=== PATIENT | male | born 1955 | race Caucasian/White ===

== ENCOUNTER 2017-06-23 14:59 | Emergency (ER) | payer MEDICAID, MEDICARE ==
[~2017-06-23] VITALS: Ht 172.7 cm; Wt 115.7 kg
[~2017-06-23 14:59] MED LIST: ALPR0.5T PO; ASA/500T3 PO; DIPH25CA79 PO; IBUP-2055 PO; LOSA50TA36 PO; METO-272 PO; NITR0.4T39 SL; PANT40TA2 PO; SUCR1TAB36 PO
--- OUTSIDE RECORDS SUMMARY | 2017-06-23 15:04 | XMS REPORT ---
Author Author AMERICO SHARMA Organization [employer] Address Unknown Phone Unavailable Care Team Providers Care Spa Manager/Esthetician Name Role Phone AMERICO SHARMA CP Unavailable Allergies No Known Allergies Problems Problem Type Condition Code Onset Dates Condition Status Problem Other and unspecified angina pectoris 413.9 Active Problem Hyperlipemia 272.4 Active Problem Other abnormal blood chemistry 790.6 Active Problem Anxiety state, unspecified 300.00 Active Problem Essential hypertension, benign 401.1 Active Problem Anxiety F41.9 Active Problem Primary insomnia F51.01 Active Problem Essential hypertension I10 Active Problem Hypertension 401.9 Active Problem CAD (coronary artery disease) 414.00 Active Problem Visual changes H53.9 Active Problem Chest pain 786.50 Active Medications Medication Code System Code Instructions Start Date End Date Status Dosage losartan NDC 0 50 mg orally 2 times a day November 28, 2014 1 tablet Results No Known Results Summary Purpose eClinicalWorks Submission
--- OUTSIDE RECORDS SUMMARY | 2017-06-23 15:04 | XMS REPORT ---
Author Author AMERICO SHARMA Organization [employer] Address Unknown Phone Unavailable Care Team Providers Care Multifocal Button Grinder Name Role Phone AMERICO SHARMA CP Unavailable Allergies No Known Allergies Problems Problem Type Condition Code Onset Dates Condition Status Problem Anxiety state, unspecified 300.00 Active Problem Hypertension 401.9 Active Problem CAD (coronary artery disease) 414.00 Active Problem Chest pain 786.50 Active Problem Other and unspecified angina pectoris 413.9 Active Problem Essential hypertension, benign 401.1 Active Problem Hyperlipemia 272.4 Active Problem Other abnormal blood chemistry 790.6 Active Medications Medication Code System Code Instructions Start Date End Date Status Dosage Metoprolol Succinate NDC 0 50 mg November 28, 2014 take 1 tablet by Oral route 1 time per day Results No Known Results Summary Purpose eClinicalWorks Submission
--- OUTSIDE RECORDS SUMMARY | 2017-06-23 15:05 | XMS REPORT ---
Author Author AMERICO SHARMA Organization [employer] Address Unknown Phone Unavailable Care Team Providers Care Category Director Name Role Phone AMERICO SHARMA CP Unavailable Allergies No Known Allergies Problems Problem Type Condition Code Onset Dates Condition Status Problem Bloody stools K92.1 Active Problem Essential hypertension I10 Active Problem Epigastric pain R10.13 Active Problem Visual changes H53.9 Active Problem Anxiety F41.9 Active Problem Primary insomnia F51.01 Active Medications Medication Code System Code Instructions Start Date End Date Status Dosage Xanax [facility] [address]-80 0.5 MG Orally Three times a day prn- appt needed before next refill 1 tablet Results No Known Results Summary Purpose eClinicalWorks Submission
--- OUTSIDE RECORDS SUMMARY | 2017-06-23 15:05 | XMS REPORT ---
Author Author JIAN BAILEY Organization [employer] Address Unknown Phone Unavailable Care Team Providers Care Head Boys Tennis Coach Name Role Phone JIAN BAILEY Unavailable Allergies No Known Allergies Problems Problem Type Condition Code Onset Dates Condition Status Problem Visual changes H53.9 Active Problem Anxiety F41.9 Active Problem Primary insomnia F51.01 Active Problem Mixed hyperlipidemia E78.2 Active Problem Pain in left knee M25.562 Active Problem Gastroesophageal reflux disease without esophagitis K21.9 Active Problem Bloody stools K92.1 Active Problem Essential hypertension I10 Active Problem Gastritis determined by endoscopy K29.70 Active Problem Epigastric pain R10.13 Active Medications No Known Medications Results No Known Results Summary Purpose eClinicalWorks Submission
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
--- OUTSIDE RECORDS SUMMARY | 2017-06-23 15:05 | XMS REPORT ---
Author Author AMERICO SHARMA Organization [employer] Address Unknown Phone Unavailable Care Team Providers Care Lip Cutter And Scorer Name Role Phone AMERICO SHARMA CP Unavailable Allergies No Known Allergies Problems Problem Type Condition Code Onset Dates Condition Status Problem Primary insomnia F51.01 Active Problem Visual changes H53.9 Active Problem Mixed hyperlipidemia E78.2 Active Problem Pain in left knee M25.562 Active Problem Gastroesophageal reflux disease without esophagitis K21.9 Active Problem Essential hypertension I10 Active Problem Anxiety F41.9 Active Problem Gastritis determined by endoscopy K29.70 Active Problem Epigastric pain R10.13 Active Medications No Known Medications Results No Known Results Summary Purpose eClinicalWorks Submission
--- OUTSIDE RECORDS SUMMARY | 2017-06-23 15:05 | XMS REPORT ---
Author Author AMERICO SHARMA Organization [employer] Address Unknown Phone Unavailable Care Team Providers Care Field Agent Name Role Phone AMERICO SHARMA CP Unavailable Allergies No Known Allergies Problems Problem Type Condition ICD-9 Code Onset Dates Condition Status Problem Anxiety [...] Start Date End Date Status Dosage Xanax [facility] [address]-96 0.5 MG Orally Three times a day PRN- Must have appt in Apr for futher refills November 28, 2014 1 tablet Results No Known Results Summary Purpose eClinicalWorks Submission
--- OUTSIDE RECORDS SUMMARY | 2017-06-23 15:05 | XMS REPORT ---
Author Author AMERICO SHARMA Organization [employer] Address Unknown Phone Unavailable Care Team Providers Care Wash Worker Name Role Phone AMERICO SHARMA CP Unavailable [...] Start Date End Date Status Dosage Xanax [facility] [address]-86 0.5 MG Orally Three times a day prn- appt needed before next refill November 28, 2014 1 tablet Results No Known Results Summary Purpose eClinicalWorks Submission
--- OUTSIDE RECORDS SUMMARY | 2017-06-23 15:05 | XMS REPORT ---
Author Author RACHELL LU Organization eClinical[employer] Address Unknown Phone Unavailable Care Team Providers Care Junior Qa Analyst Name Role Phone RACHELL LU CP Unavailable Allergies, Adverse Reactions, Alerts Substance Reaction Event Type Lexapro Suicidal ideation Drug Allergy Problems Problem Type Condition ICD-9 Code Onset Dates Condition Status Assessment Hyperlipemia 272.4 Active Problem Anxiety state, unspecified 300.00 Active Assessment Chest pain 786.50 Active Problem Hypertension 401.9 Active Problem CAD (coronary artery disease) 414.00 Active Problem Chest pain 786.50 Active Problem Other and unspecified angina pectoris 413.9 Active Problem Essential hypertension, benign 401.1 Active Problem Hyperlipemia 272.4 Active Problem Other abnormal blood chemistry 790.6 Active Assessment History of tobacco use V15.82 Active Assessment Anxiety 300.00 Active Assessment Hypertension 401.9 Active Medications Medication Code System Code Instructions Start Date End Date Status Dosage losartan NDC 0 50 mg November 28, 2014 take 1 tablet by Oral route 2 times per day REPOSITORY MED Nitrostat [facility] [address]-20 0.4 MG May 15, 2014 1 tablet by Sublingual route 3 times per day PRN chest pain; Metoprolol Succinate NDC 0 50 mg November 28, 2014 take 1 tablet by Oral route 1 time per day Repository Xanax [facility] [address]-69 0.5 MG Orally Three times a day PRN- Must have appt in Apr for futher refills November 28, 2014 1 tablet Procedures Procedure Coding System Code Date Office Visit, Est Pt., Level 4 CPT-4 38092 May 30, 2015 Vital Signs Date/Time: May 30, 2015 Temperature 97.9 F Weight 222.6 lbs Height 67 in BMI 34.86 Index Blood Pressure Diastolic 84 mmHg Blood Pressure Systolic 132 mmHg Cardiac Monitoring Heart Rate 70 bpm Results No Known Results Summary Purpose eClinicalWorks Submission
--- OUTSIDE RECORDS SUMMARY | 2017-06-23 15:05 | XMS REPORT ---
Author Author AMERICO SHARMA Organization [employer] Address Unknown Phone Unavailable Care Team Providers Care Entry Level Sales Consultant Name Role Phone AMERICO SHARMA CP Unavailable [...] route 2 times per day REPOSITORY MED Results No Known Results Summary Purpose eClinicalWorks Submission
--- OUTSIDE RECORDS SUMMARY | 2017-06-23 15:05 | XMS REPORT ---
Author Author AMERICO SHARMA Organization [employer] Address Unknown Phone Unavailable Care Team Providers Care Receiving Associate Store Name Role Phone AMERICO SHARMA CP Unavailable [...] Start Date End Date Status Dosage Xanax [facility] [address]-99 0.5 MG Orally Three times a day prn November 28, 2014 1 tablet Results No Known Results Summary Purpose eClinicalWorks Submission
--- OUTSIDE RECORDS SUMMARY | 2017-06-23 15:05 | XMS REPORT ---
Author Author AMERICO SHARMA Organization [employer] Address Unknown Phone Unavailable Care Team Providers Care Branch Operations Specialist Name Role Phone AMERICO SHARMA CP Unavailable [...] Start Date End Date Status Dosage Xanax [facility] [address]-97 0.5 MG Orally Three times a day PRN- Must have appt in Nov before due for next refill November 28, 2014 1 tablet Results No Known Results Summary Purpose eClinicalWorks Submission
--- OUTSIDE RECORDS SUMMARY | 2017-06-23 15:05 | XMS REPORT ---
Author Author AMERICO SHARMA Organization [employer] Address Unknown Phone Unavailable Care Team Providers Care Mgmt Specialist Name Role Phone AMERICO SHARMA CP [...] Active Problem Epigastric pain R10.13 Active Medications Medication Code System Code Instructions Start Date End Date Status Dosage Xanax [facility] [address]-51 0.5 MG Orally Three times a day prn- must last 28 days 1 tablet Results No Known Results Summary Purpose eClinicalWorks Submission
--- OUTSIDE RECORDS SUMMARY | 2017-06-23 15:05 | XMS REPORT ---
Author Author AMERICO SHARMA [facility] eClinicalWorks Address Unknown Phone Unavailable Care Team Providers Care Community Development Aide Name Role Phone AMERICO SHARMA CP Unavailable [...]
--- OUTSIDE RECORDS SUMMARY | 2017-06-23 15:05 | XMS REPORT ---
Author Author AMERICO SHARMA [facility] Address [address] [place] [address] Care Team Providers Care Tufter Name Role Phone AMERICO SHARMA Unavailable PROBLEMS Type Condition ICD9-CM Code XHI03-KR Code Onset Dates Condition Status SNOMED Code Problem Visual changes H53.9 Active 79623066 Problem Anxiety F41.9 Active 49507834 Problem Primary insomnia F51.01 Active 6056821 Problem Gastroesophageal reflux disease without esophagitis K21.9 Active 673876472 Problem Mixed hyperlipidemia E78.2 Active 032340261 Problem Epigastric pain R10.13 Active 75419030 Problem Essential hypertension I10 Active 71167924 Problem Pain in left knee M25.562 Active 47948994 Problem Gastritis determined by endoscopy K29.70 Active 2963688 ALLERGIES Unknown Allergies SOCIAL HISTORY No smoking Hx information available PLAN OF CARE VITAL SIGNS MEDICATIONS Medication Instructions Dosage Frequency Start Date End Date Duration Status Xanax 0.5 MG Orally Three times a day prn- must last 28 days 1 tablet Active RESULTS No Results PROCEDURES No Known procedures IMMUNIZATIONS No Known Immunizations
--- OUTSIDE RECORDS SUMMARY | 2017-06-23 15:05 | XMS REPORT ---
Author Author AMERICO SHARMA [facility] Address [address] [place] [address] Care Team Providers Care Repair Service Clerk Name Role Phone AMERICO SHARMA Unavailable PROBLEMS Type Condition ICD9-CM Code [id number] Code Onset Dates Condition Status SNOMED Code Problem Visual changes H53.9 Active 29439900 Problem Anxiety F41.9 Active 08067047 Problem Essential hypertension I10 Active 59957277 Problem Primary insomnia F51.01 Active 0373663 Problem Primary osteoarthritis of left knee M17.12 Active 529066462 Problem Gastritis determined by endoscopy K29.70 Active 1097216 Problem Gastroesophageal reflux disease without esophagitis K21.9 Active 926257278 Problem Epigastric pain R10.13 Active 10986019 Problem Pain in left knee M25.562 Active 18172848 Problem Mixed hyperlipidemia E78.2 Active 651460258 ALLERGIES Unknown Allergies SOCIAL HISTORY No smoking Hx information available PLAN OF CARE VITAL SIGNS MEDICATIONS Medication Instructions Dosage Frequency Start Date End Date Duration Status Xanax 0.5 MG Orally Three times a day prn 1 tablet Active RESULTS No Results PROCEDURES No Known procedures IMMUNIZATIONS No Known Immunizations
--- OUTSIDE RECORDS SUMMARY | 2017-06-23 15:06 | XMS REPORT ---
Author AMERICO [facility] eClinicalWorks Address Unknown Phone Unavailable Care Team Providers Care Parking Enforcement Technician Name Role Phone AMERICO SHARMA Unavailable Allergies, Adverse Reactions, Alerts Substance Reaction Event Type Lexapro Suicidal ideation Drug Allergy Problems Problem Type Condition Code Onset Dates Condition Status Assessment Essential hypertension I10 Active Problem Primary insomnia F51.01 Active Problem Visual changes H53.9 Active Problem Mixed hyperlipidemia E78.2 Active Problem Pain in left knee M25.562 Active Problem Gastroesophageal reflux disease without esophagitis K21.9 Active Problem Essential hypertension I10 Active Problem Anxiety F41.9 Active Problem Gastritis determined by endoscopy K29.70 Active Problem Epigastric pain R10.13 Active Assessment Pain in left knee M25.562 Active Assessment Mixed hyperlipidemia E78.2 Active Assessment Primary insomnia F51.01 Active Assessment Gastritis determined by endoscopy K29.70 Active Assessment Anxiety F41.9 Active Medications Medication Code System Code Instructions Start Date End Date Status Dosage Benadryl [facility] [address]-54 not defined Sucralfate [facility] [address]-12 1 GM Orally 4 times a day 1 tablet on an empty stomach Xanax [facility] [address]-46 0.5 MG Orally Three times a day prn 1 tablet Metoprolol Succinate ER [facility] [id number] 50 MG TAKE ONE TABLET BY MOUTH TWICE DAILY. Metoprolol Succinate NDC 0 50 mg Orally 2 times a day 1 tablet by Oral route 1 time per day Pantoprazole Sodium [facility] [address]-16 40 mg Orally Once a day 1 tablet losartan NDC 0 50 mg orally 2 times a day 1 tablet Trazodone HCl [facility] 82771534499 100 MG Orally Once a day 1 tablet at bedtime Procedures Procedure Coding System Code Date Office Visit, Est Pt., Level 4 CPT-4 84815 Aug 18, 2016 Vital Signs Date/Time: Aug 18, 2016 Cardiac Monitoring Heart Rate 82 bpm Weight 244.0 lbs Height 67 in BMI 38.21 Index Blood Pressure Diastolic 86 mmHg Blood Pressure Systolic 138 mmHg Results No Known Results Summary Purpose eClinicalWorks Submission
--- OUTSIDE RECORDS SUMMARY | 2017-06-23 15:06 | XMS REPORT ---
Author Author AMERICO SHARMA [facility] Address [address] [place] [address] Care Team Providers Care Gasoline Engine Assembler Name Role Phone AMERICO SHARMA Unavailable PROBLEMS Type Condition ICD9-CM Code [id number] Code Onset Dates Condition Status SNOMED Code Problem Primary insomnia F51.01 Active 2838045 Problem Essential hypertension I10 Active 07799698 Problem Anxiety F41.9 Active 72017591 Problem Visual changes H53.9 Active 72434855 Problem Primary osteoarthritis of left knee M17.12 Active 364198425 Problem Gastroesophageal reflux disease without esophagitis K21.9 Active 365100006 Problem Gastritis determined by endoscopy K29.70 Active 2541876 Problem Epigastric pain R10.13 Active 12942363 Problem Mixed hyperlipidemia E78.2 Active 431931380 Problem Pain in left knee M25.562 Active 14613621 ALLERGIES Unknown Allergies SOCIAL HISTORY No smoking Hx information available PLAN OF CARE VITAL SIGNS MEDICATIONS Medication Instructions Dosage Frequency Start Date End Date Duration Status Xanax 0.5 MG Orally Three times a day prn 1 tablet Active RESULTS No Results PROCEDURES No Known procedures IMMUNIZATIONS No Known Immunizations
--- OUTSIDE RECORDS SUMMARY | 2017-06-23 15:06 | XMS REPORT ---
Author Author AMERICO SHARMA [facility] eClinicalWorks Address Unknown Phone Unavailable Care Team Providers Care Drapery Hand Name Role Phone AMERICO SHARMA Unavailable Allergies, [...] Active Problem Epigastric pain R10.13 Active Assessment Mixed hyperlipidemia E78.2 Active Assessment Primary insomnia F51.01 Active Assessment Gastritis determined by endoscopy K29.70 Active Assessment Anxiety F41.9 Active Assessment Pain in left knee M25.562 Active Assessment Essential hypertension I10 Active Medications Medication Code System Code Instructions Start Date End Date Status Dosage Sucralfate [facility] [address]-41 1 GM Orally 4 times a day 1 tablet on an empty stomach Pantoprazole Sodium [facility] [address]-34 40 mg Orally Once a day 1 tablet Benadryl [facility] [address]-92 not defined Metoprolol Succinate ER [facility] 11531095734 50 MG TAKE ONE TABLET BY MOUTH TWICE DAILY. Xanax [facility] [address]-93 0.5 MG Orally Three times a day prn 1 tablet losartan NDC 0 50 mg orally 2 times a day 1 tablet Trazodone HCl [facility] 55174751644 100 MG Orally Once a day 1 tablet at bedtime Metoprolol Succinate NDC 0 50 mg Orally 2 times a day 1 tablet by Oral route 1 time per day PredniSONE [facility] [address]-82 10 mg Orally twice a day May 19, 2016Apr 1 tablet Procedures Procedure Coding System Code Date LIPID PANEL CPT-4 76908 May 19, 2016 COMPREHEN METABOLIC PANEL CPT-4 15313 May 19, 2016 X-RAY EXAM OF KNEE, 3 CPT-4 69757 May 19, 2016 ASSAY OF MAGNESIUM CPT-4 41699 May 19, 2016 ASSAY THYROID STIM HORMONE CPT-4 16916 May 19, 2016 VENIPUNCT, ROUTINE* CPT-4 65339 May 19, 2016 Office Visit, Est Pt., Level 4 CPT-4 84920 May 19, 2016 Vital Signs Date/Time: May 19, 2016 Cardiac Monitoring Heart Rate 72 bpm Weight 243.6 lbs Height 67 in BMI 38.15 Index Blood Pressure Diastolic 88 mmHg Blood Pressure Systolic 142 mmHg Results No Known Results Summary Purpose eClinicalWorks Submission
--- OUTSIDE RECORDS SUMMARY | 2017-06-23 15:06 | XMS REPORT ---
Author Author AMERICO SHARMA Organization e[employer] Address Unknown Phone Unavailable Care Team Providers Care Weaving Teacher Name Role Phone AMERICO SHARMA CP Unavailable [...] Date End Date Status Dosage Xanax [facility] [address]-28 0.5 MG Orally Three times a day prn- Must keep appt on 08/13 for futher refills November 28, 2014 1 tablet Results No Known Results Summary Purpose eClinicalWorks Submission
--- OUTSIDE RECORDS SUMMARY | 2017-06-23 15:06 | XMS REPORT ---
Author Author AMERICO SHARMA [facility] Address [address] [place] [address] Care Team Providers Care Treatment Counselor Name Role Phone AMERICO SHARMA Unavailable PROBLEMS Type Condition ICD9-CM Code [id number] Code Onset Dates Condition Status SNOMED Code Problem Visual changes H53.9 Active 03841302 Problem Anxiety F41.9 Active 64634892 Problem Primary insomnia F51.01 Active 9201986 Assessment Pain in left knee M25.562 12 May, 2016 Active 27510975 Problem Gastroesophageal reflux disease without esophagitis K21.9 Active 495563790 Problem Mixed hyperlipidemia E78.2 Active 468713020 Problem Epigastric pain R10.13 Active 47112511 Problem Essential hypertension I10 Active 78762418 Problem Pain in left knee M25.562 Active 45424113 Problem Gastritis determined by endoscopy K29.70 Active 0755368 ALLERGIES Unknown Allergies SOCIAL HISTORY No smoking Hx information available PLAN OF CARE VITAL SIGNS MEDICATIONS Unknown Medications RESULTS No Results PROCEDURES No Known procedures IMMUNIZATIONS No Known Immunizations
--- OUTSIDE RECORDS SUMMARY | 2017-06-23 15:06 | XMS REPORT ---
Author Author AMERICO SHARMA Organization [employer] Address Unknown Phone Unavailable Care Team Providers Care Full Stack Developer Name Role Phone AMERICO SHARMA CP Unavailable [...] Start Date End Date Status Dosage Xanax [facility] [address]-85 0.5 MG Orally Three times a day prn- must last until seen 1 tablet Results No Known Results Summary Purpose eClinicalWorks Submission
--- OUTSIDE RECORDS SUMMARY | 2017-06-23 15:06 | XMS REPORT ---
Author Author AMERICO SHARMA [facility] [employer] Address Unknown Phone Unavailable Care Team Providers Care Title Department Manager Name Role Phone AMERICO SHARMA Unavailable Allergies, Adverse Reactions, Alerts Substance Reaction Event Type Lexapro Suicidal ideation Drug Allergy Problems Problem Type Condition Code Onset Dates Condition Status Problem Other and unspecified angina pectoris 413.9 Active Problem Hyperlipemia 272.4 Active Problem Other abnormal blood chemistry 790.6 Active Problem Anxiety F41.9 Active Problem Primary insomnia F51.01 Active Problem Essential hypertension I10 Active Problem Hypertension 401.9 Active Problem CAD (coronary artery disease) 414.00 Active Problem Visual changes H53.9 Active Problem Chest pain 786.50 Active Assessment Anxiety F41.9 Active Assessment Essential hypertension I10 Active Assessment Visual changes H53.9 Active Problem Anxiety state, unspecified 300.00 Active Assessment Primary insomnia F51.01 Active Problem Essential hypertension, benign 401.1 Active Medications Medication Code System Code Instructions Start Date End Date Status Dosage Trazodone HCl [facility] [address]-70 100 MG Orally Once a day Aug 13, 2015 1 tablet at bedtime losartan NDC 0 50 mg November 28, 2014 take 1 tablet by Oral route 2 times per day REPOSITORY MED Metoprolol Succinate NDC 0 50 MG Orally 2 times a day November 28, 2014 1 tablet by Oral route 1 time per day Xanax [facility] [address]-80 0.5 MG Orally Three times a day prn- Must keep appt on 08/13 for futher refills November 28, 2014 1 tablet Nitrostat [facility] [address]-76 0.4 MG May 15, 2014 1 tablet by Sublingual route 3 times per day PRN chest pain; Procedures Procedure Coding System Code Date ASSAY OF MAGNESIUM CPT-4 11835 Aug 13, 2015 COMPREHEN METABOLIC PANEL CPT-4 98458 Aug 13, 2015 VISUAL ACUITY SCREEN CPT-4 17267 Aug 13, 2015 Office Visit, Est Pt., Level 4 CPT-4 08834 Aug 13, 2015 VENIPUNCT, ROUTINE* CPT-4 87587 Aug 13, 2015 Vital Signs Date/Time: Aug 13, 2015 Temperature 98.1 F Weight 229.7 lbs Height 67 in BMI 35.97 Index Blood Pressure Diastolic 98 mmHg Blood Pressure Systolic 160 mmHg Cardiac Monitoring Heart Rate 88 bpm Results Name Result Date Reference Range Unit Abnormality Flag ROUTINE VENIPUNCTURE MAGNESIUM, SERUM Summary Purpose [employer] Submission
--- OUTSIDE RECORDS SUMMARY | 2017-06-23 15:06 | XMS REPORT ---
Author Author MARLY APODACA Organization [facility] Address [address] [place] [address] Care Team Providers Care Leather Grainer Name Role Phone MARLY APODACA Unavailable PROBLEMS Type Condition ICD9-CM Code [id number] Code Onset Dates Condition Status SNOMED Code Problem Visual changes H53.9 Active 67940216 Problem Anxiety F41.9 Active 60943261 Problem Essential hypertension I10 Active 15982786 Problem Primary insomnia F51.01 Active 5791620 Problem Primary osteoarthritis of left knee M17.12 Active 643589519 Problem Gastritis determined by endoscopy K29.70 Active 4835148 Problem Gastroesophageal reflux disease without esophagitis K21.9 Active 150387118 Problem Epigastric pain R10.13 Active 10051769 Problem Pain in left knee M25.562 Active 40495389 Problem Mixed hyperlipidemia E78.2 Active [id number] ALLERGIES No Information SOCIAL HISTORY Never Assessed PLAN OF CARE VITAL SIGNS MEDICATIONS Medication Instructions Dosage Frequency Start Date End Date Duration Status Xanax 0.5 MG Orally Three times a day prn 1 tablet Active RESULTS No Results PROCEDURES No Known procedures IMMUNIZATIONS No Known Immunizations MEDICAL (GENERAL) HISTORY [...] hyperplastic polyp 2015 Surgical History Carotid Doppler 2016 Hospitalization History hypertensive crisis 11/2012
--- OUTSIDE RECORDS SUMMARY | 2017-06-23 15:06 | XMS REPORT ---
Author Author ROBERT Luo [facility] Address Unknown Care Team Providers Care Electronics Processor Name Role Phone ROBERT Luo Unavailable PROBLEMS Type Condition ICD9-CM Code [id number] Code Onset Dates Condition Status SNOMED Code Problem Visual changes H53.9 Active 27746159 Problem Anxiety F41.9 Active 81027340 Problem Essential hypertension I10 Active 10187653 Problem Primary insomnia F51.01 Active 2958781 Problem Primary osteoarthritis of left knee M17.12 Active 772367975 Problem Gastritis determined by endoscopy K29.70 Active 7686217 Problem Gastroesophageal reflux disease without esophagitis K21.9 Active 007521877 Problem Epigastric pain R10.13 Active 11246016 Problem Pain in left knee M25.562 Active 39011725 Problem Mixed hyperlipidemia E78.2 Active 937343653 ALLERGIES Substance Reaction Event Type Date Status Lexapro Suicidal ideation Drug Allergy Sep, Active SOCIAL HISTORY No smoking Hx information available PLAN OF CARE Activity Details Follow Up 2 Weeks Reason:te and filling at the same appointment per Dr lorenzana VITAL SIGNS Height 67 in 2016-10-19 Blood pressure systolic 150 mmHg 2016-10-19 Blood pressure diastolic 104 mmHg 2016-10-19 MEDICATIONS Medication Instructions Dosage Frequency Start Date End Date Duration Status Amoxicillin 500 MG Orally Four times a day 1 capsule 6h Sep, Sep, 7 days Active Benadryl Active lipitor 1 tab Active Trazodone HCl 100 MG Orally Once a day 1 tablet at bedtime 24h Active losartan 50 mg orally 2 times a day 1 tablet 12h Active Xanax 0.5 MG Orally Three times a day prn 1 tablet Active protonix 1 tab Active RESULTS No Results PROCEDURES Procedure Date Ordered Related Diagnosis Body Site LTD ORAL EVALUATION - PROBLEM FOCUS Oct 19, 2016 INTRAORL-PERIAPICAL 1 FILM 51167 Oct 19, 2016 INTRAORL-PERIAPICAL EA ADD FILM Oct 19, 2016 IMMUNIZATIONS No Known Immunizations
--- OUTSIDE RECORDS SUMMARY | 2017-06-23 15:06 | XMS REPORT ---
Author Author AMERICO SHARMA Organization [employer] Address Unknown Phone Unavailable Care Team Providers Care Tugboat Pilot Name Role Phone AMERICO SHARMA CP Unavailable Allergies No Known Allergies Problems Problem Type Condition ICD-9 Code Onset Dates Condition Status Assessment Hypertension 401.9 Active Problem Anxiety state, unspecified 300.00 Active Assessment Chest pain 786.50 Active Problem Hypertension 401.9 Active Problem CAD (coronary artery disease) 414.00 Active Problem Chest pain 786.50 Active Problem Other and unspecified angina pectoris 413.9 Active Problem Essential hypertension, benign 401.1 Active Problem Hyperlipemia 272.4 Active Problem Other abnormal blood chemistry 790.6 Active Medications No Known Medications Results No Known Results Summary Purpose [employer]Clinical[employer] Submission
--- OUTSIDE RECORDS SUMMARY | 2017-06-23 15:07 | XMS REPORT | Continuity of Care Document ---
Author Author [facility] Address Unknown Phone Unavailable Allergies Active Description Code Type Severity Reaction Onset Reported/Identified Relationship to Patient Clinical Status Yes No Known Drug Allergies [id number] Drug Allergy Unknown N/ A 02/04/2016 Yes escitalopram [id number] Drug Allergy Severe N/A 02/12/2016 Medications Problems Date Dx Coded Attending Type Code Diagnosis Diagnosed By 05/15/2014 MADL CERTIFIED MEDICATION AIDE, AMERICO L 300.00 ANXIETY UNSPEC 05/15/2014 MADL CERTIFIED MEDICATION AIDE, AMERICO L 401.1 BENIGN ESSENTIAL HYPERTENSION 05/15/2014 MADL CERTIFIED MEDICATION AIDE, AMERICO L 300.00 ANXIETY UNSPEC 05/15/2014 MADL CERTIFIED MEDICATION AIDE, AMERICO L 401.1 BENIGN ESSENTIAL HYPERTENSION 05/15/2014 MADL CERTIFIED MEDICATION AIDE, AMERICO L 300.00 ANXIETY UNSPEC 05/15/2014 MADL CERTIFIED MEDICATION AIDE, AMERICO L 401.1 BENIGN ESSENTIAL HYPERTENSION 05/15/2014 IRWIN DO, MADYSON K 300.00 ANXIETY UNSPEC 05/15/2014 IRWIN DO, MADYSON K 401.1 BENIGN ESSENTIAL HYPERTENSION 05/15/2014 AYOUB CERTIFIED MEDICATION AIDE, SWEETIE R 300.00 ANXIETY UNSPEC 05/15/2014 MEGA TSANG SWEETIE R 401.1 BENIGN ESSENTIAL HYPERTENSION 05/15/2014 MADL CERTIFIED MEDICATION AIDE, AMERICO L 300.00 ANXIETY UNSPEC 05/15/2014 MADL CERTIFIED MEDICATION AIDE, AMERICO L 401.1 BENIGN ESSENTIAL HYPERTENSION 05/15/2014 IRWIN DO, MADYSON K 300.00 ANXIETY UNSPEC 05/15/2014 IRWIN DO, MADYSON K 401.1 BENIGN ESSENTIAL HYPERTENSION 05/15/2014 MADL CERTIFIED MEDICATION AIDE, AMERICO L 300.00 ANXIETY UNSPEC 05/15/2014 MADL CERTIFIED MEDICATION AIDE, AMERICO L 401.1 BENIGN ESSENTIAL HYPERTENSION 05/15/2014 MADL CERTIFIED MEDICATION AIDE, AMERICO L 300.00 ANXIETY UNSPEC 05/15/2014 MADL CERTIFIED MEDICATION AIDE, MAERICO L 401.1 BENIGN ESSENTIAL HYPERTENSION 05/15/2014 MADL CERTIFIED MEDICATION AIDE, AMERICO L 300.00 ANXIETY UNSPEC 05/15/2014 MADL CERTIFIED MEDICATION AIDE, AMERICO L 401.1 BENIGN ESSENTIAL HYPERTENSION 05/29/2014 MADL CERTIFIED MEDICATION AIDE, AMERICO L 413.9 ANGINA PECTORIS 05/29/2014 MADL CERTIFIED MEDICATION AIDE, AMERICO L 413.9 ANGINA PECTORIS 05/29/2014 KRISTOPHER IRWIN DOA K 413.9 ANGINA PECTORIS 05/29/2014 AYOUB CERTIFIED MEDICATION AIDEBRE MccainIA R 413.9 ANGINA PECTORIS 05/29/2014 MADL CERTIFIED MEDICATION AIDE, AMERICO L 413.9 ANGINA PECTORIS 05/29/2014 IRWIN DOKRISTOPHERA K 413.9 ANGINA PECTORIS 05/29/2014 MADL CERTIFIED MEDICATION AIDE, AMERICO L 413.9 ANGINA PECTORIS 05/29/2014 MADL CERTIFIED MEDICATION AIDE, AMERICO L 413.9 ANGINA PECTORIS 05/29/2014 MADL CERTIFIED MEDICATION AIDE, AMERICO L 413.9 ANGINA PECTORIS 07/11/2014 IRWIN MADYSON DENIS K V04.81 FLU SHOT 07/11/2014 BRE AYOUB APRNIA R V04.81 FLU SHOT 07/11/2014 MADL CERTIFIED MEDICATION AIDE, AMERICO L V04.81 FLU SHOT 07/11/2014 IRWIN DOKRISTOPHERA K V04.81 FLU SHOT 07/11/2014 MADL CERTIFIED MEDICATION AIDE, AMERICO L V04.81 FLU SHOT 07/11/2014 MADL CERTIFIED MEDICATION AIDE, AMERICO L V04.81 FLU SHOT 07/11/2014 MADL CERTIFIED MEDICATION AIDE, AMERICO L V04.81 FLU SHOT 08/30/2014 SWEETIE AYOUB APRN R V70.5 HEALTH EXAMINATION OF DEFINED SUBPOPULATIONS 08/30/2014 MADL CERTIFIED MEDICATION AIDE, AMERICO L V70.5 HEALTH EXAMINATION OF DEFINED SUBPOPULATIONS 08/30/2014 MADYSON IRWIN DO K V70.5 HEALTH EXAMINATION OF DEFINED SUBPOPULATIONS 08/30/2014 MADL CERTIFIED MEDICATION AIDE, AMERICO L V70.5 HEALTH EXAMINATION OF DEFINED SUBPOPULATIONS 08/30/2014 MADL CERTIFIED MEDICATION AIDE, AMERICO L V70.5 HEALTH EXAMINATION OF DEFINED SUBPOPULATIONS 08/30/2014 MADL CERTIFIED MEDICATION AIDE, AMERICO L V70.5 HEALTH EXAMINATION OF DEFINED SUBPOPULATIONS 09/27/2014 MADYSON IRWIN DO K 790.6 ABNORMAL LFT (LIVER FUNCTION TEST) 09/27/2014 AMERICO SHARMA APRN L 790.6 ABNORMAL LFT (LIVER FUNCTION TEST) 09/27/2014 EDITH CERTIFIED MEDICATION AIDEAMERICO Mccain L 790.6 ABNORMAL LFT (LIVER FUNCTION TEST) 09/27/2014 EDITH TSANG, AMERICO L 790.6 ABNORMAL LFT (LIVER FUNCTION TEST) 03/05/2015 Ot 300.00 03/05/2015 Ot 401.1 03/05/2015 Ot 790.5 03/05/2015 Ot 300.00 03/05/2015 Ot 401.1 03/05/2015 Ot 790.5 04/22/2015 Ot 300.00 04/22/2015 Ot 401.1 04/22/2015 Ot 790.5 04/25/2015 Ot 300.00 04/25/2015 Ot 401.1 04/25/2015 Ot 790.5 05/26/2015 Ot 300.00 05/26/2015 Ot 401.1 05/26/2015 Ot 790.5 05/27/2015 Ot 300.00 05/27/2015 Ot 401.1 05/27/2015 Ot 790.5 06/11/2015 RACHELL CHANDLER MD Ot 070.70 UNSPECIFIED VIRAL HEPATITIS C WITHOUT HE 06/11/2015 RACHELL CHANDLER MD Ot 272.4 HYPERLIPIDEMIA NEC/NOS 06/11/2015 RACHELL CHANDLER MD Ot 300.00 ANXIETY STATE NOS 06/11/2015 RACHELL CHANDLER MD Ot 401.9 HYPERTENSION NOS 06/11/2015 RACHELL CHANDLER MD Ot 414.01 CORONARY ATHEROSCLEROSIS OF [place] CORON 06/11/2015 RACHELL CHANDLER MD Ot 786.50 CHEST PAIN NOS 06/11/2015 RACHELL CHANDLER MD Ot 794.30 ABN CARDIOVASC STUDY NOS 06/11/2015 RACHELL CHANDLER MD Ot V15.82 HISTORY OF TOBACCO USE 06/11/2015 RACHELL CHANDLER MD Ot V58.69 OTH MED,LT,CURRENT USE 06/23/2015 Ot 300.00 06/23/2015 Ot 401.1 06/23/2015 Ot 790.5 06/23/2015 GARAY-BARBARA PA, JOSE K Ot 272.4 06/23/2015 GARAY-BARBARA PA, JOSE K Ot 401.9 06/23/2015 GARAY-BARBARA PA, JOSE K Ot 786.50 06/23/2015 GARAY-BARBARA PA, JOSE K Ot V15.82 06/23/2015 GARAY-BARBARA PA, JOSE K Ot 401.9 06/23/2015 GARAY-BARBARA PA, JOSE K Ot 786.50 06/23/2015 GARAY-BARBARA PA, JOSE K Ot V15.82 06/25/2015 QUINTEN ANDERSON, FERMIN Torres Ot V68.01 06/25/2015 QUINTEN ANDERSON, FERMIN Torres Ot V82.89 07/10/2015 Ot 300.00 07/10/2015 Ot 401.1 07/10/2015 Ot 790.5 07/10/2015 GARAY-BARBARA PA, JOSE K Ot 401.9 07/10/2015 GARAY-BARBARA PA, JOSE K Ot 786.50 07/10/2015 GARAY-BARBARA PA, JOSE K Ot V15.82 07/10/2015 GARAY-BARBARA PA, JOSE K Ot 272.4 07/10/2015 GARAY-BARBARA PA, JOSE K Ot 401.9 07/10/2015 GARAY-BARBARA PA, JOSE K Ot 786.50 07/10/2015 GARAY-BARBARA PA, JOSE K Ot V15.82 07/15/2015 GARAY-BARBARA PA, JOSE K Ot 272.4 07/15/2015 GARAY-BARBARA PA, JOSE K Ot 401.9 07/15/2015 GARAY-BARBARA PA, JOSE K Ot 786.50 07/15/2015 GARAY-BARBARA PA, JOSE K Ot V15.82 07/15/2015 GARAY-BARBARA PA, JOSE K Ot 401.9 07/15/2015 GARAY-BARBARA PA, JOSE K Ot 786.50 07/15/2015 GARAY-BARBARA PA, JOSE K Ot V15.82 07/15/2015 GARAY-BARBARA PA, JOSE K Ot 272.4 07/15/2015 GARAY-BARBARA PA, JOSE K Ot 401.9 07/15/2015 JOSE BUNDY Ot 786.50 07/15/2015 JOSE BUNDY Ot V15.82 07/23/2015 JOSE BUNDY Ot 272.4 07/23/2015 JOSE BUNDY Ot 401.9 07/23/2015 JOSE BUNDY Ot 786.50 07/23/2015 JOSE BUNDY Ot V15.82 07/23/2015 JOSE BUNDY Ot 401.9 07/23/2015 JOSE BUNDY Ot 786.50 07/23/2015 JOSE BUNDY Ot V15.82 01/16/2016 ELBA JOHNSON DO Ot R07.9 CHEST PAIN, UNSPECIFIED 01/16/2016 ELBA JOHNSON DO Ot Z01.818 ENCOUNTER FOR OTHER PREPROCEDURAL EXAMIN 01/16/2016 ELBA JOHNSON DO Ot Z12.11 ENCOUNTER FOR SCREENING FOR MALIGNANT NE 02/04/2016 JOHNSON ELBA DENIS Ot R07.9 CHEST PAIN, UNSPECIFIED 02/04/2016 ELBA JOHNSON DO Ot Z01.818 ENCOUNTER FOR OTHER PREPROCEDURAL EXAMIN 02/04/2016 ELBA JOHNSON DO Ot Z12.11 ENCOUNTER FOR SCREENING FOR MALIGNANT NE 02/05/2016 ELBA JOHNSON DO Ot R07.9 CHEST PAIN, UNSPECIFIED 02/05/2016 ELBA JOHNSON DO Ot Z01.818 ENCOUNTER FOR OTHER PREPROCEDURAL EXAMIN 02/05/2016 JOHNSON ELBA DENIS Ot Z12.11 ENCOUNTER FOR SCREENING FOR MALIGNANT NE 02/12/2016 Ot 300.00 ANXIETY STATE NOS 02/12/2016 Ot 401.1 BENIGN HYPERTENSION 02/12/2016 Ot 790.5 ABN SERUM ENZY LEVEL NEC 02/12/2016 JOSE BUNDY Ot 272.4 HYPERLIPIDEMIA NEC/NOS 02/12/2016 JOSE BUNDY Ot 401.9 HYPERTENSION NOS 02/12/2016 JOSE BUNDY Ot 786.50 CHEST PAIN NOS 02/12/2016 JOSE BUNDY Ot V15.82 HISTORY OF TOBACCO USE 02/12/2016 JOSE BUNDY Ot 401.9 HYPERTENSION NOS 02/12/2016 JOSE BUNDY Ot 786.50 CHEST PAIN NOS 02/12/2016 JOSE BUNDY Ot V15.82 HISTORY OF TOBACCO USE 02/12/2016 FERMIN SHIPLEY MD Ot V68.01 DISABILITY EXAMINATION 02/12/2016 FERMIN SHIPLEY MD Ot V82.89 SCREEN FOR OTH SPECIF CONDITIONS 02/12/2016 ELBA JOHNSON DO Ot R07.9 CHEST PAIN, UNSPECIFIED 02/12/2016 ELBA JOHNSON DO Ot Z01.818 ENCOUNTER FOR OTHER PREPROCEDURAL EXAMIN 02/12/2016 ELBA JOHNSON DO Ot Z12.11 ENCOUNTER FOR SCREENING FOR MALIGNANT NE 02/12/2016 ELBA JOHNSON DO Ot K20.9 ESOPHAGITIS, UNSPECIFIED 02/12/2016 ELBA JOHNSON DO Ot K29.70 GASTRITIS, UNSPECIFIED, WITHOUT BLEEDING 02/12/2016 JOHNSON ELBA DENIS Ot K44.9 DIAPHRAGMATIC HERNIA WITHOUT OBSTRUCTION 02/12/2016 ELBA JOHNSON DO Ot K62.1 RECTAL POLYP 02/12/2016 ELBA JOHNSON DO Ot Z12.11 ENCOUNTER FOR SCREENING FOR MALIGNANT NE 02/17/2016 ELBA JOHNSON DO Ot K20.9 ESOPHAGITIS, UNSPECIFIED 02/17/2016 ELBA JOHNSON DO Ot K29.70 GASTRITIS, UNSPECIFIED, WITHOUT BLEEDING 02/17/2016 ELBA JOHNSON DO Ot K44.9 DIAPHRAGMATIC HERNIA WITHOUT OBSTRUCTION 02/17/2016 ELBA JOHNSON DO Ot K62.1 RECTAL POLYP 02/17/2016 ELBA JOHNSON DO Ot Z12.11 ENCOUNTER FOR SCREENING FOR MALIGNANT NE 02/27/2016 ELBA JOHNSON DO Ot R07.9 CHEST PAIN, UNSPECIFIED 02/27/2016 ELBA JOHNSON DO Ot Z01.818 ENCOUNTER FOR OTHER PREPROCEDURAL EXAMIN 02/27/2016 ELBA JOHNSON DO Ot Z12.11 ENCOUNTER FOR SCREENING FOR MALIGNANT NE 04/15/2016 Ot 300.00 ANXIETY STATE NOS 04/15/2016 Ot 401.1 BENIGN HYPERTENSION 04/15/2016 Ot 790.5 ABN SERUM ENZY LEVEL NEC 04/15/2016 JOSE BUNDY Ot 272.4 HYPERLIPIDEMIA NEC/NOS 04/15/2016 JOSE BUNDY Ot 401.9 HYPERTENSION NOS 04/15/2016 JOSE BUNDY Ot 786.50 CHEST PAIN NOS 04/15/2016 JOSE BUNDY Ot V15.82 HISTORY OF TOBACCO USE 04/15/2016 JOSE BUNDY Ot 401.9 HYPERTENSION NOS 04/15/2016 JOSE BUNDY Ot 786.50 CHEST PAIN NOS 04/15/2016 JOSE BUNDY Ot V15.82 HISTORY OF TOBACCO USE 04/15/2016 FERMIN SHIPLEY MD Ot V68.01 DISABILITY EXAMINATION 04/15/2016 FERMIN SHIPLEY MD Ot V82.89 SCREEN FOR OTH SPECIF CONDITIONS 04/15/2016 ELBA JOHNSON DO Ot R07.9 CHEST PAIN, UNSPECIFIED 04/15/2016 ELBA JOHNSON DO Ot Z01.818 ENCOUNTER FOR OTHER PREPROCEDURAL EXAMIN 04/15/2016 ELBA JOHNSON DO Ot Z12.11 ENCOUNTER FOR SCREENING FOR MALIGNANT NE 06/18/2016 Ot 300.00 ANXIETY STATE NOS 06/18/2016 Ot 401.1 BENIGN HYPERTENSION 06/18/2016 Ot 790.5 ABN SERUM ENZY LEVEL NEC 06/18/2016 JOSE BUNDY Ot 272.4 HYPERLIPIDEMIA NEC/NOS 06/18/2016 JOSE BUNDY Ot 401.9 HYPERTENSION NOS 06/18/2016 JOSE BUNDY Ot 786.50 CHEST PAIN NOS 06/18/2016 JOSE BUNDY Ot V15.82 HISTORY OF TOBACCO USE 06/18/2016 JOSE BUNDY Ot 401.9 HYPERTENSION NOS 06/18/2016 JOSE BUNDY Ot 786.50 CHEST PAIN NOS 06/18/2016 JOSE BUNDY Ot V15.82 HISTORY OF TOBACCO USE 06/18/2016 FERMIN SHIPLEY MD Ot V68.01 DISABILITY EXAMINATION 06/18/2016 FERMIN SHIPLEY MD Ot V82.89 SCREEN FOR OTH SPECIF CONDITIONS 06/18/2016 ELBA JOHNSON DO Ot R07.9 CHEST PAIN, UNSPECIFIED 06/18/2016 ELBA JOHNSON DO Ot Z01.818 ENCOUNTER FOR OTHER PREPROCEDURAL EXAMIN 06/18/2016 ELBA JOHNSON DO Ot Z12.11 ENCOUNTER FOR SCREENING FOR MALIGNANT NE 06/22/2016 Ot 300.00 ANXIETY STATE NOS 06/22/2016 Ot 401.1 BENIGN HYPERTENSION 06/22/2016 Ot 790.5 ABN SERUM ENZY LEVEL NEC 06/22/2016 JOSE BUNDY Ot 272.4 HYPERLIPIDEMIA NEC/NOS 06/22/2016 JOSE BUNDY Ot 401.9 HYPERTENSION NOS 06/22/2016 JOSE BUNDY Ot 786.50 CHEST PAIN NOS 06/22/2016 JOSE BUNDY Ot V15.82 HISTORY OF TOBACCO USE 06/22/2016 JOSE BUNDY Ot 401.9 HYPERTENSION NOS 06/22/2016 JOSE BUNDY Ot 786.50 CHEST PAIN NOS 06/22/2016 JOSE BUNDY Ot V15.82 HISTORY OF TOBACCO USE 06/22/2016 FERMIN SHIPLEY MD Ot V68.01 DISABILITY EXAMINATION 06/22/2016 FERMIN SHIPLEY MD Ot V82.89 SCREEN FOR OTH SPECIF CONDITIONS 06/22/2016 ELBA JOHNSON DO Ot R07.9 CHEST PAIN, UNSPECIFIED 06/22/2016 ELBA JOHNSON DO Ot Z01.818 ENCOUNTER FOR OTHER PREPROCEDURAL EXAMIN 06/22/2016 ELBA JOHNSON DO Ot Z12.11 ENCOUNTER FOR SCREENING FOR MALIGNANT NE 06/23/2016 RACHELL CHANDLER MD Ot E78.2 MIXED HYPERLIPIDEMIA 06/23/2016 RACHELL CHANDLER MD Ot I10 ESSENTIAL (PRIMARY) HYPERTENSION 06/23/2016 RACHELL CHANDLER MD Ot I25.10 ATHSCL HEART DISEASE OF [place] CORONARY 06/23/2016 RACHELL CHANDLER MD Ot K21.9 GASTRO-ESOPHAGEAL REFLUX DISEASE WITHOUT 07/07/2016 RACHELL CHANDLER MD Ot E78.2 MIXED HYPERLIPIDEMIA 07/07/2016 RACHELL CHANDLER MD Ot I10 ESSENTIAL (PRIMARY) HYPERTENSION 07/07/2016 RACHELL CHANDLER MD Ot I25.10 ATHSCL HEART DISEASE OF [place] CORONARY 07/07/2016 RACHELL CHANDLER MD Ot K21.9 GASTRO-ESOPHAGEAL REFLUX DISEASE WITHOUT 07/19/2016 Ot 300.00 ANXIETY STATE NOS 07/19/2016 Ot 401.1 BENIGN HYPERTENSION 07/19/2016 Ot 790.5 ABN SERUM ENZY LEVEL NEC 07/19/2016 JOSE BUNDY Ot 272.4 HYPERLIPIDEMIA NEC/NOS 07/19/2016 JOSE BUNDY Ot 401.9 HYPERTENSION NOS 07/19/2016 JOSE BUNDY Ot 786.50 CHEST PAIN NOS 07/19/2016 JOSE BUNDY Ot V15.82 HISTORY OF TOBACCO USE 07/19/2016 JOSE BUNDY Ot 401.9 HYPERTENSION NOS 07/19/2016 DEANA OQUENDO JOSE K Ot 786.50 CHEST PAIN NOS 07/19/2016 DEANA OQUENDO JOSE K Ot V15.82 HISTORY OF TOBACCO USE 07/19/2016 FERMIN SHIPLEY MD Ot V68.01 DISABILITY EXAMINATION 07/19/2016 FERMIN SHIPLEY MD Ot V82.89 SCREEN FOR OTH SPECIF CONDITIONS 07/19/2016 ELBA JOHNSON DO Ot R07.9 CHEST PAIN, UNSPECIFIED 07/19/2016 ELBA JOHNSON DO Ot Z01.818 ENCOUNTER FOR OTHER PREPROCEDURAL EXAMIN 07/19/2016 ELBA JOHNSON DO Ot Z12.11 ENCOUNTER FOR SCREENING FOR MALIGNANT NE 07/19/2016 RACHELL CHANDLER MD Ot E78.2 MIXED HYPERLIPIDEMIA 07/19/2016 RACHELL CHANDLER MD Ot I10 ESSENTIAL (PRIMARY) HYPERTENSION 07/19/2016 RACHELL CHANDLER MD Ot I25.10 ATHSCL HEART DISEASE OF [place] CORONARY 07/19/2016 RACHELL CHANDLER MD Ot K21.9 GASTRO-ESOPHAGEAL REFLUX DISEASE WITHOUT 10/15/2016 Ot 300.00 ANXIETY STATE NOS 10/15/2016 Ot 401.1 BENIGN HYPERTENSION 10/15/2016 Ot 790.5 ABN SERUM ENZY LEVEL NEC 10/15/2016 JOSE BUNDY Ot 272.4 HYPERLIPIDEMIA NEC/NOS 10/15/2016 JOSE BUNDY Ot 401.9 HYPERTENSION NOS 10/15/2016 JOSE BUNDY Ot 786.50 CHEST PAIN NOS 10/15/2016 JOSE BUNDY Ot V15.82 HISTORY OF TOBACCO USE 10/15/2016 JOSE BUNDY Ot 401.9 HYPERTENSION NOS 10/15/2016 JOSE BUNDY Ot 786.50 CHEST PAIN NOS 10/15/2016 JOSE BUNDY Ot V15.82 HISTORY OF TOBACCO USE 10/15/2016 QUINTEN ANDERSON, FERMIN Torres Ot V68.01 DISABILITY EXAMINATION 10/15/2016 FERMIN SHIPLEY MD Ot V82.89 SCREEN FOR OTH SPECIF CONDITIONS 10/15/2016 ELBA JOHNSON DO Ot R07.9 CHEST PAIN, UNSPECIFIED 10/15/2016 ELBA JOHNSON DO Ot Z01.818 ENCOUNTER FOR OTHER PREPROCEDURAL EXAMIN 10/15/2016 ELBA JOHNSON DO Ot Z12.11 ENCOUNTER FOR SCREENING FOR MALIGNANT NE 10/15/2016 RACHELL CHANDLER MD Ot E78.2 MIXED HYPERLIPIDEMIA 10/15/2016 RACHELL CHANDLER MD Ot I10 ESSENTIAL (PRIMARY) HYPERTENSION 10/15/2016 RACHELL CHANDLER MD Ot I25.10 ATHSCL HEART DISEASE OF [place] CORONARY 10/15/2016 RACHELL CHANDLER MD Ot K21.9 GASTRO-ESOPHAGEAL REFLUX DISEASE WITHOUT 10/21/2016 Ot 300.00 ANXIETY STATE NOS 10/21/2016 Ot 401.1 BENIGN HYPERTENSION 10/21/2016 Ot 790.5 ABN SERUM ENZY LEVEL NEC 10/21/2016 JOSE BUNDY Ot 272.4 HYPERLIPIDEMIA NEC/NOS 10/21/2016 JOSE BUNDY Ot 401.9 HYPERTENSION NOS 10/21/2016 JOSE BUNDY Ot 786.50 CHEST PAIN NOS 10/21/2016 JOSE BUNDY Ot V15.82 HISTORY OF TOBACCO USE 10/21/2016 JOSE BUNDY Ot 401.9 HYPERTENSION NOS 10/21/2016 JOSE BUNDY Ot 786.50 CHEST PAIN NOS 10/21/2016 JOSE BUNDY Ot V15.82 HISTORY OF TOBACCO USE 10/21/2016 FERMIN SHIPLEY MD Ot V68.01 DISABILITY EXAMINATION 10/21/2016 FERMIN SHIPLEY MD Ot V82.89 SCREEN FOR OTH SPECIF CONDITIONS 10/21/2016 ELBA JOHNSON DO Ot R07.9 CHEST PAIN, UNSPECIFIED 10/21/2016 ELBA JOHNSON DO Ot Z01.818 ENCOUNTER FOR OTHER PREPROCEDURAL EXAMIN 10/21/2016 ELBA JOHNSON DO Ot Z12.11 ENCOUNTER FOR SCREENING FOR MALIGNANT NE 10/21/2016 RACHELL CHANDLER MD Ot E78.2 MIXED HYPERLIPIDEMIA 10/21/2016 RACHELL CHANDLER MD Ot I10 ESSENTIAL (PRIMARY) HYPERTENSION 10/21/2016 RACHELL CHANDLER MD, Ot I25.10 ATHSCL HEART DISEASE OF [place] CORONARY 10/21/2016 RACHELL CHANDLER MD, Ot K21.9 GASTRO-ESOPHAGEAL REFLUX DISEASE WITHOUT Procedures Code [place] [address] ROUTINE VENIPUNCTURE 05/15/2014 33626 URINE DRUG SCREEN (IN-HOUSE) 05/15/2014 62751 CBC 05/16/2014 [id number] GFR CALC (RESULT ONLY) 05/16/2014 76318 CMP 05/16/2014 01668 PSA TOTAL 2013 29230 TSH 05/16/2014 44128 UA LONG DIP 08/30 61322 ROUTINE VENIPUNCTURE 09/25/2014 22325 CMP 09/25/2014 Cardiolog Rachell Chandler 01/07/2015 Results Encounters ACCT No. Visit Date/Time Discharge Status Pt. Type Provider Facility Loc./Unit Complaint [id number] 01/07/2015 10:45:00 01/07/2015 23: 59:59 CLS Outpatient AMERICO SHARMA APRN [id number] 11/28/2014 11:12:00 11/28/2014 23: 59:59 CLS Outpatient AMERICO SHARMA APRN [id number] 10/25/2014 15:15:00 10/25/2014 23: 59:59 CLS Outpatient MADAMERICO Arzola APRN [id number] 09/25/2014 13:21:00 09/25/2014 23: 59:59 CLS Outpatient MADYSON IRWIN DO [id number] 09/02/2014 13:51:00 09/02/2014 23: 59:59 CLS Outpatient AMERICO SHARMA APRN [id number] 08/30/2014 11:58:00 08/30/2014 23: 59:59 CLS Outpatient SWEETIE AYOUB APRN [id number] 07/11/2014 10:05:00 07/11/2014 23: 59:59 CLS Outpatient MADYSON IRWIN DO [id number] 06/11/2014 14:19:00 06/11/2014 23: 59:59 CLS Outpatient AMERICO SHARMA APRN [id number] 05/29/2014 14:24:00 05/29/2014 23: 59:59 CLS Outpatient AMERICO SHARMA APRN [id number] 05/15/2014 15:00:00 05/15/2014 23: 59:59 CLS Outpatient AMERICO SHARMA APRN [id number] 06/22/2016 12:48:00 2015 23:59:59 CLS Outpatient ALY ANDERSON, RACHELL Rivers [facility] CARD CAD,GERD,HTN,HLP [id number] 02/12/2016 11:42:00 2015 13:55:00 DIS Outpatient ELBA JOHNSON DO [facility] SCREENING,CHEST PAIN [id number] 02/04/2016 08:18:00 2015 10:26:00 DIS Outpatient ELBA JOHNSON DO [facility] PREOP SCREENING; CHEST PAIN [id number] 01/15/2016 05:41:00 2015 23:59:59 CLS Outpatient ELBA JOHNSON DO [facility] PREOP SCREENING,CHEST PAIN [id number] 06/23/2015 08:47:00 2014 23:59:59 CLS Outpatient QUINTEN ANDERSON, FERMIN Torres [facility] RAD DDU [id number] 06/11/2015 12:21:00 2014 22:40:00 DIS Outpatient ALY ANDERSON, RACHELL Rivers [facility] CATH ABNORMAL STRESS, CP,SOB,HLP,HTN [id number] 05/27/2015 11:59:00 2014 23:59:59 CLS Outpatient JOSE BUNDY [facility] CARD CP,HTN [id number] 05/26/2015 08:51:00 2014 23:59:59 CLS Outpatient JOSE BUNDY [facility] CARD CHEST PAIN HTN [id number] 11/21/2014 08:46:00 Document Registration
--- NOTE | 2017-06-23 15:51 | ED Chest Pain ---
General Stated Complaint: HIGH BP Source: patient Exam Limitations: no limitations History of Present Illness Time seen by provider: 15:51 Initial Comments Sent to ER from [facility] with reports of chest pain and shortness of breath as well as high blood pressure and a headache and a humming sensation in his ears. This is been ongoing for a few days. Has a history of hypertension. Currently rates his chest pain at 5-6 out of 10 described as a tightness. He does have shortness of breath. He also feels very anxious despite his 0.25 mg alprazolam at home. States that he recently had a cardiac catheterization done here by Dr. Chandler and was told this was normal. He is on indomethacin for gout and left knee arthritis Timing/Duration: 2-3 days Severity/Quality: moderate Location: central Radiation: no radiation Activities at Onset: none Prior CP/Workup: cardiac cath ASA po DIRECTOR INFORMATION SECURITY: No NTG SL DIRECTOR INFORMATION SECURITY: No Allergies and Home Medications Allergies Coded Allergies: escitalopram (Unverified Allergy, Severe, 02/12/16) SUICIDAL Home Medications Alprazolam 0.5 Mg Tablet, 0.5 MG PO TID, (Reported) Diphenhydramine HCl 25 Mg Capsule, 25-50 MG PO DAILY PRN for ALLERGIES, ( Reported) Ibuprofen 200 Mg Tablet, 400 MG PO DAILY PRN for PAIN, (Reported) Losartan Potassium 50 Mg Tablet, 100 MG PO DAILY, (Reported) Metoprolol Succinate 50 Mg Tab.er.24h, 100 MG PO DAILY, (Reported) Nitroglycerin 0.4 Mg Tab.subl, 0.4 MG SL PRN PRN for CHEST PAIN, (Reported) Pantoprazole Sodium 40 Mg Tablet.dr, 40 MG PO BID, #60 Ref 4 Take Protonix 40 mg twice a day for one month after that resume Protonix 40 mg once a day Prescribed by: DARIANA NICK on 02/12/16 1300 Sucralfate 1 Gm Tablet, 1 GM PO QID, #120 Prescribed by: DARIANA NICK on 02/12/16 1300 Review of Systems Constitutional: see HPI EENTM: No Symptoms Reported, Blurred Vision Respiratory: No Symptoms Reported Cardiovascular: See HPI, Chest Pain, Denies Edema, Denies Irregular Heart Rate , Denies Lightheadedness, Denies Palpitations, Denies Syncope Gastrointestinal: No Symptoms Reported Genitourinary: No Symptoms Reported Musculoskeletal: no symptoms reported Skin: no symptoms reported Psychiatric/Neurological: No Symptoms Reported Endocrine: No Symptoms Reported Hematologic/Lymphatic: No Symptoms Reported Past Ofptwbn-Itjluz-Lxczvy Hx Patient Social History Recent Foreign Travel: No Contact w/Someone Who Travel: No Physical Exam Vital Signs Vital Sign - Last 12Hours 06/23/17 15:40 Temp 97.4 Pulse 73 Resp 20 B/P (MAP) 192/120 Pulse Ox 95 Capillary Refill : General Appearance: No Apparent Distress, WD/WN, Anxious, Obese HEENT: PERRL/EOMI, TMs Normal, Normal ENT Inspection Neck: Full Range of Motion, Normal Inspection Respiratory: Normal Breath Sounds, No Accessory Muscle Use, No Respiratory Distress Cardiovascular: Regular Rate, Rhythm, Normal Peripheral Pulses Gastrointestinal: Normal Bowel Sounds, Non Tender, Soft Extremity: Normal Capillary Refill, Normal Inspection Neurologic/Psychiatric: Alert, Oriented x3, No Motor/Sensory Deficits Skin: Normal Color, Warm/Dry Progress/Results/Core Measures Results/Orders Lab Results Laboratory Tests Test 06/23/17 15:45 Range/Units White Blood Count 4.8 4.3-11.0 10^3/uL Red Blood Count 3.92 L 4.35-5.85 10^6/uL Hemoglobin 12.7 L 13.3-17.7 G/DL Hematocrit 36 L 40-54 % Mean Corpuscular Volume 92 80-99 FL Mean Corpuscular Hemoglobin 32 25-34 PG Mean Corpuscular Hemoglobin Concent 35 32-36 G/DL Red Cell Distribution Width 14.0 10.0-14.5 % Platelet Count 149 130-400 10^3/uL Mean Platelet Volume 11.5 H 7.4-10.4 FL Neutrophils (%) (Auto) 50 42-75 % Lymphocytes (%) (Auto) 38 12-44 % Monocytes (%) (Auto) 8 0-12 % Eosinophils (%) (Auto) 4 0-10 % Basophils (%) (Auto) 0 0-10 % Neutrophils # (Auto) 2.4 1.8-7.8 X 10^3 Lymphocytes # (Auto) 1.8 1.0-4.0 X 10^3 Monocytes # (Auto) 0.4 0.0-1.0 X 10^3 Eosinophils # (Auto) 0.2 0.0-0.3 10^3/uL Basophils # (Auto) 0.0 0.0-0.1 10^3/uL Prothrombin Time 12.5 12.2-14.7 SEC INR Comment 0.9 0.8-1.4 Activated Partial Thromboplast Time 29 24-35 SEC Sodium Level 138 135-145 MMOL/L Potassium Level 4.1 3.6-5.0 MMOL/L Chloride Level 104 98-107 MMOL/L Carbon Dioxide Level 24 21-32 MMOL/L Anion Gap 10 5-14 MMOL/L Blood Urea Nitrogen 13 7-18 MG/DL Creatinine 0.92 0.60-1.30 MG/DL Estimat Glomerular Filtration Rate > 60 BUN/Creatinine Ratio 14 Glucose Level 82 70-105 MG/DL Calcium Level 9.2 8.5-10.1 MG/DL Magnesium Level 1.7 L 1.8-2.4 MG/DL Total Bilirubin 0.5 0.1-1.0 MG/DL Aspartate Amino Transf (AST/SGOT) 34 5-34 U/L Alanine Aminotransferase (ALT/SGPT) 27 0-55 U/L Alkaline Phosphatase 44 40-136 U/L Myoglobin 50.9 10.0-92.0 NG/ML Troponin I < 0.30 <0.30 NG/ML B-Type Natriuretic Peptide 189.8 H <100.0 PG/ML Total Protein 7.4 6.4-8.2 GM/DL Albumin 4.0 3.2-4.5 GM/DL My Orders Orders - DANYA POWELL APRN Lorazepam Injection (Ativan Injection) (06/23/17 16:00) Labetalol Injection (Normodyne Injection (06/23/17 16:00) Aspirin Chewable Tablet (Baby Aspirin Ch (06/23/17 16:00) Cbc With Automated Diff (06/23/17 15:49) Magnesium (06/23/17 15:49) Chest 1 View, Ap/Pa Only (06/23/17 15:49) Ekg Tracing (06/23/17 15:49) Cardiac Profile 1 (06/23/17 15:49) Comprehensive Metabolic Panel (06/23/17 15:49) Myoglobin Serum (06/23/17 15:49) Protime With Inr (06/23/17 15:49) Partial Thromboplastin Time (06/23/17 15:49) O2 (06/23/17 15:49) Monitor-Rhythm Ecg Trace Only (06/23/17 15:49) Lipid Panel (06/24/17 06:00) Saline Lock/Iv-Start (06/23/17 15:49) BNP (06/23/17 15:49) Ct Angio Chest W (06/23/17 17:57) Medications Given in ED Current Medications Medications Dose Ordered Sig/Adriel Route Start Time Stop Time Status Last Admin Dose Admin Aspirin 324 mg ONCE ONCE PO 06/23/17 16:00 06/23/17 16:01 DC 06/23/17 16:30 324 MG Labetalol HCl 10 mg ONCE ONCE IV 06/23/17 16:00 06/23/17 16:01 DC 06/23/17 16:30 10 MG Lorazepam 0.5 mg ONCE ONCE IVP 06/23/17 16:00 06/23/17 16:01 DC 06/23/17 16:30 0.5 MG Vital Signs/I&O Vital Sign - Last 12Hours 06/23/17 15:40 Temp 97.4 Pulse 73 Resp 20 B/P (MAP) 192/120 Pulse Ox 95 Departure Communication (Admissions) Progress Notes 1751-I discussed the case with Dr. Monterroso. Patient's blood pressure is down to 157/93, heart rate 72 sinus no ectopy. He is down from a maximum of 197/ 123. He states that the humming in his ear is better, the blurred vision is better. I will go ahead and do a CT angios of the chest to rule out dissection and then discharge to home. Impression Impression: Primary Impression: Chest pain Additional Impression: Hypertension Disposition: HOME, SELF-CARE Condition: Stable Departure-Patient Inst. Decision time for Depature: 17:50 Referrals: MADYSON IRWIN DO (PCP) Primary Care Physician AMERICO SHARMA (Family) Primary Care Physician Patient Instructions: Chest Pain Copy Copies To 1: MADYSON IRWIN PETER J APRN Jun 23, 2017 15:51
[2017-06-23] MEDS ORDERED: LABETALOL HCL 20 MG/4 ML VIAL IV ONE (16:00)
[2017-06-23] MEDS ORDERED: ASPIRIN 81 MG CHEW (CHILDREN'S ASA) PO ONE (16:00)
[2017-06-23] MEDS ORDERED: LORazepam INJ 2 MG/ML (ATIVAN) VIAL IVP ONE (16:00)
--- NOTE | 2017-06-23 16:27 | Diagnostic Imaging Report ---
EXAMINATION: Portable upright radiograph of the chest. INDICATION: High blood pressure. COMPARISON: 06/11/15. FINDINGS: The cardiac size is borderline enlarged. No significant consolidation. No effusion or pneumothorax. The mediastinum and edie appear unremarkable. IMPRESSION: Borderline cardiac size. No focal infiltrate. Dictated by: Dictated on workstation # [id number]
[2017-06-23 16:41] LABS: INR 0.9 (0.8-1.4); PROTHROMBIN TIME PATIENT 12.5 SEC (12.2-14.7)
[2017-06-23 16:48] LABS: BASOPHILS % (AUTO) 0 % (0-10); EOSINOPHILS # (AUTO) 0.2 10^3/uL (0.0-0.3); EOSINOPHILS % (AUTO) 4 % (0-10); LYMPHOCYTES # (AUTO) 1.8 X 10^3 (1.0-4.0); LYMPHOCYTES % (AUTO) 38 % (12-44); MEAN CORPUSCULAR HEMOGLOBIN 32 PG (25-34); MEAN CORPUSCULAR HGB CONC 35 G/DL (32-36); MEAN CORPUSCULAR VOLUME 92 FL (80-99); MEAN PLATELET VOLUME 11.5 FL (7.4-10.4); MONOCYTES # (AUTO) 0.4 X 10^3 (0.0-1.0); MONOCYTES % (AUTO) 8 % (0-12); NEUTROPHILS # (AUTO) 2.4 X 10^3 (1.8-7.8); NEUTROPHILS % (AUTO) 50 % (42-75); PLATELET COUNT 149 10^3/uL (130-400); RED BLOOD COUNT 3.92 10^6/uL (4.35-5.85); WHITE BLOOD COUNT 4.8 10^3/uL (4.3-11.0)
[2017-06-23 16:53] LABS: ALANINE AMINOTRANSFERASE 27 U/L (0-55); ANION GAP 10 MMOL/L (5-14); ASPARTATE AMINO TRANSFERASE 34 U/L (5-34); BILIRUBIN,TOTAL 0.5 MG/DL (0.1-1.0); BLOOD UREA NITROGEN 13 MG/DL (7-18); BUN/CREATININE RATIO 14; CALCIUM 9.2 MG/DL (8.5-10.1); CARBON DIOXIDE 24 MMOL/L (21-32); CHLORIDE 104 MMOL/L (98-107); CREATININE SERUM 0.92 MG/DL (0.60-1.30); GFR ESTIMATED > 60; GLUCOSE 82 MG/DL (70-105); MAGNESIUM 1.7 MG/DL (1.8-2.4); POTASSIUM 4.1 MMOL/L (3.6-5.0); SODIUM 138 MMOL/L (135-145); TOTAL PROTEIN 7.4 GM/DL (6.4-8.2)
[2017-06-23 17:01] LABS: MYOGLOBIN SERUM 50.9 NG/ML (10.0-92.0)
[2017-06-23] MEDS ORDERED: IOHEXOL 350 MG/ML 150 ML (OMNIPAQUE 350) VIAL IV ONE (18:15)
[2017-06-23] MEDS ORDERED: NS 100 ML (IVPB) BAG IV ONE (18:15)
[2017-06-23] MEDS ORDERED: fentaNYL INJECTION 100 MCG/2 ML AMP IVP ONE (19:45)
--- NOTE | 2017-06-23 20:52 | Diagnostic Imaging Report ---
PROCEDURE: CT angiography of the chest with contrast. TECHNIQUE: Multiple contiguous axial images were obtained through the chest after uneventful bolus administration of intravenous contrast. Reconstructed CTA MIP acquisitions were also performed. DATE: June 23, 2017. COMPARISON: Chest radiograph June 23, 2017. INDICATION: 61-year-old male, chest pain. FINDINGS: There is no identified pulmonary nodule. There is no focal airspace consolidation. There is no pleural effusion. There is no pneumothorax. There is no identified pulmonary embolus. The main pulmonary artery is normal in caliber. The heart is not enlarged. There is no pericardial effusion. There is no identified abnormally enlarged mediastinal, hilar, or axillary lymph node which meets CT size criteria for adenopathy. The visualized portions of the upper abdomen are unremarkable on limited assessment. There is no identified acute bony abnormality. IMPRESSION: CT CHEST. 1. No identified pulmonary embolus or otherwise noted acute cardiopulmonary abnormality. Dictated by: Dictated on workstation # [id number]
[2017-06-23 20:59] VITALS: BP 156/96
== END 2017-06-23 20:58 | disposition home or self-care (01) ==
LOC: EDUNIT# 14:59 → ER 15:01
DX: I10 Essential (primary) hypertension (principal); R07.89 Other chest pain
CPT/HCPCS: 36415; 71010; 71275; 80053; 83735; 83874; 83880; 84484; 85025; 85610; 85730; 93005; 93041; 96374; 96375

== ENCOUNTER 2017-08-30 19:33 | Outpatient (CLI) | payer MEDICAID, MEDICARE ==
[~2017-08-30 19:33] MED LIST changes: -METO-272 PO; +METO-370 PO
== END 2017-08-31 06:58 | disposition home or self-care (01) ==
LOC: SLEEP 19:33
PROVIDERS: ATTEND Internal Medicine Cardiovascular Disease
DX: G47.33 Obstructive sleep apnea (adult) (pediatric) (principal); I10 Essential (primary) hypertension
CPT/HCPCS: 95810

== ENCOUNTER → 2017-10-17 | Outpatient (CLI) | payer MEDICARE | LOC: CARD 11:45 | PROVIDERS: ATTEND Physician Assistant | DX: I25.10 Atherosclerotic heart disease of native coronary artery without angina pectoris (principal); R07.89 Other chest pain; E78.2 Mixed hyperlipidemia; I10 Essential (primary) hypertension | CPT/HCPCS: 93306 ==

== ENCOUNTER → 2017-11-09 | Outpatient (CLI) | payer MEDICARE ==
[~2017-11-09] MED LIST changes: +CATHETER FLUSH 10 ML SYR IV PRN; +REGADENOSON 0.4 MG/5 ML SYR (LEXISCAN) IV ONE
[2017-11-09 09:18] VITALS: BP 140/82
[2017-11-09 09:24] VITALS: BP 133/89
[2017-11-09 09:28] VITALS: BP 128/87
--- NOTE | 2017-11-09 18:09 | STRESS TEST ---
DATE OF SERVICE: 11/09/2017 LEXISCAN MYOVIEW STRESS TEST REPORT REFERRING PHYSICIAN: MUSA Mckeon. Baseline heart rate is 73. Baseline blood pressure 140/80. Baseline EKG is sinus rhythm with no ischemic changes. In summary, the patient was injected with 10.36 mCi of technetium-99 Myoview and the resting images were obtained. Then, the patient received 0.4 mg of Lexiscan followed by 30.0 mCi of technetium-99 Myoview. Throughout the test, there were no EKG changes. The resting and stress images were reviewed and compared in the short axis, horizontal long axis, and vertical long axis views. Review of the images showed diaphragmatic attenuation with typical male pattern, decreased uptake at the mid to apical inferior wall with subtle reversibility. SSS is 4, SDS 4, TID value 0.96. On the gated images, the left ventricle appeared to be normal size with normal contractility. Calculated ejection fraction 62%. CONCLUSION: 1. The patient tolerated Lexiscan well. 2. Diaphragmatic attenuation with typical male pattern. No significant ischemia or infarction on SPECT images. 3. Normal left ventricular size with normal contractility. Calculated ejection fraction 62%. Job ID: [id number] DocumentID: [id number] Dictated Date: 11/09/2017 14:35:10 Clinical Education Specialist Date: 11/09/2017 18:07:58 Dictated By: RACHELL LU MD
== END ==
LOC: CARD 07:32
PROVIDERS: ATTEND Physician Assistant
DX: I25.10 Atherosclerotic heart disease of native coronary artery without angina pectoris (principal); R07.89 Other chest pain; I10 Essential (primary) hypertension; E78.2 Mixed hyperlipidemia; K21.9 Gastro-esophageal reflux disease without esophagitis
CPT/HCPCS: 78452; 93017

== ENCOUNTER 2018-05-27 14:50 | Emergency (ER) | payer MEDICARE, OTHER ==
[~2018-05-27] VITALS: Ht 172.7 cm; Wt 115.7 kg
[~2018-05-27 14:50] MED LIST changes: -CATHETER FLUSH 10 ML SYR IV PRN; -LOSA50TA36 PO; +LOSA50TA7 PO; -REGADENOSON 0.4 MG/5 ML SYR (LEXISCAN) IV ONE
--- OUTSIDE RECORDS SUMMARY | 2018-05-27 14:56 | XMS REPORT ---
Author Author AMERICO SHARMA [facility] Address [address] [place] [address] Care Team Providers Care Clinical Staff Pharmacist Name Role Phone AMERICO SHARMA Unavailable PROBLEMS Type Condition ICD9-CM Code [id number] Code Onset Dates Condition Status SNOMED Code Problem Epigastric pain R10.13 Active 21837401 Problem Mixed hyperlipidemia E78.2 Active 878566168 Problem Gastroesophageal reflux disease without esophagitis K21.9 Active 928842145 Problem Primary insomnia F51.01 Active 0767101 Problem Visual changes H53.9 Active 11491833 Problem Essential hypertension I10 Active 17268203 Problem Anxiety F41.9 Active 57095587 Problem Other chronic pain G89.29 Active 08642253 Problem Osteoarthritis of left knee, unspecified osteoarthritis type M17.12 Active 524829933730093 Problem Gastritis determined by endoscopy K29.70 Active 4463629 Problem Pain in left knee M25.562 Active 12768187 Problem Coronary artery disease of [place] artery of [place] heart with stable 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 Active 9357456096391 Problem Primary osteoarthritis of left knee M17.12 Active 506766865 ALLERGIES No Information ENCOUNTERS Encounter Location Date Diagnosis [facility] [id number] [place] [address] 38496- 6499 Apr, Pain in left knee M25.562 ; Other chronic pain G89.29 ; Anxiety F41.9 and Coronary artery disease of [place] artery of [place] heart with stable 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 [facility] [id number] [place] [address] 87707- 0595 Apr, [facility] [id number] [place] [address] 62458- 1206 Feb, Anxiety F41.9 [facility] [id number] [place] [address] 10456- 8718 January, Anxiety F41.9 [facility] [address] [id number] [place] [address] 55940- 4712 Dec, Anxiety F41.9 [facility] [id number] [place] [address] 02362- 1170 Dec, [facility] [id number] [place] [address] 77481- 7432 Dec, Anxiety F41.9 and Osteoarthritis of left knee, unspecified osteoarthritis type M17.12 [facility] [id number] [place] [address] 53437- 5415 Nov, Primary insomnia F51.01 and Anxiety F41.9 [facility] [id number] [place] [address] 48520- 1178 Oct, Anxiety F41.9 [facility] [address] 95834- 0174 Oct, [facility] [id number] [place] [address] 26676- 1317 Oct, Anxiety F41.9 [facility] [id number] [place] [address] 31952- 9155 Aug, Primary insomnia F51.01 ; Anxiety F41.9 ; Essential hypertension I10 ; Coronary artery disease of [place] artery of [place] heart with stable 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 ; Gastritis determined by endoscopy K29.70 ; Primary osteoarthritis of left knee M17.12 and BMI 40.0-44.9, adult Z68.41 [facility] [id number] [place] [address] 40838- 4069 Aug, Primary insomnia F51.01 and Anxiety F41.9 [facility] [id number] [place] [address] 62137- 2230 Jun, Anxiety F41.9 [facility] [id number] [place] [address] 54690- 9665 Jun, Anxiety F41.9 [facility] [id number] [place] [address] 47449- 7418 May, [facility] [address] 63195- 9746 May, Primary osteoarthritis of left knee M17.12 and Anxiety F41.9 [facility] [address] 08465- 3038 Apr, Essential hypertension I10 [facility] [address] 47523- 0291 Apr, Essential hypertension I10 ; Anxiety F41.9 ; Primary insomnia F51.01 ; Primary osteoarthritis of left knee M17.12 and Gastritis determined by endoscopy K29.70 [facility] [id number] [place] [address] 59234- 0021 Apr, Essential hypertension I10 [facility] [address] 16879- 6317 Mar, Anxiety F41.9 [facility] [address] 21731- 1194 Mar, Primary osteoarthritis of left knee M17.12 [facility] [id number] [place] [address] 21032- 5664 Feb, [facility] [address] 96087- 3232 Feb, Anxiety F41.9 [facility] [id number] [place] [address] 01225- 3313 Feb, [facility] [address] 52085- 7621 January, Mixed hyperlipidemia E78.2 [facility] [id number] [place] [address] 58743- 6936 January, Anxiety F41.9 [facility] [address] [id number] Dec, Dental examination Z01.20 [facility] [address] [place] [address] 689232- 0736 Dec, Anxiety F41.9 ; Primary insomnia F51.01 and Pain in left knee M25.562 [facility] [id number] [place] [address] 75849- 8256 Nov, Essential hypertension I10 ; Anxiety F41.9 ; Primary insomnia F51.01 ; Mixed hyperlipidemia E78.2 ; Pain in left knee M25.562 and Gastritis determined by endoscopy K29.70 [facility] [id number] [place] [address] 04669- 0492 Oct, Anxiety F41.9 [facility] [id number] [place] [address] 33947- 4196 Oct, Primary osteoarthritis of left knee M17.12 [facility] [id number] [place] [address] [id number] Sep, Dental examination Z01.20 [facility] [id number] [place] [address] 36539- 6943 Sep, Anxiety F41.9 [facility] [id number] [place] [address] 02985- 4704 Aug, Anxiety F41.9 [facility] [id number] [place] [address] 87277- 5478 Jul, Essential hypertension I10 ; Anxiety F41.9 ; Primary insomnia F51.01 ; Mixed hyperlipidemia E78.2 ; Pain in left knee M25.562 and Gastritis determined by endoscopy K29.70 [facility] [id number] [place] [address] 90517- 1058 Jul, [facility] [id number] [place] [address] 75164- 9455 Jul, [facility] [id number] [place] [address] 52193- 6100 Jun, [facility] [id number] [place] [address] 30473- 6985 Jun, [facility] [address] 15898- 1715 May, [facility] [id number] [place] [address] 50827- 0891 May, Pain in left knee M25.562 [facility] [address] 28588- 1220 Apr, Essential hypertension I10 ; Anxiety F41.9 ; Primary insomnia F51.01 ; Mixed hyperlipidemia E78.2 ; Pain in left knee M25.562 and Gastritis determined by endoscopy K29.70 [facility] [id number] [place] [address] 98542- 8123 Mar, [facility] [address] 66941- 3155 Feb, [facility] [id number] [place] [address] 20759- 2657 Feb, [facility] [address] [id number] January, Dental caries K02.9 [facility] [id number] [place] [address] 15926- 1652 January, [facility] [id number] [place] [address] 30268- 3933 January, Bloody stools K92.1 ; Epigastric pain R10.13 ; Essential hypertension I10 ; Anxiety F41.9 and Primary insomnia F51.01 [facility] [address] [id number] Dec, Dental examination Z01.20 [facility] [id number] [place] [address] 68706- 2756 Dec, [facility] [address] [place] [address] Nov, Acute frontal sinusitis J01.10 and Sore throat J02.9 [facility] [id number] [place] [address] 45179- 5471 Nov, [facility] [id number] [place] [address] 89496- 0671 Oct, Essential hypertension I10 ; Anxiety F41.9 and Primary insomnia F51.01 [facility] [id number] [place] [address] 37076- 8450 Sep, [facility] [id number] [place] [address] 87255- 0968 Sep, [facility] [id number] [place] [address] 34269- 4169 Sep, [facility] [id number] [place] [address] 99758- 7927 Aug, [facility] [id number] [place] [address] 10390- 5806 Aug, [facility] [id number] [place] [address] 42457- 3939 Jul, Essential hypertension I10 ; Anxiety F41.9 ; Primary insomnia F51.01 and Visual changes H53.9 [facility] [address] [place] [address] 19856- 5193 Jul, [facility] [id number] [place] [address] 25961- 1759 Jun, [facility] [id number] [place] [address] 87117- 1594 Jun, [facility] [id number] [place] [address] 33076- 1349 May, [facility] [address] [place] [address] 08212- 6068 14 May, 2015 [facility] [id number] [address]- 6657 May, Chest pain 786.50 ; Hyperlipemia 272.4 ; Hypertension 401.9 ; Anxiety 300.00 and History of tobacco use V15.82 [facility] [address] [address]- 5099 May, Chest pain 786.50 and Hypertension 401.9 [facility] [id number] [place] [address] 37986- 3001 Apr, [facility] [id number] [place] [address] 91647- 8333 Apr, 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 ; Hypertension 401.9 and CAD (coronary artery disease) 414.00 [facility] [id number] [place] [address] 55002- 8187 Mar, Chest pain 786.50 ; Hypertension 401.9 ; Hyperlipemia 272.4 and History of tobacco use V15.82 [facility] [id number] [place] [address] 18289- 3983 Mar, 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 and Major depressive disorder, recurrent episode, moderate 296.32 [facility] [id number] [address]- 7274 Mar, [facility] [address] [place] [address] 74216- 3136 Mar, [facility] [id number] [place] [address] 07564- 0018 Mar, [facility] [address] [place] [address] 31781- 0436 Mar, 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 and Major depressive disorder, recurrent episode, moderate 296.32 [facility] [address] [place] [address] 13509- 0450 Mar, [facility] [id number] [place] [address] 35093- 5353 15 Feb, 2015 [facility] [address] [place] [address] 146258- 4717 10 Feb, 2015 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 ; Major depressive disorder, recurrent episode, moderate 296.32 ; No condition on [place] V71.09 ; Hypertension 401.9 ; Arthritis 716.90 and Overweight 278.02 [facility] [id number] [place] [address] 378251- 9032 08 Feb, 2015 [facility] [id number] [place] [address] 95140- 2967 Feb, [facility] [id number] [place] [address] 616188- 9616 January, Essential hypertension, benign 401.1 ; Anxiety state, unspecified 300.00 and Chest pain 786.50 [facility] [id number] [place] [address] 46579- 0188 Dec, [facility] [id number] [place] [address] 22893- 5045 Dec, [facility] [id number] [place] [address] 287089- 4390 Nov, [facility] [id number] [place] [address] 34983- 2716 Nov, [facility] [address] [place] [address] 30597- 1176 Nov, [facility] [address] [address]- 5166 Nov, [facility] [id number] [place] [address] 45027- 3470 Oct, [facility] [id number] [place] [address] 42644- 1871 Oct, [facility] [address] [place] [address] 31781- 1396 Oct, [facility] [place] [facility] [address] [id number] [place] [address]- 6361 Oct, [facility] [place] [facility] [address] [id number] [place] [address]- 9432 Sep, [facility] [place] [facility] [address] [id number] [place] [address]- 7254 Sep, [facility] [place] [facility] [address] [id number] [place] [address]- 0877 Sep, [facility] [place] [facility] [address] [id number] [place] [address]- 9771 Sep, [facility] [place] [facility] [address] [id number] [place] [address]- 8950 Sep, [facility] [place] [facility] [address] [id number] [place] [address]- 4718 Sep, [facility] [place] [facility] [address] [id number] [place] [address]- 7008 Aug, [facility] [place] [facility] [address] [id number] [place] [address]- 5742 Aug, [facility] [place] [facility] [address] [id number] [place] [address]- 8543 Aug, [facility] [place] [facility] [address] [id number] [place] [address]- 0753 Aug, [facility] [place] [facility] [address] [id number] [place] [address]- 4021 Aug, [facility] [place] [facility] [address] [id number] [place] [address]- 3911 Aug, [facility] [place] [facility] [address] [id number] [place] [address]- 2935 Jul, [facility] [place] [facility] [address] [id number] [place] [address]- 2309 Jul, [facility] [place] [facility] [address] [id number] [place] [address]- 1116 Jul, [facility] [place] [facility] [address] [id number] [place] [address]- 2046 Jul, [facility] [place] [facility] [address] [id number] [place] [address]- 2179 Jul, [facility] [place] [facility] [address] [id number] [place] [address]- 4205 Jul, [facility] [place] [facility] [address] [id number] [place] [address]- 0030 Jun, [facility] [place] [facility] [address] [id number] [place] [address]- 4340 Jun, [facility] [place] [facility] [address] [id number] [place] [address]- 4366 Jun, [facility] [place] [facility] [address] [id number] [place] [address]- 9167 Jun, [facility] [place] [facility] [address] [id number] [place] [address]- 6096 16 May, 2014 [facility] [place] [facility] [address] [id number] [place] [address]- 7481 May, [facility] [place] [facility] [address] [id number] [place] [address]- 2589 May, [facility] [place] [facility] [address] [id number] [place] [address]- 7045 May, [facility] [place] [facility] [address] [id number] [place] [address]- 8118 Apr, [facility] [place] [facility] [address] [id number] [place] [address]- 2522 Apr, [facility] [place] [facility] [address] [id number] [place] [address]- 0135 Apr, [facility] [place] [facility] [address] [id number] [place] [address]- 6858 Apr, [facility] [place] [facility] [address] [facility] [id number] [place] [address]- 8640 Apr, IMMUNIZATIONS No Known Immunizations SOCIAL HISTORY Never Assessed REASON FOR VISIT Controlled Med Refill PLAN OF CARE VITAL SIGNS MEDICATIONS Medication Instructions Dosage Frequency Start Date End Date Duration Status Xanax 0.5 MG Orally Three times a day prn-Must have appt for further refills 1 tablet Active RESULTS No Results PROCEDURES No Known procedures INSTRUCTIONS MEDICATIONS ADMINISTERED No Known Medications MEDICAL (GENERAL) HISTORY Type Description Date Medical [...] Doppler 2015 Hospitalization History hypertensive crisis 11/2012 Hospitalization History hypertensive crisis 05/2017
--- OUTSIDE RECORDS SUMMARY | 2018-05-27 14:56 | XMS REPORT ---
Author Author AMERICO SHARMA [facility] Address [address] [place] [address] Care Team Providers Care Carriage Rider Name Role Phone AMERICO SHARMA Unavailable PROBLEMS Type Condition ICD9-CM Code RSN79-EN Code Onset Dates Condition Status SNOMED Code Problem Epigastric pain R10.13 Active 45259217 Problem Mixed hyperlipidemia E78.2 Active 687647357 Problem Gastroesophageal reflux disease without esophagitis K21.9 Active 220512415 Problem Primary insomnia F51.01 Active 9243084 Problem Visual changes H53.9 Active 40422647 Problem Essential hypertension I10 Active 92684159 Problem Anxiety F41.9 Active 21383551 Problem Other chronic pain G89.29 Active 36078530 Problem Osteoarthritis of left knee, unspecified osteoarthritis type M17.12 Active [id number] Problem Gastritis determined by endoscopy K29.70 Active 1350504 Problem Pain in left knee M25.562 Active 28103500 Problem Coronary artery disease of [place] artery of [place] heart with stable 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 Active 9184440608253 Problem Primary osteoarthritis of left knee M17.12 Active 154084695 ALLERGIES No Information ENCOUNTERS Encounter Location Date Diagnosis [facility] [id number] [place] [address] 35740- 0725 Apr, Pain in left knee M25.562 ; Other chronic pain G89.29 ; Anxiety F41.9 and Coronary artery disease of [place] artery of [place] heart with stable 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 [facility] [id number] [place] [address] 43727- 2813 Apr, [facility] [id number] [place] [address] 27589- 8362 Feb, Anxiety F41.9 [facility] [id number] [place] [address] 91384- 7540 January, Anxiety F41.9 [facility] [id number] [place] [address] 78626- 3168 Dec, Anxiety F41.9 [facility] [id number] [place] [address] 73844- 1190 Dec, [facility] [id number] [place] [address] 40522- 1898 Dec, Anxiety F41.9 and Osteoarthritis of left knee, unspecified osteoarthritis type M17.12 [facility] [id number] [place] [address] 96148- 6362 Nov, Primary insomnia F51.01 and Anxiety F41.9 [facility] [id number] [place] [address] 06083- 1198 Oct, Anxiety F41.9 [facility] [address] 30918- 9515 Oct, [facility] [id number] [place] [address] 11283- 6461 Oct, Anxiety F41.9 [facility] [id number] [place] [address] 62698- 8488 Aug, Primary insomnia F51.01 ; Anxiety F41.9 ; Essential hypertension I10 ; Coronary artery disease of tan[place] artery of [place] heart with stable 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 ; Gastritis determined by endoscopy K29.70 ; Primary osteoarthritis of left knee M17.12 and BMI 40.0-44.9, adult Z68.41 [facility] [id number] [place] [address] 63183- 3129 Aug, Primary insomnia F51.01 and Anxiety F41.9 [facility] [id number] [place] [address] 56455- 6849 Jun, Anxiety F41.9 [facility] [id number] [place] [address] 02505- 9308 Jun, Anxiety F41.9 [facility] [id number] [place] [address] 16884- 7007 May, [facility] [address] 35660- 0086 May, Primary osteoarthritis of left knee M17.12 and Anxiety F41.9 [facility] [address] 35634- 8519 Apr, Essential hypertension I10 [facility] [address] 13559- 2280 Apr, Essential hypertension I10 ; Anxiety F41.9 ; Primary insomnia F51.01 ; Primary osteoarthritis of left knee M17.12 and Gastritis determined by endoscopy K29.70 [facility] [id number] [place] [address] 86153- 9423 Apr, Essential hypertension I10 [facility] [address] 76102- 0413 Mar, Anxiety F41.9 [facility] [address] 23351- 7212 Mar, Primary osteoarthritis of left knee M17.12 [facility] [id number] [place] [address] 14801- 1771 Feb, [facility] [address] 18831- 7430 Feb, Anxiety F41.9 [facility] [id number] [place] [address] 72692- 8256 Feb, [facility] [address] 04019- 8739 January, Mixed hyperlipidemia E78.2 [facility] [id number] [place] [address] 33356- 6950 January, Anxiety F41.9 [facility] [address] [id number] Dec, Dental examination Z01.20 [facility] [id number] [place] [address] 428327- 6816 Dec, Anxiety F41.9 ; Primary insomnia F51.01 and Pain in left knee M25.562 [facility] [id number] [place] [address] 00775- 1991 Nov, Essential hypertension I10 ; Anxiety F41.9 ; Primary insomnia F51.01 ; Mixed hyperlipidemia E78.2 ; Pain in left knee M25.562 and Gastritis determined by endoscopy K29.70 [facility] [id number] [place] [address] 80894- 9320 Oct, Anxiety F41.9 [facility] [id number] [place] [address] 13878- 4836 Oct, Primary osteoarthritis of left knee M17.12 [facility] [id number] [place] [address] [id number] Sep, Dental examination Z01.20 [facility] [id number] [place] [address] 68898- 1780 Sep, Anxiety F41.9 [facility] [id number] [place] [address] 11424- 3208 Aug, Anxiety F41.9 [facility] [id number] [place] [address] 93210- 2545 Jul, Essential hypertension I10 ; Anxiety F41.9 ; Primary insomnia F51.01 ; Mixed hyperlipidemia E78.2 ; Pain in left knee M25.562 and Gastritis determined by endoscopy K29.70 [facility] [id number] [place] [address] 62966- 9439 Jul, [facility] [id number] [place] [address] 21888- 0742 Jul, [facility] [id number] [place] [address] 05122- 6709 Jun, [facility] [id number] [place] [address] 09780- 6355 Jun, [facility] [address] 87972- 6130 May, [facility] [id number] [place] [address] 43580- 4634 May, Pain in left knee M25.562 [facility] [address] 80359- 0688 Apr, Essential hypertension I10 ; Anxiety F41.9 ; Primary insomnia F51.01 ; Mixed hyperlipidemia E78.2 ; Pain in left knee M25.562 and Gastritis determined by endoscopy K29.70 [facility] [id number] [place] [address] 63947- 3703 Mar, [facility] [address] 44533- 0219 Feb, [facility] [id number] [place] [address] 10979- 2632 Feb, [facility] [address] [id number] January, Dental caries K02.9 [facility] [id number] [place] [address] 93585- 4965 January, [facility] [id number] [place] [address] 74792- 6511 January, Bloody stools K92.1 ; Epigastric pain R10.13 ; Essential hypertension I10 ; Anxiety F41.9 and Primary insomnia F51.01 [facility] [address] [id number] Dec, Dental examination Z01.20 [facility] [id number] [place] [address] 70444- 0320 Dec, [facility] [address] [place] [address] -6827 Nov, Acute frontal sinusitis J01.10 and Sore throat J02.9 [facility] [id number] [place] [address] 68959- 2577 Nov, [facility] [id number] [place] [address] 84883- 2942 Oct, Essential hypertension I10 ; Anxiety F41.9 and Primary insomnia F51.01 [facility] [id number] [place] [address] 59975- 8389 Sep, [facility] [id number] [place] [address] 40860- 9987 Sep, [facility] [id number] [place] [address] 33656- 4593 Sep, [facility] [id number] [place] [address] 52676- 6128 Aug, [facility] [id number] [place] [address] 84745- 9907 Aug, [facility] [id number] [place] [address] 07617- 9987 Jul, Essential hypertension I10 ; Anxiety F41.9 ; Primary insomnia F51.01 and Visual changes H53.9 [facility] [address] [place] [address] 12669- 0337 Jul, [facility] [id number] [place] [address] 75931- 3718 Jun, [facility] [id number] [place] [address] 81758- 7853 Jun, [facility] [id number] [place] [address] 20147- 5743 May, [facility] [id number] [place] [address] 77700- 4506 14 May, 2015 [facility] [id number] [address]- 5801 May, Chest pain 786.50 ; Hyperlipemia 272.4 ; Hypertension 401.9 ; Anxiety 300.00 and History of tobacco use V15.82 [facility] [address] [address]- 2153 May, Chest pain 786.50 and Hypertension 401.9 [facility] [id number] [place] [address] 10951- 6711 Apr, [facility] [id number] [place] [address] 32650- 6026 Apr, 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 ; Hypertension 401.9 and CAD (coronary artery disease) 414.00 [facility] [id number] [place] [address] 64336- 2094 Mar, Chest pain 786.50 ; Hypertension 401.9 ; Hyperlipemia 272.4 and History of tobacco use V15.82 [facility] [id number] [place] [address] 81283- 1443 Mar, 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 and Major depressive disorder, recurrent episode, moderate 296.32 [facility] [id number] [address]- 1479 Mar, [facility] [id number] [place] [address] 72775- 4744 Mar, [facility] [id number] [place] [address] 00353- 9239 Mar, [facility] [address] [place] [address] 45533- 4650 Mar, 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 and Major depressive disorder, recurrent episode, moderate 296.32 [facility] [address] [place] [address] 21886- 8632 Mar, [facility] [id number] [place] [address] 16130- 7046 15 Feb, 2015 [facility] [address] [place] [address] 721214- 2342 10 Feb, 2015 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 ; Major depressive disorder, recurrent episode, moderate 296.32 ; No condition on [place] II V71.09 ; Hypertension 401.9 ; Arthritis 716.90 and Overweight 278.02 [facility] [id number] [place] [address] 435608- 3771 08 Feb, 2015 [facility] [id number] [place] [address] 76064- 7112 Feb, [facility] [id number] [place] [address] 540891- 5706 January, Essential hypertension, benign 401.1 ; Anxiety state, unspecified 300.00 and Chest pain 786.50 [facility] [id number] [place] [address] 39715- 5021 Dec, [facility] [id number] [place] [address] 42451- 0176 Dec, [facility] [id number] [place] [address] 486757- 6347 Nov, [facility] [id number] [place] [address] 84497- 6796 Nov, [facility] [address] [place] [address] 56166- 1086 Nov, [facility] [address] [place] [address] 2726 Nov, [facility] [id number] [place] [address] 96740- 0908 Oct, [facility] [id number] [place] [address] 19707- 2907 Oct, [facility] [address] [place] [address] 33891- 7036 Oct, [facility] [place] [facility] [address] [id number] [place] [address]- 1000 Oct, [facility] [place] [facility] [address] [id number] [place] [address]- 7854 Sep, [facility] [place] [facility] [address] [id number] [place] [address]- 8912 Sep, [facility] [place] [facility] [address] [id number] [place] [address]- 2163 Sep, [facility] [place] [facility] [address] [id number] [place] [address]- 2392 Sep, [facility] [place] [facility] [address] [id number] [place] [address]- 2894 Sep, [facility] [place] [facility] [address] [id number] [place] [address]- 4009 Sep, [facility] [place] [facility] [address] [id number] [place] [address]- 3672 Aug, [facility] [place] [facility] [address] [id number] [place] [address]- 4905 Aug, [facility] [place] [facility] [address] [id number] [place] [address]- 1625 Aug, [facility] [place] [facility] [address] [id number] [place] [address]- 9611 Aug, [facility] [place] [facility] [address] [id number] [place] [address]- 2521 Aug, [facility] [place] [facility] [address] [id number] [place] [address]- 3377 Aug, [facility] [place] [facility] [address] [id number] [place] [address]- 6089 Jul, [facility] [place] [facility] [address] [id number] [place] [address]- 8112 Jul, [facility] [place] [facility] [address] [id number] [place] [address]- 5317 Jul, [facility] [place] [facility] [address] [id number] [place] [address]- 7767 Jul, [facility] [place] [facility] [address] [id number] [place] [address]- 9227 Jul, [facility] [place] [facility] [address] [id number] [place] [address]- 0316 Jul, [facility] [place] [facility] [address] [id number] [place] [address]- 4128 Jun, [facility] [place] [facility] [address] [id number] [place] [address]- 4883 Jun, [facility] [place] [facility] [address] [id number] [place] [address]- 3737 Jun, [facility] [place] [facility] [address] [id number] [place] [address]- 5003 Jun, [facility] [place] [facility] [address] [id number] [place] [address]- 2274 16 May, 2014 [facility] [place] [facility] [address] [id number] [place] [address]- 4695 May, [facility] [place] [facility] [address] [id number] [place] [address]- 8743 May, [facility] [place] [facility] [address] [id number] [place] [address]- 8105 May, [facility] [place] [facility] [address] [id number] [place] [address]- 1235 Apr, [facility] [place] [facility] [address] [id number] [place] [address]- 5731 Apr, [facility] [place] [facility] [address] [id number] [place] [address]- 6425 Apr, [facility] [place] [facility] [address] [id number] [place] [address]- 4047 Apr, [facility] [place] [facility] [address] [facility] [id number] [place] [address]- 3088 Apr, IMMUNIZATIONS No Known Immunizations SOCIAL HISTORY Never Assessed REASON FOR VISIT Controlled Med Refill 02/16 PLAN OF CARE VITAL SIGNS MEDICATIONS Medication [...]
--- OUTSIDE RECORDS SUMMARY | 2018-05-27 14:57 | XMS REPORT ---
Author Author AMERICO SHARMA [facility] Address [address] [place] [address] Care Team Providers Care Dowel Pin Man Name Role Phone AMERICO SHARMA Unavailable PROBLEMS Type Condition ICD9-CM Code ZSC16-TU Code Onset Dates Condition Status SNOMED Code Problem Anxiety F41.9 Active 21547177 Problem Gastroesophageal reflux disease without esophagitis K21.9 Active 914695453 Problem Epigastric pain R10.13 Active 71836830 Problem Primary insomnia F51.01 Active 9380206 Problem Visual changes H53.9 Active 01047248 Problem Essential hypertension I10 Active 91140007 Problem Osteoarthritis of left knee, unspecified osteoarthritis type M17.12 Active 699656192763201 Problem 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 Active 5825205996810 Problem Pain in left knee M25.562 Active 03716886 Problem Mixed hyperlipidemia E78.2 Active 657522286 Problem Primary osteoarthritis of left knee M17.12 Active 700969391 Problem Gastritis determined by endoscopy K29.70 Active 0190696 ALLERGIES No Information ENCOUNTERS Encounter Location Date Diagnosis [place] [id number] [place] [address] 80647- 0701 Apr, [place] [id number] [place] [address] 24445- 7123 Feb, Anxiety F41.9 [place] [id number] [place] [address] 98182- 2527 January, Anxiety F41.9 [facility] [facility] [id number] [place] [address] 42741- 2562 Dec, Anxiety F41.9 [facility] [id number] [place] [address] 67736- 5150 Dec, [facility] [id number] [place] [address] 37094- 5741 Dec, Anxiety F41.9 and Osteoarthritis of left knee, unspecified osteoarthritis type M17.12 [facility] [id number] [place] [address] 13830- 5186 Nov, Primary insomnia F51.01 and Anxiety F41.9 [facility] [place] [id number] [place] [address] 10885- 1674 Oct, Anxiety F41.9 [facility] [id number] [place] [address] 56949- 2967 Oct, [facility] [id number] [place] [address] 75013- 3290 Oct, Anxiety F41.9 [facility] [id number] [place] [address] 61913- 8353 Aug, Primary insomnia F51.01 ; Anxiety F41.9 ; Essential hypertension I10 ; 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 ; Gastritis determined by endoscopy K29.70 ; Primary osteoarthritis of left knee M17.12 and BMI 40.0-44.9, adult Z68.41 [facility] [id number] [place] [address] 85411- 6898 Aug, Primary insomnia F51.01 and Anxiety F41.9 [facility] [id number] [place] [address] 95904- 5217 Jun, Anxiety F41.9 [facility] [place] [id number] [place] [address] 46292- 5270 Jun, Anxiety F41.9 [place] [id number] [place] [address] 85219- 7103 May, [place] [id number] [place] [address] 79031- 6488 May, Primary osteoarthritis of left knee M17.12 and Anxiety F41.9 [facility] [id number] [place] [address] 21216- 7509 Apr, Essential hypertension I10 [place] [address] 96574- 0820 Apr, Essential hypertension I10 ; Anxiety F41.9 ; Primary insomnia F51.01 ; Primary osteoarthritis of left knee M17.12 and Gastritis determined by endoscopy K29.70 [place] [address] 59181- 6371 Apr, Essential hypertension I10 [place] [address] 20998- 8227 Mar, Anxiety F41.9 [facility] [address] 94477- 2077 Mar, Primary osteoarthritis of left knee M17.12 [facility] [address] 71420- 1865 Feb, [facility] [address] 26985- 5306 Feb, Anxiety F41.9 [facility] [address] 39418- 0642 Feb, [place] [id number] [place] [address] 32326- 0539 January, Mixed hyperlipidemia E78.2 [facility] [id number] [place] [address] 94445- 9695 January, Anxiety F41.9 [facility] [id number] [place] [address] [id number] Dec, Dental examination Z01.20 [facility] [id number] [place] [address] 80026- 7638 Dec, Anxiety F41.9 ; Primary insomnia F51.01 and Pain in left knee M25.562 [facility] [place] [id number] [place] [address] 33778- 3393 Nov, Essential hypertension I10 ; Anxiety F41.9 ; Primary insomnia F51.01 ; Mixed hyperlipidemia E78.2 ; Pain in left knee M25.562 and Gastritis determined by endoscopy K29.70 [facility] [id number] [place] [address] 25929- 9493 15 Oct, 2016 Anxiety F41.9 [facility] [id number] [place] [address] 78557- 1114 09 Oct, 2016 Primary osteoarthritis of left knee M17.12 [facility] [id number] [place] [address] [id number] Sep, Dental examination Z01.20 [facility] [id number] [place] [address] 55947- 8095 Sep, Anxiety F41.9 [facility] [place] [id number] [place] [address] 56543- 6080 Aug, Anxiety F41.9 [facility] [id number] [place] [address] 95176- 6022 Jul, Essential hypertension I10 ; Anxiety F41.9 ; Primary insomnia F51.01 ; Mixed hyperlipidemia E78.2 ; Pain in left knee M25.562 and Gastritis determined by endoscopy K29.70 [facility] [id number] [place] [address] 27203- 3492 Jul, [facility] [id number] [place] [address] 85161- 6141 Jul, [facility] [id number] [place] [address] 51812- 1757 Jun, [facility] [id number] [place] [address] 86323- 4812 Jun, [facility] [id number] [place] [address] 02381- 1243 May, [facility] [id number] [place] [address] 73090- 2017 May, Pain in left knee M25.562 [place] [address] 73798- 7828 Apr, Essential hypertension I10 ; Anxiety F41.9 ; Primary insomnia F51.01 ; Mixed hyperlipidemia E78.2 ; Pain in left knee M25.562 and Gastritis determined by endoscopy K29.70 [facility] [address] 83338- 9522 Mar, [facility] [address] 70295- 9003 Feb, [facility] [address] 59093- 5239 Feb, [facility] [address] [id number] January, Dental caries K02.9 [place] [place] [address] 65655- 2723 January, [place] [address] 92665- 8328 January, Bloody stools K92.1 ; Epigastric pain R10.13 ; Essential hypertension I10 ; Anxiety F41.9 and Primary insomnia F51.01 [facility] [id number] [place] [address] [id number] Dec, Dental examination Z01.20 [facility] [id number] [place] [address] 97493- 6738 Dec, [facility] [id number] [place] [address] 40198 -6064 Nov, Acute frontal sinusitis J01.10 and Sore throat J02.9 [facility] [id number] [place] [address] 19568- 9703 Nov, [facility] [address] 82768- 1993 Oct, Essential hypertension I10 ; Anxiety F41.9 and Primary insomnia F51.01 [facility] [id number] [place] [address] 14892- 5003 Sep, [facility] [id number] [place] [address] 12267- 9977 Sep, [facility] [id number] [place] [address] 44692- 4498 Sep, [facility] [id number] [place] [address] 18640- 0147 Aug, [place] [address] 48898- 8805 Aug, [facility] [id number] [place] [address] 31382- 4433 Jul, Essential hypertension I10 ; Anxiety F41.9 ; Primary insomnia F51.01 and Visual changes H53.9 [facility] [id number] [place] [address] 91237- 5093 Jul, [place] [id number] [place] [address] 50119- 2571 Jun, [facility] [id number] [place] [address] 80828- 7461 Jun, [facility] [id number] [place] [address] 83272- 7348 May, [facility] [id number] [place] [address] 91639- 9615 14 May, 2015 [facility] [id number] [place] [address] 41477- 5303 04 May, 2015 Chest pain 786.50 ; Hyperlipemia 272.4 ; Hypertension 401.9 ; Anxiety 300.00 and History of tobacco use V15.82 [facility] [place] [id number] [place] [address] 92995- 7956 May, Chest pain 786.50 and Hypertension 401.9 [facility] [address] [place] [address] 76594- 0570 Apr, [facility] [id number] [place] [address] [id number]- 2618 Apr, 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 ; Hypertension 401.9 and CAD (coronary artery disease) 414.00 [facility] [place] [id number] [place] [address] 95188- 8528 Mar, Chest pain 786.50 ; Hypertension 401.9 ; Hyperlipemia 272.4 and History of tobacco use V15.82 [facility] [place] [id number] [place] [address] 52938- 3651 Mar, 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 and Major depressive disorder, recurrent episode, moderate 296.32 [place] [id number] [place] [address] 06687- 8065 Mar, [facility] [id number] [place] [address] 74100- 7026 Mar, [facility] [address] [place] [id number] [place] [address] 98673- 0558 Mar, [facility] [address] [place] [id number] [place] [address] 98584- 5381 Mar, 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 and Major depressive disorder, recurrent episode, moderate 296.32 [facility] [address] [place] [address] 70648- 5697 Mar, [facility] [address] [place] [address] 43071- 0037 Feb, [place] [id number] [place] [address] 82964- 0607 Feb, 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 ; Major depressive disorder, recurrent episode, moderate 296.32 ; No condition on [place] V71.09 ; Hypertension 401.9 ; Arthritis 716.90 and Overweight 278.02 [facility] [address] [address]- 0192 Feb, [facility] [address] [place] [address] 961455- 9653 Feb, [facility] [address] [address]- 4508 January, Essential hypertension, benign 401.1 ; Anxiety state, unspecified 300.00 and Chest pain 786.50 [facility] [address] [address]- 0924 Dec, [facility] [id number] [place] [address] 06871- 2833 Dec, [facility] [id number] [place] [address] 40693- 2196 Nov, [facility] [id number] [place] [address] 88658- 4619 Nov, [facility] [address] [address]- 9979 Nov, [facility] [address] [address]- 3529 Nov, [facility] [address] [address]- 4160 Oct, [facility] [address] [address]- 8099 Oct, [facility] [address] [address]- 0046 Oct, [facility] [address] [address]- 3258 Oct, [facility] [address] [address]- 2036 Sep, [facility] [address] [address]- 9672 Sep, [facility] [place] [facility] [address] [id number] [place] [address]- 5857 Sep, [facility] [place] [facility] [address] [id number] [place] [address]- 4780 Sep, [facility] [place] [facility] [address] [facility] [id number] [place] [address]- 6401 Sep, [facility] [place] [facility] [address] [id number] [place] [address]- 0161 Sep, [facility] [place] [facility] [address] [id number] [place] [address]- 0390 Aug, [facility] [place] [facility] [address] [id number] [place] [address]- 0547 Aug, [facility] [place] [facility] [address] [id number] [place] [address]- 7679 Aug, [facility] [place] [facility] [address] [id number] [place] [address]- 4538 Aug, [facility] [place] [facility] [address] [id number] [place] [address]- 5174 Aug, [facility] [place] [facility] [address] [id number] [place] [address]- 9228 Aug, [facility] [place] [facility] [address] [id number] [place] [address]- 3178 Jul, [facility] [place] [facility] [address] [id number] [address]- 8982 Jul, [facility] [place] [facility] [address] [id number] [place] [address]- 1339 Jul, [facility] [place] [facility] [address] [id number] [place] [address]- 8347 Jul, [facility] [place] [facility] [address] [id number] [place] [address]- 1344 Jul, [facility] [place] [facility] [address] [facility] [id number] [address]- 6143 Jul, [facility] [address] [facility] [id number], [place] [address]- 1385 Jun, [facility] [address] [facility] [id number] [address]- 6702 Jun, [facility] [address] [facility] [id number], [place] [address]- 2785 Jun, [facility] [address] [facility] [id number] [address]- 4663 Jun, [facility] [address] [facility] [id number] [place] [address] 75598- 0437 May, [facility] [address] [facility] [id number] [address]- 2877 May, [facility] [address] [address]- 0471 May, [facility] [address] [facility] [id number], [place] [address]- 0644 May, [facility] [address] [address]- 6405 Apr, [facility] [id number] [address]- 6245 Apr, [facility] [address] [address]- 0949 Apr, [facility] [address] [facility] [id number] [address]- 1330 Apr, [facility] [address], [place] [address]- 1027 Apr, IMMUNIZATIONS No Known Immunizations SOCIAL HISTORY Never Assessed REASON FOR VISIT Controlled Med Refill PLAN OF CARE VITAL SIGNS MEDICATIONS Medication Instructions Dosage Frequency Start Date End Date Duration Status Xanax 0.5 MG Orally Three times a day prn-Must have appt for further refills 1 tablet Active Amitriptyline HCl 10 mg Orally Once a day 1 tablet 24h 30 Active RESULTS No Results PROCEDURES No Known [...]
--- OUTSIDE RECORDS SUMMARY | 2018-05-27 14:57 | XMS REPORT ---
Author Author AMERICO SH[facility] Address [address] [place] [address] Care Team Providers Care Twenty One Dealer Name Role Phone EDITH AMERICO Unavailable PROBLEMS Type Condition ICD9-CM Code WZQ09-IP Code Onset Dates Condition Status SNOMED Code Problem Anxiety F41.9 Active 84111900 Problem Gastroesophageal reflux disease without esophagitis K21.9 Active 761589563 Problem Epigastric pain R10.13 Active 03591204 Problem Primary insomnia F51.01 Active 3127944 Problem Visual changes H53.9 Active 49055764 Problem Essential hypertension I10 Active 80363773 Problem Osteoarthritis of left knee, unspecified osteoarthritis type M17.12 Active 408140439741544 Problem Coronary artery disease of [place] artery of [place] heart with stable 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 Active 5914827378912 Problem Pain in left knee M25.562 Active 15628089 Problem Mixed hyperlipidemia E78.2 Active 128422110 Problem Primary osteoarthritis of left knee M17.12 Active 329988878 Problem Gastritis determined by endoscopy K29.70 Active 2566430 ALLERGIES Substance Reaction Event Type Date Status Lexapro Suicidal ideation Drug Allergy Dec, Active ENCOUNTERS Encounter Location Date Diagnosis [facility] [place] [address] [address] Apr, [facility] [place] [id number] [place] [address] 29485- 3957 Feb, Anxiety F41.9 [facility] [place] [id number] [place] [address] 73000- 0444 January, Anxiety F41.9 [facility] [place] [id number] [place] [address] 11323- 0480 Dec, Anxiety F41.9 [facility] [place] [id number] [place] [address] 24871- 7061 Dec, [facility] [place] [id number] [place] [address] 25168- 9355 Dec, Anxiety F41.9 and Osteoarthritis of left knee, unspecified osteoarthritis type M17.12 [facility] [place] [id number] [place] [address] 14112- 3719 Nov, Primary insomnia F51.01 and Anxiety F41.9 [facility] [id number] [place] [address] 76299- 1557 Oct, Anxiety F41.9 [facility] [id number] [place] [address] 03305- 1947 Oct, [facility] [id number] [place] [address] 56542- 0594 Oct, Anxiety F41.9 [facility] [id number] [place] [address] 43226- 5180 Aug, Primary insomnia F51.01 ; Anxiety F41.9 ; Essential hypertension I10 ; Coronary artery disease of [place] artery of [place] heart with stable 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 ; Gastritis determined by endoscopy K29.70 ; Primary osteoarthritis of left knee M17.12 and BMI 40.0-44.9, adult Z68.41 [facility] [id number] [place] [address] 79326- 1833 Aug, Primary insomnia F51.01 and Anxiety F41.9 [facility] [id number] [place] [address] 01820- 5140 Jun, Anxiety F41.9 [facility] [id number] [place] [address] 93627- 8013 Jun, Anxiety F41.9 [facility] [place] [id number] [place] [address] 28970- 4232 May, [facility] [id number] [place] [address] 00817- 6809 May, Primary osteoarthritis of left knee M17.12 and Anxiety F41.9 [facility] [place] [id number] [place] [address] 62395- 3007 Apr, Essential hypertension I10 [facility] [place] [id number] [place] [address] 93912- 5069 Apr, Essential hypertension I10 ; Anxiety F41.9 ; Primary insomnia F51.01 ; Primary osteoarthritis of left knee M17.12 and Gastritis determined by endoscopy K29.70 [facility] [place] [id number] [place] [address] 11837- 8883 Apr, Essential hypertension I10 [facility] [place] [address] 47697- 3065 Mar, Anxiety F41.9 [facility] [place] [id number] [place] [address] 98469- 1021 Mar, Primary osteoarthritis of left knee M17.12 [facility] [place] [id number] [place] [address] 12833- 6040 Feb, [facility] [place] [id number] [place] [address] 29532- 9067 Feb, Anxiety F41.9 [facility] [place] [id number] [place] [address] 01442- 3464 Feb, [facility] [place] [id number] [place] [address] 55142- 4803 January, Mixed hyperlipidemia E78.2 [facility] [place] [id number] [place] [address] 53533- 1183 January, Anxiety F41.9 [facility] [address] [id number] Dec, Dental examination Z01.20 [facility] [place] [id number] [place] [address] 13167- 0993 Dec, Anxiety F41.9 ; Primary insomnia F51.01 and Pain in left knee M25.562 [facility] [place] [id number] [place] [address] 65689- 5920 16 Nov, 2016 Essential hypertension I10 ; Anxiety F41.9 ; Primary insomnia F51.01 ; Mixed hyperlipidemia E78.2 ; Pain in left knee M25.562 and Gastritis determined by endoscopy K29.70 [facility] [place] [id number] [place] [address] 02129- 1611 15 Oct, 2016 Anxiety F41.9 [facility] [place] [address] 10668- 7646 09 Oct, 2016 Primary osteoarthritis of left knee M17.12 [facility] [address] [id number] Sep, Dental examination Z01.20 [facility] [place] [id number] [place] [address] 71327- 3768 Sep, Anxiety F41.9 [facility] [address] 92817- 1802 Aug, Anxiety F41.9 [facility] [place] [id number] [place] [address] 40876- 9785 Jul, Essential hypertension I10 ; Anxiety F41.9 ; Primary insomnia F51.01 ; Mixed hyperlipidemia E78.2 ; Pain in left knee M25.562 and Gastritis determined by endoscopy K29.70 [facility] [place] [id number] [place] [address] 27503- 5303 Jul, [facility] [place] [id number] [place] [address] 86272- 4672 Jul, [facility] [place] [address] 63671- 7605 19 Jun, 2016 [facility] [place] [id number] [place] [address] 58337- 4906 Jun, [facility] [place] [id number] [place] [address] 33014- 4823 May, [facility] [place] [id number] [place] [address] 03550- 5739 May, Pain in left knee M25.562 [facility] [address] 95143- 3194 Apr, Essential hypertension I10 ; Anxiety F41.9 ; Primary insomnia F51.01 ; Mixed hyperlipidemia E78.2 ; Pain in left knee M25.562 and Gastritis determined by endoscopy K29.70 [facility] [place] [id number] [place] [address] 03438- 3502 Mar, [facility] [facility] [address] 24651- 1678 Feb, [place] [facility] [address] 33683- 9012 Feb, [facility] [address] [id number] January, Dental caries K02.9 [facility] [id number] [place] [address] 44493- 1798 January, [facility] [address] 71072- 0691 January, Bloody stools K92.1 ; Epigastric pain R10.13 ; Essential hypertension I10 ; Anxiety F41.9 and Primary insomnia F51.01 [facility] [address] [id number] Dec, Dental examination Z01.20 [facility] [place] [id number] [place] [address] 53864- 7542 Dec, [facility] [address] 83538 -7531 Nov, Acute frontal sinusitis J01.10 and Sore throat J02.9 [facility] [place] [address] 46746- 1346 Nov, [facility] [id number] [place] [address] 00071- 9230 Oct, Essential hypertension I10 ; Anxiety F41.9 and Primary insomnia F51.01 [facility] [place] [id number] [place] [address] 92102- 7762 Sep, [facility] [place] [id number] [place] [address] 27668- 4477 Sep, [facility] [place] [id number] [place] [address] 01385- 5105 Sep, [facility] [place] [id number] [place] [address] 38594- 1378 Aug, [facility] [place] [id number] [place] [address] 64384- 6013 Aug, [facility] [place] [id number] [place] [address] 50307- 9388 Jul, Essential hypertension I10 ; Anxiety F41.9 ; Primary insomnia F51.01 and Visual changes H53.9 [facility] [place] [id number] [place] [address] 90384- 7215 Jul, [facility] [place] [id number] [place] [address] 65738- 4462 Jun, [facility] [place] [id number] [place] [address] 66899- 2790 Jun, [facility] [place] [id number] [place] [address] 64175- 1564 May, [facility] [place] [id number] [place] [address] 98793- 0621 14 May, 2015 [facility] [place] [id number] [place] [address] 24013- 8380 04 May, 2015 Chest pain 786.50 ; Hyperlipemia 272.4 ; Hypertension 401.9 ; Anxiety 300.00 and History of tobacco use V15.82 [facility] [place] [id number] [place] [address] [phone]- 0927 May, Chest pain 786.50 and Hypertension 401.9 [facility] [place] [id number] [place] [address] 99775- 7707 Apr, [facility] [place] [id number] [place] [address] 769927- 8298 Apr, 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 ; Hypertension 401.9 and CAD (coronary artery disease) 414.00 [facility] [place] [id number] [place] [address] 520002- 9579 Mar, Chest pain 786.50 ; Hypertension 401.9 ; Hyperlipemia 272.4 and History of tobacco use V15.82 [facility] [facility] [id number] [place] [address] 27898- 1681 Mar, 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 and Major depressive disorder, recurrent episode, moderate 296.32 [facility] [id number] [place] [address] 49484- 1562 Mar, [facility] [place] [id number] [place] [address] 60573- 9389 Mar, [facility] [place] [id number] [place] [address] 80499- 0867 Mar, [facility] [place] [id number] [place] [address] 64229- 5580 Mar, 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 and Major depressive disorder, recurrent episode, moderate 296.32 [facility] [place] [address] [address]- 6727 Mar, [facility] [place] [id number] [place] [address] 70141- 8472 Feb, [facility] [place] [id number] [place] [address] [id number]- 5244 Feb, 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 ; Major depressive disorder, recurrent episode, moderate 296.32 ; No condition on [place] II V71.09 ; Hypertension 401.9 ; Arthritis 716.90 and Overweight 278.02 [facility] [place] [address] [address]- 0775 Feb, [facility] [place] [id number] [address]- 5404 Feb, [facility] [place] [id number] [place] [address] 65028- 5756 January, Essential hypertension, benign 401.1 ; Anxiety state, unspecified 300.00 and Chest pain 786.50 [facility] [place] [address] [address]- 1808 Dec, [facility] [place] [id number] [place] [address] 91582- 9405 Dec, [facility] [place] [id number] [address]- 3587 Nov, [facility] [place] [id number] [address]- 6982 Nov, [facility] [place] [id number] [address]- 4181 Nov, [facility] [place] [address] [address]- 1765 Nov, [facility] [place] [address] [address]- 4592 Oct, [facility] [place] [id number] [address]- 3797 Oct, [facility] [place] [id number] [address]- 9906 Oct, [facility] [place] [id number] 0053 Oct, [facility] [place] [id number]- 3371 Sep, [facility] [place] [facility] [address] [facility] [id number] [place] [address]- 9623 Sep, [facility] [address] [id number] [place] [address]- 6166 Sep, [facility] [place] [facility] [address] [id number] [place] [address]- 0392 Sep, [facility] [place] [facility] [address] [id number] [place] [address]- 3958 Sep, [facility] [place] [facility] [address] [id number] [place] [address]- 5528 Sep, [facility] [place] [facility] [address] [id number] [place] [address]- 8379 Aug, [facility] [place] [facility] [address] [id number] [place]- 3562 Aug, [facility] [place] [facility] [address] [id number] [place] [address]- 2543 Aug, [facility] [place] [facility] [address] [id number] [place] [address]- 9562 Aug, [facility] [place] [facility] [address] [id number] [place] [address]- 2870 Aug, [facility] [place] [facility] [address] [id number] [place]- 6351 Aug, [facility] [place] [facility] [address] [id number] [place] [address]- 1728 Jul, [facility] [place] [facility] [address] [id number] [place] [address]- 0876 Jul, [facility] [place] [facility] [address] [id number] [place] [address]- 0127 Jul, [facility] [place] [facility] [address] [id number] [place] [address]- 1176 Jul, [facility] [place] [facility] [address] [id number] [place] [address]- 7755 Jul, [facility] [place] [address] [facility]] [id number], [place] [address]- 1780 Jul, [facility] [address] [facility]] [id number] [address]- 7401 Jun, [facility] [address] [facility]] [id number]- 4311 Jun, [facility] [address] [facility]] [id number] [address]- 1284 Jun, [facility] [address] [facility]] [id number] [address]- 7255 Jun, [facility] [address] [facility]] [id number] [address]- 9817 May, [facility] [id number] [address]- 1189 May, [facility] [id number] [address]- 6600 May, [facility] [place] [address] [facility]] [id number], [place] [address]- 7391 May, [facility] [place] [id number] [address]- 1997 Apr, [facility] [place] [address] [address]- 4604 Apr, [facility] [place] [address] [facility]] [id number][place] [address]- 4228 Apr, [facility] [place] [address] [facility]] [id number][place] [address]- 2813 Apr, [facility] [place] [id number] [address]- 7840 Apr, IMMUNIZATIONS No Known Immunizations SOCIAL HISTORY Never Assessed REASON FOR VISIT Pain management (chronic)--elen Gorman ameritox and contract update, -- Dr. Chandler did echo and cartoid scan in Oct and scheduled for blood work in February , --was unable to see Dr. Fernández to get injection in knee also. PLAN OF CARE Activity Details Follow Up 3 Months Reason:Anxiety VITAL SIGNS Height 67 in 2017-12-28 Weight 250 lbs 2017-12-28 Temperature 97.6 degrees Fahrenheit 2017-12-28 Heart Rate 80 bpm 2017-12-28 Respiratory Rate 20 2017-12-28 BMI 39.15 kg/m2 2017-12-28 Blood pressure systolic 112 mmHg 2017-12-28 Blood pressure diastolic 74 mmHg 2017-12-28 MEDICATIONS Medication Instructions Dosage Frequency Start Date End Date Duration Status Nitrostat 0.4 MG 1 tablet by Sublingual route 3 times per day PRN chest pain; Apr, Active lipitor 1 tab Active Norvasc 10 mg Orally Once a day 1 tablet 24h 90 days Active Pantoprazole Sodium 40 MG TAKE ONE TABLET BY MOUTH ONCE DAILY 30 Active losartan 50 mg orally 2 times a day 1 tablet 12h Active Metoprolol Succinate 50 mg Orally 2 times a day 1 tablet 12h 25 Feb, 2018 90 days Active Losartan Potassium 50 MG TAKE ONE TABLET BY MOUTH TWICE DAILY 90 Active Xanax 0.5 MG Orally Three times a day prn-Must have appt for further refills 1 tablet Active Amitriptyline HCl 10 mg Orally Once a day 1 tablet 24h 30 Active Benadryl Active RESULTS No Results PROCEDURES Procedure Date Ordered Result Body Site [facility] VISIT ESTABLISHED PATIENT December 28, 2017 INSTRUCTIONS MEDICATIONS ADMINISTERED No Known Medications MEDICAL [...]
--- OUTSIDE RECORDS SUMMARY | 2018-05-27 14:57 | XMS REPORT ---
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 Role Phone AMERICO SHARMA Unavailable PROBLEMS Type Condition ICD9-CM Code VAN81-DV Code Onset Dates Condition Status SNOMED Code Problem Anxiety F41.9 Active 35174017 Problem Gastroesophageal reflux disease without esophagitis K21.9 Active 446780501 Problem Epigastric pain R10.13 Active 44449567 Problem Primary insomnia F51.01 Active 7808629 Problem Visual changes H53.9 Active 28362564 Problem Essential hypertension I10 Active 95420681 Problem Osteoarthritis of left knee, unspecified osteoarthritis type M17.12 Active 013968460104921 Problem Coronary artery disease of [place] artery of [place] heart with stable 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 Active 6318505082716 Problem Pain in left knee M25.562 Active 17577931 Problem Mixed hyperlipidemia E78.2 Active 370660232 Problem Primary osteoarthritis of left knee M17.12 Active 311008010 Problem Gastritis determined by endoscopy K29.70 Active 6048521 ALLERGIES No Information ENCOUNTERS Encounter Location Date Diagnosis [place] [id number] [place] [address] 16180- 9789 Apr, [place] [id number] [place] [address] 32139- 4203 Feb, Anxiety F41.9 [place] [id number] [place] [address] 32625- 3097 January, Anxiety F41.9 [place] [id number] [place] [address] 15914- 7810 Dec, Anxiety F41.9 [place] [id number] [place] [address] 74071- 6740 Dec, [place] [id number] [place] [address] 27395- 3366 Dec, Anxiety F41.9 and Osteoarthritis of left knee, unspecified osteoarthritis type M17.12 [facility] [id number] [place] [address] 95677- 0696 Nov, Primary insomnia F51.01 and Anxiety F41.9 [place] [id number] [place] [address] 54197- 6942 Oct, Anxiety F41.9 [place] [id number] [place] [address] 74902- 9274 Oct, [place] [id number] [place] [address] 17677- 2068 Oct, Anxiety F41.9 [place] [id number] [place] [address] 93853- 2438 Aug, Primary insomnia F51.01 ; Anxiety F41.9 ; Essential hypertension I10 ; Coronary artery disease of [place] artery of [place] heart with stable 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 ; Gastritis determined by endoscopy K29.70 ; Primary osteoarthritis of left knee M17.12 and BMI 40.0-44.9, adult Z68.41 [place] [id number] [place] [address] 18109- 6990 Aug, Primary insomnia F51.01 and Anxiety F41.9 [place] [id number] [place] [address] 91232- 9120 Jun, Anxiety F41.9 [place] [id number] [place] [address] 17558- 2065 Jun, Anxiety F41.9 [place] [id number] [place] [address] 55179- 5793 May, [place] [id number] [place] [address] 65579- 5748 May, Primary osteoarthritis of left knee M17.12 and Anxiety F41.9 [facility] [id number] [place] [address] 63778- 3130 Apr, Essential hypertension I10 [place] [address] 65673- 9020 Apr, Essential hypertension I10 ; Anxiety F41.9 ; Primary insomnia F51.01 ; Primary osteoarthritis of left knee M17.12 and Gastritis determined by endoscopy K29.70 [place] [address] 58831- 1394 Apr, Essential hypertension I10 [place] [address] 57093- 5109 Mar, Anxiety F41.9 [place] [address] 73237- 0890 Mar, Primary osteoarthritis of left knee M17.12 [place] [address] 68844- 2661 Feb, [place] [address] 32598- 3331 Feb, Anxiety F41.9 [place] [address] 74271- 6512 Feb, [place] [id number] [place] [address] 36969- 9756 January, Mixed hyperlipidemia E78.2 [place] [id number] [place] [address] 53966- 5751 January, Anxiety F41.[address] [facility] [id number] [place] [address] [id number] Dec, Dental examination Z01.20 [facility] [id number] [place] [address] 13179- 4179 Dec, Anxiety F41.9 ; Primary insomnia F51.01 and Pain in left knee M25.562 [place] [id number] [place] [address] 77602- 3010 Nov, Essential hypertension I10 ; Anxiety F41.9 ; Primary insomnia F51.01 ; Mixed hyperlipidemia E78.2 ; Pain in left knee M25.562 and Gastritis determined by endoscopy K29.70 [facility] [id number] [place] [address] 30981- 7372 15 Oct, 2016 Anxiety F41.9 [facility] [id number] [place] [address] 31159- 3369 09 Oct, 2016 Primary osteoarthritis of left knee M17.[address] [facility] [id number] [place] [address] [id number] Sep, Dental examination Z01.20 [facility] [id number] [place] [address] 62894- 7135 Sep, Anxiety F41.9 [place] [id number] [place] [address] 69463- 0907 Aug, Anxiety F41.9 [facility] [id number] [place] [address] 61301- 4433 Jul, Essential hypertension I10 ; Anxiety F41.9 ; Primary insomnia F51.01 ; Mixed hyperlipidemia E78.2 ; Pain in left knee M25.562 and Gastritis determined by endoscopy K29.70 [facility] [id number] [place] [address] 22761- 8332 Jul, [facility] [id number] [place] [address] 27957- 9403 Jul, [facility] [id number] [place] [address] 37021- 7142 Jun, [facility] [id number] [place] [address] 29887- 7974 Jun, [facility] [id number] [place] [address] 21335- 5333 May, [facility] [id number] [place] [address] 72351- 9743 May, Pain in left knee M25.562 [place] [address] 90849- 1352 Apr, Essential hypertension I10 ; Anxiety F41.9 ; Primary insomnia F51.01 ; Mixed hyperlipidemia E78.2 ; Pain in left knee M25.562 and Gastritis determined by endoscopy K29.70 [facility] [address] 52657- 4286 Mar, [facility] [address] 76431- 9318 Feb, [place] [address] 98812- 6286 Feb, [facility] [address] [id number] January, Dental caries K02.9 [place] [address] 74794- 0712 January, [place] [address] 21118- 5157 January, Bloody stools K92.1 ; Epigastric pain R10.13 ; Essential hypertension I10 ; Anxiety F41.9 and Primary insomnia F51.[address] [facility] [id number] [place] [address] [id number] Dec, Dental examination Z01.20 [facility] [id number] [place] [address] 23183- 7919 Dec, [facility] [id number] [place] [address] 95919 -1278 Nov, Acute frontal sinusitis J01.10 and Sore throat J02.9 [facility] [id number] [place] [address] 29415- 0024 Nov, [facility] [address] 13487- 3362 Oct, Essential hypertension I10 ; Anxiety F41.9 and Primary insomnia F51.01 [facility] [id number] [place] [address] 93046- 6338 Sep, [facility] [id number] [place] [address] 36431- 6548 Sep, [facility] [id number] [place] [address] 77687- 1644 Sep, [facility] [id number] [place] [address] 15949- 0735 Aug, [place] [address] 44190- 5454 Aug, [facility] [id number] [place] [address] 57517- 2125 Jul, Essential hypertension I10 ; Anxiety F41.9 ; Primary insomnia F51.01 and Visual changes H53.9 [facility] [id number] [place] [address] 65164- 0572 Jul, [place] [id number] [place] [address] 28002- 4526 Jun, [facility] [id number] [place] [address] 94857- 8105 Jun, [place] [id number] [place] [address] 37843- 9478 May, [facility] [id number] [place] [address] 61535- 0084 14 May, 2015 [facility] [id number] [place] [address] 02730- 1014 04 May, 2015 Chest pain 786.50 ; Hyperlipemia 272.4 ; Hypertension 401.9 ; Anxiety 300.00 and History of tobacco use V15.82 [place] [id number] [place] [address] 55855- 4111 May, Chest pain 786.50 and Hypertension 401.9 [facility] [id number] [place] [address] 29660- 7869 Apr, [facility] [id number] [place] [address] [id number]- 1838 Apr, 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 ; Hypertension 401.9 and CAD (coronary artery disease) 414.00 [place] [id number] [place] [address] 18453- 3016 Mar, Chest pain 786.50 ; Hypertension 401.9 ; Hyperlipemia 272.4 and History of tobacco use V15.82 [place] [id number] [place] [address] 31653- 4380 Mar, 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 and Major depressive disorder, recurrent episode, moderate 296.32 [place] [id number] [place] [address] 54803- 3676 Mar, [facility] [id number] [place] [address] 40015- 1163 Mar, [facility] [address] [place] [id number] [place] [address] 80984- 0248 Mar, [facility] [address] [place] [id number] [place] [address] 64095- 4962 Mar, 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 and Major depressive disorder, recurrent episode, moderate 296.32 [facility] [id number] [place] [address] 54332- 8974 Mar, [facility] [id number] [place] [address] 75850- 5226 Feb, [place] [id number] [place] [address] 46824- 3248 Feb, 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 ; Major depressive disorder, recurrent episode, moderate 296.32 ; No condition on [place] II V71.09 ; Hypertension 401.9 ; Arthritis 716.90 and Overweight 278.02 [facility] [address] [address]- 9490 Feb, [facility] [id number] [place] [address] 557364- 6009 Feb, [facility] [id number] [address]- 2383 January, Essential hypertension, benign 401.1 ; Anxiety state, unspecified 300.00 and Chest pain 786.50 [facility] [address] [address]- 0132 Dec, [facility] [id number] [place] [address] 52072- 6845 Dec, [facility] [id number] [place] [address] 41502- 8765 Nov, [facility] [id number] [place] [address] 21846- 3514 Nov, [facility] [id number] [address]- 1870 Nov, [facility] [address] [address]- 6001 Nov, [facility] [id number] [address]- 9572 Oct, [facility] [id number] [address]- 1271 Oct, [facility] [id number] [address]- 4690 Oct, [facility] [id number] [address]- 9469 Oct, [facility] [id number] [address]- 4795 Sep, [facility] [id number] [address]- 6506 Sep, [facility] [place] [facility] [address] [id number] [place] [address]- 7474 Sep, [facility] [place] [facility] [address] [id number] [place] [address]- 7236 Sep, [facility] [place] [facility] [address] [facility] [id number] [place] [address]- 1392 Sep, [facility] [place] [facility] [address] [id number] [place] [address]- 3912 Sep, [facility] [place] [facility] [address] [id number] [place] [address]- 3591 Aug, [facility] [place] [facility] [address] [id number] [place] [address]- 3401 Aug, [facility] [place] [facility] [address] [id number] [place] [address]- 3337 Aug, [facility] [place] [facility] [address] [id number] [place] [address]- 2639 Aug, [facility] [place] [facility] [address] [id number] [place] [address]- 7692 Aug, [facility] [place] [facility] [address] [id number] [place] [address]- 7382 Aug, [facility] [place] [facility] [address] [id number] [place] [address]- 4259 Jul, [facility] [place] [facility] [address] [id number] [address]- 9230 Jul, [facility] [place] [facility] [address] [id number] [place] [address]- 7251 Jul, [facility] [place] [facility] [address] [id number] [place] [address]- 4598 Jul, [facility] [place] [facility] [address] [id number] [place] [address]- 0346 Jul, [facility] [place] [facility] [id number] [address]- 8311 Jul, [facility] [id number] [address]- 6898 Jun, [facility] [id number] [address]- 7637 Jun, [facility] [id number] [address]- 5054 Jun, [facility] [address] [facility] [id number] [address]- 0563 Jun, [facility] [id number] [place] [address] 84970- 7189 May, [facility] [id number] [address]- 7611 May, [facility] [id number] [address]- 2621 May, [facility] [id number] [address]- 0087 May, [facility] [id number] [address]- 1356 Apr, [facility] [id number] [address]- 8147 Apr, [facility] [id number] [address]- 0837 Apr, [facility] [id number] [address]- 5128 Apr, [facility] [id number] [address]- 4164 Apr, IMMUNIZATIONS No Known Immunizations SOCIAL HISTORY Never Assessed REASON FOR VISIT Referral PLAN OF CARE VITAL SIGNS MEDICATIONS Unknown [...]
--- OUTSIDE RECORDS SUMMARY | 2018-05-27 14:58 | XMS REPORT ---
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 Name Role Phone EDITH AMERICO Unavailable PROBLEMS Type Condition ICD9-CM Code RRX19-AW Code Onset Dates Condition Status SNOMED Code Problem Anxiety F41.9 Active 74811011 Problem Gastroesophageal reflux disease without esophagitis K21.9 Active 295370142 Problem Epigastric pain R10.13 Active 06154723 Problem Primary insomnia F51.01 Active 1707137 Problem Visual changes H53.9 Active 96271191 Problem Essential hypertension I10 Active 68174823 Problem Osteoarthritis of left knee, unspecified osteoarthritis type M17.12 Active 471289891588505 Problem Coronary artery disease of [place] artery of [place] heart with stable 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 Active 4809556794348 Problem Pain in left knee M25.562 Active 86016220 Problem Mixed hyperlipidemia E78.2 Active 245891851 Problem Primary osteoarthritis of left knee M17.12 Active 452449284 Problem Gastritis determined by endoscopy K29.70 Active 2556958 ALLERGIES Substance Reaction Event Type Date Status Lexapro Suicidal ideation Drug Allergy Aug, Active ENCOUNTERS Encounter Location Date Diagnosis [place] [id number] [place] [address] 16415- 3932 January, Anxiety F41.9 [facility] [id number] [place] [address] 02924- 8940 Dec, Anxiety F41.9 [facility] [address] [place] [id number] [place] [address] 97822- 8276 Dec, [facility] [id number] [place] [address] 39615- 0831 Dec, Anxiety F41.9 and Osteoarthritis of left knee, unspecified osteoarthritis type M17.12 [facility] [id number] [place] [address] 32159- 9478 Nov, Primary insomnia F51.01 and Anxiety F41.9 [facility] [id number] [place] [address] 43172- 1752 Oct, Anxiety F41.9 [facility] [address] [address] [id number] [place] [address] 76487- 2206 Oct, [place] [address] [id number] [place] [address] 65339- 0911 Oct, Anxiety F41.9 [place] [address] [address] [id number] [place] [address] 77373- 4783 Aug, Primary insomnia F51.01 ; Anxiety F41.9 ; Essential hypertension I10 ; Coronary artery disease of [place] artery of [place] heart with stable 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 ; Gastritis determined by endoscopy K29.70 ; Primary osteoarthritis of left knee M17.12 and BMI 40.0-44.9, adult Z68.41 [place] [address] [address] [id number] [place] [address] 82955- 3279 Aug, Primary insomnia F51.01 and Anxiety F41.9 [place] [address] [address] [id number] [place] [address] 17034- 9279 Jun, Anxiety F41.9 [place] [address] [address] [id number] [place] [address] 24947- 3782 Jun, Anxiety F41.9 [place] [address] [id number] [place] [address] 79425- 2986 May, [place] [address] [address] [id number] [place] [address] 08948- 5917 May, Primary osteoarthritis of left knee M17.12 and Anxiety F41.9 [place] [address] [id number] [place] [address] 77985- 2669 Apr, Essential hypertension I10 [place] [address] [id number] [place] [address] 54869- 9685 Apr, Essential hypertension I10 ; Anxiety F41.9 ; Primary insomnia F51.01 ; Primary osteoarthritis of left knee M17.12 and Gastritis determined by endoscopy K29.70 [place] [address] [id number] [place] [address] 60904- 6865 Apr, Essential hypertension I10 [place] [address] 63811- 0430 Mar, Anxiety F41.9 [place] [address] [id number] [place] [address] 34949- 3793 Mar, Primary osteoarthritis of left knee M17.12 [place] [address] [id number] [place] [address] 17135- 7623 Feb, [place] [address] [address] [id number] [place] [address] 32622- 0105 Feb, Anxiety F41.9 [place] [address] [id number] [place] [address] 69494- 0166 Feb, [place] [address] [id number] [place] [address] 67592- 9765 January, Mixed hyperlipidemia E78.2 [place] [address] [id number] [place] [address] 83627- 2566 January, Anxiety F41.9 [facility] [address] [id number] [place] [address] [id number] Dec, Dental examination Z01.20 [place] [address] [place] [address] 84558- 6867 Dec, Anxiety F41.9 ; Primary insomnia F51.01 and Pain in left knee M25.562 [facility] [address] [id number] [place] [address] 46864- 6238 Nov, Essential hypertension I10 ; Anxiety F41.9 ; Primary insomnia F51.01 ; Mixed hyperlipidemia E78.2 ; Pain in left knee M25.562 and Gastritis determined by endoscopy K29.70 [facility] [id number] [place] [address] 27569- 9890 15 Oct, 2016 Anxiety F41.9 [facility] [id number] [place] [address] 48974- 2286 09 Oct, 2016 Primary osteoarthritis of left knee M17.12 [facility] [id number] [place] [address] [id number] Sep, Dental examination Z01.20 [facility] [address] [id number] [place] [address] 64525- 9048 Sep, Anxiety F41.9 [place] [address] 18009- 5848 Aug, Anxiety F41.9 [place] [address] 26700- 2788 Jul, Essential hypertension I10 ; Anxiety F41.9 ; Primary insomnia F51.01 ; Mixed hyperlipidemia E78.2 ; Pain in left knee M25.562 and Gastritis determined by endoscopy K29.70 [facility] [address] [id number] [place] [address] 85828- 7793 Jul, [facility] [address] [address] [id number] [place] [address] 89241- 4892 Jul, [place] [address] [place] [id number] [place] [address] 68349- 7206 Jun, [facility] [id number] [place] [address] 47326- 8221 Jun, [facility] [address] [place] [id number] [place] [address] 84124- 3821 May, [facility] [address] [id number] [place] [address] 51820- 3487 May, Pain in left knee M25.562 [facility] [address] 90048- 5468 Apr, Essential hypertension I10 ; Anxiety F41.9 ; Primary insomnia F51.01 ; Mixed hyperlipidemia E78.2 ; Pain in left knee M25.562 and Gastritis determined by endoscopy K29.70 [facility] [id number] [place] [address] 24362- 7326 Mar, [facility] [address] 47369- 2210 Feb, [facility] [address] 30375- 1082 Feb, [facility] [address] [id number] January, Dental caries K02.9 [facility] [address] 60023- 4165 January, [place] [address] 17485- 9477 January, Bloody stools K92.1 ; Epigastric pain R10.13 ; Essential hypertension I10 ; Anxiety F41.9 and Primary insomnia F51.01 [facility] [address] [id number] Dec, Dental examination Z01.20 [facility] [id number] [place] [address] 05884- 2866 Dec, [facility] [address] 74615 -7798 Nov, Acute frontal sinusitis J01.10 and Sore throat J02.9 [facility] [address] [address] [id number] [place] [address] 33026- 6226 Nov, [facility] [address] 23556- 9380 Oct, Essential hypertension I10 ; Anxiety F41.9 and Primary insomnia F51.01 [facility] [address] 20896- 7222 Sep, [facility] [address] [place] [address] 84491- 9610 Sep, [facility] [address] [address] [id number] [place] [address] 49695- 5980 Sep, [facility] [address] [place] [address] [id number] [place] [address] 40284- 0250 Aug, [facility] [address] 68810- 2430 Aug, [facility] [address] [address] [id number] [place] [address] 21522- 5921 Jul, Essential hypertension I10 ; Anxiety F41.9 ; Primary insomnia F51.01 and Visual changes H53.9 [facility] [id number] [place] [address] 44243- 4935 Jul, [facility] [address] [address] [id number] [place] [address] 47753- 0748 Jun, [facility] [id number] [place] [address] 39432- 6586 Jun, [facility] [address] [id number] [place] [address] 33411- 7590 May, [facility] [id number] [place] [address] 43132- 1624 14 May, 2015 [facility] [address] [id number] [place] [address] 76425- 5592 04 May, 2015 Chest pain 786.50 ; Hyperlipemia 272.4 ; Hypertension 401.9 ; Anxiety 300.00 and History of tobacco use V15.82 [facility] [address] [id number] [place] [address] 64777- 6255 May, Chest pain 786.50 and Hypertension 401.9 [facility] [id number] [place] [address] 25636- 4078 Apr, [facility] [address] [place] [address]- 8253 Apr, 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 ; Hypertension 401.9 and CAD (coronary artery disease) 414.00 [place] [address] [place] [id number] [place] [address] 81292- 3005 Mar, Chest pain 786.50 ; Hypertension 401.9 ; Hyperlipemia 272.4 and History of tobacco use V15.82 [place] [address] 66208- 0151 Mar, 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 and Major depressive disorder, recurrent episode, moderate 296.[address] 16191- 8470 Mar, [address] 90419- 0525 Mar, [facility] [address] [place] [address] 41945- 2590 Mar, [facility] [address] [place] [address] 96372- 3491 Mar, 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 and Major depressive disorder, recurrent episode, moderate 296.32 [place] [id number] [place] [address] 99782- 1747 Mar, [facility] [address] [place] [id number] [place] [address] 86016- 8968 Feb, [facility] [address] [place] [id number] [place] [address] 86729- 3393 Feb, 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 ; Major depressive disorder, recurrent episode, moderate 296.32 ; No condition on [place] II V71.09 ; Hypertension 401.9 ; Arthritis 716.90 and Overweight 278.02 [place] [id number] [place] [address] 67980- 9869 08 Feb, 2015 [facility] [address] 28138- 0092 Feb, [facility] [address] 4536 January, Essential hypertension, benign 401.1 ; Anxiety state, unspecified 300.00 and Chest pain 786.50 [facility] [address] [facility] [id number][place]- 0681 Dec, [facility] [address] [facility] [id number], [place] [address]- 6039 Dec, [facility] [address] [place] [id number]- 6092 Nov, [facility] [address] [place] [address] 552086- 8970 Nov, [facility] [address], [place] [address]- 1079 Nov, [facility] [address] [id number] [address]- 2786 Nov, [facility] [address] [address]- 7924 Oct, [facility] [address] [address]- 2049 Oct, [facility] [address] [address]- 5093 Oct, [facility] [address] [place] [id number]- 6977 Oct, [facility] [address] [place] [id number]- 0252 Sep, [facility] [address] [address]- 3973 Sep, [facility] [address] [place] [id number]- 7073 Sep, [facility] [address] [place] [id number] [place] [address]- 8754 Sep, [facility] [place] [facility] [address] [id number] [place] 0493 Sep, [facility] [place] [facility] [address] [id number] [place] [address]- 7922 Sep, [facility] [place] [facility] [address] [id number] [place]- 2602 Aug, [facility] [place] [facility] [address] [id number] [place] [address]- 9125 Aug, [facility] [place] [facility] [address] [id number] [place] [address]- 2342 Aug, [facility] [place] [facility] [address] [id number] [place] [address]- 2261 Aug, [facility] [place] [facility] [address] [id number] [place] [address]- 8746 Aug, [facility] [place] [facility] [address] [id number] [place] [address]- 9946 Aug, [facility] [place] [facility] [address] [id number] [place] [address]- 1262 Jul, [facility] [place] [facility] [address] [facility] [id number] [place] [address]- 0748 Jul, [facility] [place] [facility] [address] [id number] [place] [address]- 7532 Jul, [facility] [place] [facility] [address] [id number] [place] [address]- 6700 Jul, [facility] [place] [facility] [address] [id number] [place] [address]- 1818 Jul, [facility] [place] [facility] [address] [id number] [place] [address]- 9042 Jul, [facility] [place] [facility] [address] [id number] [place] [address]- 5735 Jun, [facility] [address] [facility] [id number], [place] [address]- 5295 Jun, [facility] [address] [facility] [id number], [place] [address]- 5823 Jun, [facility] [address] [facility] [id number][place]- 0597 Jun, [facility] [address] [facility] [id number], [place] [address]- 3164 May, [facility] [address] [id number][place] 2263 May, [facility] [address] [facility] [id number], [place] [address]- 5154 May, [facility] [address], [place] [address]- 4099 May, [facility] [address], [place] [address]- 3998 Apr, [facility] [address], [place] [address]- 1551 Apr, [facility] [address], [place] [address]- 3724 Apr, [facility] [address], [place] [address]- 4338 Apr, [facility] [address] [id number], [place] [address]- 4301 Apr, IMMUNIZATIONS No Known Immunizations SOCIAL HISTORY Never Assessed REASON FOR VISIT Hospital f/u--[facility] PLAN OF CARE Activity Details Follow Up 3 Months Reason:anxiety VITAL SIGNS Height 67 in 2017-09-21 Weight 258.8 lbs 2017-09-21 Temperature 98.0 degrees Fahrenheit 2017-09-21 Heart Rate 88 bpm 2017-09-21 Respiratory Rate 20 2017-09-21 BMI 40.53 kg/m2 2017-09-21 Blood pressure systolic 142 mmHg 2017-09-21 Blood pressure diastolic 76 mmHg 2017-09-21 MEDICATIONS Medication Instructions Dosage Frequency Start Date End Date Duration Status Nitrostat 0.4 MG 1 tablet by Sublingual route 3 times per day PRN chest pain; Apr, Active losartan 50 mg orally 2 times a day 1 tablet 12h Active Norvasc 10 mg Orally Once a day 1 tablet 24h 90 days Active Xanax 0.5 MG Orally Three times a day prn-Must have appt for further refills 1 tablet Active Metoprolol Succinate 50 mg Orally 2 times a day 1 tablet 12h 25 Feb, 2018 90 days Active Benadryl Active lipitor 1 tab Active Amitriptyline HCl 10 mg Orally Once a day 1 tablet 24h 30 Active Pantoprazole Sodium 40 mg Orally Once a day 1 tablet 24h 30 days Active RESULTS No Results PROCEDURES Procedure Date Ordered Result Body Site [facility] ESTABLISHED PATIENT Sep 21, 2017 INSTRUCTIONS MEDICATIONS ADMINISTERED No Known Medications [...]
--- OUTSIDE RECORDS SUMMARY | 2018-05-27 14:58 | XMS REPORT ---
Author Author AMERICO SHAR[facility] Address [address] [place] [address] Care Team Providers Care Scrum Project Manager Name Role Phone AMERICO SHARMA Unavailable PROBLEMS Type Condition ICD9-CM Code OXX42-FI Code Onset Dates Condition Status SNOMED Code Problem Anxiety F41.9 Active 20660810 Problem Gastroesophageal reflux disease without esophagitis K21.9 Active 356209701 Problem Epigastric pain R10.13 Active 73292147 Problem Primary insomnia F51.01 Active 6851343 Problem Visual changes H53.9 Active 22747715 Problem Essential hypertension I10 Active 64272462 Problem Osteoarthritis of left knee, unspecified osteoarthritis type M17.12 Active 684364794766017 Problem Coronary artery disease of [place] artery of [place] heart with stable 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 Active 3022923249419 Problem Pain in left knee M25.562 Active 94562838 Problem Mixed hyperlipidemia E78.2 Active 620414912 Problem Primary osteoarthritis of left knee M17.12 Active 021694290 Problem Gastritis determined by endoscopy K29.70 Active 6176704 ALLERGIES No Information ENCOUNTERS Encounter Location Date Diagnosis [facility] [id number] [place] [address] 67596- 8614 Apr, [facility] [id number] [place] [address] 18909- 0173 Feb, Anxiety F41.9 [facility] [id number] [place] [address] 04577- 1274 January, Anxiety F41.9 [facility] [id number] [place] [address] 04835- 8820 Dec, Anxiety F41.9 [facility] [id number] [place] [address] 43508- 7952 Dec, [facility] [id number] [place] [address] 87297- 9493 Dec, Anxiety F41.9 and Osteoarthritis of left knee, unspecified osteoarthritis type M17.12 [facility] [id number] [place] [address] 35328- 4794 Nov, Primary insomnia F51.01 and Anxiety F41.9 [facility] [id number] [place] [address] 93686- 6413 Oct, Anxiety F41.9 [facility] [id number] [place] [address] 71380- 2325 Oct, [facility] [id number] [place] [address] 27484- 9746 Oct, Anxiety F41.9 [facility] [id number] [place] [address] 71985- 4789 Aug, Primary insomnia F51.01 ; Anxiety F41.9 ; Essential hypertension I10 ; Coronary artery disease of [place] artery of [place] heart with stable 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 ; Gastritis determined by endoscopy K29.70 ; Primary osteoarthritis of left knee M17.12 and BMI 40.0-44.9, adult Z68.41 [facility] [id number] [place] [address] 53921- 2442 Aug, Primary insomnia F51.01 and Anxiety F41.9 [facility] [id number] [place] [address] 76006- 7033 Jun, Anxiety F41.9 [facility] [id number] [place] [address] 32813- 7622 Jun, Anxiety F41.9 [facility] [id number] [place] [address] 49245- 9152 May, [facility] [id number] [place] [address] 94956- 2397 May, Primary osteoarthritis of left knee M17.12 and Anxiety F41.9 [facility] [id number] [place] [address] 82515- 6160 Apr, Essential hypertension I10 [facility] [address] 45035- 5549 Apr, Essential hypertension I10 ; Anxiety F41.9 ; Primary insomnia F51.01 ; Primary osteoarthritis of left knee M17.12 and Gastritis determined by endoscopy K29.70 [facility] [address] 33572- 5079 Apr, Essential hypertension I10 [facility] [address] 46685- 2883 Mar, Anxiety F41.9 [facility] [address] 78695- 5752 Mar, Primary osteoarthritis of left knee M17.12 [facility] [address] 14107- 2822 Feb, [facility] [address] 56656- 3425 Feb, Anxiety F41.9 [facility] [address] 57647- 9386 Feb, [facility] [id number] [place] [address] 02288- 0186 January, Mixed hyperlipidemia E78.2 [facility] [id number] [place] [address] 24897- 2530 January, Anxiety F41.9 [facility] [id number] [place] [address] [id number] Dec, Dental examination Z01.20 [facility] [id number] [place] [address] 46751- 8894 Dec, Anxiety F41.9 ; Primary insomnia F51.01 and Pain in left knee M25.562 [facility] [id number] [place] [address] 35542- 1532 Nov, Essential hypertension I10 ; Anxiety F41.9 ; Primary insomnia F51.01 ; Mixed hyperlipidemia E78.2 ; Pain in left knee M25.562 and Gastritis determined by endoscopy K29.70 [facility] [id number] [place] [address] 56444- 6976 15 Oct, 2016 Anxiety F41.9 [facility] [id number] [place] [address] 80907- 6178 09 Oct, 2016 Primary osteoarthritis of left knee M17.12 [facility] [id number] [place] [address] [id number] Sep, Dental examination Z01.20 [facility] [id number] [place] [address] 56233- 5426 Sep, Anxiety F41.9 [facility] [id number] [place] [address] 49597- 0047 Aug, Anxiety F41.9 [facility] [id number] [place] [address] 42520- 9042 Jul, Essential hypertension I10 ; Anxiety F41.9 ; Primary insomnia F51.01 ; Mixed hyperlipidemia E78.2 ; Pain in left knee M25.562 and Gastritis determined by endoscopy K29.70 [facility] [id number] [place] [address] 11555- 8114 Jul, [facility] [id number] [place] [address] 79410- 3755 Jul, [facility] [id number] [place] [address] 02650- 3892 Jun, [facility] [id number] [place] [address] 92938- 0551 Jun, [facility] [id number] [place] [address] 44870- 9074 May, [facility] [id number] [place] [address] 90156- 7623 May, Pain in left knee M25.562 [facility] [facility] [address] 25537- 7918 Apr, Essential hypertension I10 ; Anxiety F41.9 ; Primary insomnia F51.01 ; Mixed hyperlipidemia E78.2 ; Pain in left knee M25.562 and Gastritis determined by endoscopy K29.70 [facility] [address] 58884- 2292 Mar, [facility] [address] 99444- 9004 Feb, [facility] [address] 65940- 6891 Feb, [facility] [address] [id number] January, Dental caries K02.9 [facility] [address] 77137- 9933 January, [facility] [address] 83081- 2881 January, Bloody stools K92.1 ; Epigastric pain R10.13 ; Essential hypertension I10 ; Anxiety F41.9 and Primary insomnia F51.01 [facility] [id number] [place] [address] [id number] Dec, Dental examination Z01.20 [facility] [id number] [place] [address] 11393- 3668 Dec, [facility] [id number] [place] [address] 26451 -2359 Nov, Acute frontal sinusitis J01.10 and Sore throat J02.9 [facility] [id number] [place] [address] 49563- 6403 Nov, [facility] [address] 52572- 4966 Oct, Essential hypertension I10 ; Anxiety F41.9 and Primary insomnia F51.01 [facility] [id number] [place] [address] 28304- 1818 Sep, [facility] [id number] [place] [address] 44974- 6437 Sep, [facility] [id number] [place] [address] 05817- 6552 Sep, [facility] [id number] [place] [address] 61121- 4869 Aug, [facility] [address] 76204- 0963 Aug, [facility] [id number] [place] [address] 43075- 1759 Jul, Essential hypertension I10 ; Anxiety F41.9 ; Primary insomnia F51.01 and Visual changes H53.9 [facility] [id number] [place] [address] 64818- 8648 Jul, [facility] [id number] [place] [address] 14511- 0907 Jun, [facility] [id number] [place] [address] 29406- 8754 Jun, [facility] [id number] [place] [address] 67284- 7784 May, [facility] [id number] [place] [address] 54207- 0006 14 May, 2015 [facility] [id number] [place] [address] 64320- 4599 04 May, 2015 Chest pain 786.50 ; Hyperlipemia 272.4 ; Hypertension 401.9 ; Anxiety 300.00 and History of tobacco use V15.82 [facility] [id number] [place] [address] 44102- 6354 May, Chest pain 786.50 and Hypertension 401.9 [facility] [address] [place] [address] 30761- 8167 Apr, [facility] [id number] [place] [address] [id number]- 5290 Apr, 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 ; Hypertension 401.9 and CAD (coronary artery disease) 414.00 [facility] [id number] [place] [address] 34935- 2372 Mar, Chest pain 786.50 ; Hypertension 401.9 ; Hyperlipemia 272.4 and History of tobacco use V15.82 [facility] [id number] [place] [address] 46624- 9404 Mar, 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 and Major depressive disorder, recurrent episode, moderate 296.32 [place] [id number] [place] [address] 02084- 4355 Mar, [facility] [id number] [place] [address] 99274- 1164 Mar, [facility] [address] [place] [id number] [place] [address] 74310- 6761 Mar, [facility] [address] [place] [id number] [place] [address] 15396- 8352 Mar, 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 and Major depressive disorder, recurrent episode, moderate 296.32 [facility] [id number] [place] [address] 18772- 4116 Mar, [facility] [id number] [place] [address] 01133- 1362 Feb, [place] [id number] [place] [address] 54580- 3218 Feb, 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 ; Major depressive disorder, recurrent episode, moderate 296.32 ; No condition on Oxbow II V71.09 ; Hypertension 401.9 ; Arthritis 716.90 and Overweight 278.02 [facility] [address] [address]- 4012 Feb, [facility] [id number] [place] [address] 679646- 9637 Feb, [facility] [address] [address]- 5704 January, Essential hypertension, benign 401.1 ; Anxiety state, unspecified 300.00 and Chest pain 786.50 [facility] [address] [address]- 8126 Dec, [facility] [id number] [place] [address] 59739- 3840 Dec, [facility] [id number] [place] [address] 89267- 4617 Nov, [facility] [id number] [place] [address] 37372- 6470 Nov, [facility] [address] [address]- 0549 Nov, [facility] [address] [address]- 8543 Nov, [facility] [address] [address]- 9054 Oct, [facility] [address] [address]- 6710 Oct, [facility] [address] [place] [address]- 6458 Oct, [facility] [address] [address]- 5819 Oct, [facility] [address] [address]- 1997 Sep, [facility] [address] [address]- 4817 Sep, [facility] [place] [facility] [address] [id number] [place] [address]- 2561 Sep, [facility] [place] [facility] [address] [id number] [place] [address]- 5305 Sep, [facility] [place] [facility] [address] [facility] [id number] [place] [address]- 9757 Sep, [facility] [place] [facility] [address] [id number] [place] [address]- 4228 Sep, [facility] [place] [facility] [address] [id number] [place] [address]- 4819 Aug, [facility] [place] [facility] [address] [id number] [place] [address]- 4319 Aug, [facility] [place] [facility] [address] [id number] [place] [address]- 6086 Aug, [facility] [place] [facility] [address] [id number] [place] [address]- 7999 Aug, [facility] [place] [facility] [address] [id number] [place] [address]- 5092 Aug, [facility] [place] [facility] [address] [id number] [place] [address]- 0238 Aug, [facility] [place] [facility] [address] [id number] [place] [address]- 8176 Jul, [facility] [place] [facility] [address] [id number], [place] [address]- 4845 Jul, [facility] [place] [facility] [address] [id number] [place] [address]- 3718 Jul, [facility] [place] [facility] [address] [id number] [place] [address]- 5212 Jul, [facility] [place] [facility] [address] [id number] [place] [address]- 5104 Jul, [facility] [place] [facility] [address] [facility] [id number], [place] [address]- 8010 Jul, [facility] [address] [facility] [id number], [place] [address]- 9720 Jun, [facility] [address] [facility] [id number], [place] [address]- 8658 Jun, [facility] [address] [facility] [id number], [place] [address]- 2909 Jun, [facility] [address] [facility] [id number], [place] [address]- 0360 Jun, [facility] [address] [facility] [id number] [place] [address] 62704- 5060 May, [facility] [address] [facility] [id number], [place] [address]- 5001 May, [facility] [id number] [place] [address] 56773- 4035 May, [facility] [address] [facility] [id number], [place] [address]- 2981 May, [facility] [address] [address]- 7845 Apr, [facility] [address] [address]- 5692 Apr, [facility] [address] [address]- 7884 Apr, [facility] [address] [facility] [id number], [place] [address]- 5320 Apr, [facility] [address] [address]- 5970 Apr, IMMUNIZATIONS No Known Immunizations SOCIAL HISTORY [...]
--- OUTSIDE RECORDS SUMMARY | 2018-05-27 14:59 | XMS REPORT ---
Author Author AMERICO SHARMA [facility] Address [address] [place] [address] Care Team Providers Care Recyclable Materials Sorter Name Role Phone EDITH AMERICO Unavailable PROBLEMS Type Condition ICD9-CM Code [id number] Code Onset Dates Condition Status SNOMED Code Problem Anxiety F41.9 Active 78982800 Problem Gastroesophageal reflux disease without esophagitis K21.9 Active 635467922 Problem Epigastric pain R10.13 Active 69411806 Problem Primary insomnia F51.01 Active 2351123 Problem Visual changes H53.9 Active 38420717 Problem Essential hypertension I10 Active 10935391 Problem Osteoarthritis of left knee, unspecified osteoarthritis type M17.12 Active 369564350843507 Problem 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 Active 2998982778579 Problem Pain in left knee M25.562 Active 25510649 Problem Mixed hyperlipidemia E78.2 Active 747132336 Problem Primary osteoarthritis of left knee M17.12 Active 412231997 Problem Gastritis determined by endoscopy K29.70 Active 1367511 ALLERGIES No Information ENCOUNTERS Encounter Location Date Diagnosis [place] [id number] [place] [address] 92960- 0311 Dec, Anxiety F41.9 [facility] [id number] [place] [address] 26063- 1408 Dec, [facility] [id number] [place] [address] 76677- 0612 Dec, Anxiety F41.9 and Osteoarthritis of left knee, unspecified osteoarthritis type M17.12 [facility] [id number] [place] [address] 59879- 7118 Nov, Primary insomnia F51.01 and Anxiety F41.9 [facility] [id number] [place] [address]- 0106 Oct, Anxiety F41.9 [place] [address] 45903- 5423 Oct, [facility] [address] 25934- 6989 Oct, Anxiety F41.9 [place] [address] 85202- 0186 Aug, Primary insomnia F51.01 ; Anxiety F41.9 ; Essential hypertension I10 ; 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 ; Gastritis determined by endoscopy K29.70 ; Primary osteoarthritis of left knee M17.12 and BMI 40.0-44.9, adult Z68.41 [place] [address] 45170- 6505 Aug, Primary insomnia F51.01 and Anxiety F41.9 [place] [address] 22335- 8859 Jun, Anxiety F41.9 [place] [address] 43150- 8613 Jun, Anxiety F41.9 [place] [address] 16410- 0965 May, [facility] [address] 56974- 4927 05 May, 2017 Primary osteoarthritis of left knee M17.12 and Anxiety F41.9 [facility] [id number] [place] [address] 69496- 1846 Apr, Essential hypertension I10 [place] [address] 25188- 4798 Apr, Essential hypertension I10 ; Anxiety F41.9 ; Primary insomnia F51.01 ; Primary osteoarthritis of left knee M17.12 and Gastritis determined by endoscopy K29.70 [place] [id number] [place] [address] 16773- 5325 Apr, Essential hypertension I10 [place] [address] 76773- 4030 Mar, Anxiety F41.9 [place] [id number] [place] [address] 96940- 6300 Mar, Primary osteoarthritis of left knee M17.12 [facility] [id number] [place] [address] 43457- 9915 Feb, [facility] [facility] [id number] [place] [address] 46024- 0279 Feb, Anxiety F41.9 [facility] [id number] [place] [address] 49045- 0947 Feb, [place] [address] 36564- 0458 January, Mixed hyperlipidemia E78.2 [facility] [id number] [place] [address] 79168- 9489 January, Anxiety F41.9 [facility] [id number] [place] [address] [id number] Dec, Dental examination Z01.20 [place] [id number] [place] [address] 68575- 7524 Dec, Anxiety F41.9 ; Primary insomnia F51.01 and Pain in left knee M25.562 [place] [id number] [place] [address] 69131- 4593 Nov, Essential hypertension I10 ; Anxiety F41.9 ; Primary insomnia F51.01 ; Mixed hyperlipidemia E78.2 ; Pain in left knee M25.562 and Gastritis determined by endoscopy K29.70 [facility] [id number] [place] [address] 28234- 0717 15 Oct, 2016 Anxiety F41.9 [place] [address] [id number] [address] 6056 09 Oct, 2016 Primary osteoarthritis of left knee M17.12 [facility] [id number] [id number] Sep, Dental examination Z01.20 [facility] [id number] [place] [address] 40536- 7407 Sep, Anxiety F41.9 [facility] [id number] [place] [address] 09482- 3290 Aug, Anxiety F41.9 [place] [id number] [place] [address] 45825- 5313 Jul, Essential hypertension I10 ; Anxiety F41.9 ; Primary insomnia F51.01 ; Mixed hyperlipidemia E78.2 ; Pain in left knee M25.562 and Gastritis determined by endoscopy K29.70 [place] [id number] [place] [address] 59110- 5348 Jul, [facility] [id number] [place] [address] 07983- 2576 Jul, [facility] [id number] [place] [address] 83467- 7128 Jun, [facility] [id number] [place] [address] 13628- 5471 Jun, [facility] [id number] [place] [address] 79156- 4295 May, [facility] [address] [place] [address] 96659- 7864 May, Pain in left knee M25.562 [facility] [id number] [place] [address] 28196- 4693 Apr, Essential hypertension I10 ; Anxiety F41.9 ; Primary insomnia F51.01 ; Mixed hyperlipidemia E78.2 ; Pain in left knee M25.562 and Gastritis determined by endoscopy K29.70 [facility] [id number] [place] [address] 66231- 4195 Mar, [facility] [id number] [place] [address] 83212- 8253 Feb, [facility] [id number] [place] [address] 85500- 3411 Feb, [facility] [id number] [place] [address] [id number] January, Dental caries K02.9 [facility] [id number] [place] [address] 97665- 6391 January, [facility] [address] 73709- 0836 January, Bloody stools K92.1 ; Epigastric pain R10.13 ; Essential hypertension I10 ; Anxiety F41.9 and Primary insomnia F51.01 [facility] [id number] [place] [address] [id number] Dec, Dental examination Z01.20 [facility] [id number] [place] [address] 23316- 8226 Dec, [facility] [id number] [place] [address] 76872 -0463 Nov, Acute frontal sinusitis J01.10 and Sore throat J02.9 [facility] [id number] [place] [address] 45954- 4781 Nov, [facility] [id number] [place] [address] 78428- 8981 Oct, Essential hypertension I10 ; Anxiety F41.9 and Primary insomnia F51.01 [facility] [id number] [place] [address] 40345- 8283 Sep, [facility] [id number] [place] [address] 33525- 6823 Sep, [facility] [address] [place] [address]- 8399 Sep, [facility] [id number] [place] [address] 91775- 8891 Aug, [facility] [address] 97329- 2957 Aug, [facility] [id number] [place] [address] 93104- 4449 Jul, Essential hypertension I10 ; Anxiety F41.9 ; Primary insomnia F51.01 and Visual changes H53.9 [facility] [id number] [place] [address] 88177- 1747 Jul, [facility] [address] 02211- 2568 Jun, [facility] [id number] [place] [address] 62513- 2304 Jun, [facility] [id number] [place] [address] 64661- 0254 May, [facility] [id number] [place] [address] 64858- 9465 14 May, 2015 [facility] [id number] [place] [address] 65124- 0567 04 May, 2015 Chest pain 786.50 ; Hyperlipemia 272.4 ; Hypertension 401.9 ; Anxiety 300.00 and History of tobacco use V15.82 [facility] [id number] [place] [address] 56179- 6401 May, Chest pain 786.50 and Hypertension 401.9 [facility] [id number] [place] [address] 34507- 2362 Apr, [facility] [id number] [place] [address] 11418- 8307 Apr, 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 ; Hypertension 401.9 and CAD (coronary artery disease) 414.00 [facility] [id number] [place] [address] 17702- 5047 Mar, Chest pain 786.50 ; Hypertension 401.9 ; Hyperlipemia 272.4 and History of tobacco use V15.82 [facility] [id number] [place] [address] 29828- 1551 Mar, 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 and Major depressive disorder, recurrent episode, moderate 296.32 [facility] [address] 66490- 0948 Mar, [facility] [id number] [place] [address] 09716- 9495 Mar, [facility] [address] 86669- 0990 Mar, [facility] [address] [place] [id number] [place] [address] 66916- 9635 Mar, 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 and Major depressive disorder, recurrent episode, moderate 296.32 [facility] [id number] [place] [address] 24256- 3070 Mar, [facility] [id number] [place] [address] 03806- 0780 Feb, [facility] [id number] [place] [address] 44093- 0920 Feb, 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 ; Major depressive disorder, recurrent episode, moderate 296.32 ; No condition on [place] II V71.09 ; Hypertension 401.9 ; Arthritis 716.90 and Overweight 278.02 [facility] [address] [place] [id number] [place] [address] 43270- 8585 Feb, [facility] [id number] [place] [address] [id number]- 0791 Feb, [facility] [id number] [place] [address] 31031- 7810 January, Essential hypertension, benign 401.1 ; Anxiety state, unspecified 300.00 and Chest pain 786.50 [facility] [id number] [place] [address]- 2081 14 Dec, 2014 [facility] [id number] [address]- 7215 Dec, [facility] [address] [address]- 4517 Nov, [facility] [id number] 0326 Nov, [facility] [id number] [place] [address]- 2104 Nov, [facility] [id number] [address]- 0287 Nov, [facility] [address] [address]- 5151 Oct, [facility] [id number] [place] [address]- 1554 Oct, [facility] [id number], [place] [address]- 1979 Oct, [facility] [id number], [place] [address]- 9105 Oct, [facility] [id number], [place] [address]- 9346 Sep, [facility] [address], [place] [address]- 4285 Sep, [facility] [id number], [place] [address]- 5158 Sep, [facility] [id number], [place] [address]- 4466 Sep, [facility] [id number], [place] [address]- 3891 Sep, [facility] [place] [facility] [address] [id number] [place] [address]- 1124 Sep, [facility] [place] [facility] [address] [id number] [place] 8848 Aug, [facility] [place] [facility] [address] [id number] [place] [address]- 9696 Aug, [facility] [place] [facility] [address] [id number] [place] 7204 Aug, [facility] [place] [facility] [address] [id number] [place] [address]- 6758 Aug, [facility] [place] [facility] [address] [id number] [place] [address]- 6565 Aug, [facility] [place] [facility] [address] [id number] [place] [address]- 7638 Aug, [facility] [place] [facility] [address] [id number] [place] [address]- 1266 Jul, [facility] [place] [facility] [address] [id number] [place] [address]- 2587 Jul, [facility] [place] [facility] [address] [id number] [place] [address]- 7777 Jul, [facility] [place] [facility] [address] [id number] [place] [address]- 5840 Jul, [facility] [place] [facility] [address] [id number] [place] [address]- 7619 Jul, [facility] [place] [facility] [address] [id number] [place] [address]- 4939 Jul, [facility] [place] [facility] [address] [id number] [place] [address]- 8004 Jun, [facility] [place] [facility] [address] [id number] [place] [address]- 2545 Jun, [facility] [place] [facility] [address] [id number] [address]- 3819 Jun, [facility] [id number] [address]- 6348 Jun, [facility] [id number], [place] [address]- 8963 May, [facility] [address], [place] [address]- 2649 May, [facility] [address] [facility] [id number] [address]- 9358 May, [facility] [id number], [place] [address]- 4273 May, [facility] [address], [place] [address]- 5789 Apr, [facility] [id number], [place] [address]- 6101 Apr, [facility] [address], [place] [address]- 1550 Apr, [facility] [id number], [place] [address]- 7943 Apr, [facility] [id number] [address]- 0313 Apr, IMMUNIZATIONS No Known Immunizations SOCIAL HISTORY [...]
--- OUTSIDE RECORDS SUMMARY | 2018-05-27 14:59 | XMS REPORT ---
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 Name Role Phone EDITH AMERICO Unavailable PROBLEMS Type Condition ICD9-CM Code IWN63-JW Code Onset Dates Condition Status SNOMED Code Problem Anxiety F41.9 Active 13203601 Problem Gastroesophageal reflux disease without esophagitis K21.9 Active 047844456 Problem Epigastric pain R10.13 Active 63318303 Problem Primary insomnia F51.01 Active 9448399 Problem Visual changes H53.9 Active 68433764 Problem Essential hypertension I10 Active 23960239 Problem Osteoarthritis of left knee, unspecified osteoarthritis type M17.12 Active 940324460149787 Problem 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 Active 5446046898948 Problem Pain in left knee M25.562 Active 37685382 Problem Mixed hyperlipidemia E78.2 Active 526679934 Problem Primary osteoarthritis of left knee M17.12 Active 298103497 Problem Gastritis determined by endoscopy K29.70 Active 3288127 ALLERGIES No Information ENCOUNTERS Encounter Location Date Diagnosis [place] [id number] [place] [address] 85714- 0782 Dec, Anxiety F41.9 [facility] [place] [id number] [place] [address] 68327- 0474 Dec, [facility] [place] [id number] [place] [address] 74115- 7201 Dec, Anxiety F41.9 and Osteoarthritis of left knee, unspecified osteoarthritis type M17.12 [facility] [place] [id number] [place] [address] 58524- 9635 Nov, Primary insomnia F51.01 and Anxiety F41.9 [place] [address] [place] [address] 9616 Oct, Anxiety F41.9 [place] [address] 11657- 1770 Oct, [facility] [place] [address] 44733- 2478 Oct, Anxiety F41.9 [place] [address] 35535- 5558 Aug, Primary insomnia F51.01 ; Anxiety F41.9 ; Essential hypertension I10 ; 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 ; Gastritis determined by endoscopy K29.70 ; Primary osteoarthritis of left knee M17.12 and BMI 40.0-44.9, adult Z68.41 [place] [address] 02560- 6567 Aug, Primary insomnia F51.01 and Anxiety F41.9 [place] [address] 77954- 5770 Jun, Anxiety F41.9 [place] [address] 11861- 1241 Jun, Anxiety F41.9 [place] [address] 72915- 4360 May, [place] [address] 87609- 5862 05 May, 2017 Primary osteoarthritis of left knee M17.12 and Anxiety F41.9 [facility] [id number] [place] [address] 56787- 8915 Apr, Essential hypertension I10 [place] [address] 12674- 1164 Apr, Essential hypertension I10 ; Anxiety F41.9 ; Primary insomnia F51.01 ; Primary osteoarthritis of left knee M17.12 and Gastritis determined by endoscopy K29.70 [place] [id number] [place] [address] 86542- 9906 Apr, Essential hypertension I10 [place] [address] 34669- 7906 Mar, Anxiety F41.9 [place] [id number] [place] [address] 61728- 1797 Mar, Primary osteoarthritis of left knee M17.12 [place] [id number] [place] [address] 01074- 3124 Feb, [place] [id number] [place] [address] 08933- 7164 Feb, Anxiety F41.9 [place] [id number] [place] [address] 42428- 9402 Feb, [facility] [address] 95019- 0895 January, Mixed hyperlipidemia E78.2 [place] [id number] [place] [address] 79695- 6909 January, Anxiety F41.9 [facility] [id number] [place] [address] [id number] Dec, Dental examination Z01.20 [place] [id number] [place] [address] 16823- 9291 Dec, Anxiety F41.9 ; Primary insomnia F51.01 and Pain in left knee M25.562 [place] [id number] [place] [address] 54181- 2688 Nov, Essential hypertension I10 ; Anxiety F41.9 ; Primary insomnia F51.01 ; Mixed hyperlipidemia E78.2 ; Pain in left knee M25.562 and Gastritis determined by endoscopy K29.70 [facility] [place] [id number] [place] [address] 90782- 6465 15 Oct, 2016 Anxiety F41.9 [place] [id number] [address] 69[address] 09 Oct, 2016 Primary osteoarthritis of left knee M17.12 [facility] [address] [id number] Sep, Dental examination Z01.20 [facility] [place] [id number] [place] [address] 91780- 0176 Sep, Anxiety F41.9 [facility] [place] [id number] [place] [address] 11934- 4730 Aug, Anxiety F41.9 [place] [id number] [place] [address] 96131- 1142 Jul, Essential hypertension I10 ; Anxiety F41.9 ; Primary insomnia F51.01 ; Mixed hyperlipidemia E78.2 ; Pain in left knee M25.562 and Gastritis determined by endoscopy K29.70 [place] [id number] [place] [address] 40452- 5811 Jul, [facility] [place] [id number] [place] [address] 69005- 6315 Jul, [facility] [place] [id number] [place] [address] 68937- 6570 Jun, [facility] [place] [id number] [place] [address] 66959- 8279 Jun, [facility] [place] [id number] [place] [address] 59068- 0790 May, [facility] [place] [id number] [place] [address] 78955- 7587 May, Pain in left knee M25.562 [facility] [place] [id number] [place] [address] 56954- 6368 Apr, Essential hypertension I10 ; Anxiety F41.9 ; Primary insomnia F51.01 ; Mixed hyperlipidemia E78.2 ; Pain in left knee M25.562 and Gastritis determined by endoscopy K29.70 [facility] [place] [id number] [place] [address] 52445- 6169 Mar, [facility] [place] [id number] [place] [address] 99473- 8014 Feb, [facility] [place] [id number] [place] [address] 00269- 6309 Feb, [facility] [id number] [place] [address] [id number] January, Dental caries K02.9 [facility] [place] [id number] [place] [address] 03907- 3068 January, [facility] [place] [address] 79070- 5178 January, Bloody stools K92.1 ; Epigastric pain R10.13 ; Essential hypertension I10 ; Anxiety F41.9 and Primary insomnia F51.01 [facility] [id number] [place] [address] [id number] Dec, Dental examination Z01.20 [facility] [place] [id number] [place] [address] 52182- 2783 Dec, [facility] [id number] [place] [address] 55921 -1872 Nov, Acute frontal sinusitis J01.10 and Sore throat J02.9 [facility] [place] [id number] [place] [address] 78043- 3432 Nov, [facility] [place] [id number] [place] [address] 98764- 7739 Oct, Essential hypertension I10 ; Anxiety F41.9 and Primary insomnia F51.01 [facility] [place] [id number] [place] [address] 88859- 9659 Sep, [facility] [place] [id number] [place] [address] 99204- 5287 Sep, [facility] [place] [address] [place] [address]- 8325 Sep, [facility] [place] [id number] [place] [address] 93916- 0947 Aug, [facility] [place] [address] 94744- 7497 Aug, [facility] [place] [id number] [place] [address] 42508- 4092 Jul, Essential hypertension I10 ; Anxiety F41.9 ; Primary insomnia F51.01 and Visual changes H53.9 [facility] [place] [id number] [place] [address] 35864- 2794 Jul, [facility] [place] [address] 23360- 2098 Jun, [facility] [place] [id number] [place] [address] 08903- 1058 Jun, [facility] [place] [id number] [place] [address] 77723- 0396 May, [facility] [place] [id number] [place] [address] 35693- 1950 14 May, 2015 [facility] [place] [id number] [place] [address] 06126- 7276 04 May, 2015 Chest pain 786.50 ; Hyperlipemia 272.4 ; Hypertension 401.9 ; Anxiety 300.00 and History of tobacco use V15.82 [facility] [place] [id number] [place] [address] 15687- 5273 May, Chest pain 786.50 and Hypertension 401.9 [facility] [place] [id number] [place] [address] 98929- 4730 Apr, [facility] [place] [id number] [place] [address] 80273- 2487 Apr, 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 ; Hypertension 401.9 and CAD (coronary artery disease) 414.00 [facility] [place] [id number] [place] [address] 67472- 8939 Mar, Chest pain 786.50 ; Hypertension 401.9 ; Hyperlipemia 272.4 and History of tobacco use V15.82 [facility] [place] [id number] [place] [address] 09833- 8378 Mar, 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 and Major depressive disorder, recurrent episode, moderate 296.32 [facility] [place] [address] 96099- 8871 Mar, [facility] [place] [id number] [place] [address] 49881- 7030 Mar, [facility] [place] [address] 23715- 4668 Mar, [facility] [place] [address] [place] [id number] [place] [address] 01802- 8933 Mar, 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 and Major depressive disorder, recurrent episode, moderate 296.32 [facility] [place] [id number] [place] [address] 40337- 2961 Mar, [facility] [place] [id number] [place] [address] 22187- 7439 Feb, [facility] [place] [id number] [place] [address] 92308- 0776 Feb, 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 ; Major depressive disorder, recurrent episode, moderate 296.32 ; No condition on [place] II V71.09 ; Hypertension 401.9 ; Arthritis 716.90 and Overweight 278.02 [facility] [place] [address] [place] [id number] [place] [address] 57187- 6883 Feb, [facility] [place] [id number] [place] [address] [id number]- 6796 Feb, [facility] [place] [id number] [place] [address] 46680- 5843 January, Essential hypertension, benign 401.1 ; Anxiety state, unspecified 300.00 and Chest pain 786.50 [facility] [id number] [place] [address]- 0530 14 Dec, 2014 [facility] [id number] [address]- 4808 Dec, [facility] [id number] [address]- 6622 Nov, [facility] [id number] 6599 Nov, [facility] [id number] [address]- 7237 Nov, [facility] [id number] [address]- 7125 Nov, [facility] [id number] [address]- 8114 Oct, [facility] [id number] [address]- 9947 Oct, [facility] [id number] [address]- 4164 Oct, [facility] [id number] [address]- 5922 Oct, [facility] [id number] [address]- 0664 Sep, [facility] [id number] [address]- 5842 Sep, [facility] [id number] [address]- 8208 Sep, [facility] [id number] [address]- 4006 Sep, [facility] [id number] [address]- 0773 Sep, [facility] [place] [facility] [address] [id number] [place] [address]- 8811 Sep, [facility] [place] [facility] [address] [id number] [place] 5958 Aug, [facility] [place] [facility] [address] [id number] [place] [address]- 9928 Aug, [facility] [place] [facility] [address] [id number] [place] [address]40 Aug, [facility] [place] [facility] [address] [id number] [place] [address]- 4217 Aug, [facility] [place] [facility] [address] [id number] [place] [address]- 9442 Aug, [facility] [place] [facility] [address] [id number] [place] [address]- 5419 Aug, [facility] [place] [facility] [address] [id number] [place] [address]- 2575 Jul, [facility] [place] [facility] [address] [id number] [place] [address]- 7481 Jul, [facility] [place] [facility] [address] [id number] [place] [address]- 3184 Jul, [facility] [place] [facility] [address] [id number] [place] [address]- 8237 Jul, [facility] [place] [facility] [address] [id number] [place] [address]- 5284 Jul, [facility] [place] [facility] [address] [id number] [place] [address]- 3466 Jul, [facility] [place] [facility] [address] [id number] [place] [address]- 0304 Jun, [facility] [place] [facility] [address] [id number] [place] [address]- 7086 Jun, [facility] [place] [facility] [address] [id number] [address]- 9198 Jun, [facility] [place] [id number] [address]- 4726 Jun, [facility] [place] [id number] [address]- 9140 May, [facility] [place] [address] [address]- 3417 May, [facility] [place] [address] [facility] [id number] [address]- 2943 May, [facility] [place] [address] [facility] [id number] [address]- 1142 May, [facility] [place] [address] [address]- 7947 Apr, [facility] [place] [address] [address]- 2915 Apr, [facility] [place] [address] [address]- 2485 Apr, [facility] [place] [id number] [address]- 5276 Apr, [facility] [place] [id number] [address]- 7836 Apr, IMMUNIZATIONS No Known Immunizations SOCIAL HISTORY Never Assessed REASON FOR VISIT Controlled Med Refill-07/25 PLAN OF CARE VITAL SIGNS MEDICATIONS Medication [...]
--- OUTSIDE RECORDS SUMMARY | 2018-05-27 15:00 | XMS REPORT ---
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 Name Role Phone AMERICO SHARMA Unavailable PROBLEMS Type Condition ICD9-CM Code LGL49-QP Code Onset Dates Condition Status SNOMED Code Problem Anxiety F41.9 Active 41516122 Problem Gastroesophageal reflux disease without esophagitis K21.9 Active 053060728 Problem Epigastric pain R10.13 Active 73770538 Problem Primary insomnia F51.01 Active 5174026 Problem Visual changes H53.9 Active 85032185 Problem Essential hypertension I10 Active 37929018 Problem Osteoarthritis of left knee, unspecified osteoarthritis type M17.12 Active [id number] Problem Coronary artery disease of [place] artery of [place] heart with stable 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 Active 7195490834602 Problem Pain in left knee M25.562 Active 65621033 Problem Mixed hyperlipidemia E78.2 Active 115535061 Problem Primary osteoarthritis of left knee M17.12 Active 555810646 Problem Gastritis determined by endoscopy K29.70 Active 9885925 ALLERGIES No Information ENCOUNTERS Encounter Location Date Diagnosis [facility] [id number] [place] [address] 78309- 8319 Mar, [facility] [id number] [place] [address] 70164- 4187 Feb, Anxiety F41.9 [facility] [facility] [id number] [place] [address] 25144- 6872 January, Anxiety F41.9 [facility] [id number] [place] [address] 91212- 3866 Dec, Anxiety F41.9 [facility] [id number] [place] [address] 59727- 6861 Dec, [facility] [id number] [place] [address] 72785- 5260 Dec, Anxiety F41.9 and Osteoarthritis of left knee, unspecified osteoarthritis type M17.12 [facility] [id number] [place] [address] 57374- 7908 Nov, Primary insomnia F51.01 and Anxiety F41.9 [facility] [id number] [place] [address] 01068- 6343 Oct, Anxiety F41.9 [facility] [id number] [place] [address] 83911- 8170 Oct, [facility] [id number] [place] [address] 35608- 0393 Oct, Anxiety F41.9 [facility] [id number] [place] [address] 29378- 6621 Aug, Primary insomnia F51.01 ; Anxiety F41.9 ; Essential hypertension I10 ; Coronary artery disease of [place] artery of [place] heart with stable 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 ; Gastritis determined by endoscopy K29.70 ; Primary osteoarthritis of left knee M17.12 and BMI 40.0-44.9, adult Z68.41 [facility] [id number] [place] [address] 71601- 8390 Aug, Primary insomnia F51.01 and Anxiety F41.9 [facility] [id number] [place] [address] 12170- 6216 Jun, Anxiety F41.9 [facility] [id number] [place] [address] 92640- 0941 Jun, Anxiety F41.9 [facility] [id number] [place] [address] 88905- 5536 May, [facility] [id number] [place] [address] 65675- 1542 May, Primary osteoarthritis of left knee M17.12 and Anxiety F41.9 [facility] [address] [place] [address] 18440- 3307 Apr, Essential hypertension I10 [facility] [facility] [address] 39514- 0029 Apr, Essential hypertension I10 ; Anxiety F41.9 ; Primary insomnia F51.01 ; Primary osteoarthritis of left knee M17.12 and Gastritis determined by endoscopy K29.70 [facility] [address] 07257- 5489 Apr, Essential hypertension I10 [facility] [address] 27657- 0118 Mar, Anxiety F41.9 [facility] [address] 65981- 4332 Mar, Primary osteoarthritis of left knee M17.12 [facility] [address] 04654- 0170 Feb, [facility] [address] 19355- 1985 Feb, Anxiety F41.9 [facility] [address] 09785- 3366 Feb, [facility] [id number] [place] [address] 24426- 5185 January, Mixed hyperlipidemia E78.2 [facility] [id number] [place] [address] 23707- 7714 January, Anxiety F41.9 [facility] [address] [place] [address] [id number] Dec, Dental examination Z01.20 [facility] [id number] [place] [address] 11513- 2016 Dec, Anxiety F41.9 ; Primary insomnia F51.01 and Pain in left knee M25.562 [facility] [id number] [place] [address] 35370- 0120 Nov, Essential hypertension I10 ; Anxiety F41.9 ; Primary insomnia F51.01 ; Mixed hyperlipidemia E78.2 ; Pain in left knee M25.562 and Gastritis determined by endoscopy K29.70 [facility] [id number] [place] [address] 65035- 8940 15 Oct, 2016 Anxiety F41.9 [facility] [id number] [place] [address] 29574- 9762 09 Oct, 2016 Primary osteoarthritis of left knee M17.12 [facility] [id number] [place] [address] [id number] Sep, Dental examination Z01.20 [facility] [id number] [place] [address] 60682- 4484 Sep, Anxiety F41.9 [facility] [id number] [place] [address] 33678- 0647 Aug, Anxiety F41.9 [facility] [id number] [place] [address] 35729- 9016 Jul, Essential hypertension I10 ; Anxiety F41.9 ; Primary insomnia F51.01 ; Mixed hyperlipidemia E78.2 ; Pain in left knee M25.562 and Gastritis determined by endoscopy K29.70 [facility] [id number] [place] [address] 07922- 9334 Jul, [facility] [id number] [place] [address] 85107- 4511 Jul, [facility] [id number] [place] [address] 50063- 3078 Jun, [facility] [id number] [place] [address] 89740- 3505 Jun, [facility] [id number] [place] [address] 55165- 1583 May, [facility] [id number] [place] [address] 58863- 4702 May, Pain in left knee M25.562 [facility] [address] 56437- 5374 Apr, Essential hypertension I10 ; Anxiety F41.9 ; Primary insomnia F51.01 ; Mixed hyperlipidemia E78.2 ; Pain in left knee M25.562 and Gastritis determined by endoscopy K29.70 [facility] [address] 52647- 4854 Mar, [facility] [address] 72144- 5974 Feb, [facility] [address] 48863- 0968 Feb, [facility] [address] [id number] January, Dental caries K02.9 [facility] [address] 51415- 2409 January, [facility] [address] 75895- 5323 January, Bloody stools K92.1 ; Epigastric pain R10.13 ; Essential hypertension I10 ; Anxiety F41.9 and Primary insomnia F51.01 [facility] [id number] [place] [address] [id number] Dec, Dental examination Z01.20 [facility] [id number] [place] [address] 90578- 7559 Dec, [facility] [id number] [place] [address] 03716 -2235 Nov, Acute frontal sinusitis J01.10 and Sore throat J02.9 [facility] [id number] [place] [address] 74922- 3098 Nov, [facility] [address] 75566- 7201 Oct, Essential hypertension I10 ; Anxiety F41.9 and Primary insomnia F51.01 [facility] [id number] [place] [address] 17447- 1520 Sep, [facility] [id number] [place] [address] 45985- 7475 Sep, [facility] [id number] [place] [address] 04742- 0033 Sep, [facility] [id number] [place] [address] 47102- 3092 Aug, [facility] [address] 82597- 1562 Aug, [facility] [id number] [place] [address] 71460- 3075 Jul, Essential hypertension I10 ; Anxiety F41.9 ; Primary insomnia F51.01 and Visual changes H53.9 [facility] [id number] [place] [address] 48251- 6047 Jul, [facility] [id number] [place] [address] 24766- 7168 Jun, [facility] [id number] [place] [address] 57432- 9725 Jun, [facility] [id number] [place] [address] 20047- 5415 May, [facility] [id number] [place] [address] 73980- 3648 14 May, 2015 [facility] [id number] [place] [address] 25578- 3619 04 May, 2015 Chest pain 786.50 ; Hyperlipemia 272.4 ; Hypertension 401.9 ; Anxiety 300.00 and History of tobacco use V15.82 [facility] [id number] [place] [address] 28414- 8085 May, Chest pain 786.50 and Hypertension 401.9 [facility] [address] [place] [address] 21370- 8214 Apr, [facility] [id number] [place] [address] [id number]- 3506 Apr, 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 ; Hypertension 401.9 and CAD (coronary artery disease) 414.00 [facility] [id number] [place] [address] 02086- 9387 Mar, Chest pain 786.50 ; Hypertension 401.9 ; Hyperlipemia 272.4 and History of tobacco use V15.82 [facility] [id number] [place] [address] 78787- 7737 Mar, 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 and Major depressive disorder, recurrent episode, moderate 296.32 [place] [id number] [place] [address] 37718- 4118 Mar, [facility] [id number] [place] [address] 03279- 7360 Mar, [facility] [address] [place] [id number] [place] [address] 50183- 9408 Mar, [facility] [address] [place] [id number] [place] [address] 45494- 3018 Mar, 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 and Major depressive disorder, recurrent episode, moderate 296.32 [facility] [address] [place] [address] 45297- 9747 Mar, [facility] [address] [place] [address] 22421- 6692 Feb, [place] [id number] [place] [address] 71912- 6968 Feb, 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 ; Major depressive disorder, recurrent episode, moderate 296.32 ; No condition on [place] II V71.09 ; Hypertension 401.9 ; Arthritis 716.90 and Overweight 278.02 [facility] [address] [address]- 1295 Feb, [facility] [address] [place] [address] 757969- 6170 Feb, [facility] [address] [place] [address]- 0435 January, Essential hypertension, benign 401.1 ; Anxiety state, unspecified 300.00 and Chest pain 786.50 [facility] [address] [place] [address]- 8880 Dec, [facility] [id number] [place] [address] 81999- 1751 Dec, [facility] [id number] [place] [address] 26018- 0064 Nov, [facility] [id number] [place] [address] 53071- 6340 Nov, [facility] [address] [place] [address]- 6120 Nov, [facility] [address] [place] [address]- 4390 Nov, [facility] [address] [place] [address]- 6314 Oct, [facility] [address] [place] [address]- 9382 Oct, [facility] [address] [place] [address]- 5055 Oct, [facility] [address] [place] [address]- 7422 Oct, [facility] [address] [place] [address]- 9751 Sep, [facility] [address] [place] [address]- 0333 Sep, [facility] [place] [facility] [address] [id number] [place] [address]- 6782 Sep, [facility] [place] [facility] [address] [id number] [place] [address]- 1585 Sep, [facility] [place] [facility] [address] [facility] [id number] [place] [address]- 9205 Sep, [facility] [place] [facility] [address] [id number] [place] [address]- 2506 Sep, [facility] [place] [facility] [address] [id number] [place] [address]- 4152 Aug, [facility] [place] [facility] [address] [id number] [place] [address]- 2250 Aug, [facility] [place] [facility] [address] [id number] [place] [address]- 3969 Aug, [facility] [place] [facility] [address] [id number] [place] [address]- 1356 Aug, [facility] [place] [facility] [address] [id number] [place] [address]- 6246 Aug, [facility] [place] [facility] [address] [id number] [place] [address]- 0635 Aug, [facility] [place] [facility] [address] [id number] [place] [address]- 7549 Jul, [facility] [place] [facility] [address] [id number] [address]- 4368 Jul, [facility] [place] [facility] [address] [id number] [place] [address]- 2073 Jul, [facility] [place] [facility] [address] [id number] [place] [address]- 2896 Jul, [facility] [place] [facility] [address] [id number] [place] [address]- 7525 Jul, [facility] [place] [facility] [address] [place] [address]- 7735 Jul, [facility] [address] [place] [address]- 7827 Jun, [facility] [id number] [place] [address]- 5985 Jun, [facility] [address] [place] [address]- 6830 Jun, [facility] [address] [facility] [id number] [address]- 6771 Jun, [facility] [address] [place] [address] 04884- 6596 May, [facility] [address], [place] [address]- 0638 May, [facility] [address] [place] [address]- 3869 May, [facility] [address] [place] [address]- 7508 May, [facility] [address] [place] [address]- 8079 Apr, [facility] [address] [place] [address]- 6000 Apr, [facility] [address] [place] [address]- 3464 Apr, [facility] [id number] [place] [address]- 9679 Apr, [facility] [address] [place] [address]- 0303 Apr, IMMUNIZATIONS No Known Immunizations SOCIAL HISTORY Never Assessed REASON FOR VISIT refill PLAN OF CARE VITAL SIGNS MEDICATIONS Unknown [...]
--- OUTSIDE RECORDS SUMMARY | 2018-05-27 15:00 | XMS REPORT ---
Author Author AMERICO SHARMA [facility] Address [address] [place] [address] Care Team Providers Care Abattoir Supervisor Name Role Phone EDITH AMERICO Unavailable PROBLEMS Type Condition ICD9-CM Code OAW40-EM Code Onset Dates Condition Status SNOMED Code Problem Anxiety F41.9 Active 04556250 Problem Gastroesophageal reflux disease without esophagitis K21.9 Active 627450689 Problem Epigastric pain R10.13 Active 78872389 Problem Primary insomnia F51.01 Active 5302679 Problem Visual changes H53.9 Active 58548397 Problem Essential hypertension I10 Active 79164664 Problem Osteoarthritis of left knee, unspecified osteoarthritis type M17.12 Active 639776153053408 Problem Coronary artery disease of [place] artery of [place] heart with stable 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 Active 6721033344281 Problem Pain in left knee M25.562 Active 61382340 Problem Mixed hyperlipidemia E78.2 Active 613537680 Problem Primary osteoarthritis of left knee M17.12 Active 592193253 Problem Gastritis determined by endoscopy K29.70 Active 7147332 ALLERGIES Substance Reaction Event Type Date Status Lexapro Suicidal ideation Drug Allergy Apr, Active ENCOUNTERS Encounter Location Date Diagnosis [facility] [id number] [place] [address] 09906- 6142 Dec, Anxiety F41.9 and Osteoarthritis of left knee, unspecified osteoarthritis type M17.12 [facility] [id number] [place] [address] 96262- 9344 Nov, Primary insomnia F51.01 and Anxiety F41.9 [facility] [id number] [place] [address] 80825- 8335 Oct, Anxiety F41.9 [facility] [id number] [place] [address] 53551- 7976 Oct, [place] [id number] [place] [address] 08196- 7802 Oct, Anxiety F41.9 [place] [id number] [place] [address] 60695- 2177 Aug, Primary insomnia F51.01 ; Anxiety F41.9 ; Essential hypertension I10 ; Coronary artery disease of [place] artery of [place] heart with stable 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 ; Gastritis determined by endoscopy K29.70 ; Primary osteoarthritis of left knee M17.12 and BMI 40.0-44.9, adult Z68.41 [place] [address] 07148- 5896 Aug, Primary insomnia F51.01 and Anxiety F41.9 [place] [address] 31303- 1773 Jun, Anxiety F41.9 [place] [address] 97110- 0663 Jun, Anxiety F41.9 [place] [address] 41630- 2725 May, [place] [address] 80004- 8647 May, Primary osteoarthritis of left knee M17.12 and Anxiety F41.9 [place] [address] 49127- 8958 Apr, Essential hypertension I10 [place] [id number] [place] [address] 97404- 2449 Apr, Essential hypertension I10 ; Anxiety F41.9 ; Primary insomnia F51.01 ; Primary osteoarthritis of left knee M17.12 and Gastritis determined by endoscopy K29.70 [place] [id number] [place] [address] 61134- 6445 Apr, Essential hypertension I10 [place] [address] 03716- 5827 Mar, Anxiety F41.9 [facility] [id number] [place] [address] 62293- 8811 Mar, Primary osteoarthritis of left knee M17.12 [facility] [id number] [place] [address] 67325- 9846 Feb, [place] [id number] [place] [address] 36807- 3175 Feb, Anxiety F41.9 [place] [address] 11618- 5442 Feb, [place] [address] 56968- 3988 January, Mixed hyperlipidemia E78.2 [place] [id number] [place] [address] 18775- 2674 January, Anxiety F41.9 [facility] [address] [id number] Dec, Dental examination Z01.20 [place] [address] 11438- 0257 Dec, Anxiety F41.9 ; Primary insomnia F51.01 and Pain in left knee M25.562 [place] [id number] [place] [address] 22298- 1472 Nov, Essential hypertension I10 ; Anxiety F41.9 ; Primary insomnia F51.01 ; Mixed hyperlipidemia E78.2 ; Pain in left knee M25.562 and Gastritis determined by endoscopy K29.70 [facility] [id number] [place] [address] 30207- 5041 Oct, Anxiety F41.9 [facility] [id number] [place] [address] 26328- 9424 Oct, Primary osteoarthritis of left knee M17.12 [facility] [address] [id number] Sep, Dental examination Z01.20 [facility] [id number] [place] [address] 99304- 8094 Sep, Anxiety F41.9 [facility] [id number] [place] [address] 67393- 0890 Aug, Anxiety F41.9 [facility] [id number] [place] [address] 81582- 0190 Jul, Essential hypertension I10 ; Anxiety F41.9 ; Primary insomnia F51.01 ; Mixed hyperlipidemia E78.2 ; Pain in left knee M25.562 and Gastritis determined by endoscopy K29.70 [place] [id number] [place] [address] 81403- 5197 Jul, [facility] [id number] [place] [address] 74319- 0772 Jul, [facility] [address] 78561- 0842 Jun, [facility] [id number] [place] [address] 08889- 8330 Jun, [facility] [id number] [place] [address] 50445- 5305 May, [facility] [id number] [place] [address] 89063- 4019 May, Pain in left knee M25.562 [facility] [id number] [place] [address] 85525- 7710 Apr, Essential hypertension I10 ; Anxiety F41.9 ; Primary insomnia F51.01 ; Mixed hyperlipidemia E78.2 ; Pain in left knee M25.562 and Gastritis determined by endoscopy K29.70 [facility] [id number] [place] [address] 17886- 3467 Mar, [facility] [id number] [place] [address] 27075- 0116 Feb, [facility] [address] [place] [address] 65745- 4149 Feb, [facility] [id number] [place] [address] [id number] January, Dental caries K02.9 [facility] [id number] [place] [address] 28605- 4384 January, [facility] [address] 60748- 9111 January, Bloody stools K92.1 ; Epigastric pain R10.13 ; Essential hypertension I10 ; Anxiety F41.9 and Primary insomnia F51.01 [facility] [id number] [place] [address] [id number] Dec, Dental examination Z01.20 [facility] [id number] [place] [address] 61531- 4500 Dec, [facility] [id number] [place] [address] 25040 -6104 Nov, Acute frontal sinusitis J01.10 and Sore throat J02.9 [facility] [id number] [place] [address] 53095- 6494 Nov, [facility] [id number] [place] [address] 56736- 8793 Oct, Essential hypertension I10 ; Anxiety F41.9 and Primary insomnia F51.01 [facility] [id number] [place] [address] 75496- 9450 Sep, [facility] [id number] [place] [address] 35702- 5597 Sep, [facility] [id number] [place] [address] 64123- 6732 Sep, [facility] [id number] [place] [address] 34399- 1909 Aug, [facility] [id number] [place] [address] 52800- 6766 Aug, [facility] [id number] [place] [address] 14526- 3266 Jul, Essential hypertension I10 ; Anxiety F41.9 ; Primary insomnia F51.01 and Visual changes H53.9 [facility] [id number] [place] [address] 81277- 7233 Jul, [facility] [id number] [place] [address] 45842- 3581 Jun, [facility] [address] 49078- 7830 Jun, [facility] [id number] [place] [address] 00486- 0757 May, [facility] [id number] [place] [address] 25782- 9129 14 May, 2015 [facility] [id number] [place] [address] 42238- 1202 04 May, 2015 Chest pain 786.50 ; Hyperlipemia 272.4 ; Hypertension 401.9 ; Anxiety 300.00 and History of tobacco use V15.82 [facility] [address] [place] [address] 79999- 4247 May, Chest pain 786.50 and Hypertension 401.9 [facility] [id number] [place] [address] 82243- 8904 Apr, [facility] [id number] [place] [address] 81498- 9246 Apr, 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 ; Hypertension 401.9 and CAD (coronary artery disease) 414.00 [facility] [address] [place] [address] 99125- 8435 Mar, Chest pain 786.50 ; Hypertension 401.9 ; Hyperlipemia 272.4 and History of tobacco use V15.82 [place] [address] [address]- 2601 Mar, 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 and Major depressive disorder, recurrent episode, moderate 296.32 [facility] [address] 3129 Mar, [facility] [address] [address]- 1965 Mar, [facility] [id number] [place] [address] 99119- 3716 Mar, [facility] [id number] [place] [address] 116730- 3756 Mar, 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 and Major depressive disorder, recurrent episode, moderate 296.32 [facility] [address] [id number] [address]- 7061 Mar, [facility] [id number] [place] [address] 88359- 6286 Feb, [facility] [address] [place] [address] 74237- 8373 Feb, 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 ; Major depressive disorder, recurrent episode, moderate 296.32 ; No condition on [place] V71.09 ; Hypertension 401.9 ; Arthritis 716.90 and Overweight 278.02 [facility] [address] [place] [address] [address]- 9425 Feb, [facility] [address] [address]- 4082 Feb, [facility] [address] [place] [id number] [place] [address] 32360- 6356 January, Essential hypertension, benign 401.1 ; Anxiety state, unspecified 300.00 and Chest pain 786.50 [facility] [address] [id number] [address]- 1793 Dec, [facility] [place] [facility] [address] [id number] [place] [address]- 6258 Dec, [facility] [place] [facility] [address] [id number] [place] [address]- 5090 Nov, [facility] [place] [facility] [address] [id number] [place] [address]- 5722 Nov, [facility] [place] [facility] [address] [id number] [place] [address]- 2291 Nov, [facility] [place] [facility] [address] [id number] [place] [address]- 3986 Nov, [facility] [place] [facility] [address] [id number] [place] [address]- 9434 Oct, [facility] [place] [facility] [address] [id number] [place] [address]- 6865 Oct, [facility] [place] [facility] [address] [id number] [place] [address]- 0252 Oct, [facility] [place] [facility] [address] [id number] [place] [address]- 0339 Oct, [facility] [place] [facility] [address] [id number] [place] [address]- 5253 Sep, [facility] [place] [facility] [address] [id number] [place] [address]- 0503 Sep, [facility] [place] [facility] [address] [id number] [place] [address]- 0619 Sep, [facility] [place] [facility] [address] [id number] [place] [address]- 6686 Sep, [facility] [place] [facility] [address] [id number] [place] [address]- 9803 Sep, [facility] [place] [facility] [address] [id number] [place] [address]- 0905 Sep, [facility] [place] [facility] [address] [id number] [address]- 8376 Aug, [facility] [place] [facility] [address] [id number] [place] 9754 Aug, [facility] [place] [facility] [address] [id number] [place] [address]- 6244 Aug, [facility] [place] [facility] [address] [facility] [id number] [place] [address]- 6963 Aug, [facility] [place] [facility] [address] [id number] [place] [address]- 8138 Aug, [facility] [place] [facility] [address] [id number] [place] [address]- 1248 Aug, [facility] [place] [facility] [address] [id number] [place] [address]- 4839 Jul, [facility] [place] [facility] [address] [id number] [place] [address]- 9074 Jul, [facility] [place] [facility] [address] [id number], [place] [address]- 6768 Jul, [facility] [place] [facility] [address] [id number] [place] [address]- 6157 Jul, [facility] [place] [facility] [address] [id number] [place] [address]- 7266 Jul, [facility] [place] [facility] [address] [id number], [place] [address]- 7967 Jul, [facility] [place] [facility] [address] [id number], [place] [address]- 3425 Jun, [facility] [place] [facility] [address] [id number] [place] 9249 Jun, [facility] [place] [facility] [address] [id number], [place] [address]- 2912 Jun, [facility] [place] [facility] [address] [id number][place] 9007 Jun, [facility] [place] [facility] [id number] [address]- 4090 May, [facility] [id number] [address]- 4218 May, [facility] [address] [address]- 1980 May, [facility] [address] [address]- 2774 May, [facility] [address] [address]- 6636 Apr, [facility] [address] [address]- 5532 Apr, [facility] [address] [address]- 4227 Apr, [facility] [address] [address]- 3510 Apr, [facility] [id number] [address]- 9449 Apr, IMMUNIZATIONS No Known Immunizations SOCIAL HISTORY Never Assessed REASON FOR VISIT Anxiety, medication management, Has been out of metoprolol x2 days. -ANY Estrada PLAN OF CARE Activity Details Follow Up 3 month Reason:Anxiety VITAL SIGNS Height 67 in 2017-04-27 Weight 241 lbs 2017-04-27 Temperature 98.2 degrees Fahrenheit 2017-04-27 Heart Rate 98 bpm 2017-04-27 Respiratory Rate 20 2017-04-27 BMI 37.74 kg/m2 2017-04-27 Blood pressure systolic 150 mmHg 2017-04-27 Blood pressure diastolic 100 mmHg 2017-04-27 MEDICATIONS Medication Instructions Dosage Frequency Start Date End Date Duration Status lipitor 1 tab Active Metoprolol Succinate 50 mg Orally 2 times a day 1 tablet by Oral route 1 time per day 12h Active Amitriptyline HCl 10 mg Orally Once a day 1 tablet 24h 30 Active Xanax 0.5 MG Orally Three times a day prn 1 tablet Active Pantoprazole Sodium 40 mg Orally Once a day 1 tablet 24h 30 days Active Indomethacin 50 MG Orally Twice a day 1 capsule with food or milk 12h Apr, May, 30 day(s) Active losartan 50 mg orally 2 times a day 1 tablet 12h Active RESULTS No Results PROCEDURES Procedure Date Ordered Result Body Site [facility] VISIT ESTABLISHED PATIENT Apr 27, 2017 INSTRUCTIONS MEDICATIONS ADMINISTERED No Known Medications [...]
--- OUTSIDE RECORDS SUMMARY | 2018-05-27 15:00 | XMS REPORT ---
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 Plaster And Plastic Name Role Phone MIANess AMERICO Unavailable PROBLEMS Type Condition ICD9-CM Code OQM55-KA Code Onset Dates Condition Status SNOMED Code Problem Visual changes H53.9 Active 93018825 Problem Anxiety F41.9 Active 41075282 Problem Essential hypertension I10 Active 13135476 Problem Primary insomnia F51.01 Active 4097758 Problem Primary osteoarthritis of left knee M17.12 Active 068652914 Problem Gastritis determined by endoscopy K29.70 Active 0437902 Problem Gastroesophageal reflux disease without esophagitis K21.9 Active 661635508 Problem Epigastric pain R10.13 Active 32637426 Problem Pain in left knee M25.562 Active 46360635 Problem Mixed hyperlipidemia E78.2 Active 490378590 ALLERGIES No Information SOCIAL HISTORY Never Assessed [...]
--- OUTSIDE RECORDS SUMMARY | 2018-05-27 15:01 | XMS REPORT ---
Author Author RACHELL LU Organization [facility] Address [address] [place] [address] Care Team Providers Care Chemical Process Engineer Name Role Phone ALY RACHELL Unavailable PROBLEMS Type Condition ICD9-CM Code QTN57-OS Code Onset Dates Condition Status SNOMED Code Problem Visual changes H53.9 Active 30998660 Problem Anxiety F41.9 Active 04342678 Problem Essential hypertension I10 Active 61473751 Problem Primary insomnia F51.01 Active 8197276 Problem Primary osteoarthritis of left knee M17.12 Active 791092028 Problem Gastritis determined by endoscopy K29.70 Active 2053544 Problem Gastroesophageal reflux disease without esophagitis K21.9 Active 085052843 Problem Epigastric pain R10.13 Active 54861009 Problem Pain in left knee M25.562 Active 36127518 Problem Mixed hyperlipidemia E78.2 Active 938892370 ALLERGIES No Information SOCIAL HISTORY Never Assessed PLAN OF CARE VITAL SIGNS MEDICATIONS Unknown Medications RESULTS Name Result Date Reference Range LIPID PANEL 2017-02-03 Cholesterol, Total 153 100-199 Triglycerides 77 0-149 HDL Cholesterol 39 >39 VLDL Cholesterol Neil 15 5-40 LDL Cholesterol Calc 99 0-99 Comment: PROCEDURES Procedure Date Ordered Result Body Site LAB NOT BILLED BY [facility] February 03, 2017 VENIPUNCT, ROUTINE* February 03, 2017 IMMUNIZATIONS No Known Immunizations MEDICAL (GENERAL) HISTORY Type Description Date Medical History hypertension Medical History anxiety Medical History angina Medical History elevated LFTs Medical History hepatitis C (told free of virus in 1993) Medical History Chest pain- Angina Medical History CAD- Dr. Lu Medical History Hyperlipemia Medical History asthma Medical [...]
--- OUTSIDE RECORDS SUMMARY | 2018-05-27 15:01 | XMS REPORT ---
Author Author AMERICO SHARMA [facility] Address [address] [place] [address] Care Team Providers Care Nursery Hand Name Role Phone EDITH AMERICO Unavailable PROBLEMS Type Condition ICD9-CM Code EIC19-FG Code Onset Dates Condition Status SNOMED Code Problem Anxiety F41.9 Active 94553190 Problem Gastroesophageal reflux disease without esophagitis K21.9 Active 253352057 Problem Epigastric pain R10.13 Active 84150033 Problem Primary insomnia F51.01 Active 3225858 Problem Visual changes H53.9 Active 10982420 Problem Essential hypertension I10 Active 63496012 Problem Osteoarthritis of left knee, unspecified osteoarthritis type M17.12 Active 637056469424825 Problem 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 [id number] [place] [address] 51405- 7445 Dec, [address]9 [facility] [id number] [place] [address] 91071- 4217 Dec, [place] [id number] [place] [address] 93561- 9474 Dec, Anxiety F41.9 and Osteoarthritis of left knee, unspecified osteoarthritis type M17.12 [place] [address] [place] [id number] [place] [address] 68258- 4408 Nov, Primary insomnia F51.[address] [facility] [id number] [place] [address] 22272- 1670 Oct, [address].9 [facility] [id number] [place] [address] 27242- 9366 Oct, 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 ; Gastritis determined by endoscopy K29.70 ; Primary osteoarthritis of left knee M17.12 and BMI 40.0-44.9, adult Z68.41 [place] [id number] [place] [address] 58138- 6260 Aug, Primary insomnia F51.01 and Anxiety F41.9 [place] [address] 86844- 3335 Jun, Anxiety F41.9 [place] [id number] [place] [address] 44463- 5690 Jun, Anxiety F41.9 [place] [id number] [place] [address] 83395- 0002 May, [place] [id number] [place] [address] 53931- 1227 May, Primary osteoarthritis of left knee M17.12 and Anxiety F41.9 [place] [address] [id number] [place] [address] 50617- 2818 Apr, Essential hypertension I10 [place] [id number] [place] [address] 89582- 1162 Apr, Essential hypertension I10 ; Anxiety F41.9 ; Primary insomnia F51.01 ; Primary osteoarthritis of left knee M17.12 and Gastritis determined by endoscopy K29.70 [place] [address] [address] [id number] [place] [address] 34536- 3458 Apr, Essential hypertension I10 [place] [id number] [place] [address] 96044- 3751 Mar, Anxiety F41.9 [place] [address] 31854- 9011 Mar, Primary osteoarthritis of left knee M17.12 [place] [address] 04021- 7930 Feb, [place] [address] 43977- 7706 Feb, Anxiety F41.9 [place] [address] 42610- 8750 Feb, [place] [address] [id number] [place] [address] 72429- 0663 January, Mixed hyperlipidemia E78.2 [place] [address] 08705- 1625 January, Anxiety F41.9 [facility] [id number] [place] [address] [id number] Dec, Dental examination Z01.20 [place] [id number] [place] [address] 93416- 8727 Dec, Anxiety F41.9 ; Primary insomnia F51.01 and Pain in left knee M25.562 [place] [address] 08210- 3085 Nov, Essential hypertension I10 ; Anxiety F41.9 ; Primary insomnia F51.01 ; Mixed hyperlipidemia E78.2 ; Pain in left knee M25.562 and Gastritis determined by endoscopy K29.70 [place] [address] [place] [address] [place] [address] 8904 15 Oct, [address] [facility] [id number] [place] [address] 05628- 5714 09 Oct, 2016 Primary osteoarthritis of left knee M17.12 [facility] [address] [place] [address] [id number] Sep, Dental examination Z01.20 [facility] [id number] [place] [address] 69113- 6029 Sep, Anxiety F41.9 [facility] [id number] [place] [address] 29294- 1859 Aug, Anxiety F41.9 [facility] [id number] [place] [address] 99646- 6543 Jul, Essential hypertension I10 ; Anxiety F41.9 ; Primary insomnia F51.01 ; Mixed hyperlipidemia E78.2 ; Pain in left knee M25.562 and Gastritis determined by endoscopy K29.70 [facility] [id number] [place] [address] 92124- 0582 Jul, [facility] [id number] [place] [address] 42495- 0341 Jul, [facility] [id number] [place] [address] 02913- 1102 Jun, [facility] [id number] [place] [address] 40910- 7666 Jun, [facility] [id number] [place] [address] 53333- 2874 May, [facility] [id number] [place] [address] 32121- 8984 May, Pain in left knee M25.562 [facility] [id number] [place] [address] 07129- 2765 Apr, Essential hypertension I10 ; Anxiety F41.9 ; Primary insomnia F51.01 ; Mixed hyperlipidemia E78.2 ; Pain in left knee M25.562 and Gastritis determined by endoscopy K29.70 [facility] [id number] [place] [address] 58159- 7217 Mar, [facility] [id number] [place] [address] 12313- 2487 Feb, [facility] [address] 19816- 0946 Feb, [facility] [address] [place] [id number] [place] [address] [id number] January, Dental caries K02.9 [facility] [address] [id number] [place] [address] 01456- 7550 January, [facility] [address] [place] [address] [id number] [place] [address] 86066- 0126 January, Bloody stools K92.1 ; Epigastric pain R10.13 ; Essential hypertension I10 ; Anxiety F41.9 and Primary insomnia F51.01 [facility] [address] [place] [address] [id number] [place] [address] [id number] Dec, Dental examination Z01.20 [facility] [id number] [place] [address] 41162- 2081 Dec, [facility] WALK IN [facility] [address] [place] [address] 87526 -4823 Nov, Acute frontal sinusitis J01.10 [address] Sore throat [address].9 [facility] [id number] [place] [address] 61346- 9466 Nov, [facility] [id number] [place] [address] 28692- 2759 Oct, Essential hypertension I10 ; Anxiety F41.9 and Primary insomnia F51.01 [facility] [id number] [place] [address] 00179- 7158 Sep, [facility] [id number] [place] [address] 10456- 8081 Sep, [facility] [id number] [place] [address] 44930- 6644 Sep, [facility] [id number] [place] [address] 95215- 7789 Aug, [facility] [address] 92880- 5799 Aug, [facility] [address] 69473- 9837 Jul, Essential hypertension I10 ; Anxiety F41.9 ; Primary insomnia F51.01 and Visual changes H53.9 [facility] [address] [place] [address] [id number] [place] [address] 08037- 6768 Jul, [facility] [address] 59651- 0685 Jun, [facility] [id number] [place] [address] 06261- 9289 Jun, [facility] [address] [place] [id number] [place] [address] 36662- 7965 May, [facility] [id number] [place] [address] 12935- 9966 14 May, 2015 [facility] [id number] [place] [address] 52305- 7643 May, Chest pain 786.50 ; Hyperlipemia 272.4 ; Hypertension 401.9 ; Anxiety 300.00 and History of tobacco use V15.82 [facility] [address] [place] [id number] [place] [address] 88088- 3099 May, Chest pain 786.[address] [facility] [id number] [place] [address] 06508- 1810 Apr, 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 [address] [place] [id number] [place] [address] 03705- 2189 Feb, 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 [address] [place] [id number] [place] [address] 31299- 4481 Feb, [facility] [address] [place] [id number] [place] [address] 79521- 7536 Feb, [facility] [address] [address]- 3425 January, Essential hypertension, benign 401.1 ; Anxiety state, unspecified 300.[address]86.50 [facility] [address] [address]857 Dec, [facility] [address] [address]- 5083 Dec, [facility] [address] [address]- 1350 Nov, [facility] [address] [place] [address], [place] [address]- 4276 Nov, [facility] [address] [place] [address]- 0032 Nov, [facility] [id number] [place] [address], [place] [address]- 1074 Nov, [facility] [address] [address]- 6345 Oct, [facility] [address] [place] [address]- 4647 Oct, [facility] [address] [address]- 6722 Oct, [facility] [address] [address]- 0597 Oct, [facility] [id number] [address]- 2253 Sep, [facility] [address] [address]- 5930 Sep, [facility] [id number] 8856 Sep, [facility] [address] [address]- 1494 Sep, [facility] [place] [facility] [address] [id number] [place]- 1589 Sep, [facility] [place] [facility] [address] [id number] [place] [address]- 6457 Sep, [facility] [place] [facility] [address] [id number] [place] 6582 Aug, [facility] [place] [facility] [address] [id number] [place] [address]- 4044 Aug, [facility] [place] [facility] [address] [id number] [place] 9741 Aug, [facility] [place] [facility] [address] [id number] [place] [address]- 1984 Aug, [facility] [place] [facility] [address] [id number] [place] [address]- 4721 Aug, [facility] [place] [facility] [address] [id number] [place] [address]- 2840 Aug, [facility] [place] [facility] [address] [id number] [place] [address]- 8713 Jul, [facility] [place] [facility] [address] [id number] [place] [address]- 8571 Jul, [facility] [place] [facility] [address] [id number] [place] [address]- 6075 Jul, [facility] [place] [facility] [address] [id number] [place] [address]- 8358 Jul, [facility] [place] [facility] [address] [id number] [place] [address]- 4959 Jul, [facility] [place] [facility] [address] [id number] [place] 6147 Jul, [facility] [place] [facility] [address] [id number] [place] [address]- 7660 16 Jun, 2014 [facility] [place] [facility] [address] [id number] [address]- 7082 Jun, [facility] [address] [address]- 4799 Jun, [facility] [address] [address]- 9116 Jun, [facility] [address] [address]- 1676 May, [facility] [address] [place] [address] 07155- 1753 May, [facility] [id number] [place] [address] 25088- 0908 May, [facility] [address] [place] [address] 83937- 3995 May, [facility] [id number] [place] [address] 94653- 2403 Apr, [facility] [address] [address]- 7016 Apr, [facility] [address] [place] [address] 24019- 2914 Apr, [facility] [address] [address]- 3682 Apr, [facility] [address] [address]- 9950 Apr, IMMUNIZATIONS No Known Immunizations SOCIAL HISTORY [...] Chest pain- Angina Medical History CAD- Dr. Geraldine Medical History Hyperlipemia Medical History asthma Medical [...]
--- OUTSIDE RECORDS SUMMARY | 2018-05-27 15:02 | XMS REPORT ---
Author Author AMERICO SHARMA [facility] Address [address] [place] [address] Care Team Providers Care Employment Clerk Name Role Phone AMERICO SHARMA Unavailable PROBLEMS Type Condition ICD9-CM Code PSK40-UR Code Onset Dates Condition Status SNOMED Code Problem Anxiety F41.9 Active 76078754 Problem Gastroesophageal reflux disease without esophagitis K21.9 Active 250747480 Problem Epigastric pain R10.13 Active 70544773 Problem Primary insomnia F51.01 Active 0719091 Problem Visual changes H53.9 Active 76283089 Problem Essential hypertension I10 Active 77016921 Problem Osteoarthritis of left knee, unspecified osteoarthritis type M17.12 Active 753978821044704 Problem Coronary artery disease of [place] artery of [place] heart with stable 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 Active 0067743190372 Problem Pain in left knee M25.562 Active 54439435 Problem Mixed hyperlipidemia E78.2 Active 037001004 Problem Primary osteoarthritis of left knee M17.12 Active 433340883 Problem Gastritis determined by endoscopy K29.70 Active 7581057 ALLERGIES No Information ENCOUNTERS Encounter Location Date Diagnosis [place] [id number] [place] [address] 88944- 1292 Dec, Anxiety F41.9 and Osteoarthritis of left knee, unspecified osteoarthritis type M17.12 [facility] [id number] [place] [address] 75826- 1668 Nov, Primary insomnia F51.01 and Anxiety F41.9 [facility] [id number] [place] [address] 90195- 7135 Oct, Anxiety F41.9 [facility] [id number] [place] [address] 01102- 6002 Oct, [place] [address] [address]35- 7069 Oct, Anxiety F41.9 [place] [address] 98460- 2659 Aug, Primary insomnia F51.01 ; Anxiety F41.9 ; Essential hypertension I10 ; Coronary artery disease of [place] artery of [place] heart with stable 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 ; Gastritis determined by endoscopy K29.70 ; Primary osteoarthritis of left knee M17.12 and BMI 40.0-44.9, adult Z68.41 [place] [address] 93272- 2630 Aug, Primary insomnia F51.01 and Anxiety F41.9 [place] [address] 67492- 3657 Jun, Anxiety F41.9 [place] [address] 73695- 6153 Jun, Anxiety F41.9 [place] [address] 41126- 6663 May, [place] [address] 73178- 8535 May, Primary osteoarthritis of left knee M17.12 and Anxiety F41.9 [place] [address] 62907- 9401 Apr, Essential hypertension I10 [place] [address] 01618- 4369 Apr, Essential hypertension I10 ; Anxiety F41.9 ; Primary insomnia F51.01 ; Primary osteoarthritis of left knee M17.12 and Gastritis determined by endoscopy K29.70 [place] [address] 30008- 2316 Apr, Essential hypertension I10 [place] [address] 53956- 0077 Mar, Anxiety F41.9 [facility] [address] [place] [address] 78689- 5115 Mar, Primary osteoarthritis of left knee M17.12 [facility] [id number] [place] [address] 61149- 1159 Feb, [facility] [id number] [place] [address] 58973- 4196 Feb, Anxiety F41.9 [facility] [id number] [place] [address] 66299- 7017 Feb, [facility] [id number] [place] [address] 49658- 0196 January, Mixed hyperlipidemia E78.2 [facility] [id number] [place] [address] 55775- 8671 January, Anxiety F41.9 [facility] [address] [id number] Dec, Dental examination Z01.20 [facility] [id number] [place] [address] 88064- 1690 Dec, Anxiety F41.9 ; Primary insomnia F51.01 and Pain in left knee M25.562 [facility] [address] [place] [address] 59910- 3095 Nov, Essential hypertension I10 ; Anxiety F41.9 ; Primary insomnia F51.01 ; Mixed hyperlipidemia E78.2 ; Pain in left knee M25.562 and Gastritis determined by endoscopy K29.70 [facility] [id number] [place] [address] 74703- 7610 Oct, Anxiety F41.9 [facility] [id number] [place] [address] 06284- 4517 09 Oct, 2016 Primary osteoarthritis of left knee M17.12 [facility] [id number] [place] [address] [id number] Sep, Dental examination Z01.20 [facility] [id number] [place] [address] 26161- 9491 Sep, Anxiety F41.9 [facility] [id number] [place] [address] 17196- 5036 Aug, Anxiety F41.9 [facility] [id number] [place] [address] 91185- 2343 Jul, Essential hypertension I10 ; Anxiety F41.9 ; Primary insomnia F51.01 ; Mixed hyperlipidemia E78.2 ; Pain in left knee M25.562 and Gastritis determined by endoscopy K29.70 [facility] [id number] [place] [address] 52460- 1144 Jul, [facility] [id number] [place] [address] 70786- 5547 Jul, [facility] [id number] [place] [address] 21582- 4590 Jun, [facility] [id number] [place] [address] 19691- 5516 Jun, [facility] [id number] [place] [address] 32248- 5937 May, [facility] [id number] [place] [address] 12448- 2563 May, Pain in left knee M25.562 [facility] [id number] [place] [address] 74750- 1356 Apr, Essential hypertension I10 ; Anxiety F41.9 ; Primary insomnia F51.01 ; Mixed hyperlipidemia E78.2 ; Pain in left knee M25.562 and Gastritis determined by endoscopy K29.70 [facility] [id number] [place] [address] 86880- 7216 Mar, [facility] [id number] [place] [address] 87315- 8608 Feb, [facility] [address] [place] [address]- 2184 Feb, [facility] [id number] [place] [address] [id number] January, Dental caries K02.9 [facility] [id number] [place] [address] 86676- 2170 January, [facility] [address] 84012- 3734 January, Bloody stools K92.1 ; Epigastric pain R10.13 ; Essential hypertension I10 ; Anxiety F41.9 and Primary insomnia F51.01 [facility] [id number] [place] [address] [id number] Dec, Dental examination Z01.20 [facility] [id number] [place] [address] 05090- 6489 Dec, [facility] [id number] [place] [address] 60330 -8130 Nov, Acute frontal sinusitis J01.10 and Sore throat J02.9 [facility] [id number] [place] [address] 45719- 4128 Nov, [facility] [id number] [place] [address] 36755- 0847 Oct, Essential hypertension I10 ; Anxiety F41.9 and Primary insomnia F51.01 [facility] [id number] [place] [address] 57340- 7720 Sep, [facility] [id number] [place] [address] 58086- 5528 Sep, [facility] [address] 57435- 1444 Sep, [facility] [id number] [place] [address] 11463- 5129 Aug, [facility] [address] 97800- 3820 Aug, [facility] [id number] [place] [address] 58569- 5042 Jul, Essential hypertension I10 ; Anxiety F41.9 ; Primary insomnia F51.01 and Visual changes H53.9 [facility] [id number] [place] [address] 12405- 1139 Jul, [facility] [address] 43033- 5676 Jun, [facility] [id number] [place] [address] 50924- 4719 Jun, [facility] [address] 47740- 6498 May, [place] [id number] [place] [address] 06038- 7412 May, [facility] [address] 53418- 3318 May, Chest pain 786.50 ; Hyperlipemia 272.4 ; Hypertension 401.9 ; Anxiety 300.00 and History of tobacco use V15.82 [place] [id number] [place] [address] 36030- 3326 May, Chest pain 786.50 and Hypertension 401.9 [place] [id number] [place] [address] 33624- 3956 Apr, [facility] [id number] [place] [address] 12488- 8577 Apr, 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 ; Hypertension 401.9 and CAD (coronary artery disease) 414.00 [place] [id number] [place] [address] 94627- 8066 Mar, Chest pain 786.50 ; Hypertension 401.9 ; Hyperlipemia 272.4 and History of tobacco use V15.82 [place] [address] 84588- 8492 Mar, 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 and Major depressive disorder, recurrent episode, moderate 296.32 [facility] [address] [address]- 2873 Mar, [facility] [address] 5832 Mar, [facility] [id number] [place] [address] 948351- 4824 Mar, [facility] [address] [place] [address] 173856- 2401 Mar, 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 and Major depressive disorder, recurrent episode, moderate 296.32 [facility] [address] [place] [address]- 1090 Mar, [facility] [id number] [place] [address] 46164- 8538 Feb, [facility] [address] [place] [address]- 1170 Feb, 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 ; Major depressive disorder, recurrent episode, moderate 296.32 ; No condition on [place] V71.09 ; Hypertension 401.9 ; Arthritis 716.90 and Overweight 278.02 [facility] [address] [place] [address] [address]- 1527 Feb, [facility] [address] [place] [address]- 1073 Feb, [facility] [address] [place] [address]- 5763 January, Essential hypertension, benign 401.1 ; Anxiety state, unspecified 300.00 and Chest pain 786.50 [facility] [address] [place] [address]- 2210 Dec, [facility] [id number] [place] [address] 37110- 3716 Dec, [facility] [place] [facility] [address] [id number] [place] [address]- 7500 Nov, [facility] [place] [facility] [address] [id number] [place] [address]- 7217 Nov, [facility] [place] [facility] [address] [facility] [id number] [place] [address]- 3129 Nov, [facility] [place] [facility] [address] [id number] [place] [address]- 4539 Nov, [facility] [place] [facility] [address] [id number] [place] [address]- 7973 Oct, [facility] [place] [facility] [address] [facility] [id number] [place] [address]- 8196 Oct, [facility] [place] [facility] [address] [facility] [id number] [place] [address]- 0801 Oct, [facility] [place] [facility] [address] [facility] [id number] [place] [address]- 4879 Oct, [facility] [place] [facility] [address] [facility] [id number] [place] [address]- 5984 Sep, [facility] [place] [facility] [address] [facility] [id number] [place] [address]- 7171 Sep, [facility] [place] [facility] [address] [facility] [id number], [place] [address]- 2619 Sep, [facility] [place] [facility] [address] [id number], [place] [address]- 1338 Sep, [facility] [place] [facility] [address] [id number] [place] [address]- 1443 Sep, [facility] [place] [facility] [address] [facility] [id number] [place] [address]- 3684 Sep, [facility] [place] [facility] [address] [facility] [id number] [place] [address]- 6276 Aug, [facility] [place] [facility] [address] [id number] [place] [address]- 6032 Aug, [facility] [place] [facility] [address] [id number] [place] [address]- 9750 Aug, [facility] [place] [facility] [address] [id number] [place] [address]- 8926 Aug, [facility] [place] [facility] [address] [id number] [place] [address]- 8692 Aug, [facility] [place] [facility] [address] [id number] [place] [address]- 9890 Aug, [facility] [place] [facility] [address] [id number] [place] [address]- 7043 Jul, [facility] [place] [facility] [address] [id number] [place] 9742 Jul, [facility] [place] [facility] [address] [id number] [place] [address]- 7101 Jul, [facility] [place] [facility] [address] [id number] [place] [address]- 7518 Jul, [facility] [place] [facility] [address] [id number] [place] [address]- 8359 Jul, [facility] [place] [facility] [address] [facility] [id number] [place]- 8740 Jul, [facility] [place] [facility] [address] [id number] [place] [address]- 9242 Jun, [facility] [place] [facility] [address] [id number] [place] [address]- 3675 Jun, [facility] [place] [facility] [address] [id number] [place] [address]- 8066 Jun, [facility] [place] [facility] [address] [id number] [place] [address]- 5856 Jun, [facility] [place] [facility] [address] [id number] [place] [address]- 4965 May, [facility] [address] [facility] [id number], [place] [address]- 6832 May, [facility] [address] [facility] [id number], [place] [address]- 9385 May, [facility] [address] [facility] [id number], [place] [address]- 7198 May, [facility] [address] [facility] [id number], [place] [address]- 7074 Apr, [facility] [address] [facility] [id number], [place] [address]- 2517 Apr, [facility] [address] [facility] [id number], [place] [address]- 1289 Apr, [facility] [address], [place] [address]- 7672 Apr, [facility] [id number] [address]- 5619 Apr, IMMUNIZATIONS No Known Immunizations SOCIAL HISTORY Never Assessed REASON FOR VISIT clarification PLAN OF CARE VITAL SIGNS MEDICATIONS Medication Instructions Dosage Frequency Start Date End Date Duration Status Metoprolol Succinate 50 mg Orally 2 times a day 1 tablet 12h Sep, 30 days Active RESULTS No Results PROCEDURES No Known [...]
--- OUTSIDE RECORDS SUMMARY | 2018-05-27 15:02 | XMS REPORT ---
Author Author AMERICO SHARMA [facility] [address] Address [address] [place] [address] Care Team Providers Care Automotive Brake Specialist Name Role Phone AMERICO SHARMA Unavailable PROBLEMS Type Condition ICD9-CM Code QKP21-XM Code Onset Dates Condition Status SNOMED Code Problem Visual changes H53.9 Active 96263650 Problem Anxiety F41.9 Active 83946744 Problem Essential hypertension I10 Active 07417381 Problem Primary insomnia F51.01 Active 9269388 Problem Primary osteoarthritis of left knee M17.12 Active 708088079 Problem Gastritis determined by endoscopy K29.70 Active 6016888 Problem Gastroesophageal reflux disease without esophagitis K21.9 Active 654931471 Problem Epigastric pain R10.13 Active 47224564 Problem Pain in left knee M25.562 Active 13965438 Problem Mixed hyperlipidemia E78.2 Active 278284554 ALLERGIES Substance Reaction Event Type Date Status Lexapro Suicidal ideation Drug Allergy Nov, Active SOCIAL HISTORY Never Assessed PLAN OF CARE Activity Details Follow Up 3-4 weeks Reason:arthritis sleep VITAL SIGNS Height 67 in 2016-12-09 Weight 238.4 lbs 2016-12-09 Temperature 97.9 degrees Fahrenheit 2016-12-09 Heart Rate 77 bpm 2016-12-09 Respiratory Rate 20 2016-12-09 BMI 37.33 kg/m2 2016-12-09 Blood pressure systolic 129 mmHg 2016-12-09 Blood pressure diastolic 82 mmHg 2016-12-09 MEDICATIONS Medication Instructions Dosage Frequency Start Date End Date Duration Status Pantoprazole Sodium 40 mg Orally Once a day 1 tablet 24h 30 days Active lipitor 1 tab Active Meloxicam 15 MG Orally Once a day 1 tablet 24h Nov, Dec, 30 day(s) Active Pantoprazole Sodium 40 MG TAKE ONE TABLET BY MOUTH ONCE DAILY 30 Active Amitriptyline HCl 10 mg Orally Once a day 1 tablet 24h Nov, 30 day(s) Active Xanax 0.5 MG Orally Three times a day prn 1 tablet Active losartan 50 mg orally 2 times a day 1 tablet 12h Active Benadryl Active Metoprolol Succinate 50 mg Orally 2 times a day 1 tablet by Oral route 1 time per day 12h Active Nitrostat 0.4 MG 1 tablet by Sublingual route 3 times per day PRN chest pain; Apr, Active RESULTS Name Result Date Reference Range CMP 2016-12-09 Glucose, Serum 88 65-99 BUN 12 8-27 Creatinine, Serum 0.98 0.76-1.27 eGFR If NonAfricn Am 83 >59 eGFR If Africn Am 96 >59 BUN/Creatinine Ratio 12 10-22 Sodium, Serum 140 134-144 Potassium, Serum 4.1 3.5-5.2 Chloride, Serum 99 96-106 Carbon Dioxide, Total 23 18-29 Calcium, Serum 9.6 8.6-10.2 Protein, Total, Serum 7.3 6.0-8.5 Albumin, Serum 4.3 3.6-4.8 Globulin, Total 3.0 1.5-4.5 A/G Ratio 1.4 1.2-2.2 Bilirubin, Total 0.3 0.0-1.2 Alkaline Phosphatase, S 40 39-117 AST (SGOT) 26 0-40 ALT (SGPT) 34 0-44 PROCEDURES Procedure Date Ordered Result Body Site ROUTINE VENIPUNCTURE 2016-12-09 N/A [facility] December 09, 2016 ON LICENSE OF [facility] VISIT ESTABLISHED PATIENT December 09, 2016 IMMUNIZATIONS No Known Immunizations MEDICAL (GENERAL) [...]
--- OUTSIDE RECORDS SUMMARY | 2018-05-27 15:02 | XMS REPORT ---
Author Author AMERICO SHARMA [facility] Address [address] [place] [address] Care Team Providers Care Instructional Developer Name Role Phone AMERICO SHARMA Unavailable PROBLEMS Type Condition ICD9-CM Code ZWA78-XF Code Onset Dates Condition Status SNOMED Code Problem Anxiety F41.9 Active 05774721 Problem Gastroesophageal reflux disease without esophagitis K21.9 Active 166718443 Problem Epigastric pain R10.13 Active 75846257 Problem Primary insomnia F51.01 Active 8749549 Problem Visual changes H53.9 Active 05910029 Problem Essential hypertension I10 Active 14611556 Problem Osteoarthritis of left knee, unspecified osteoarthritis type M17.12 Active [id number] Problem Coronary artery disease of [place] artery of [place] heart with stable 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 Active 1499826158964 Problem Pain in left knee M25.562 Active 14153650 Problem Mixed hyperlipidemia E78.2 Active 434036523 Problem Primary osteoarthritis of left knee M17.12 Active 458179676 Problem Gastritis determined by endoscopy K29.70 Active 6065194 ALLERGIES No Information ENCOUNTERS Encounter Location Date Diagnosis [place] [id number] [place] [address] 44490- 6357 Dec, Anxiety F41.9 and Osteoarthritis of left knee, unspecified osteoarthritis type M17.12 [facility] [id number] [place] [address] 78978- 4279 Nov, Primary insomnia F51.01 and Anxiety F41.9 [facility] [id number] [place] [address] 01854- 3483 Oct, Anxiety F41.9 [facility] [id number] [place] [address] 20257- 7103 Oct, [place] [address] 04607- 9572 Oct, Anxiety F41.9 [place] [address] 80030- 1558 Aug, Primary insomnia F51.01 ; Anxiety F41.9 ; Essential hypertension I10 ; Coronary artery disease of [place] artery of [place] heart with stable 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 ; Gastritis determined by endoscopy K29.70 ; Primary osteoarthritis of left knee M17.12 and BMI 40.0-44.9, adult Z68.41 [place] [address] 31563- 2242 Aug, Primary insomnia F51.01 and Anxiety F41.9 [place] [address] 30228- 7072 Jun, Anxiety F41.9 [place] [address] 12908- 7414 Jun, Anxiety F41.9 [place] [address] 99300- 1284 May, [place] [address] 50100- 8139 May, Primary osteoarthritis of left knee M17.12 and Anxiety F41.9 [place] [address] 25583- 7843 Apr, Essential hypertension I10 [place] [address] 08418- 4007 Apr, Essential hypertension I10 ; Anxiety F41.9 ; Primary insomnia F51.01 ; Primary osteoarthritis of left knee M17.12 and Gastritis determined by endoscopy K29.70 [place] [address] 58564- 1054 Apr, Essential hypertension I10 [place] [address] 37248- 6255 Mar, Anxiety F41.9 [facility] [id number] [place] [address] 49619- 7979 Mar, Primary osteoarthritis of left knee M17.12 [facility] [id number] [place] [address] 70916- 8793 Feb, [facility] [id number] [place] [address] 53082- 3620 Feb, Anxiety F41.9 [facility] [id number] [place] [address] 34070- 5758 Feb, [facility] [id number] [place] [address] 76552- 6809 January, Mixed hyperlipidemia E78.2 [facility] [id number] [place] [address] 19880- 3756 January, Anxiety F41.9 [facility] [address] [id number] Dec, Dental examination Z01.20 [facility] [id number] [place] [address] 65788- 5696 Dec, Anxiety F41.9 ; Primary insomnia F51.01 and Pain in left knee M25.562 [facility] [id number] [place] [address] 24933- 7314 Nov, Essential hypertension I10 ; Anxiety F41.9 ; Primary insomnia F51.01 ; Mixed hyperlipidemia E78.2 ; Pain in left knee M25.562 and Gastritis determined by endoscopy K29.70 [facility] [id number] [place] [address] 16834- 9109 Oct, Anxiety F41.9 [facility] [id number] [place] [address] 16624- 9687 09 Oct, 2016 Primary osteoarthritis of left knee M17.12 [facility] [id number] [place] [address] [id number] Sep, Dental examination Z01.20 [facility] [id number] [place] [address] 02757- 4415 Sep, Anxiety F41.9 [facility] [id number] [place] [address] 16691- 0526 Aug, Anxiety F41.9 [facility] [id number] [place] [address] 60629- 7123 Jul, Essential hypertension I10 ; Anxiety F41.9 ; Primary insomnia F51.01 ; Mixed hyperlipidemia E78.2 ; Pain in left knee M25.562 and Gastritis determined by endoscopy K29.70 [facility] [id number] [place] [address] 20419- 7746 Jul, [facility] [id number] [place] [address] 36414- 8828 Jul, [facility] [id number] [place] [address] 68210- 6335 Jun, [facility] [id number] [place] [address] 31534- 0815 Jun, [facility] [id number] [place] [address] 40066- 2592 May, [facility] [id number] [place] [address] 52923- 1429 May, Pain in left knee M25.562 [facility] [id number] [place] [address] 31738- 7799 Apr, Essential hypertension I10 ; Anxiety F41.9 ; Primary insomnia F51.01 ; Mixed hyperlipidemia E78.2 ; Pain in left knee M25.562 and Gastritis determined by endoscopy K29.70 [facility] [id number] [place] [address] 54071- 0093 Mar, [facility] [id number] [place] [address] 30118- 1937 Feb, [facility] [address] [place] [address]- 2646 Feb, [facility] [id number] [place] [address] [id number] January, Dental caries K02.9 [facility] [id number] [place] [address] 16359- 4102 January, [facility] [address] 09329- 3563 January, Bloody stools K92.1 ; Epigastric pain R10.13 ; Essential hypertension I10 ; Anxiety F41.9 and Primary insomnia F51.01 [facility] [id number] [place] [address] [id number] Dec, Dental examination Z01.20 [facility] [id number] [place] [address] 64805- 1547 Dec, [facility] [id number] [place] [address] 20444 -7928 Nov, Acute frontal sinusitis J01.10 and Sore throat J02.9 [facility] [id number] [place] [address] 59740- 4721 Nov, [facility] [id number] [place] [address] 53484- 0502 Oct, Essential hypertension I10 ; Anxiety F41.9 and Primary insomnia F51.01 [facility] [id number] [place] [address] 73226- 5971 Sep, [facility] [id number] [place] [address] 55321- 0727 Sep, [facility] [address] 45021- 6095 Sep, [facility] [id number] [place] [address] 06859- 3252 Aug, [facility] [address] 79111- 0371 Aug, [facility] [id number] [place] [address] 97896- 5862 Jul, Essential hypertension I10 ; Anxiety F41.9 ; Primary insomnia F51.01 and Visual changes H53.9 [facility] [id number] [place] [address] 28069- 2999 Jul, [facility] [address] 90750- 5767 Jun, [facility] [id number] [place] [address] 96642- 3310 Jun, [facility] [address] 71956- 1009 May, [place] [id number] [place] [address] 92807- 0629 May, [facility] [address] 73382- 7598 May, Chest pain 786.50 ; Hyperlipemia 272.4 ; Hypertension 401.9 ; Anxiety 300.00 and History of tobacco use V15.82 [place] [id number] [place] [address] 85637- 7183 May, Chest pain 786.50 and Hypertension 401.9 [place] [id number] [place] [address] 41518- 8070 Apr, [facility] [id number] [place] [address] 52829- 8908 Apr, 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 ; Hypertension 401.9 and CAD (coronary artery disease) 414.00 [place] [id number] [place] [address] 88501- 9636 Mar, Chest pain 786.50 ; Hypertension 401.9 ; Hyperlipemia 272.4 and History of tobacco use V15.82 [place] [address] 80882- 2165 Mar, 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 and Major depressive disorder, recurrent episode, moderate 296.32 [facility] [address] [address]- 6189 Mar, [facility] [address]- 0085 Mar, [facility] [id number] [place] [address] 965506- 5481 Mar, [facility] [id number] [place] [address] 697542- 0835 Mar, 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 and Major depressive disorder, recurrent episode, moderate 296.32 [facility] [address] [address]- 6815 Mar, [facility] [id number] [place] [address] 22039- 6636 Feb, [facility] [address] [address]- 2843 Feb, 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 ; Major depressive disorder, recurrent episode, moderate 296.32 ; No condition on [place] V71.09 ; Hypertension 401.9 ; Arthritis 716.90 and Overweight 278.02 [facility] [address] [place] [id number] [address]- 7640 Feb, [facility] [address] [address]- 7482 Feb, [facility] [address] [address]- 9922 January, Essential hypertension, benign 401.1 ; Anxiety state, unspecified 300.00 and Chest pain 786.50 [facility] [address] [address]- 7392 Dec, [facility] [id number] [place] [address] 96336- 0976 Dec, [facility] [place] [facility] [address] [id number] [place] [address]- 9092 Nov, [facility] [place] [facility] [address] [id number] [place] [address]- 4262 Nov, [facility] [place] [facility] [address] [facility] [id number] [place] [address]- 5422 Nov, [facility] [place] [facility] [address] [id number] [place] [address]- 2179 Nov, [facility] [place] [facility] [address] [id number] [place] [address]- 2488 Oct, [facility] [place] [facility] [address] [facility] [id number] [place] [address]- 6006 Oct, [facility] [place] [facility] [address] [facility] [id number] [place] [address]- 2979 Oct, [facility] [place] [facility] [address] [facility] [id number] [place] [address]- 2636 Oct, [facility] [place] [facility] [address] [facility] [id number] [place] [address]- 5818 Sep, [facility] [place] [facility] [address] [facility] [id number] [place] [address]- 4624 Sep, [facility] [place] [facility] [address] [facility] [id number] [address]- 0208 Sep, [facility] [place] [facility] [address] [id number] [address]- 2538 Sep, [facility] [place] [facility] [address] [id number] [place] [address]- 3209 Sep, [facility] [place] [facility] [address] [facility] [id number] [place] [address]- 3875 Sep, [facility] [place] [facility] [address] [facility] [id number] [place] [address]- 6260 Aug, [facility] [place] [facility] [address] [id number] [place] [address]- 9104 Aug, [facility] [place] [facility] [address] [id number] [place] [address]- 2591 Aug, [facility] [place] [facility] [address] [id number] [place] [address]- 2466 Aug, [facility] [place] [facility] [address] [id number] [place] [address]- 7254 Aug, [facility] [place] [facility] [address] [id number] [place] [address]- 3203 Aug, [facility] [place] [facility] [address] [id number] [place] [address]- 1676 Jul, [facility] [place] [facility] [address] [id number] [place]- 9603 Jul, [facility] [place] [facility] [address] [id number] [place] [address]- 3570 Jul, [facility] [place] [facility] [address] [id number] [place] [address]- 6555 Jul, [facility] [place] [facility] [address] [id number] [place] [address]- 1130 Jul, [facility] [place] [facility] [address] [facility] [id number] [place] 1605 Jul, [facility] [place] [facility] [address] [id number] [place] [address]- 1964 Jun, [facility] [place] [facility] [address] [id number] [place] [address]- 3197 Jun, [facility] [place] [facility] [address] [id number] [place] [address]- 0464 Jun, [facility] [place] [facility] [address] [id number] [place] [address]- 2606 Jun, [facility] [place] [facility] [address] [id number] [place] [address]- 4297 May, [facility] [address] [facility] [id number] [address]- 4926 May, [facility] [address] [facility] [id number] [address]- 4904 May, [facility] [address] [facility] [id number] [address]- 0022 May, [facility] [address] [facility] [id number], [place] [address]- 3352 Apr, [facility] [address] [facility] [id number], [place] [address]- 4306 Apr, [facility] [address], [place] [address]- 3582 Apr, [facility] [address] [address]- 9588 Apr, [facility] [id number] [address]- 3173 Apr, IMMUNIZATIONS No Known Immunizations SOCIAL HISTORY Never Assessed REASON FOR VISIT Refill request PLAN OF CARE VITAL SIGNS MEDICATIONS Medication Instructions Dosage Frequency Start Date End Date Duration Status losartan 50 mg orally 2 times a day 1 tablet 12h Active RESULTS No Results PROCEDURES No Known [...] Doppler 2016 Hospitalization History hypertensive crisis 11/2012 Hospitalization History hypertensive crisis 05/2017
[2018-05-27] MEDS ORDERED: AMIT10TA6 (15:03)
[2018-05-27] MEDS ORDERED: AMLO10TA6 (15:03)
--- OUTSIDE RECORDS SUMMARY | 2018-05-27 15:03 | XMS REPORT ---
Author Author AMERICO SHARMA Organization [facility] Address [address] [place] [address] Care Team Providers Care Travel Nurse Name Role Phone EDITH AMERICO Unavailable PROBLEMS Type Condition ICD9-CM Code XWD31-GI Code Onset Dates Condition Status SNOMED Code Problem Visual changes H53.9 Active 13485460 Problem Anxiety F41.9 Active 50229050 Problem Essential hypertension I10 Active 19185627 Problem Primary insomnia F51.01 Active 3519456 Problem Primary osteoarthritis of left knee M17.12 Active 455658071 Problem Gastritis determined by endoscopy K29.70 Active 3974794 Problem Gastroesophageal reflux disease without esophagitis K21.9 Active 488423118 Problem Epigastric pain R10.13 Active 90355294 Problem Pain in left knee M25.562 Active 01373066 Problem Mixed hyperlipidemia E78.2 Active 746791267 ALLERGIES No Information SOCIAL HISTORY Never Assessed [...]
--- OUTSIDE RECORDS SUMMARY | 2018-05-27 15:04 | XMS REPORT ---
Author Author AMERICO SHARMA [facility] Address [address] [place] [address] Care Team Providers Care Lighthouse Keeper Name Role Phone AMERICO SHARMA Unavailable PROBLEMS Type Condition ICD9-CM Code XWP10-MQ Code Onset Dates Condition Status SNOMED Code Problem Anxiety F41.9 Active 09205965 Problem Gastroesophageal reflux disease without esophagitis K21.9 Active 165756112 Problem Epigastric pain R10.13 Active 64784164 Problem Primary insomnia F51.01 Active 2772171 Problem Visual changes H53.9 Active 30129241 Problem Essential hypertension I10 Active 42682723 Problem Osteoarthritis of left knee, unspecified osteoarthritis type M17.12 Active [id number] Problem Coronary artery disease of [place] artery of [place] heart with stable 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 Active 7698036231573 Problem Pain in left knee M25.562 Active 58162224 Problem Mixed hyperlipidemia E78.2 Active 696131206 Problem Primary osteoarthritis of left knee M17.12 Active 849105655 Problem Gastritis determined by endoscopy K29.70 Active 4777200 ALLERGIES No Information ENCOUNTERS Encounter Location Date Diagnosis [place] [id number] [place] [address] 23825- 3457 Dec, [place] [address] [address]- [address] Dec, Anxiety F41.9 and Osteoarthritis of left knee, unspecified osteoarthritis type M17.12 [facility] [id number] [place] [address] 54131- 6592 Nov, Primary insomnia F51.01 and Anxiety F41.9 [place] [id number] [place] [address] 99075- 3227 Oct, Anxiety F41.9 [place] [address] [place] [address]- 2058 13 Oct, 2017 [facility] [address] 15461- 1346 Oct, Anxiety F41.9 [place] [address] 84901- 7035 Aug, Primary insomnia F51.01 ; Anxiety F41.9 ; Essential hypertension I10 ; Coronary artery disease of [place] artery of [place] heart with stable 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 ; Gastritis determined by endoscopy K29.70 ; Primary osteoarthritis of left knee M17.12 and BMI 40.0-44.9, adult Z68.41 [place] [address] 51936- 9591 Aug, Primary insomnia F51.01 and Anxiety F41.9 [place] [address] 82785- 1163 Jun, Anxiety F41.9 [place] [address] 46069- 2400 Jun, Anxiety F41.9 [place] [address] 92973- 8947 May, [place] [address] 08079- 4085 May, Primary osteoarthritis of left knee M17.12 and Anxiety F41.9 [place] [address] 64445- 5531 Apr, Essential hypertension I10 [place] [id number] [place] [address] 53136- 5280 Apr, Essential hypertension I10 ; Anxiety F41.9 ; Primary insomnia F51.01 ; Primary osteoarthritis of left knee M17.12 and Gastritis determined by endoscopy K29.70 [place] [id number] [place] [address] 83880- 4290 Apr, Essential hypertension I10 [place] [id number] [place] [address] 83945- 5648 Mar, Anxiety F41.9 [place] [address] 10427- 2167 Mar, Primary osteoarthritis of left knee M17.12 [place] [address] 48160- 6492 Feb, [place] [address] 39792- 2570 Feb, Anxiety F41.9 [place] [address] 85531- 3591 Feb, [place] [address] 90358- 6805 January, Mixed hyperlipidemia E78.2 [place] [address] 33129- 2747 January, Anxiety F41.9 [facility] [id number] [place] [address] [id number] Dec, Dental examination Z01.[address] 45918- 6889 Dec, Anxiety F41.9 ; Primary insomnia F51.01 and Pain in left knee M25.562 [place] [id number] [place] [address] 58258- 3716 Nov, Essential hypertension I10 ; Anxiety F41.9 ; Primary insomnia F51.01 ; Mixed hyperlipidemia E78.2 ; Pain in left knee M25.562 and Gastritis determined by endoscopy K29.70 [place] [address] 14205- 7059 15 Oct, 2016 Anxiety F41.9 [place] [id number] [place] [address] 77142- 9012 Oct, Primary osteoarthritis of left knee M17.12 [facility] [address] [id number] Sep, Dental examination Z01.20 [facility] [id number] [place] [address] 04188- 5435 Sep, Anxiety F41.9 [facility] [address] [place] [address] 24989- 5690 Aug, Anxiety F41.9 [facility] [id number] [place] [address] 73742- 0751 Jul, Essential hypertension I10 ; Anxiety F41.9 ; Primary insomnia F51.01 ; Mixed hyperlipidemia E78.2 ; Pain in left knee M25.562 and Gastritis determined by endoscopy K29.70 [facility] [id number] [place] [address] 42324- 6465 Jul, [facility] [id number] [place] [address] 23828- 9257 Jul, [facility] [id number] [place] [address] 81483- 2888 Jun, [facility] [id number] [place] [address] 54357- 3309 Jun, [facility] [address] [place] [address] 05654- 9176 May, [facility] [id number] [place] [address] 84134- 4756 May, Pain in left knee M25.562 [facility] [id number] [place] [address] 32994- 3073 Apr, Essential hypertension I10 ; Anxiety F41.9 ; Primary insomnia F51.01 ; Mixed hyperlipidemia E78.2 ; Pain in left knee M25.562 and Gastritis determined by endoscopy K29.70 [facility] [address] [place] [address] 41676- 4470 Mar, [facility] [address] [place] [address]- 7049 Feb, [facility] [id number] [place] [address] 66383- 9375 Feb, [facility] [id number] [place] [address] [id number] January, Dental caries K02.9 [facility] [address] 68160- 8523 January, [facility] [address] 25100- 3424 January, Bloody stools K92.1 ; Epigastric pain R10.13 ; Essential hypertension I10 ; Anxiety F41.9 and Primary insomnia F51.01 [facility] [id number] [place] [address] [id number] Dec, Dental examination Z01.20 [facility] [id number] [place] [address] 22047- 4212 Dec, [facility] [id number] [place] [address] 57611 -6890 Nov, Acute frontal sinusitis J01.10 and Sore throat J02.9 [facility] [id number] [place] [address] 60030- 9348 Nov, [facility] [id number] [place] [address] 11802- 7315 Oct, Essential hypertension I10 ; Anxiety F41.9 and Primary insomnia F51.01 [facility] [id number] [place] [address] 08364- 6157 Sep, [facility] [id number] [place] [address] 46333- 9491 Sep, [facility] [id number] [place] [address] 71038- 5432 Sep, [facility] [id number] [place] [address] 09156- 5573 Aug, [facility] [id number] [place] [address] 90691- 6810 Aug, [facility] [id number] [place] [address] 31185- 4839 Jul, Essential hypertension I10 ; Anxiety F41.9 ; Primary insomnia F51.01 and Visual changes H53.9 [facility] [address] 41575- 7314 Jul, [facility] [id number] [place] [address] 11021- 6626 Jun, [facility] [id number] [place] [address] 28866- 7987 Jun, [facility] [id number] [place] [address] 34445- 4042 May, [facility] [id number] [place] [address] 77499- 4860 May, [facility] [id number] [place] [address] 77767- 2360 May, Chest pain 786.50 ; Hyperlipemia 272.4 ; Hypertension 401.9 ; Anxiety 300.00 and History of tobacco use V15.82 [facility] [id number] [place] [address] 38969- 1211 May, Chest pain 786.50 and Hypertension 401.9 [facility] [id number] [place] [address] 15542- 9083 Apr, 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 [id number] [place] [address] 03528- 4441 Mar, Chest pain 786.50 ; Hypertension 401.9 ; Hyperlipemia 272.4 and History of tobacco use V15.82 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 [address] [place] [address] 88209- 1901 Mar, [facility] [id number] [place] [address] 90573- 7381 Mar, [facility] [id number] [place] [address] 23858- 4832 Mar, 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 [address] [place] [address] 42708- 1878 Feb, 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 [address] [place] [address] 68627- 4071 Feb, [facility] [address] [place] [id number] [place] [address] 83061- 2666 Feb, [place] [id number] [place] [address] 57606- 8206 January, Essential hypertension, benign 401.1 ; Anxiety state, unspecified 300.00 and Chest pain 786.50 [place] [id number] [place] [address] 65907- 1194 14 Dec, 2014 [facility] [place] [facility] [address] [id number] [place] [address]- 6704 Dec, [facility] [place] [facility] [address] [id number] [place] [address]- 4177 Nov, [facility] [place] [facility] [address] [facility] [id number] [place] [address]- 3706 Nov, [facility] [place] [facility] [address] [id number], [place] [address]- 1026 Nov, [facility] [place] [facility] [address] [id number] [place] [address]- 4465 Nov, [facility] [place] [facility] [address] [facility] [id number] [place] [address]- 6913 Oct, [facility] [place] [facility] [address] [facility] [id number] [place] [address]- 4753 Oct, [facility] [place] [facility] [address] [id number] [place] [address]- 8843 Oct, [facility] [place] [facility] [address] [facility] [id number] [place] [address]- 7320 Oct, [facility] [place] [facility] [address] [facility] [id number] [place] [address]- 1773 Sep, [facility] [place] [facility] [address] [id number], [place] [address]- 9332 Sep, [facility] [place] [facility] [address] [id number], [place] [address]- 7803 Sep, [facility] [place] [facility] [address] [id number], [place] [address]- 1388 Sep, [facility] [place] [facility] [address] [facility] [id number], [place] [address]- 7438 Sep, [facility] [place] [facility] [address] [facility] [id number], [place] [address]- 0054 Sep, [facility] [place] [facility] [address] [id number] [place] [address]- 1256 Aug, [facility] [place] [facility] [address] [id number] [place] [address]- 3930 Aug, [facility] [place] [facility] [address] [id number] [place] [address]- 2482 Aug, [facility] [place] [facility] [address] [id number] [place] [address]- 9822 Aug, [facility] [place] [facility] [address] [id number] [place] [address]- 1405 Aug, [facility] [place] [facility] [address] [id number] [place] 9488 Aug, [facility] [place] [facility] [address] [id number] [place] [address]- 0277 Jul, [facility] [place] [facility] [address] [id number] [place] [address]- 3693 Jul, [facility] [place] [facility] [address] [id number] [place] [address]- 4496 Jul, [facility] [place] [facility] [address] [id number] [place] [address]- 7358 Jul, [facility] [place] [facility] [address] [facility] [id number] [place] [address]- 5671 Jul, [facility] [place] [facility] [address] [id number] [place] [address]- 1519 Jul, [facility] [place] [facility] [address] [id number] [place] [address]- 6332 Jun, [facility] [place] [facility] [address] [id number] [place] [address]- 1667 Jun, [facility] [place] [facility] [address] [id number] [place] [address]- 1215 Jun, [facility] [place] [facility] [address] [id number] [place] [address]- 1079 Jun, [facility] [address] [facility] [id number], [place] [address]- 5139 May, [facility] [address] [facility] [id number], [place] [address]- 4735 May, [facility] [address] [facility] [id number], [place] [address]- 7231 May, [facility] [address] [facility] [id number], [place] [address]- 3287 May, [facility] [address] [facility] [id number], [place] [address]- 8622 Apr, [facility] [address] [facility] [id number], [place] [address]- 7175 Apr, [facility] [address], [place] [address]- 0144 Apr, [facility] [address] [id number], [place] [address]- 2193 Apr, [facility] [address] [id number], [place] [address]- 9664 Apr, IMMUNIZATIONS No Known Immunizations SOCIAL HISTORY Never Assessed REASON FOR VISIT Controlled Med Refill PLAN OF CARE VITAL SIGNS MEDICATIONS Medication Instructions Dosage Frequency Start Date End Date Duration Status Xanax 0.5 MG Orally Three times a day prn 1 tablet Active Indomethacin 50 mg Orally Twice a day 1 capsule with food or milk 12h Apr, Jul, 30 day(s) Active RESULTS No Results PROCEDURES No Known [...]
--- OUTSIDE RECORDS SUMMARY | 2018-05-27 15:06 | XMS REPORT | Continuity of Care Document ---
Author Author [facility] Address Unknown Phone Unavailable Allergies Active Description Code Type Severity Reaction Onset Reported/Identified Relationship to Patient Clinical Status Yes No Known Drug Allergies [id number] Drug Allergy Unknown N/A 02/04/2016 Yes escitalopram [id number] Drug Allergy Severe N/A 02/12/2016 Medications There is no data. Problems Date Dx Coded Attending Type Code Diagnosis Diagnosed By 05/15/[address] REPAIRER, AMERICO L 300.00 ANXIETY UNSPEC 05/15/[address] REPAIRER, AMERICO L 401.1 BENIGN ESSENTIAL HYPERTENSION 05/15/[address] REPAIRER, AMERICO L 300.00 ANXIETY UNSPEC 05/15/[address] REPAIRER, AMERICO L 401.1 BENIGN ESSENTIAL HYPERTENSION 05/15/[address] REPAIRER, AMERICO L 300.00 ANXIETY UNSPEC 05/15/[address] REPAIRER, AMERICO L 401.1 BENIGN ESSENTIAL HYPERTENSION 05/15/2014 IRWIN DO, MADYSON K 300.00 ANXIETY UNSPEC 05/15/2014 IRWIN DO, MADYSON K 401.1 BENIGN ESSENTIAL HYPERTENSION 05/15/[address] REPAIRER, SWEETIE R 300.00 ANXIETY UNSPEC 05/15/2014 AYOUB TRINH SWEETIE R 401.1 BENIGN ESSENTIAL HYPERTENSION 05/15/[address] REPAIRER, AMERICO L 300.00 ANXIETY UNSPEC 05/15/[address] REPAIRER, AMERICO L 401.1 BENIGN ESSENTIAL HYPERTENSION 05/15/2014 IRWIN DO, MADYSON K 300.00 ANXIETY UNSPEC 05/15/2014 IRWIN DO, MADYSON K 401.1 BENIGN ESSENTIAL HYPERTENSION 05/15/[address] REPAIRER, AMERICO L 300.00 ANXIETY UNSPEC 05/15/[address] REPAIRER, AMERICO L 401.1 BENIGN ESSENTIAL HYPERTENSION 05/15/[address] REPAIRER, AMERICO L 300.00 ANXIETY UNSPEC 05/15/[address] REPAIRER, AMERICO L 401.1 BENIGN ESSENTIAL HYPERTENSION 05/15/[address] REPAIRER, AMERICO L 300.00 ANXIETY UNSPEC 05/15/[address] REPAIRER, AMERICO L 401.1 BENIGN ESSENTIAL HYPERTENSION 05/29/[address] REPAIRER, AMERICO L 413.9 ANGINA PECTORIS 05/29/[address]PAIRER, AMERICO L 413.9 ANGINA PECTORIS 05/29/2014 KRISTOPHER IRWIN DOA K 413.9 ANGINA PECTORIS 05/29/[address]BRE MccainIA R 413.9 ANGINA PECTORIS 05/29/[address] REPAIRER, AMERICO L 413.9 ANGINA PECTORIS 05/29/2014 KRISTOPHER IRWIN DOA K 413.9 ANGINA PECTORIS 05/29/[address] REPAIRER, AMERICO L 413.9 ANGINA PECTORIS 05/29/[address] REPAIRER, AMERICO L 413.9 ANGINA PECTORIS 05/29/[address] REPAIRER, AMERICO L 413.9 ANGINA PECTORIS 07/11/2014 MADYSON IRWIN DO K V04.81 FLU SHOT 07/11/2014 BRE AYOUB APRNIA R V04.81 FLU SHOT 07/11/[address] REPAIRER, AMERICO L V04.81 FLU SHOT 07/11/2014 KRISTOPHER IRWIN DOA K V04.81 FLU SHOT 07/11/[address] REPAIRER, AMERICO L V04.81 FLU SHOT 07/11/[address] REPAIRER, AMERICO L V04.81 FLU SHOT 07/11/[address] REPAIRER, AMERICO L V04.81 FLU SHOT 08/30/2014 BRE AYOUB APRNIA R V70.5 HEALTH EXAMINATION OF DEFINED SUBPOPULATIONS 08/30/[address]PAIRER, AMERICO L V70.5 HEALTH EXAMINATION OF DEFINED SUBPOPULATIONS 08/30/2014 MADYSON IRWIN DO K V70.5 HEALTH EXAMINATION OF DEFINED SUBPOPULATIONS 08/30/[address] REPAIRER, AMERICO L V70.5 HEALTH EXAMINATION OF DEFINED SUBPOPULATIONS 08/30/[address] REPAIRER, AMERICO L V70.5 HEALTH EXAMINATION OF DEFINED SUBPOPULATIONS 08/30/[address] REPAIRER, AMERICO L V70.5 HEALTH EXAMINATION OF DEFINED [...] CHANDLER MD Ot 414.01 CORONARY ATHEROSCLEROSIS OF [place] CORON 06/11/2015 RACHELL CHANDLER MD Ot 786.50 [...] ENCOUNTER FOR SCREENING FOR MALIGNANT NE 02/04/2016 ELBA JOHNSON DO Ot R07.9 CHEST PAIN, UNSPECIFIED 02/04/2016 LEBA JOHNSON DO Ot Z01.818 ENCOUNTER FOR OTHER [...] JOHNSON DO Ot K62.1 RECTAL POLYP 02/12/2016 JOHNSON ELBA DENIS Ot Z12.11 ENCOUNTER FOR SCREENING FOR MALIGNANT NE 02/17/2016 ELBA JOHNSON DO Ot K20.9 ESOPHAGITIS, UNSPECIFIED 02/17/2016 ELBA JOHNSON DO Ot K29.70 GASTRITIS, UNSPECIFIED, WITHOUT BLEEDING 02/17/2016 ELBA JOHNSON DO Ot K44.9 DIAPHRAGMATIC HERNIA WITHOUT OBSTRUCTION 02/17/2016 JOHNSON ELBA DENIS Ot K62.1 RECTAL POLYP 02/17/2016 JOHNSON ELBA DENIS Ot Z12.11 ENCOUNTER FOR [...] JOSE BUNDY Ot 272.4 HYPERLIPIDEMIA NEC/NOS 06/18/2016 OJSE BUNDY Ot 401.9 HYPERTENSION NOS 06/18/2016 JOSE [...] MD Ot I25.10 ATHSCL HEART DISEASE OF [place] CORONARY 06/23/2016 RACHELL CHANDLER MD Ot K21.9 GASTRO-ESOPHAGEAL REFLUX DISEASE WITHOUT 07/07/2016 RACHELL CHANDLER MD Ot E78.2 MIXED HYPERLIPIDEMIA 07/07/2016 RACHELL CHANDLER MD Ot I10 ESSENTIAL (PRIMARY) HYPERTENSION 07/07/2016 RACHELL CHANDLER MD Ot I25.10 ATHSCL HEART DISEASE OF [place] CORONARY 07/07/2016 RACHELL CHANDLER MD Ot K21.9 GASTRO-ESOPHAGEAL REFLUX DISEASE WITHOUT 07/19/2016 Ot 300.00 ANXIETY STATE NOS 07/19/2016 Ot 401.1 BENIGN HYPERTENSION 07/19/2016 Ot 790.5 ABN SERUM ENZY LEVEL NEC 07/19/2016 JOSE BUNDY Ot 272.4 HYPERLIPIDEMIA NEC/NOS 07/19/2016 JOSE BUNDY Ot 401.9 HYPERTENSION NOS 07/19/2016 DAENA OQUENDO JOSE K Ot 786.50 CHEST PAIN NOS 07/19/2016 DEANA OQUENDO JOSE K Ot V15.82 HISTORY OF TOBACCO USE 07/19/2016 DEANA OQUENDO JOSE K Ot 401.9 HYPERTENSION NOS 07/19/2016 DEANA OQUENDO JOSE K Ot 786.50 CHEST PAIN NOS 07/19/2016 DEANA OQUENDO JOSE K Ot V15.82 HISTORY OF TOBACCO USE 07/19/2016 FERMIN SHPILEY MD Ot V68.01 DISABILITY EXAMINATION 07/19/2016 FERMIN [...] MD Ot I25.10 ATHSCL HEART DISEASE OF [place] CORONARY 07/19/2016 RACHELL CHANDLER MD Ot K21.9 [...] Ot V15.82 HISTORY OF TOBACCO USE 10/15/2016 FERMIN SHIPLEY MD Ot V68.01 DISABILITY EXAMINATION 10/15/2016 FERMIN SHIPLEY [...] MD Ot I25.10 ATHSCL HEART DISEASE OF [place] CORONARY 10/15/2016 RACHELL CHANDLER MD Ot K21.9 [...] I10 ESSENTIAL (PRIMARY) HYPERTENSION 10/21/2016 RACHELL CHANDLER MD Ot I25.10 ATHSCL HEART DISEASE OF [place] CORONARY 10/21/2016 RACHELL CHANDLER MD Ot K21.9 GASTRO-ESOPHAGEAL REFLUX DISEASE WITHOUT 06/23/2017 Ot 300.00 ANXIETY STATE NOS 06/23/2017 Ot 401.1 BENIGN HYPERTENSION 06/23/2017 Ot 790.5 ABN SERUM ENZY LEVEL NEC 06/23/2017 JOSE BUNDY Ot 272.4 HYPERLIPIDEMIA NEC/NOS 06/23/2017 JOSE BUNDY Ot 401.9 HYPERTENSION NOS 06/23/2017 JOSE BUNDY Ot 786.50 CHEST PAIN NOS 06/23/2017 JOSE BUNDY Ot V15.82 HISTORY OF TOBACCO USE 06/23/2017 JOSE BUNDY Ot 401.9 HYPERTENSION NOS 06/23/2017 JOSE BUNDY Ot 786.50 CHEST PAIN NOS 06/23/2017 JOSE BUNDY Ot V15.82 HISTORY OF TOBACCO USE 06/23/2017 FERMIN SHIPLEY MD Ot V68.01 DISABILITY EXAMINATION 06/23/2017 FERMIN SHIPLEY MD Ot V82.89 SCREEN FOR OTH SPECIF CONDITIONS 06/23/2017 ELBA JOHNSON DO Ot R07.9 CHEST PAIN, UNSPECIFIED 06/23/2017 ELBA JOHNSON DO Ot Z01.818 ENCOUNTER FOR OTHER PREPROCEDURAL EXAMIN 06/23/2017 ELBA JOHNSON DO Ot Z12.11 ENCOUNTER FOR SCREENING FOR MALIGNANT NE 06/23/2017 RACHELL CHANDLER MD Ot E78.2 MIXED HYPERLIPIDEMIA 06/23/2017 RACHELL CHANDLER MD Ot I10 ESSENTIAL (PRIMARY) HYPERTENSION 06/23/2017 RACHELL CHANDLER MD Ot I25.10 ATHSCL HEART DISEASE OF [place] CORONARY 06/23/2017 RACHELL CHANDLER MD Ot K21.9 GASTRO-ESOPHAGEAL REFLUX DISEASE WITHOUT 06/23/2017 DANYA POWELL APRN Ot I10 ESSENTIAL (PRIMARY) HYPERTENSION 06/23/2017 DANYA POWELL APRN Ot R03.0 ELEVATED BLOOD-PRESSURE READING, W/O CHUCKY 06/23/2017 DANYA POWELL APRN Ot R07.89 OTHER CHEST PAIN 06/23/2017 Ot 300.00 ANXIETY STATE NOS 06/23/2017 Ot 401.1 BENIGN HYPERTENSION 06/23/2017 Ot 790.5 ABN SERUM ENZY LEVEL NEC 06/23/2017 JOSE BUNDY Ot 272.4 HYPERLIPIDEMIA NEC/NOS 06/23/2017 JOSE BUNDY Ot 401.9 HYPERTENSION NOS 06/23/2017 JOSE BUNDY Ot 786.50 CHEST PAIN NOS 06/23/2017 JOSE BUNDY Ot V15.82 HISTORY OF TOBACCO USE 06/23/2017 JOSE BUNDY Ot 401.9 HYPERTENSION NOS 06/23/2017 JOSE BUNDY Ot 786.50 CHEST PAIN NOS 06/23/2017 JOSE BUNDY Ot V15.82 HISTORY OF TOBACCO USE 06/23/2017 FERMIN SHIPLEY MD Ot V68.01 DISABILITY EXAMINATION 06/23/2017 FERMIN SHIPLEY MD Ot V82.89 SCREEN FOR OTH SPECIF CONDITIONS 06/23/2017 ELBA JOHNSON DO Ot R07.9 CHEST PAIN, UNSPECIFIED 06/23/2017 ELBA JOHNSON DO Ot Z01.818 ENCOUNTER FOR OTHER PREPROCEDURAL EXAMIN 06/23/2017 ELBA JOHNSON DO Ot Z12.11 ENCOUNTER FOR SCREENING FOR MALIGNANT NE 06/23/2017 RACHELL CHANDLER MD Ot E78.2 MIXED HYPERLIPIDEMIA 06/23/2017 RACHELL CHANDLER MD Ot I10 ESSENTIAL (PRIMARY) HYPERTENSION 06/23/2017 RACHELL CHANDLER MD Ot I25.10 ATHSCL HEART DISEASE OF [place] CORONARY 06/23/2017 RACHELL CHANDLER MD Ot K21.9 GASTRO-ESOPHAGEAL REFLUX DISEASE WITHOUT 07/20/2017 RACHELL CHANDLER MD, Ot G47.33 OBSTRUCTIVE SLEEP APNEA (ADULT) (PEDIATR 07/27/2017 RACHELL CHANDLER MD, Ot G47.33 OBSTRUCTIVE SLEEP APNEA (ADULT) (PEDIATR 07/27/2017 Ot 300.00 ANXIETY STATE NOS 07/27/2017 Ot 401.1 BENIGN HYPERTENSION 07/27/2017 Ot 790.5 ABN SERUM ENZY LEVEL NEC 07/27/2017 JOSE BUNDY Ot 272.4 HYPERLIPIDEMIA NEC/NOS 07/27/2017 JOSE BUNDY Ot 401.9 HYPERTENSION NOS 07/27/2017 JOSE BUNDY Ot 786.50 CHEST PAIN NOS 07/27/2017 JOSE BUNDY Ot V15.82 HISTORY OF TOBACCO USE 07/27/2017 JOSE BUNDY Ot 401.9 HYPERTENSION NOS 07/27/2017 JOSE BUNDY Ot 786.50 CHEST PAIN NOS 07/27/2017 JOSE BUNDY Ot V15.82 HISTORY OF TOBACCO USE 07/27/2017 FERMIN SHIPLEY MD Ot V68.01 DISABILITY EXAMINATION 07/27/2017 FERMIN SHIPLEY MD Ot V82.89 SCREEN FOR OTH SPECIF CONDITIONS 07/27/2017 ELBA JOHNSON DO Ot R07.9 CHEST PAIN, UNSPECIFIED 07/27/2017 ELBA JOHNSON DO Ot Z01.818 ENCOUNTER FOR OTHER PREPROCEDURAL EXAMIN 07/27/2017 ELBA JOHNSON DO Ot Z12.11 ENCOUNTER FOR SCREENING FOR MALIGNANT NE 07/27/2017 RACHELL CHANDLER MD Ot E78.2 MIXED HYPERLIPIDEMIA 07/27/2017 RACHELL CHANDLER MD Ot I10 ESSENTIAL (PRIMARY) HYPERTENSION 07/27/2017 RACHELL CHANDLER MD Ot I25.10 ATHSCL HEART DISEASE OF [place] CORONARY 07/27/2017 RACHELL CHANDLER MD Ot K21.9 GASTRO-ESOPHAGEAL REFLUX DISEASE WITHOUT 07/27/2017 RACHELL CHANDLER MD Ot G47.33 OBSTRUCTIVE SLEEP APNEA (ADULT) (PEDIATR 07/27/2017 Ot 300.00 ANXIETY STATE NOS 07/27/2017 Ot 401.1 BENIGN HYPERTENSION 07/27/2017 Ot 790.5 ABN SERUM ENZY LEVEL NEC 07/27/2017 JOSE BUNDY Ot 272.4 HYPERLIPIDEMIA NEC/NOS 07/27/2017 JOSE BUNDY Ot 401.9 HYPERTENSION NOS 07/27/2017 JOSE BUNDY Ot 786.50 CHEST PAIN NOS 07/27/2017 JOSE BUNDY Ot V15.82 HISTORY OF TOBACCO USE 07/27/2017 JOSE BUNDY Ot 401.9 HYPERTENSION NOS 07/27/2017 JOSE BUNDY Ot 786.50 CHEST PAIN NOS 07/27/2017 JOSE BUNDY Ot V15.82 HISTORY OF TOBACCO USE 07/27/2017 FERMIN SHIPLEY MD Ot V68.01 DISABILITY EXAMINATION 07/27/2017 FERMIN SHIPLEY MD Ot V82.89 SCREEN FOR OTH SPECIF CONDITIONS 07/27/2017 ELBA JOHNSON DO Ot R07.9 CHEST PAIN, UNSPECIFIED 07/27/2017 ELBA JOHNSON DO Ot Z01.818 ENCOUNTER FOR OTHER PREPROCEDURAL EXAMIN 07/27/2017 ELBA JOHNSON DO Ot Z12.11 ENCOUNTER FOR SCREENING FOR MALIGNANT NE 07/27/2017 RACHELL CHANDLER MD Ot E78.2 MIXED HYPERLIPIDEMIA 07/27/2017 RACHELL CHANDLER MD Ot I10 ESSENTIAL (PRIMARY) HYPERTENSION 07/27/2017 RACHELL CHANDLER MD Ot I25.10 ATHSCL HEART DISEASE OF [place] CORONARY 07/27/2017 RACHELL CHANDLER MD Ot K21.9 GASTRO-ESOPHAGEAL REFLUX DISEASE WITHOUT 07/27/2017 RACHELL CHANDLER MD, Ot G47.33 OBSTRUCTIVE SLEEP APNEA (ADULT) (PEDIATR 08/11/2017 Ot 300.00 ANXIETY STATE NOS 08/11/2017 Ot 401.1 BENIGN HYPERTENSION 08/11/2017 Ot 790.5 ABN SERUM ENZY LEVEL NEC 08/11/2017 JOSE BUNDY Ot 272.4 HYPERLIPIDEMIA NEC/NOS 08/11/2017 JOSE BUNDY Ot 401.9 HYPERTENSION NOS 08/11/2017 JOSE BUNDY Ot 786.50 CHEST PAIN NOS 08/11/2017 JOSE BUNDY Ot V15.82 HISTORY OF TOBACCO USE 08/11/2017 JOSE BUNDY Ot 401.9 HYPERTENSION NOS 08/11/2017 JOSE BUNDY Ot 786.50 CHEST PAIN NOS 08/11/2017 JOSE BUNDY Ot V15.82 HISTORY OF TOBACCO USE 08/11/2017 FERMIN SHIPLEY MD Ot V68.01 DISABILITY EXAMINATION 08/11/2017 FERMIN SHIPLEY MD Ot V82.89 SCREEN FOR OTH SPECIF CONDITIONS 08/11/2017 ELBA JOHNSON DO Ot R07.9 CHEST PAIN, UNSPECIFIED 08/11/2017 ELBA JOHNSON DO Ot Z01.818 ENCOUNTER FOR OTHER PREPROCEDURAL EXAMIN 08/11/2017 ELBA JOHNSON DO Ot Z12.11 ENCOUNTER FOR SCREENING FOR MALIGNANT NE 08/11/2017 RACHELL CHANDLER MD Ot E78.2 MIXED HYPERLIPIDEMIA 08/11/2017 RACHELL CHANDLER MD Ot I10 ESSENTIAL (PRIMARY) HYPERTENSION 08/11/2017 RACHELL CHANDLER MD Ot I25.10 ATHSCL HEART DISEASE OF [place] CORONARY 08/11/2017 RACHELL CHANDLER MD Ot K21.9 GASTRO-ESOPHAGEAL REFLUX DISEASE WITHOUT 08/11/2017 RACHELL CHANDLER MD, Ot G47.33 OBSTRUCTIVE SLEEP APNEA (ADULT) (PEDIATR 08/31/2017 RACHELL CHANDLER MD, Ot G47.33 OBSTRUCTIVE SLEEP APNEA (ADULT) (PEDIATR 08/31/2017 RACHELL CHANDLER MD, Ot I10 ESSENTIAL (PRIMARY) HYPERTENSION 08/31/2017 RACHELL CHANDLER MD, Ot G47.33 OBSTRUCTIVE SLEEP APNEA (ADULT) (PEDIATR 08/31/2017 ALY ANDERSON, RACHELL Rivers Ot I10 ESSENTIAL (PRIMARY) HYPERTENSION 10/18/2017 DEANA OQUENDO, JOSE K Ot E78.2 MIXED HYPERLIPIDEMIA 10/18/2017 DEANA PA, JOSE K Ot I10 ESSENTIAL (PRIMARY) HYPERTENSION 10/18/2017 DEANA PA, JOSE K Ot I25.10 ATHSCL HEART DISEASE OF [place] CORONARY 10/18/2017 DEANA PA, JOSE K Ot R07.89 OTHER CHEST PAIN 11/10/2017 DEANA PA, JOSE K Ot E78.2 MIXED HYPERLIPIDEMIA 11/10/2017 DEANA PA, JOSE K Ot I10 ESSENTIAL (PRIMARY) HYPERTENSION 11/10/2017 DEANA PA, JOSE K Ot I25.10 ATHSCL HEART DISEASE OF [place] CORONARY 11/10/2017 DEANA OQUENDO, JOSE K Ot K21.9 GASTRO-ESOPHAGEAL REFLUX DISEASE WITHOUT 11/10/2017 DEANA OQUENDO, JOSE K Ot R07.89 OTHER CHEST PAIN 11/15/2017 DEANA OQUENDO, JOSE K Ot E78.2 MIXED HYPERLIPIDEMIA 11/15/2017 DEANA OQUENDO, JOSE K Ot I10 ESSENTIAL (PRIMARY) HYPERTENSION 11/15/2017 DEANA OQUENDO, JOSE K Ot I25.10 ATHSCL HEART DISEASE OF [place] CORONARY 11/15/2017 DEANA OQUENDO, JOSE K Ot K21.9 GASTRO-ESOPHAGEAL REFLUX DISEASE WITHOUT 11/15/2017 DEANA OQUENDO, JOSE K Ot R07.89 OTHER CHEST PAIN 11/18/2017 DEANA OQUENDO, JOSE K Ot E78.2 MIXED HYPERLIPIDEMIA 11/18/2017 DEANA OQUENDO, JOSE K Ot I10 ESSENTIAL (PRIMARY) HYPERTENSION 11/18/2017 DEANA OQUENDO, JOSE K Ot I25.10 ATHSCL HEART DISEASE OF [place] CORONARY 11/18/2017 DEANA OQUENDO, JOSE K Ot R07.89 OTHER CHEST PAIN 11/29/2017 DEANA OQUENDO, JOSE K Ot E78.2 MIXED HYPERLIPIDEMIA 11/29/2017 DEANA OQUENDO, JOSE K Ot I10 ESSENTIAL (PRIMARY) HYPERTENSION 11/29/2017 JOSE BUNDY Ot I25.10 ATHSCL HEART DISEASE OF [place] CORONARY 11/29/2017 JOSE BUNDY Ot K21.9 GASTRO-ESOPHAGEAL REFLUX DISEASE WITHOUT 11/29/2017 JOSE BUNDY Ot R07.89 OTHER CHEST PAIN Procedures Code Description [place] [address] ROUTINE VENIPUNCTURE 05/15/2014 02263 URINE DRUG SCREEN (IN-HOUSE ) 05/15/2014 62785 CBC 05/16/2014 1564394 GFR CALC (RESULT ONLY) 05/16/2014 02598 CMP 05/16/2014 28546 PSA TOTAL 05/16/2014 64551 TSH 05/16/2014 69250 UA LONG DIP 08/30/2014 04928 ROUTINE VENIPUNCTURE 09/25/2014 17995 CMP 09/25/2014 Cardiolog Rachell Chandler 01/07/2015 Results Test Result Range Comp. Metabolic Panel (14) - 12/09/16 09:35 Glucose, Serum 88 mg/dL 65-99 BUN 12 mg/dL 8-27 Creatinine, Serum 0.98 mg/dL 0.76-1.27 eGFR If NonAfricn Am 83 mL/min/1.73 >59 eGFR If Africn Am 96 mL/min/1.73 >59 BUN/Creatinine Ratio 12 10-22 Sodium, Serum 140 mmol/L 134-144 Potassium, Serum 4.1 mmol/L 3.5-5.2 Chloride, Serum 99 mmol/L 96-106 Carbon Dioxide, Total 23 mmol/L 18-29 Calcium, Serum 9.6 mg/dL 8.6-10.2 Protein, Total, Serum 7.3 g/dL 6.0-8.5 Albumin, Serum 4.3 g/dL 3.6-4.8 Globulin, Total 3.0 g/dL 1.5-4.5 A/G Ratio 1.4 1.2-2.2 Bilirubin, Total 0.3 mg/dL 0.0-1.2 Alkaline Phosphatase, S 40 IU/L 39-117 AST (SGOT) 26 IU/L 0-40 ALT (SGPT) 34 IU/L 0-44 Lipid Panel - 02/03/17 15:03 Cholesterol, Total 153 mg/dL 100-199 Triglycerides 77 mg/dL 0-149 HDL Cholesterol 39 mg/dL >39 VLDL Cholesterol Neil 15 mg/dL 5-40 LDL Cholesterol Calc 99 mg/dL 0-99 PT panel in platelet poor plasma by coagulation assay - 06/23/17 15:45 Prothrombin time (PT) in platelet poor plasma by coagulation assay 12.5 s 12.2-14.7 INR in platelet poor plasma or blood by coagulation assay 0.9 0.8-1.4 Activated partial thromboplastin time (aPTT) in platelet poor plasma bycoagulation assay - 06/23/17 15:45 Activated partial thromboplastin time (aPTT) in platelet poor plasma bycoagulation assay 29 s 24-35 Complete blood count (CBC) with automated white blood cell (WBC) differential - 06/23/17 15:45 Blood leukocytes automated count (number/volume) 4.8 10*3/uL 4.3-11.0 Blood erythrocytes automated count (number/volume) 3.92 10*6/uL 4.35-5.85 Venous blood hemoglobin measurement (mass/volume) 12.7 g/dL 13.3-17.7 Blood hematocrit (volume fraction) 36 % 40-54 Automated erythrocyte mean corpuscular volume 92 [foz_us] 80-99 Automated erythrocyte mean corpuscular hemoglobin (mass per erythrocyte) 32 pg 25-34 Automated erythrocyte mean corpuscular hemoglobin concentration measurement ( mass/volume) 35 g/dL 32-36 Automated erythrocyte distribution width ratio 14.0 % 10.0-14.5 Automated blood platelet count (count/volume) 149 10*3/uL 130-400 Automated blood platelet mean volume measurement 11.5 [foz_us] 7.4-10.4 Automated blood neutrophils/100 leukocytes 50 % 42-75 Automated blood lymphocytes/100 leukocytes 38 % 12-44 Blood monocytes/100 leukocytes 8 % 0-12 Automated blood eosinophils/100 leukocytes 4 % 0-10 Automated blood basophils/100 leukocytes 0 % 0-10 Blood neutrophils automated count (number/volume) 2.4 10*3 1.8-7.8 Blood lymphocytes automated count (number/volume) 1.8 10*3 1.0-4.0 Blood monocytes automated count (number/volume) 0.4 10*3 0.0-1.0 Automated eosinophil count 0.2 10*3/uL 0.0-0.3 Automated blood basophil count (count/volume) 0.0 10*3/uL 0.0-0.1 Comprehensive metabolic panel - 06/23/17 15:45 Serum or plasma sodium measurement (moles/volume) 138 mmol/L 135-145 Serum or plasma potassium measurement (moles/volume) 4.1 mmol/L 3.6-5.0 Serum or plasma chloride measurement (moles/volume) 104 mmol/L 98-107 Carbon dioxide 24 mmol/L 21-32 Serum or plasma anion gap determination (moles/volume) 10 mmol/L 5-14 Serum or plasma urea nitrogen measurement (mass/volume) 13 mg/dL 7-18 Serum or plasma creatinine measurement (mass/volume) 0.92 mg/dL 0.60-1.30 Serum or plasma urea nitrogen/creatinine mass ratio 14 NRG Serum or plasma creatinine measurement with calculation of estimated glomerular filtration rate > NRG Serum or plasma glucose measurement (mass/volume) 82 mg/dL 70-105 Serum or plasma calcium measurement (mass/volume) 9.2 mg/dL 8.5-10.1 Serum or plasma total bilirubin measurement (mass/volume) 0.5 mg/dL 0.1-1.0 Serum or plasma alkaline phosphatase measurement (enzymatic activity/volume) 44 U/L 40-136 Serum or plasma aspartate aminotransferase measurement (enzymatic activity/ volume) 34 U/L 5-34 Serum or plasma alanine aminotransferase measurement (enzymatic activity/volume ) 27 U/L 0-55 Serum or plasma protein measurement (mass/volume) 7.4 g/dL 6.4-8.2 Serum or plasma albumin measurement (mass/volume) 4.0 g/dL 3.2-4.5 Magnesium - 06/23/17 15:45 Magnesium 1.7 mg/dL 1.8-2.4 Myoglobin, serum - 06/23/17 15:45 Myoglobin, serum 50.9 ng/mL 10.0-92.0 Serum or plasma troponin i.cardiac measurement (mass/volume) - 06/23/17 15:45 Serum or plasma troponin i.cardiac measurement (mass/volume) < ng/ mL <0.30 Myoglobin, serum - 06/23/17 15:45 Myoglobin, serum 50.9 ng/mL 10.0-92.0 Serum or plasma lithium measurement (moles/volume) - 06/23/17 15:45 BNP level 189.8 pg/mL <100.0 Serum or plasma troponin i.cardiac measurement (mass/volume) - 06/23/17 19:50 Serum or plasma troponin i.cardiac measurement (mass/volume) < ng/ mL <0.30 Encounters ACCT No. Visit Date/Time Discharge Status Pt. Type Provider Facility Loc./Unit Complaint [id number] 01/07/2015 10:45:00 01/07/2015 23:59:59 [address] [facility] L [id number] 11/28/2014 11:12:00 11/28/2014 23:59:59 CLS Outpatient [facility] L [id number] 10/25/2014 15:15:00 10/25/2014 23:59:59 CLS Outpatient [facility] L [id number] 09/25/2014 13:21:00 09/25/2014 23:59:59 CLS Outpatient MADYSON IRWIN DO [id number] 09/02/2014 13:51:00 09/02/2014 23:59:59 CLS Outpatient [facility] L [id number] 08/30/2014 11:58:00 08/30/2014 23:59:59 CLS Outpatient SWEETIE AYOUB APRN [id number] 07/11/2014 10:05:00 07/11/2014 23:59:59 CLS Outpatient MADYSON IRWIN DO [id number] 06/11/2014 14:19:00 06/11/2014 23:59:59 CLS Outpatient [facility] L [id number] 05/29/2014 14:24:00 05/29/2014 23:59:59 CLS Outpatient [facility] L [id number] 05/15/2014 15:00:00 05/15/2014 23:59:59 CLS Outpatient [facility] L [id number] 02/04/2017 08:50:00 Document Registration [id number] 12/10/2016 07:06:00 Document Registration [id number] 04/26/2018 18:40:00 04/26/2018 23:59:59 CLS Outpatient JES[facility] PLUNKETT [facility] [id number] 11/09/2017 07:32:00 11/09/2017 23:59:59 CLS Outpatient JOSE BUNDY [facility] CARD I25.10, R07.89 [id number] 10/17/2017 11:45:00 10/17/2017 23:59:59 CLS Outpatient JOSE BUNDY [facility] CARD CAD [id number] 08/30/2017 19:33:00 08/31/2017 06:58:00 DIS Outpatient RACHELL CHANDLER MD [facility] SLEEP MONI G47.33 [id number] 06/23/2017 15:01:00 06/23/2017 20:58:00 DIS Emergency DANYA POWELL APRN [facility] ER HIGH BP [id number] 06/22/2016 12:48:00 06/22/2016 23:59:59 CLS Outpatient RACHELL CHANDLER MD [facility] CARD CAD,GERD,HTN,HLP [id number] 02/12/2016 11:42:00 02/12/2016 13:55:00 DIS Outpatient ELBA JOHNSON DO [facility] SDC SCREENING,CHEST PAIN [id number] 02/04/2016 08:18:00 02/04/2016 10:26:00 DIS Outpatient ELBA JOHNSON DO [facility] PREOP SCREENING; CHEST PAIN [id number] 01/15/2016 05:41:00 01/15/2016 23:59:59 CLS Outpatient ELBA JOHNSON DO [facility] PREOP SCREENING,CHEST PAIN [id number] 06/23/2015 08:47:00 06/23/2015 23:59:59 CLS Outpatient FERMIN SHIPLEY MD [facility] RAD DDU [id number] 06/11/2015 12:21:00 06/11/2015 22:40:00 DIS Outpatient RACHELL CHANDLER MD [facility] CATH ABNORMAL STRESS, CP,SOB, HLP,HTN [id number] 05/27/2015 11:59:00 05/27/2015 23:59:59 CLS Outpatient JOSE BUNDY [facility] CARD CP,HTN [id number] 05/26/2015 08:51:00 05/26/2015 23:59:59 CLS Outpatient JOSE BUNDY [facility] CARD CHEST PAIN HTN [id number] 11/21/2014 08:46:00 Document Registration
[2018-05-27] MEDS ORDERED: LORazepam INJ 2 MG/ML (ATIVAN) VIAL IVP PRN (15:15)
[2018-05-27 15:22] LABS: BASOPHILS % (AUTO) 0 % (0-10); EOSINOPHILS % (AUTO) 1 % (0-10); HEMATOCRIT 37 % (40-54); HEMOGLOBIN 13.8 G/DL (13.3-17.7); LYMPHOCYTES # (AUTO) 2.1 X 10^3 (1.0-4.0); LYMPHOCYTES % (AUTO) 34 % (12-44); MEAN CORPUSCULAR HEMOGLOBIN 34 PG (25-34); MEAN CORPUSCULAR HGB CONC 37 G/DL (32-36); MEAN CORPUSCULAR VOLUME 90 FL (80-99); MEAN PLATELET VOLUME 11.1 FL (7.4-10.4); MONOCYTES # (AUTO) 0.6 X 10^3 (0.0-1.0); MONOCYTES % (AUTO) 10 % (0-12); NEUTROPHILS # (AUTO) 3.4 X 10^3 (1.8-7.8); NEUTROPHILS % (AUTO) 55 % (42-75); PLATELET COUNT 159 10^3/uL (130-400); RED BLOOD COUNT 4.09 10^6/uL (4.35-5.85); RED CELL DISTRIBUTION WIDTH 13.5 % (10.0-14.5); WHITE BLOOD COUNT 6.2 10^3/uL (4.3-11.0)
[2018-05-27 15:42] LABS: ALANINE AMINOTRANSFERASE 51 U/L (0-55); ALBUMIN 4.3 GM/DL (3.2-4.5); ALKALINE PHOSPHATASE 46 U/L (40-136); BUN/CREATININE RATIO 7; CARBON DIOXIDE 16 MMOL/L (21-32); CHLORIDE 102 MMOL/L (98-107); CREATININE SERUM 1.66 MG/DL (0.60-1.30); GFR ESTIMATED 42; GLUCOSE 109 MG/DL (70-105); LIPASE 33 U/L (8-78); POTASSIUM 3.5 MMOL/L (3.6-5.0); SODIUM 133 MMOL/L (135-145); TOTAL PROTEIN 7.7 GM/DL (6.4-8.2)
--- NOTE | 2018-05-27 15:53 | ED General ---
General Chief Complaint: General Problems/Pain Stated Complaint: LOW BP, SHAKING Nursing Triage Note: TO ROOM HAS NOT FELT WELL FOR 2 WEEEKS TODAY B/P SYSTOLIC WAS IN THE 90'S AND DIZZY AND ANXIOUS HAS BEEN OUT OF HIS [facility]ANA[facility] SINCE 05/23 TO SEE [facility] TP HAVE BLOOD WORK. Nursing Sepsis Screen: No Definite Risk Source of Information: Patient Exam Limitations: No Limitations History of Present Illness Date Seen by Provider: May 27, 2018 Time Seen by Provider: 15:37 Initial Comments present to ER with reports of feeling poorly for about 2 weeks. He has some tightness around the lower ribs bilaterally. States that he feels anxious and dizzy. He takes alprazolam 0.5 mg 3 times a day and ran out of this on 05/23/18. Timing/Duration: 2-3 Days Severity: Moderate Associated Systoms: No Malaise, No Weakness Allergies and Home Medications Allergies Coded Allergies: escitalopram (Unverified Allergy, Severe, 02/12/16) SUICIDAL Home Medications Alprazolam 0.5 Mg Tablet, 0.5 MG PO TID, (Reported) Diphenhydramine HCl 25 Mg Capsule, 25-50 MG PO DAILY PRN for ALLERGIES, ( Reported) Ibuprofen 200 Mg Tablet, 400 MG PO DAILY PRN for PAIN, (Reported) Losartan Potassium 50 Mg Tablet, 100 MG PO DAILY, (Reported) Metoprolol Succinate 50 Mg Tab.er.24h, 100 MG PO DAILY, (Reported) Nitroglycerin 0.4 Mg Tab.subl, 0.4 MG SL PRN PRN for CHEST PAIN, (Reported) Pantoprazole Sodium 40 Mg Tablet.dr, 40 MG PO BID Take Protonix 40 mg twice a day for one month after that resume Protonix 40 mg once a day Prescribed by: DARIANA NICK on 02/12/16 1300 Patient Home Medication List Home Medication List Reviewed: Yes Review of Systems Review of Systems Constitutional: see HPI EENTM: see HPI Respiratory: no symptoms reported Cardiovascular: no symptoms reported Genitourinary: no symptoms reported Musculoskeletal: see HPI Skin: no symptoms reported Psychiatric/Neurological: No Symptoms Reported Hematologic/Lymphatic: No Symptoms Reported Immunological/Allergic: no symptoms reported Past Srvqebo-Azdmtk-Nhflot Hx Patient Social History Alcohol Use: Occasionally Uses Alcohol Beverage of Choice: Beer Recreational Drug Use: No Smoking Status: Former Smoker Recent Foreign Travel: No Contact w/Someone Who Travel: No Recent Infectious Disease Expo: No Recent Hopitalizations: No Past Medical History Surgeries: Yes (CARPAL TUNNEL) Respiratory: No Cardiac: Yes (HAS HAD HEART CATH) Hypertension Neurological: No Gastrointestinal: No Musculoskeletal: No Endocrine: No Psychosocial: Yes Anxiety Physical Exam Vital Signs Vital Signs - First Documented 05/27/18 15:07 Temp 98.9 Pulse 100 Resp 18 B/P (MAP) 135/105 (115) Pulse Ox 97 O2 Delivery Room Air Capillary Refill : Less Than 3 Seconds Height, Weight, BMI Height: 5'8.00" Weight: 255lbs. 0.0oz. [id number]; 36.5 BMI Method:Estimated General Appearance: No Apparent Distress, WD/WN, Anxious, Obese Eyes: Bilateral Eye Normal Inspection, Bilateral Eye PERRL HEENT: PERRL/EOMI, TMs Normal, Normal ENT Inspection Neck: Full Range of Motion, Normal Inspection Respiratory: Lungs Clear, Normal Breath Sounds, No Accessory Muscle Use, No Respiratory Distress Cardiovascular: Regular Rate, Rhythm, Normal Peripheral Pulses Gastrointestinal: Normal Bowel Sounds, Non Tender, Soft Extremity: Normal Capillary Refill, Normal Inspection Neurologic/Psychiatric: Alert, Oriented x3, No Motor/Sensory Deficits Progress/Results/Core Measures Suspected Sepsis Recent Fever Within 48 Hours: No Infection Criteria Present: None New/Unexplained Altered Menta: No Sepsis Screen: No Definite Risk SIRS Temperature:98.9 Pulse: 100 Respiratory Rate: 18 Laboratory Tests 05/27/18 15:17: White Blood Count 6.2 Blood Pressure 135 /105 Mean: 115 Laboratory Tests 05/27/18 15:17: Creatinine 1.66H, Platelet Count 159, Total Bilirubin 1.0 Results/Orders Lab Results Laboratory Tests Test 05/27/18 15:17 05/27/18 16:12 Range/Units White Blood Count 6.2 4.3-11.0 10^3/uL Red Blood Count 4.09 L 4.35-5.85 10^6/uL Hemoglobin 13.8 13.3-17.7 G/DL Hematocrit 37 L 40-54 % Mean Corpuscular Volume 90 80-99 FL Mean Corpuscular Hemoglobin 34 25-34 PG Mean Corpuscular Hemoglobin Concent 37 H 32-36 G/DL Red Cell Distribution Width 13.5 10.0-14.5 % Platelet Count 159 130-400 10^3/uL Mean Platelet Volume 11.1 H 7.4-10.4 FL Neutrophils (%) (Auto) 55 42-75 % Lymphocytes (%) (Auto) 34 12-44 % Monocytes (%) (Auto) 10 0-12 % Eosinophils (%) (Auto) 1 0-10 % Basophils (%) (Auto) 0 0-10 % Neutrophils # (Auto) 3.4 1.8-7.8 X 10^3 Lymphocytes # (Auto) 2.1 1.0-4.0 X 10^3 Monocytes # (Auto) 0.6 0.0-1.0 X 10^3 Eosinophils # (Auto) 0.0 0.0-0.3 10^3/uL Basophils # (Auto) 0.0 0.0-0.1 10^3/uL Sodium Level 133 L 135-145 MMOL/L Potassium Level 3.5 L 3.6-5.0 MMOL/L Chloride Level 102 98-107 MMOL/L Carbon Dioxide Level 16 L 21-32 MMOL/L Anion Gap 15 H 5-14 MMOL/L Blood Urea Nitrogen 12 7-18 MG/DL Creatinine 1.66 H 0.60-1.30 MG/DL Estimat Glomerular Filtration Rate 42 BUN/Creatinine Ratio 7 Glucose Level 109 H 70-105 MG/DL Calcium Level 10.0 8.5-10.1 MG/DL Corrected Calcium 9.8 8.5-10.1 MG/DL Total Bilirubin 1.0 0.1-1.0 MG/DL Aspartate Amino Transf (AST/SGOT) 41 H 5-34 U/L Alanine Aminotransferase (ALT/SGPT) 51 0-55 U/L Alkaline Phosphatase 46 40-136 U/L Troponin I < 0.30 <0.30 NG/ML B-Type Natriuretic Peptide 44.5 <100.0 PG/ML Total Protein 7.7 6.4-8.2 GM/DL Albumin 4.3 3.2-4.5 GM/DL Lipase 33 8-78 U/L Urine Color YELLOW Urine Clarity CLEAR Urine pH 6.5 5-9 Urine Specific Mcleod 1.005 L 1.016-1.022 Urine Protein NEGATIVE NEGATIVE Urine Glucose (UA) NEGATIVE NEGATIVE Urine Ketones NEGATIVE NEGATIVE Urine Nitrite NEGATIVE NEGATIVE Urine Bilirubin NEGATIVE NEGATIVE Urine Urobilinogen NORMAL NORMAL MG/DL Urine Leukocyte Esterase 1+ H NEGATIVE Urine RBC (Auto) NEGATIVE NEGATIVE Urine RBC NONE /HPF Urine WBC 10-25 H /HPF Urine Crystals NONE /LPF Urine Bacteria LARGE H /HPF Urine Casts NONE /LPF Urine Mucus NEGATIVE /LPF Urine Culture Indicated YES My Orders Orders - DANYA POWELL APRN Cbc With Automated Diff (05/27/18 15:12) Comprehensive Metabolic Panel (05/27/18 15:12) Ua Culture If Indicated (05/27/18 15:12) Chest 1 View, Ap/Pa Only (05/27/18 15:12) Ekg Tracing (05/27/18 15:12) Troponin I (05/27/18 15:12) Lipase (05/27/18 15:12) Iv Heplock-Insert (Order) (05/27/18 15:12) BNP (05/27/18 15:12) Lorazepam Injection (Ativan Injection) (05/27/18 15:15) Ns Iv 500 Ml (Sodium Chloride 0.9%) (05/27/18 16:00) Urine Culture (05/27/18 16:12) Rocephin 1 Gm Iv (1 X Dose) (05/27/18 17:30) Medications Given in ED Current Medications Medications Dose Ordered Sig/Adriel Route Start Time Stop Time Status Last Admin Dose Admin Lorazepam 1 mg ONCE PRN IVP 05/27/18 15:15 05/27/18 15:17 1 MG Vital Signs/I&O 05/27/18 15:07 Temp 98.9 Pulse 100 Resp 18 B/P (MAP) 135/105 (115) Pulse Ox 97 O2 Delivery Room Air Capillary Refill : Less Than 3 Seconds Blood Pressure Mean: 115 Diagnostic Imaging Diagonstic Imaging: Xray Plain Films/CT/US/NM/MRI: chest Comments NAME: [facility] REC#: [id number] PT STATUS: REG ER : 1955 PHYSICIAN: DANYA POWELL APRN ADMIT DATE: 05/27/18/ER Draft Date of Exam:05/27/18 CHEST 1 VIEW, AP/PA ONLY Portable erect AP chest at 345 hours. INDICATION: Chest tightness. FINDINGS: The heart size is within normal limits and the heart does seem less prominent than noted on the prior exam of 06/23/2017. In the interval since the prior study, a band of atelectasis/infiltrate has developed near the left heart border. The lungs are otherwise generally clear. The mediastinum is not widened. The osseous structures are intact. IMPRESSION: There is new band of atelectasis/infiltrate in the left lung base near the heart border. There is no acute cardiopulmonary abnormality noted otherwise. Dictated on workstation # [id number] Dict: 05/27/18 1552 Trans: 05/27/18 1558 [id number] Interpreted by: JULIA MARSHALL MD Electronically signed by: Departure Impression Primary Impression: Urinary tract infection Additional Impressions: LLL pneumonia Benzodiazepine withdrawal Disposition: 01 HOME, SELF-CARE Condition: Stable Departure-Patient Inst. Decision time for Depature: 17:18 Referrals: [facility] (PCP) Primary Care Physician JESU PLUNKETT (Family) Primary Care Physician Patient Instructions: Urinary Tract Infection, Adult (DC) Add. Discharge Instructions: 1. Medication as directed 2. Follow-up with your doctor next week 3. Scripts Cefuroxime Axetil (Cefuroxime) 500 Mg Tablet 500 MG PO BID, #14 TAB Prov: DANYA POWELL MANAGER PERSONAL 05/27/18 Alprazolam (Xanax) 0.5 Mg Tablet 0.5 MG PO TID, #15 TAB Prov: DANYA POWELL MANAGER PERSONAL 05/27/18 DANYA POWELL APRN May 27, 2018 15:52
--- NOTE | 2018-05-27 15:58 | Diagnostic Imaging Report ---
Portable erect AP chest at 345 hours. INDICATION: Chest tightness. FINDINGS: The heart size is within normal limits and the heart does seem less prominent than noted on the prior exam of 06/23/2017. In the interval since the prior study, a band of atelectasis/infiltrate has developed near the left heart border. The lungs are otherwise generally clear. The mediastinum is not widened. The osseous structures are intact. IMPRESSION: There is new band of atelectasis/infiltrate in the left lung base near the heart border. There is no acute cardiopulmonary abnormality noted otherwise. Dictated by: Dictated on workstation # [id number]
[2018-05-27] MEDS ORDERED: NS IV 500 ML 500 ML IV SCH (16:00)
[2018-05-27 16:31] LABS: BILIRUBIN,URINE NEGATIVE (NEGATIVE); CLARITY,URINE CLEAR; COLOR,URINE YELLOW; GLUCOSE, URINE (UA) NEGATIVE (NEGATIVE); KETONES,URINE NEGATIVE (NEGATIVE); LEUKOCYTE ESTERASE ,URINE 1+ (NEGATIVE); NITRITE,URINE NEGATIVE (NEGATIVE); PH,URINE 6.5 (5-9); PROTEIN,URINE NEGATIVE (NEGATIVE); UROBILINOGEN,URINE NORMAL (NORMAL)
[2018-05-27 17:04] LABS: BACTERIA,URINE LARGE /HPF
[2018-05-27] MEDS ORDERED: ALPR0.5T PO (17:19)
[2018-05-27] MEDS ORDERED: CEFU500T63 PO (17:19)
[2018-05-27] MEDS ORDERED: cefTRIAXone FOR IV USE 1,000 MG in NS (IVPB) 50 ML IV ONE (17:30)
[2018-05-27 18:15] VITALS: BP 129/86
== END 2018-05-27 18:15 | disposition home or self-care (01) ==
LOC: EDUNIT# 14:50 → ER 14:51
DX: N39.0 Urinary tract infection, site not specified (principal); J18.1 Lobar pneumonia, unspecified organism; F13.239 Sedative, hypnotic or anxiolytic dependence with withdrawal, unspecified; R07.89 Other chest pain; F41.9 Anxiety disorder, unspecified; I10 Essential (primary) hypertension; Z88.8 Allergy status to other drugs, medicaments and biological substances; Z87.891 Personal history of nicotine dependence
CPT/HCPCS: 36415; 71045; 80053; 81000; 83690; 83880; 84484; 85025; 87077; 87088; 87186; 93005; 96374; 96375

== ENCOUNTER 2019-02-21 14:48 | Inpatient (IN) | payer MEDICARE, OTHER ==
[~2019-02-21] VITALS: Ht 168.9 cm; Wt 92.1 kg
[2019-02-21] VITALS (9 sets, daily range): BP systolic 130–156; BP diastolic 87–101
[~2019-02-21 14:48] MED LIST changes: +AMIT10TA6; +AMLO10TA7; +CEFU500T63 PO; +LOSA50TA63 PO; -LOSA50TA7 PO
--- OUTSIDE RECORDS SUMMARY | 2019-02-21 14:54 | XMS REPORT ---
Author Author Migration, Doctor Organization [facility] Address Unknown Phone Unavailable Care Team Providers Care Traffic Supervisor Name Role Phone Migration, Doctor Unavailable Unavailable PROBLEMS Type Condition ICD9-CM Code OXR73-YD Code Onset Dates Condition Status SNOMED Code Problem Visual changes H53.9 Active 51955331 Problem Primary insomnia F51.01 Active 4475275 Problem Anxiety F41.9 Active 77767497 Problem Essential hypertension I10 Active 48017767 Problem Mixed hyperlipidemia E78.2 Active 027932058 Problem Pain in left knee M25.562 Active 34896525 Problem Gastritis determined by endoscopy K29.70 Active 2521791 Problem Essential (primary) hypertension I10 Active 20686385 Problem Gastroesophageal reflux disease without esophagitis K21.9 Active 403541378 Problem Nightmares F51.5 Active 718361556 Problem Epigastric pain R10.13 Active 50467127 Problem Primary osteoarthritis of left knee M17.12 Active 485913163 Problem 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 Active 1674142301288 Problem Osteoarthritis of left knee, unspecified osteoarthritis type M17.12 Active [id number] Problem Other chronic pain G89.29 Active 59266670 ALLERGIES No Information ENCOUNTERS Encounter Location Date Diagnosis [place] [id number] [address] January, [facility] [address] [address] Nov, [facility] [id number] [address] Nov, [place] [address] [address] Sep, Encounter for Medicare annual wellness exam Z00.00 ; Anxiety F41.9 ; Essential hypertension I10 ; Mixed hyperlipidemia E78.2 ; 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 ; Osteoarthritis of left knee, unspecified osteoarthritis type M17.12 and Essential (primary) hypertension I10 [place] [address] [address] Jul, Essential (primary) hypertension I10 and 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 [place] [address] [address] 15 May, 2018 [place] [address] [address] 13 May, 2018 [place] [address] [address] 10 May, 2018 Other chronic pain G89.29 [place] [address] [address] 05 May, 2018 Dysuria R30.0 ; Acute cystitis without hematuria N30.00 ; Pneumonia of left lower lobe due to infectious organism J18.1 and Nightmares F51.5 [place] [address] [address] 04 May, 2018 Anxiety F41.9 ; Essential (primary) hypertension I10 and 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 [place] [id number] [place] [address] Apr, Anxiety F41.9 and Other chronic pain G89.29 [place] [id number] [place] [address] Apr, Essential (primary) hypertension I10 and 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 [place] [id number] [place] [address] Apr, Pain in left knee M25.562 ; Other chronic pain G89.29 ; Anxiety F41.9 and 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 [place] [id number] [place] [address] Apr, [place] [address] [address] Feb, Anxiety F41.9 [place] [address] [address] January, Anxiety F41.9 [place] [address] [address] Dec, Anxiety F41.9 [place] [address] [address] Dec, [place] [address] [address] Dec, Anxiety F41.9 and Osteoarthritis of left knee, unspecified osteoarthritis type M17.12 [place] [address] [address] Nov, Primary insomnia F51.01 and Anxiety F41.9 [place] [address] [address] Oct, Anxiety F41.9 [place] [id number] [place] [address] Oct, [place] [id number] [place] [address] Oct, Anxiety F41.9 [place] [id number] [place] [address] Aug, Primary insomnia F51.01 ; Anxiety F41.9 ; Essential hypertension I10 ; 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 ; Gastritis determined by endoscopy K29.70 ; Primary osteoarthritis of left knee M17.12 and BMI 40.0-44.9, adult Z68.41 [place] [id number] [place] [address] Aug, Primary insomnia F51.01 and Anxiety F41.9 [facility] [address] [address] Jun, Anxiety F41.9 [facility] [id number] [place] [address] Jun, Anxiety F41.9 [facility] [address] [address] May, [place] [id number] [place] [address] May, Primary osteoarthritis of left knee M17.12 and Anxiety F41.9 [place] [id number] [place] [address] Apr, Essential hypertension I10 [place] [address] [address] Apr, Essential hypertension I10 ; Anxiety F41.9 ; Primary insomnia F51.01 ; Primary osteoarthritis of left knee M17.12 and Gastritis determined by endoscopy K29.70 [place] [id number] [place] [address] Apr, Essential hypertension I10 [place] [id number] [place] [address] Mar, Anxiety F41.9 [facility] [id number] [place] [address] Mar, Primary osteoarthritis of left knee M17.12 [place] [id number] [place] [address] Feb, [place] [id number] [place] [address] Feb, Anxiety F41.9 [facility] [id number] [place] [address] Feb, [facility] [address] [place] [address] January, Mixed hyperlipidemia E78.2 [facility] [id number] [place] [address] January, Anxiety F41.9 [facility] [id number] [place] [id number] Dec, Dental examination Z01.20 [facility] [id number] [place] [address] Dec, Anxiety F41.9 ; Primary insomnia F51.01 and Pain in left knee M25.562 [place] [id number] [place] [address] Nov, Essential hypertension I10 ; Anxiety F41.9 ; Primary insomnia F51.01 ; Mixed hyperlipidemia E78.2 ; Pain in left knee M25.562 and Gastritis determined by endoscopy K29.70 [place] [id number] [place] [address] Oct, Anxiety F41.9 [place] [id number] [place] [address] Oct, Primary osteoarthritis of left knee M17.12 [facility] [id number] [place] [id number] Sep, Dental examination Z01.20 [facility] [id number] [place] [address] Sep, Anxiety F41.9 [place] [id number] [place] [address] Aug, Anxiety F41.9 [place] [id number] [place] [address] Jul, Essential hypertension I10 ; Anxiety F41.9 ; Primary insomnia F51.01 ; Mixed hyperlipidemia E78.2 ; Pain in left knee M25.562 and Gastritis determined by endoscopy K29.70 [facility] [address] [address] Jul, [facility] [id number] [place] [address] Jul, [facility] [id number] [place] [address] Jun, [facility] [id number] [place] [address] Jun, [facility] [id number] [place] [address] May, [facility] [id number] [place] [address] May, Pain in left knee M25.562 [place] [id number] [place] [address] Apr, Essential hypertension I10 ; Anxiety F41.9 ; Primary insomnia F51.01 ; Mixed hyperlipidemia E78.2 ; Pain in left knee M25.562 and Gastritis determined by endoscopy K29.70 [facility] [id number] [place] [address] Mar, [facility] [id number] [place] [address] Feb, [facility] [id number] [place] [address] Feb, [facility] [address] [place] [id number] January, Dental caries K02.9 [facility] [id number] [place] [address] January, [facility] [id number] [place] [address] January, Bloody stools K92.1 ; Epigastric pain R10.13 ; Essential hypertension I10 ; Anxiety F41.9 and Primary insomnia F51.01 [facility] [address] [id number] Dec, Dental examination Z01.20 [facility] [id number] [place] [address] Dec, [facility] [id number] [place] [address] Nov, Acute frontal sinusitis J01.10 and Sore throat J02.9 [facility] [id number] [place] [address] Nov, [facility] [address] [address] Oct, Essential hypertension I10 ; Anxiety F41.9 and Primary insomnia F51.01 [facility] [id number] [place] [address] Sep, [facility] [id number] [place] [address] Sep, [facility] [address] [address] Sep, [facility] [id number] [place] [address] Aug, [facility] [id number] [place] [address] Aug, [facility] [id number] [place] [address] Jul, Essential hypertension I10 ; Anxiety F41.9 ; Primary insomnia F51.01 and Visual changes H53.9 [facility] [id number] [place] [address] Jul, [facility] [id number] [place] [address] Jun, [facility] [address] [address] Jun, [facility] [id number] [place] [address] May, [facility] [id number] [place] [address] May, [facility] [id number] [place] [address] May, Chest pain 786.50 ; Hyperlipemia 272.4 ; Hypertension 401.9 ; Anxiety 300.00 and History of tobacco use V15.82 [facility] [id number] [place] [address] May, Chest pain 786.50 and Hypertension 401.9 [facility] [id number] [place] [address] Apr, [facility] [id number] [place] [address] Apr, 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 ; Hypertension 401.9 and CAD (coronary artery disease) 414.00 [facility] [id number] [place] [address] Mar, Chest pain 786.50 ; Hypertension 401.9 ; Hyperlipemia 272.4 and History of tobacco use V15.82 [facility] [address] [place] [address] Mar, 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 and Major depressive disorder, recurrent episode, moderate 296.32 [facility] [id number] [place] [address] Mar, [facility] [id number] [place] [address] Mar, [facility] [id number] [place] [address] Mar, [facility] [address] [place] [address] 09 Mar, 2015 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 and Major depressive disorder, recurrent episode, moderate 296.32 [facility] [id number] [place] [address] 07 Mar, 2015 [facility] [id number] [place] [address] Feb, [facility] [id number] [place] [address] Feb, 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 ; Major depressive disorder, recurrent episode, moderate 296.32 ; No condition on [place] II V71.09 ; Hypertension 401.9 ; Arthritis 716.90 and Overweight 278.02 [facility] [id number] [place] [address] Feb, [facility] [id number] [place] [address] Feb, [facility] [id number] [place] [address] January, Essential hypertension, benign 401.1 ; Anxiety state, unspecified 300.00 and Chest pain 786.50 [facility] [id number] [place] [address] Dec, [facility] [id number] [place] [address] Dec, [facility] [id number] [place] [address] Nov, [facility] [id number] [place] [address] Nov, [facility] [id number] [place] [address] Nov, [facility] [id number] [place] [address] Nov, [facility] [place] [facility] [address] [id number] [place] [address] Oct, 2014 [facility] [place] [facility] [address] [id number] [place] [address] Oct, 2014 [facility] [place] [facility] [address] [id number] [place] [address] Oct, 2014 [facility] [place] [facility] [address] [id number] [place] [address] Oct, [facility] [place] [facility] [address] [id number] [place] [address] Sep, [facility] [place] [facility] [address] [id number] [place] [address] Sep, [facility] [place] [facility] [address] [id number] [place] [address] Sep, [facility] [place] [facility] [address] [id number] [place] [address] Sep, [facility] [place] [facility] [address] [id number] [place] [address] Sep, [facility] [place] [facility] [address] [id number] [place] [address] Sep, [facility] [place] [facility] [address] [id number] [place] [address] Aug, [facility] [place] [facility] [address] [id number] [place] [address] Aug, [facility] [place] [facility] [address] [id number] [place] [address] Aug, [facility] [place] [facility] [address] [id number] [place] [address] Aug, [facility] [place] [facility] [address] [id number] [place] [address] Aug, [facility] [place] [facility] [address] [id number] [address] Aug, [facility] [place] [facility] [address] [id number] [place] [address] Jul, [facility] [place] [facility] [address] [id number] [place] [address] Jul, [facility] [place] [facility] [address] [id number] [place] [address] Jul, [facility] [place] [facility] [address] [id number] [place] [address] Jul, [facility] [place] [facility] [address] [id number] [place] [address] Jul, [facility] [place] [facility] [address] [id number] [place] [address] Jul, [facility] [place] [facility] [address] [id number] [place] [address] Jun, [facility] [place] [facility] [address] [id number] [place] [address] Jun, [facility] [place] [facility] [address] [id number] [place] [address] Jun, [facility] [place] [facility] [address] [id number] [place] [address] Jun, [facility] [place] [facility] [address] [id number] [address] 16 May, 2014 [facility] [place] [facility] [address] [id number] [address] 16 May, 2014 [facility] [place] [facility] [address] [id number] [place] [address] May, [facility] [place] [facility] [address] [id number] [place] [address] May, [facility] [place] [facility] [address] [id number] [place] [address] Apr, [facility] [place] [facility] [address] [facility] [id number] [place] [address] Apr, [facility] [address] [facility] [id number] [place] [address] Apr, [facility] [address] [facility] [id number] [place] [address] Apr, [facility] [address] [facility] [id number] [place] [address] Apr, IMMUNIZATIONS No Known Immunizations SOCIAL HISTORY Never Assessed REASON FOR VISIT EMR-[facility] PLAN OF CARE VITAL SIGNS MEDICATIONS Unknown Medications RESULTS No Results PROCEDURES No Known procedures INSTRUCTIONS MEDICATIONS ADMINISTERED No Known Medications MEDICAL (GENERAL) HISTORY Type Description Date Medical History hypertension Medical History anxiety Medical History angina Medical History elevated LFTs Medical History hepatitis C (told free of virus in 1993) Medical History Chest pain- Angina Medical History CAD- Dr. Chadnler Medical History Hyperlipemia Medical History asthma Medical [...]
--- OUTSIDE RECORDS SUMMARY | 2019-02-21 14:55 | XMS REPORT ---
Author Author JESU PLUNKETT [facility] Address [facility] [place] [address] Care Team Providers Care Steam Conditioning Operator Name Role Phone JESU PLUNKETT Unavailable PROBLEMS ALLERGIES No Information ENCOUNTERS IMMUNIZATIONS No Known Immunizations SOCIAL HISTORY No smoking Hx information available REASON FOR VISIT PLAN OF CARE VITAL SIGNS MEDICATIONS RESULTS No Results PROCEDURES No Known procedures INSTRUCTIONS MEDICATIONS ADMINISTERED No Known Medications MEDICAL (GENERAL) HISTORY
--- OUTSIDE RECORDS SUMMARY | 2019-02-21 14:55 | XMS REPORT ---
Author Author JESU PLUNKETT Organization [facility] Address [address] [place] [address] Care Team Providers Care Productivity Engineer Name Role Phone JESU PLUNKETT Unavailable PROBLEMS Type Condition ICD9-CM Code QGU47-QE Code Onset Dates Condition Status SNOMED Code Problem Mixed hyperlipidemia E78.2 Active 601227846 Problem Gastritis determined by endoscopy K29.70 Active 1304336 Problem Pain in left knee M25.562 Active 20193069 Problem Nightmares F51.5 Active 812916232 Problem Essential (primary) hypertension I10 Active 01285633 Problem Coronary artery disease of [place] artery of [place] heart with stable 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 Active 8269089440550 Problem Primary osteoarthritis of left knee M17.12 Active 772197399 Problem Other chronic pain G89.29 Active 33479558 Problem Osteoarthritis of left knee, unspecified osteoarthritis type M17.12 Active 043371780565973 Problem Essential hypertension I10 Active 63590618 Problem Anxiety F41.9 Active 21452918 Problem Primary insomnia F51.01 Active 8389280 Problem Epigastric pain R10.13 Active 96451314 Problem Visual changes H53.9 Active 12912923 Problem Gastroesophageal reflux disease without esophagitis K21.9 Active 294102160 ALLERGIES No Information ENCOUNTERS Encounter Location Date Diagnosis [facility] [id number] [place] [address] 15 May, 2018 [facility] [address] [address] 13 May, 2018 [facility] [id number] [place] [address] 10 May, 2018 Other chronic pain G89.29 [facility] [id number] [place] [address] 05 May, 2018 Dysuria R30.0 ; Acute cystitis without hematuria N30.00 ; Pneumonia of left lower lobe due to infectious organism J18.1 and Nightmares F51.5 [facility] [id number] [place] [address] May, Anxiety F41.9 ; Essential (primary) hypertension I10 and Coronary artery disease of [place] artery of [place] heart with stable 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 [place] [id number] [place] [address] Apr, Anxiety F41.9 and Other chronic pain G89.29 [facility] [id number] [place] [address] Apr, Essential (primary) hypertension I10 and Coronary artery disease of [place] artery of [place] heart with stable 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 [place] [id number] [place] [address] Apr, Pain in left knee M25.562 ; Other chronic pain G89.29 ; Anxiety F41.9 and Coronary artery disease of [place] artery of [place] heart with stable 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 [facility] [id number] [place] [address] Apr, [place] [id number] [place] [address] Feb, Anxiety F41.9 [place] [id number] [place] [address] January, Anxiety F41.9 [facility] [id number] [place] [address] Dec, Anxiety F41.9 [place] [id number] [place] [address] Dec, [facility] [id number] [place] [address] Dec, Anxiety F41.9 and Osteoarthritis of left knee, unspecified osteoarthritis type M17.12 [place] [id number] [place] [address] Nov, Primary insomnia F51.01 and Anxiety F41.9 [place] [address] [address] Oct, Anxiety F41.9 [place] [id number] [place] [address] Oct, [place] [id number] [place] [address] Oct, Anxiety F41.9 [place] [id number] [place] [address] Aug, Primary insomnia F51.01 ; Anxiety F41.9 ; Essential hypertension I10 ; Coronary artery disease of [place] artery of [place] heart with stable 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 ; Gastritis determined by endoscopy K29.70 ; Primary osteoarthritis of left knee M17.12 and BMI 40.0-44.9, adult Z68.41 [place] [id number] [place] [address] Aug, Primary insomnia F51.01 and Anxiety F41.9 [place] [id number] [place] [address] Jun, Anxiety F41.9 [place] [id number] [place] [address] Jun, Anxiety F41.9 [place] [id number] [place] [address] May, [place] [id number] [place] [address] May, Primary osteoarthritis of left knee M17.12 and Anxiety F41.9 [place] [id number] [place] [address] Apr, Essential hypertension I10 [place] [address] [address] Apr, Essential hypertension I10 ; Anxiety F41.9 ; Primary insomnia F51.01 ; Primary osteoarthritis of left knee M17.12 and Gastritis determined by endoscopy K29.70 [place] [id number] [place] [address] Apr, Essential hypertension I10 [place] [address] [address] Mar, Anxiety F41.9 [place] [address] [address] Mar, Primary osteoarthritis of left knee M17.12 [place] [address] [address] Feb, [place] [address] [address] Feb, Anxiety F41.9 [place] [address] [address] Feb, [place] [address] [address] January, Mixed hyperlipidemia E78.2 [place] [id number] [place] [address] January, Anxiety F41.9 [facility] [address] [id number] Dec, Dental examination Z01.20 [place] [id number] [place] [address] Dec, Anxiety F41.9 ; Primary insomnia F51.01 and Pain in left knee M25.562 [place] [id number] [place] [address] Nov, Essential hypertension I10 ; Anxiety F41.9 ; Primary insomnia F51.01 ; Mixed hyperlipidemia E78.2 ; Pain in left knee M25.562 and Gastritis determined by endoscopy K29.70 [facility] [id number] [place] [address] 15 Oct, 2016 Anxiety F41.9 [facility] [id number] [place] [address] 09 Oct, 2016 Primary osteoarthritis of left knee M17.12 [facility] [id number] [place] [id number] Sep, Dental examination Z01.20 [facility] [id number] [place] [address] Sep, Anxiety F41.9 [facility] [address] [address] Aug, Anxiety F41.9 [facility] [id number] [place] [address] Jul, Essential hypertension I10 ; Anxiety F41.9 ; Primary insomnia F51.01 ; Mixed hyperlipidemia E78.2 ; Pain in left knee M25.562 and Gastritis determined by endoscopy K29.70 [facility] [id number] [place] [address] 16 Jul, 2016 [facility] [id number] [place] [address] Jul, [facility] [id number] [place] [address] Jun, [facility] [id number] [place] [address] Jun, [facility] [id number] [place] [address] May, [facility] [id number] [place] [address] May, Pain in left knee M25.562 [facility] [id number] [place] [address] Apr, Essential hypertension I10 ; Anxiety F41.9 ; Primary insomnia F51.01 ; Mixed hyperlipidemia E78.2 ; Pain in left knee M25.562 and Gastritis determined by endoscopy K29.70 [facility] [id number] [place] [address] Mar, [facility] [id number] [place] [address] Feb, [facility] [address] [address] Feb, [facility] [id number] [place] [id number] January, Dental caries K02.9 [facility] [address] [address] January, [facility] [address] [address] January, Bloody stools K92.1 ; Epigastric pain R10.13 ; Essential hypertension I10 ; Anxiety F41.9 and Primary insomnia F51.01 [facility] [id number] [place] [id number] Dec, Dental examination Z01.20 [facility] [id number] [place] [address] Dec, [facility] [id number] [place] [address] Nov, Acute frontal sinusitis J01.10 and Sore throat J02.9 [facility] [id number] [place] [address] Nov, [facility] [address] [address] Oct, Essential hypertension I10 ; Anxiety F41.9 and Primary insomnia F51.01 [facility] [id number] [place] [address] Sep, [facility] [address] [address] Sep, [facility] [id number] [place] [address] Sep, [facility] [id number] [place] [address] Aug, [facility] [address] [address] Aug, [facility] [id number] [place] [address] Jul, Essential hypertension I10 ; Anxiety F41.9 ; Primary insomnia F51.01 and Visual changes H53.9 [facility] [id number] [place] [address] Jul, [facility] [id number] [place] [address] Jun, [facility] [id number] [place] [address] Jun, [facility] [id number] [place] [address] May, [facility] [id number] [place] [address] 14 May, 2015 [facility] [id number] [place] [address] 04 May, 2015 Chest pain 786.50 ; Hyperlipemia 272.4 ; Hypertension 401.9 ; Anxiety 300.00 and History of tobacco use V15.82 [facility] [id number] [place] [address] May, Chest pain 786.50 and Hypertension 401.9 [facility] [id number] [place] [address] Apr, [facility] [id number] [place] [address] Apr, 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 ; Hypertension 401.9 and CAD (coronary artery disease) 414.00 [place] [id number] [place] [address] Mar, Chest pain 786.50 ; Hypertension 401.9 ; Hyperlipemia 272.4 and History of tobacco use V15.82 [place] [id number] [place] [address] Mar, 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 and Major depressive disorder, recurrent episode, moderate 296.[address] [address] Mar, [address] [id number] [place] [address] Mar, [address] [address] Mar, [id number] [place] [address] Mar, 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 and Major depressive disorder, recurrent episode, moderate 296.32 [place] [id number] [place] [address] Mar, [id number] [place] [address] Feb, [facility] [address] [place] [id number] [place] [address] Feb, 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 ; Major depressive disorder, recurrent episode, moderate 296.32 ; No condition on Varney II V71.09 ; Hypertension 401.9 ; Arthritis 716.90 and Overweight 278.02 [place] [id number] [place] [address] Feb, [facility] [address] [place] [address] Feb, [facility] [address] [address] January, Essential hypertension, benign 401.1 ; Anxiety state, unspecified 300.00 and Chest pain 786.50 [facility] [address] [facility] [id number] [address] Dec, [facility] [address] [facility] [id number] [place] [address] Dec, [facility] [address] [facility] [id number] [address] Nov, [facility] [id number] [place] [address] Nov, [facility] [address] [address] Nov, [facility] [id number] [place] [address] Nov, [facility] [address] [address] Oct, [facility] [address] [address] Oct, [facility] [address] [address] Oct, [facility] [id number] [address] Oct, [facility] [id number] [address] Sep, [facility] [id number] [address] Sep, [facility] [id number] [address] Sep, [facility] [id number] [place] [address], [place] [address] Sep, [facility] [place] [facility] [address] [id number] [place] [address] Sep, [facility] [place] [facility] [address] [id number] [place] [address] Sep, [facility] [place] [facility] [address] [facility] [id number] [place] [address] Aug, [facility] [place] [facility] [address] [id number] [place] [address] Aug, [facility] [place] [facility] [address] [id number] [place] [address] Aug, [facility] [place] [facility] [address] [id number] [place] [address] Aug, [facility] [place] [facility] [address] [id number] [place] [address] Aug, [facility] [place] [facility] [address] [id number] [place] [address] Aug, [facility] [place] [facility] [address] [id number] [place] [address] Jul, [facility] [place] [facility] [address] [facility] [id number] [place] [address] Jul, [facility] [place] [facility] [address] [id number] [place] [address] Jul, [facility] [place] [facility] [address] [id number] [place] [address] Jul, [facility] [place] [facility] [address] [id number] [place] [address] Jul, [facility] [place] [facility] [address] [id number] [place] [address] Jul, [facility] [place] [facility] [address] [facility] [id number] [place] [address] Jun, [facility] [place] [facility] [address] [address] Jun, [facility] [address] [address] Jun, [facility] [address] [facility] [id number] [place] [address] Jun, [facility] [address] [facility] [id number] [place] [address] May, [facility] [address] [facility] [id number] [place] [address] May, [facility] [id number] [place] [address] May, [facility] [address] [address] May, [facility] [address] [address] Apr, [facility] [address] [address] Apr, [facility] [address] [address] Apr, [facility] [address] [address] Apr, [facility] [id number] [address] Apr, IMMUNIZATIONS No Known Immunizations SOCIAL HISTORY Never Assessed REASON FOR VISIT Medication question PLAN OF CARE VITAL SIGNS MEDICATIONS Unknown [...]
--- OUTSIDE RECORDS SUMMARY | 2019-02-21 14:55 | XMS REPORT ---
Author Author RACHELL LU Organization [facility] Address [address] [place] [address] Care Team Providers Care Preventive Maintenance Engineer Name Role Phone ALY RACHELL Unavailable PROBLEMS Type Condition ICD9-CM Code IKI40-QY Code Onset Dates Condition Status SNOMED Code Problem Mixed hyperlipidemia E78.2 Active 535281286 Problem Gastritis determined by endoscopy K29.70 Active 8210777 Problem Pain in left knee M25.562 Active 65001050 Problem Nightmares F51.5 Active 596675374 Problem Essential (primary) hypertension I10 Active 36426610 Problem Coronary artery disease of [place] artery of [place] heart with stable 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 Active 8009677082049 Problem Primary osteoarthritis of left knee M17.12 Active 744548289 Problem Other chronic pain G89.29 Active 77640037 Problem Osteoarthritis of left knee, unspecified osteoarthritis type M17.12 Active 320593300170512 Problem Essential hypertension I10 Active 40705756 Problem Anxiety F41.9 Active 30928353 Problem Primary insomnia F51.01 Active 7579705 Problem Epigastric pain R10.13 Active 17273739 Problem Visual changes H53.9 Active 76644082 Problem Gastroesophageal reflux disease without esophagitis K21.9 Active 470693235 ALLERGIES No Information ENCOUNTERS Encounter Location Date Diagnosis [facility] [id number] [place] [address] Jul, Essential (primary) hypertension I10 and Coronary artery disease of [place] artery of [place] heart with stable 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 [facility] [id number], [place] [address] 15 May, 2018 [facility] [id number], [place] [address] 13 May, 2018 [facility] [id number] [place] [address] 10 May, 2018 Other chronic pain G89.29 [facility] [id number] [place] [address] 05 May, 2018 Dysuria R30.0 ; Acute cystitis without hematuria N30.00 ; Pneumonia of left lower lobe due to infectious organism J18.1 and Nightmares F51.5 [address] [address] [address] May, Anxiety F41.9 ; Essential (primary) hypertension I10 and Coronary artery disease of [place] artery of [place] heart with stable 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 [place] [address] [address] Apr, Anxiety F41.9 and Other chronic pain G89.29 [place] [address] [address] Apr, Essential (primary) hypertension I10 and Coronary artery disease of [place] artery of [place] heart with stable 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 [place] [address] [address] Apr, Pain in left knee M25.562 ; Other chronic pain G89.29 ; Anxiety F41.9 and Coronary artery disease of [place] artery of [place] heart with stable 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 [place] [id number] [place] [address] Apr, [place] [address] [address] Feb, Anxiety F41.9 [place] [id number] [place] [address] January, Anxiety F41.9 [place] [address] [address] Dec, Anxiety F41.9 [place] [address] [address] Dec, [facility] [id number] [place] [address] Dec, Anxiety F41.9 and Osteoarthritis of left knee, unspecified osteoarthritis type M17.12 [facility] [id number] [place] [address] Nov, Primary insomnia F51.01 and Anxiety F41.9 [place] [address] [address] Oct, Anxiety F41.9 [place] [id number] [place] [address] Oct, [place] [id number] [place] [address] Oct, Anxiety F41.9 [place] [id number] [place] [address] Aug, Primary insomnia F51.01 ; Anxiety F41.9 ; Essential hypertension I10 ; Coronary artery disease of [place] artery of [place] heart with stable 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 ; Gastritis determined by endoscopy K29.70 ; Primary osteoarthritis of left knee M17.12 and BMI 40.0-44.9, adult Z68.41 [place] [id number] [place] [address] Aug, Primary insomnia F51.01 and Anxiety F41.9 [place] [id number] [place] [address] Jun, Anxiety F41.9 [place] [id number] [place] [address] Jun, Anxiety F41.9 [place] [id number] [place] [address] May, [place] [id number] [place] [address] May, Primary osteoarthritis of left knee M17.12 and Anxiety F41.9 [facility] [id number] [place] [address] Apr, Essential hypertension I10 [facility] [address] [address] Apr, Essential hypertension I10 ; Anxiety F41.9 ; Primary insomnia F51.01 ; Primary osteoarthritis of left knee M17.12 and Gastritis determined by endoscopy K29.70 [facility] [id number] [place] [address] Apr, Essential hypertension I10 [place] [address] [address] Mar, Anxiety F41.9 [facility] [id number] [place] [address] Mar, Primary osteoarthritis of left knee M17.12 [place] [id number] [place] [address] Feb, [facility] [address] [address] Feb, Anxiety F41.9 [facility] [id number] [place] [address] Feb, [facility] [id number] [place] [address] January, Mixed hyperlipidemia E78.2 [facility] [id number] [place] [address] January, Anxiety F41.9 [facility] [id number] [place] [id number] Dec, Dental examination Z01.20 [facility] [id number] [place] [address] Dec, Anxiety F41.9 ; Primary insomnia F51.01 and Pain in left knee M25.562 [facility] [id number] [place] [address] Nov, Essential hypertension I10 ; Anxiety F41.9 ; Primary insomnia F51.01 ; Mixed hyperlipidemia E78.2 ; Pain in left knee M25.562 and Gastritis determined by endoscopy K29.70 [facility] [id number] [place] [address] 15 Oct, 2016 Anxiety F41.9 [facility] [address] [address] 09 Oct, 2016 Primary osteoarthritis of left knee M17.12 [facility] [address] [id number] Sep, Dental examination Z01.20 [facility] [id number] [place] [address] Sep, Anxiety F41.9 [place] [address] [address] Aug, Anxiety F41.9 [facility] [id number] [place] [address] Jul, Essential hypertension I10 ; Anxiety F41.9 ; Primary insomnia F51.01 ; Mixed hyperlipidemia E78.2 ; Pain in left knee M25.562 and Gastritis determined by endoscopy K29.70 [facility] [id number] [place] [address] Jul, [facility] [id number] [place] [address] Jul, [facility] [id number] [place] [address] Jun, [facility] [id number] [place] [address] Jun, [facility] [id number] [place] [address] May, [facility] [address] [address] May, Pain in left knee M25.562 [place] [address] [address] Apr, Essential hypertension I10 ; Anxiety F41.9 ; Primary insomnia F51.01 ; Mixed hyperlipidemia E78.2 ; Pain in left knee M25.562 and Gastritis determined by endoscopy K29.70 [facility] [address] [address] Mar, [place] [address] [address] Feb, [place] [address] [address] Feb, [facility] [address] [id number] January, Dental caries K02.9 [facility] [address] [address] January, [place] [address] [address] January, Bloody stools K92.1 ; Epigastric pain R10.13 ; Essential hypertension I10 ; Anxiety F41.9 and Primary insomnia F51.01 [facility] [address] [id number] Dec, Dental examination Z01.20 [facility] [id number] [place] [address] Dec, [facility] [address] [address] Nov, Acute frontal sinusitis J01.10 and Sore throat J02.9 [facility] [address] [address] Nov, [facility] [address] [address] Oct, Essential hypertension I10 ; Anxiety F41.9 and Primary insomnia F51.01 [facility] [id number] [place] [address] Sep, [facility] [id number] [place] [address] Sep, [facility] [id number] [place] [address] Sep, [facility] [id number] [place] [address] Aug, [facility] [id number] [place] [address] Aug, [facility] [id number] [place] [address] Jul, Essential hypertension I10 ; Anxiety F41.9 ; Primary insomnia F51.01 and Visual changes H53.9 [facility] [id number] [place] [address] Jul, [facility] [id number] [place] [address] Jun, [facility] [id number] [place] [address] Jun, [facility] [id number] [place] [address] May, [facility] [id number] [place] [address] 14 May, 2015 [facility] [id number] [place] [address] 04 May, 2015 Chest pain 786.50 ; Hyperlipemia 272.4 ; Hypertension 401.9 ; Anxiety 300.00 and History of tobacco use V15.82 [facility] [id number] [place] [address] May, Chest pain 786.50 and Hypertension 401.9 [facility] [id number] [place] [address] Apr, [facility] [id number] [place] [address] Apr, 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 ; Hypertension 401.9 and CAD (coronary artery disease) 414.00 [place] [id number] [place] [address] Mar, Chest pain 786.50 ; Hypertension 401.9 ; Hyperlipemia 272.4 and History of tobacco use V15.82 [place] [id number] [place] [address] Mar, 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 and Major depressive disorder, recurrent episode, moderate 296.32 [id number] [place] [address] Mar, [facility] [id number] [place] [address] Mar, [facility] [id number] [place] [address] Mar, [facility] [address] [place] [id number] [place] [address] Mar, 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 and Major depressive disorder, recurrent episode, moderate 296.32 [facility] [id number] [place] [address] Mar, [facility] [id number] [place] [address] Feb, [facility] [id number] [place] [address] Feb, 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 ; Major depressive disorder, recurrent episode, moderate 296.32 ; No condition on [place] II V71.09 ; Hypertension 401.9 ; Arthritis 716.90 and Overweight 278.02 [facility] [address], [place] [address] Feb, [facility] [id number] [place] [address] Feb, [facility] [id number] [place] [address] January, Essential hypertension, benign 401.1 ; Anxiety state, unspecified 300.00 and Chest pain 786.50 [facility] [id number] [address] Dec, [facility] [id number] [place] [address] Dec, [facility] [id number] [place] [address] Nov, [facility] [id number] [place] [address] Nov, [facility] [address], [place] [address] Nov, [facility] [id number] [place] [address] Nov, [facility] [address], [place] [address] Oct, [facility] [address], [place] [address] Oct, [facility] [address], [place] [address] Oct, [facility] [id number] [address] Oct, [facility] [address], [place] [address] Sep, [facility] [id number] [place] [address] Sep, [facility] [place] [facility] [address] [id number] [place] [address] Sep, [facility] [place] [facility] [address] [id number] [place] [address] Sep, [facility] [place] [facility] [address] [facility] [id number] [place] [address] Sep, [facility] [place] [facility] [address] [id number] [place] [address] Sep, [facility] [place] [facility] [address] [facility] [id number] [place] [address] Aug, [facility] [place] [facility] [address] [facility] [id number] [place] [address] Aug, [facility] [place] [facility] [id number] [place] [address] Aug, [facility] [place] [facility] [address] [facility] [id number] [place] [address] Aug, [facility] [place] [facility] [address] [facility] [id number] [place] [address] Aug, [facility] [place] [facility] [address] [facility] [id number] [place] [address] Aug, [facility] [place] [facility] [address] [facility] [id number] [place] [address] Jul, [facility] [place] [facility] [address] [id number], [place] [address] Jul, [facility] [place] [facility] [address] [id number] [place] [address] Jul, [facility] [place] [facility] [address] [facility] [id number] [place] [address] Jul, [facility] [place] [facility] [address] [facility] [id number] [place] [address] Jul, [facility] [place] [facility] [address] [id number], [place] [address] Jul, [facility] [address] [id number], [place] [address] Jun, [facility] [address] [id number], [place] [address] Jun, [facility] [address] [id number], [place] [address] Jun, [facility] [address] [id number], [place] [address] Jun, [facility] [address] [id number], [place] [address] May, [facility] [address] [facility] [id number], [place] [address] May, [facility] [address] [facility] [id number], [place] [address] May, [facility] [address] [facility] [id number], [place] [address] May, [facility] [address] [facility] [id number], [place] [address] Apr, [facility] [address] [facility] [id number], [place] [address] Apr, [facility] [address] [facility] [id number], [place] [address] Apr, [facility] [address] [facility] [id number], [place] [address] Apr, [facility] [address] [facility] [id number], [place] [address] Apr, IMMUNIZATIONS No Known Immunizations SOCIAL HISTORY Never Assessed REASON FOR VISIT Lab (walk-in) PLAN OF CARE Activity Details Pending Test LIPID PANEL Pending Test CMP VITAL SIGNS MEDICATIONS Unknown Medications RESULTS No Results PROCEDURES Procedure Date Ordered Result Body Site LAB NOT BILLED BY [facility] Jul 27, 2018 VENIPUNCT, ROUTINE* Jul 27, 2018 INSTRUCTIONS MEDICATIONS ADMINISTERED No Known Medications MEDICAL [...]
--- OUTSIDE RECORDS SUMMARY | 2019-02-21 14:56 | XMS REPORT ---
Author Author JESU PLUNKETT Organization 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 Active 4407466387541 Problem Primary osteoarthritis of left knee M17.12 Active 663706438 Problem Other chronic pain G89.29 Active 00304037 Problem Osteoarthritis of left knee, unspecified osteoarthritis type M17.12 Active 961940923900593 Problem Essential hypertension I10 Active 12838520 Problem Anxiety F41.9 Active 19969071 Problem Primary insomnia F51.01 Active 5601350 Problem Epigastric pain R10.13 Active 85409465 Problem Visual changes H53.9 Active 69806895 Problem Gastroesophageal reflux disease without esophagitis K21.9 Active 192115703 ALLERGIES Substance Reaction Event Type Date Status Lexapro Suicidal ideation Drug Allergy May, Active ENCOUNTERS Encounter Location Date Diagnosis [facility] [id number] [address] 15 May, 2018 [facility] [address] [address] May, [facility] [address] [address] May, Other chronic pain G89.29 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 [place] [address] [address] Apr, Anxiety F41.9 and Other chronic pain G89.29 [place] [address] [address] Apr, Essential (primary) hypertension I10 and 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[place] artery of sh[place] heart with stable 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 [place] [address] [address] Apr, Pain in left knee M25.562 ; Other chronic pain G89.29 ; Anxiety F41.9 and 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 [id number] [place] [address] Nov, Primary insomnia F51.[address] 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 ; Gastritis determined by endoscopy K29.70 ; Primary osteoarthritis of left knee M17.12 and BMI 40.0-44.9, adult Z68.41 [place] [id number] [place] [address] Aug, Primary insomnia F51.01 and Anxiety F41.9 [place] [id number] [place] [address] Jun, Anxiety F41.9 [place] [id number] [place] [address] Jun, Anxiety F41.9 [place] [id number] [place] [address] May, [place] [id number] [place] [address] May, Primary osteoarthritis of left knee M17.12 and Anxiety F41.9 [place] [id number] [place] [address] Apr, Essential hypertension I10 [place] [id number] [place] [address] Apr, Essential hypertension I10 ; Anxiety F41.9 ; Primary insomnia F51.01 ; Primary osteoarthritis of left knee M17.12 and Gastritis determined by endoscopy K29.70 [place] [id number] [place] [address] Apr, Essential hypertension I10 [place] [address] [address] Mar, Anxiety F41.9 [place] [address] [address] Mar, Primary osteoarthritis of left knee M17.12 [place] [id number] [place] [address] Feb, [place] [address] [address] Feb, Anxiety F41.9 [place] [id number] [place] [address] Feb, [place] [address] [address] January, Mixed hyperlipidemia E78.2 [place] [id number] [place] [address] January, Anxiety F41.9 [facility] [id number] [place] [id number] Dec, Dental examination Z01.20 [place] [id number] [place] [address] Dec, Anxiety F41.9 ; Primary insomnia F51.01 and Pain in left knee M25.562 [place] [id number] [place] [address] Nov, Essential hypertension I10 ; Anxiety F41.9 ; Primary insomnia F51.01 ; Mixed hyperlipidemia E78.2 ; Pain in left knee M25.562 and Gastritis determined by endoscopy K29.70 [facility] [id number] [place] [address] 15 Oct, [address] [facility] [id number] [place] [address] 09 Oct, 2016 Primary osteoarthritis of left knee M17.12 [facility] [address] [id number] Sep, Dental examination Z01.20 [facility] [address] [address] Sep, Anxiety F41.9 [place] [address] [address] Aug, Anxiety F41.9 [place] [address] [address] Jul, Essential hypertension I10 ; Anxiety F41.9 ; Primary insomnia F51.01 ; Mixed hyperlipidemia E78.2 ; Pain in left knee M25.562 and Gastritis determined by endoscopy K29.70 [facility] [id number] [place] [address] Jul, [facility] [id number] [place] [address] Jul, [facility] [id number] [place] [address] Jun, [facility] [id number] [place] [address] Jun, [facility] [address] [address] May, [facility] [id number] [place] [address] May, Pain in left knee M25.562 [facility] [address] [address] Apr, Essential hypertension I10 ; Anxiety F41.9 ; Primary insomnia F51.01 ; Mixed hyperlipidemia E78.2 ; Pain in left knee M25.562 and Gastritis determined by endoscopy K29.70 [facility] [id number] [place] [address] Mar, [facility] [id number] [place] [address] Feb, [facility] [id number] [place] [address] Feb, [facility] [address] [id number] January, Dental caries K02.9 [facility] [id number] [place] [address] January, [facility] [address] [address] January, Bloody stools K92.1 ; Epigastric pain R10.13 ; Essential hypertension I10 ; Anxiety F41.9 and Primary insomnia F51.01 [facility] [id number] [place] [id number] Dec, Dental examination Z01.20 [facility] [id number] [place] [address] Dec, [facility] [id number] [place] [address] Nov, Acute frontal sinusitis J01.10 [address] Sore throat [address].9 [facility] [address] [address] Nov, [facility] [id number] [place] [address] Oct, Essential hypertension I10 ; Anxiety F41.9 and Primary insomnia F51.01 [facility] [address] [place] [address] Sep, [facility] [id number] [place] [address] Sep, [facility] [id number] [place] [address] Sep, [facility] [id number] [place] [address] Aug, [facility] [address] [address] Aug, [facility] [address] [address] Jul, Essential hypertension I10 ; Anxiety F41.9 ; Primary insomnia F51.01 and Visual changes H53.9 [facility] [id number] [place] [address] Jul, [facility] [id number] [place] [address] Jun, [facility] [id number] [place] [address] Jun, [facility] [id number] [place] [address] May, [facility] [id number] [place] [address] 14 May, 2015 [facility] [id number] [place] [address] 04 May, 2015 Chest pain 786.50 ; Hyperlipemia 272.4 ; Hypertension 401.9 ; Anxiety 300.00 and History of tobacco use V15.82 [facility] [id number] [place] [address] May, Chest pain 786.[address] 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 [id number] [place] [address] Mar, 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 [address] [address] January, Essential hypertension, benign 401.1 ; Anxiety state, unspecified 300.[address] Chest [address] 786.50 [facility] [address] [address] Dec, [facility] [address] [facility] [id number] [address] Dec, [facility] [address] [place] [address] Nov, [facility] [address] [address] Nov, [facility] [address] [address] Nov, [facility] [address] [address] Nov, [facility] [address] [address] Oct, [facility] [address] [address] Oct, [facility] [address] [address] Oct, [facility] [address] [address] Oct, [facility] [address] [address] Sep, [facility] [address] [address] Sep, [facility] [id number] [address] Sep, [facility] [place] [facility] [address] [id number] [place] [address] Sep, [facility] [place] [facility] [address] [id number] [place] [address] Sep, [facility] [place] [facility] [address] [id number] [place] [address] Sep, [facility] [place] [facility] [address] [id number] [place] [address] Aug, [facility] [place] [facility] [address] [id number] [place] [address] Aug, [facility] [place] [facility] [address] [id number] [place] [address] Aug, [facility] [place] [facility] [address] [id number] [place] [address] Aug, [facility] [place] [facility] [address] [id number] [place] [address] Aug, [facility] [place] [facility] [address] [id number] [place] [address] Aug, [facility] [place] [facility] [address] [id number] [place] [address] Jul, [facility] [place] [facility] [address] [id number] [place] [address] Jul, [facility] [place] [facility] [address] [id number] [address] Jul, [facility] [place] [facility] [address] [id number] [place] [address] Jul, [facility] [place] [facility] [address] [id number] [place] [address] Jul, [facility] [place] [facility] [address] [id number] [place] [address] Jul, [facility] [place] [facility] [address] [id number] [address] Jun, [facility] [id number] [address] Jun, [facility] [address] [facility] [id number] [address] Jun, [facility] [address] [facility] [id number] [address] Jun, [facility] [address] [facility] [id number] [address] May, [facility] [address] [facility] [id number] [address] May, [facility] [id number] [address] May, [facility] [address] [address] May, [facility] [address] [address] Apr, [facility] [address] [address] Apr, [facility] [id number] [address] Apr, [facility] [id number] [address] Apr, [facility] [id number] [address] Apr, IMMUNIZATIONS No Known Immunizations SOCIAL HISTORY Never Assessed REASON FOR VISIT UTI symptoms, PT reports he was in the [facility] ER due to urinary tract infection and pneumonia. PT notes pain all around his stomach.-Prudencio MUÑOZ PLAN OF CARE VITAL SIGNS Height 67 in 2018-05-31 Weight 230.5 lbs 2018-05-31 Temperature 98.0 degrees Fahrenheit 2018-05-31 Heart Rate 87 bpm 2018-05-31 Respiratory Rate 20 2018-05-31 Oximetry 96 % 2018-05-31 BMI 36.10 kg/m2 2018-05-31 Blood pressure systolic 118 mmHg 2018-05-31 Blood pressure diastolic 70 mmHg 2018-05-31 MEDICATIONS Medication Instructions Dosage Frequency Start Date End Date Duration Status Cefuroxime Axetil 500 MG Orally 2 times a day 1 tablet 12h Active Prazosin HCl 1 MG Orally Once a day 1 capsule at bedtime 24h May, 30 day(s) Active lipitor 1 tab Active losartan 50 mg orally 2 times a day 1 tablet 12h Active Xanax 0.5 MG Orally Three times a day prn 1 tablet 28 days Active Tramadol HCl 50 MG Orally 2 times a day 1 tablet as needed 12h Apr, 28 days Active Pantoprazole Sodium 40 MG TAKE ONE TABLET BY MOUTH ONCE DAILY 30 Active Norvasc 10 mg Orally Once a day 1 tablet 24h 90 days Active Losartan Potassium 50 MG TAKE ONE TABLET BY MOUTH TWICE DAILY 90 Active Benadryl Active Nitrostat 0.4 MG 1 tablet by Sublingual route 3 times per day PRN chest pain; Apr, Active RESULTS Name Result Date Reference Range UA LONG DIP (IN HOUSE) 2018-05-31 Lot # [id number] Exp date 12/2018 Clarity clear Color yellow Odor none GLU negative RAFAEL negative KET negative SG 1.015 BLO negative pH 6.0 Protein negative URO 0.2 NIT negative JC negative Lot # Exp date PROCEDURES Procedure Date Ordered Result Body Site URINALYSIS, AUTO, W/O SCOPE May 31, 2018 [facility] VISIT ESTABLISHED PATIENT May 31, 2018 INSTRUCTIONS MEDICATIONS ADMINISTERED No Known Medications [...]
--- OUTSIDE RECORDS SUMMARY | 2019-02-21 14:56 | XMS REPORT ---
Author Author JESU PLUNKETT Organization [facility] Address [address] [place] [address] Care Team Providers Care Events Manager Name Role Phone JESU PLUNKETT Unavailable PROBLEMS Type Condition ICD9-CM Code HTT92-ZC Code Onset Dates Condition Status SNOMED Code Problem Mixed hyperlipidemia E78.2 Active 841344951 Problem Gastritis determined by endoscopy K29.70 Active 6748464 Problem Pain in left knee M25.562 Active 59820562 Problem Nightmares F51.5 Active 460186342 Problem Essential (primary) hypertension I10 Active 76853422 Problem Coronary artery disease of [place] artery of [place] heart with stable 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 Active 3376190072093 Problem Primary osteoarthritis of left knee M17.12 Active 684537584 Problem Other chronic pain G89.29 Active 22088809 Problem Osteoarthritis of left knee, unspecified osteoarthritis type M17.12 Active 780823477829936 Problem Essential hypertension I10 Active 85928067 Problem Anxiety F41.9 Active 27139068 Problem Primary insomnia F51.01 Active 7045538 Problem Epigastric pain R10.13 Active 07032290 Problem Visual changes H53.9 Active 00191823 Problem Gastroesophageal reflux disease without esophagitis K21.9 Active 054127422 ALLERGIES No Information ENCOUNTERS Encounter Location Date Diagnosis [facility] [id number] [place] [address] 15 May, 2018 [facility] [address] [address] 13 May, 2018 [facility] [id number] [place] [address] 10 May, 2018 Other chronic pain G89.29 [facility] [id number] [place] [address] 05 May, 2018 Dysuria R30.0 ; Acute cystitis without hematuria N30.00 ; Pneumonia of left lower lobe due to infectious organism J18.1 and Nightmares F51.5 [facility] [id number] [place] [address] May, Anxiety F41.9 ; Essential (primary) hypertension I10 and Coronary artery disease of [place] artery of [place] heart with stable 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 [id number] [place] [address] Apr, Anxiety F41.9 and Other chronic pain G89.29 [facility] [id number] [place] [address] Apr, Essential (primary) hypertension I10 and Coronary artery disease of [place] artery of [place] heart with stable 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 [address] [id number] [place] [address] Apr, Pain in left knee M25.562 ; Other chronic pain G89.29 ; Anxiety F41.9 and Coronary artery disease of [place] artery of [place] heart with stable 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 [facility] [id number] [place] [address] Apr, [place] [id number] [place] [address] Feb, Anxiety F41.9 [place] [id number] [place] [address] January, Anxiety F41.9 [facility] [id number] [place] [address] Dec, Anxiety F41.9 [place] [id number] [place] [address] Dec, [facility] [id number] [place] [address] Dec, Anxiety F41.9 and Osteoarthritis of left knee, unspecified osteoarthritis type M17.12 [place] [id number] [place] [address] Nov, Primary insomnia F51.01 and Anxiety F41.9 [place] [address] [address] Oct, Anxiety F41.9 [place] [id number] [place] [address] Oct, [place] [id number] [place] [address] Oct, Anxiety F41.9 [place] [id number] [place] [address] Aug, Primary insomnia F51.01 ; Anxiety F41.9 ; Essential hypertension I10 ; Coronary artery disease of [place] artery of [place] heart with stable 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 ; Gastritis determined by endoscopy K29.70 ; Primary osteoarthritis of left knee M17.12 and BMI 40.0-44.9, adult Z68.41 [place] [id number] [place] [address] Aug, Primary insomnia F51.01 and Anxiety F41.9 [place] [id number] [place] [address] Jun, Anxiety F41.9 [place] [id number] [place] [address] Jun, Anxiety F41.9 [place] [id number] [place] [address] May, [place] [id number] [place] [address] May, Primary osteoarthritis of left knee M17.12 and Anxiety F41.9 [place] [id number] [place] [address] Apr, Essential hypertension I10 [place] [address] [address] Apr, Essential hypertension I10 ; Anxiety F41.9 ; Primary insomnia F51.01 ; Primary osteoarthritis of left knee M17.12 and Gastritis determined by endoscopy K29.70 [place] [id number] [place] [address] Apr, Essential hypertension I10 [place] [address] [address] Mar, Anxiety F41.9 [place] [address] [address] Mar, Primary osteoarthritis of left knee M17.12 [place] [address] [address] Feb, [place] [address] [address] Feb, Anxiety F41.9 [place] [address] [address] Feb, [place] [address] [address] January, Mixed hyperlipidemia E78.2 [place] [id number] [place] [address] January, Anxiety F41.9 [facility] [address] [id number] Dec, Dental examination Z01.20 [place] [id number] [place] [address] Dec, Anxiety F41.9 ; Primary insomnia F51.01 and Pain in left knee M25.562 [place] [id number] [place] [address] Nov, Essential hypertension I10 ; Anxiety F41.9 ; Primary insomnia F51.01 ; Mixed hyperlipidemia E78.2 ; Pain in left knee M25.562 and Gastritis determined by endoscopy K29.70 [facility] [id number] [place] [address] 15 Oct, 2016 Anxiety F41.9 [facility] [id number] [place] [address] 09 Oct, 2016 Primary osteoarthritis of left knee M17.12 [facility] [id number] [place] [id number] Sep, Dental examination Z01.20 [facility] [id number] [place] [address] Sep, Anxiety F41.9 [facility] [address] [address] Aug, Anxiety F41.9 [facility] [id number] [place] [address] Jul, Essential hypertension I10 ; Anxiety F41.9 ; Primary insomnia F51.01 ; Mixed hyperlipidemia E78.2 ; Pain in left knee M25.562 and Gastritis determined by endoscopy K29.70 [facility] [id number] [place] [address] 16 Jul, 2016 [facility] [id number] [place] [address] Jul, [facility] [id number] [place] [address] Jun, [facility] [id number] [place] [address] Jun, [facility] [id number] [place] [address] May, [facility] [id number] [place] [address] May, Pain in left knee M25.562 [facility] [id number] [place] [address] Apr, Essential hypertension I10 ; Anxiety F41.9 ; Primary insomnia F51.01 ; Mixed hyperlipidemia E78.2 ; Pain in left knee M25.562 and Gastritis determined by endoscopy K29.70 [facility] [id number] [place] [address] Mar, [facility] [id number] [place] [address] Feb, [facility] [address] [address] Feb, [facility] [id number] [place] [id number] January, Dental caries K02.9 [facility] [address] [address] January, [facility] [address] [address] January, Bloody stools K92.1 ; Epigastric pain R10.13 ; Essential hypertension I10 ; Anxiety F41.9 and Primary insomnia F51.01 [facility] [id number] [place] [id number] Dec, Dental examination Z01.20 [facility] [id number] [place] [address] Dec, [facility] [id number] [place] [address] Nov, Acute frontal sinusitis J01.10 and Sore throat J02.9 [facility] [id number] [place] [address] Nov, [facility] [address] [address] Oct, Essential hypertension I10 ; Anxiety F41.9 and Primary insomnia F51.01 [facility] [id number] [place] [address] Sep, [facility] [address] [address] Sep, [facility] [id number] [place] [address] Sep, [facility] [id number] [place] [address] Aug, [facility] [address] [address] Aug, [facility] [id number] [place] [address] Jul, Essential hypertension I10 ; Anxiety F41.9 ; Primary insomnia F51.01 and Visual changes H53.9 [facility] [id number] [place] [address] Jul, [facility] [id number] [place] [address] Jun, [facility] [id number] [place] [address] Jun, [facility] [id number] [place] [address] May, [facility] [address] [place] [address] 14 May, 2015 [facility] [id number] [place] [address] 04 May, 2015 Chest pain 786.50 ; Hyperlipemia 272.4 ; Hypertension 401.9 ; Anxiety 300.00 and History of tobacco use V15.82 [facility] [id number] [place] [address] May, Chest pain 786.50 and Hypertension 401.9 [facility] [address] [place] [address] Apr, [facility] [id number] [place] [address] Apr, 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 ; Hypertension 401.9 and CAD (coronary artery disease) 414[id number] [place] [address] Mar, Chest pain 786.50 ; Hypertension 401.9 ; Hyperlipemia 272.4 and History of tobacco use V15.82 [address] [id number] [place] [address] Mar, 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 and Major depressive disorder, recurrent episode, moderate 296.[address] [address] Mar, [id number] [place] [address] Mar, [address] [address] Mar, [id number] [place] [address] Mar, 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 and Major depressive disorder, recurrent episode, moderate 296.32 [id number] [place] [address] Mar, [id number] [place] [address] Feb, [facility] [address] [place] [id number] [place] [address] Feb, 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 [address] [address] January, Essential hypertension, benign 401.1 ; Anxiety state, unspecified 300.00 and Chest pain 786.50 [facility] [address] [facility] [id number] [address] Dec, [facility] [address] [facility] [id number] [place] [address] Dec, [facility] [address] [facility] [id number] [address] Nov, [facility] [address] [place] [address] Nov, [facility] [address] [address] Nov, [facility] [id number] [place] [address] Nov, [facility] [address] [address] Oct, [facility] [address] [address] Oct, [facility] [address] [address] Oct, [facility] [id number] [address] Oct, [facility] [id number] [address] Sep, [facility] [id number] [address] Sep, [facility] [id number] [address] Sep, [facility] [address] [place] [address], [place] [address] Sep, [facility] [place] [facility] [address] [id number] [place] [address] Sep, [facility] [place] [facility] [address] [id number] [place] [address] Sep, [facility] [place] [facility] [address] [facility] [id number] [place] [address] Aug, [facility] [place] [facility] [address] [id number] [place] [address] Aug, [facility] [place] [facility] [address] [id number] [place] [address] Aug, [facility] [place] [facility] [address] [id number] [place] [address] Aug, [facility] [place] [facility] [address] [id number] [place] [address] Aug, [facility] [place] [facility] [address] [id number] [place] [address] Aug, [facility] [place] [facility] [address] [id number] [place] [address] Jul, [facility] [place] [facility] [address] [facility] [id number] [place] [address] Jul, [facility] [place] [facility] [address] [id number] [place] [address] Jul, [facility] [place] [facility] [address] [id number] [place] [address] Jul, [facility] [place] [facility] [address] [id number] [place] [address] Jul, [facility] [place] [facility] [address] [id number] [place] [address] Jul, [facility] [place] [facility] [address] [facility] [id number] [place] [address] Jun, [facility] [place] [facility] [address] [facility] [id number][place] [address] Jun, [facility] [address] [facility] [id number][place] [address] Jun, [facility] [address] [facility] [id number][place] [address] Jun, [facility] [address] [facility] [id number][place] [address] May, [facility] [address] [facility] [id number][place] [address] May, [facility] [address] [facility] [id number][place] [address] May, [facility] [address] [address] May, [facility] [address] [address] Apr, [facility] [address] [address] Apr, [facility] [address] [address] Apr, [facility] [id number] [address] Apr, [facility] [id number] [address] Apr, IMMUNIZATIONS No Known Immunizations SOCIAL HISTORY Never Assessed REASON FOR VISIT Lab results PLAN OF CARE VITAL SIGNS MEDICATIONS Unknown [...]
[2019-02-21] MEDS ORDERED: ASPIRIN 81 MG CHEW (CHILDREN'S ASA) ONE (14:57)
--- OUTSIDE RECORDS SUMMARY | 2019-02-21 14:57 | XMS REPORT ---
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 Active 5659280711348 Problem Primary osteoarthritis of left knee M17.12 Active 557332718 Problem Other chronic pain G89.29 Active 85485838 Problem Osteoarthritis of left knee, unspecified osteoarthritis type M17.12 Active [id number] Problem Essential hypertension I10 Active 09240087 Problem Anxiety F41.9 Active 71473478 Problem Primary insomnia F51.01 Active 7080262 Problem Epigastric pain R10.13 Active 91637625 Problem Visual changes H53.9 Active 09264812 Problem Gastroesophageal reflux disease without esophagitis K21.9 Active 255211826 ALLERGIES Substance Reaction Event Type Date Status Lexapro Suicidal ideation Drug Allergy Apr, Active ENCOUNTERS Encounter Location Date Diagnosis [facility] [id number] [address] 15 May, 2018 [facility] [address] [address] 13 May, 2018 [facility] [address] [address] 10 May, 2018 [facility] [id number] [address] 05 May, 2018 Dysuria R30.0 ; Acute cystitis without hematuria N30.00 ; Pneumonia of left lower lobe due to infectious organism J18.1 and Nightmares F51.5 [facility] [address] [address] May, Anxiety F41.9 ; Essential (primary) hypertension I10 and 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 [address] [address] Apr, Anxiety F41.9 and Other chronic pain G89.29 [address] [address] [address] Apr, Essential (primary) hypertension I10 and 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 [address] [address] [address] Apr, Pain in left knee M25.562 ; Other chronic pain G89.29 ; Anxiety F41.9 and 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 [place] [address] [address] Apr, [facility] [address] [address] Feb, Anxiety F41.9 [address] [address] [address] [address] January, Anxiety F41.9 [place] [address] [address] Dec, Anxiety F41.9 [facility] [address] [address] Dec, [facility] [address] [address] Dec, Anxiety F41.9 and Osteoarthritis of left knee, unspecified osteoarthritis type M17.12 [facility] [address] [place] [address] Nov, Primary insomnia F51.01 and Anxiety F41.9 [facility] [id number] [place] [address] Oct, Anxiety F41.9 [facility] [id number] [place] [address] Oct, [facility] [id number] [place] [address] Oct, Anxiety F41.9 [place] [id number] [place] [address] Aug, Primary insomnia F51.01 ; Anxiety F41.9 ; Essential hypertension I10 ; 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 ; Gastritis determined by endoscopy K29.70 ; Primary osteoarthritis of left knee M17.12 and BMI 40.0-44.9, adult Z68.41 [place] [id number] [place] [address] Aug, Primary insomnia F51.01 and Anxiety F41.9 [place] [id number] [place] [address] Jun, Anxiety F41.9 [place] [id number] [place] [address] Jun, Anxiety F41.9 [facility] [id number] [place] [address] May, [place] [id number] [place] [address] May, Primary osteoarthritis of left knee M17.12 and Anxiety F41.9 [facility] [id number] [place] [address] Apr, Essential hypertension I10 [address] [address] [place] [address] Apr, Essential hypertension I10 ; Anxiety F41.9 ; Primary insomnia F51.01 ; Primary osteoarthritis of left knee M17.12 and Gastritis determined by endoscopy K29.70 [facility] [id number] [place] [address] Apr, Essential hypertension I10 [place] [address] [address] Mar, Anxiety F41.9 [place] [address] [address] Mar, Primary osteoarthritis of left knee M17.12 [place] [id number] [place] [address] Feb, [place] [id number] [place] [address] Feb, Anxiety F41.9 [address] [address] [address] Feb, [place] [address] [address] January, Mixed hyperlipidemia E78.2 [place] [id number] [place] [address] January, Anxiety F41.9 [facility] [address] [id number] Dec, Dental examination Z01.20 [place] [id number] [place] [address] Dec, Anxiety F41.9 ; Primary insomnia F51.01 and Pain in left knee M25.562 [facility] [id number] [place] [address] Nov, Essential hypertension I10 ; Anxiety F41.9 ; Primary insomnia F51.01 ; Mixed hyperlipidemia E78.2 ; Pain in left knee M25.562 and Gastritis determined by endoscopy K29.70 [facility] [id number] [place] [address] 15 Oct, 2016 Anxiety F41.9 [facility] [id number] [place] [address] 09 Oct, 2016 Primary osteoarthritis of left knee M17.12 [facility] [id number] [place] [id number] Sep, Dental examination Z01.20 [facility] [id number] [place] [address] Sep, Anxiety F41.9 [place] [address] [address] Aug, Anxiety F41.9 [place] [id number] [place] [address] Jul, Essential hypertension I10 ; Anxiety F41.9 ; Primary insomnia F51.01 ; Mixed hyperlipidemia E78.2 ; Pain in left knee M25.562 and Gastritis determined by endoscopy K29.70 [facility] [id number] [place] [address] Jul, [facility] [id number] [place] [address] Jul, [facility] [id number] [place] [address] Jun, [facility] [id number] [place] [address] Jun, [facility] [id number] [place] [address] May, [facility] [id number] [place] [address] May, Pain in left knee M25.562 [facility] [id number] [place] [address] Apr, Essential hypertension I10 ; Anxiety F41.9 ; Primary insomnia F51.01 ; Mixed hyperlipidemia E78.2 ; Pain in left knee M25.562 and Gastritis determined by endoscopy K29.70 [facility] [id number] [place] [address] Mar, [facility] [address] [address] Feb, [facility] [address] [address] Feb, [facility] [address] [id number] January, Dental caries K02.9 [facility] [address] [address] January, [facility] [address] [address] January, Bloody stools K92.1 ; Epigastric pain R10.13 ; Essential hypertension I10 ; Anxiety F41.9 and Primary insomnia F51.01 [facility] [address] [id number] Dec, Dental examination Z01.20 [facility] [id number] [place] [address] Dec, [facility] [id number] [place] [address] Nov, Acute frontal sinusitis J01.10 and Sore throat J02.9 [facility] [address] [address] Nov, [facility] [address] [address] Oct, Essential hypertension I10 ; Anxiety F41.9 and Primary insomnia F51.01 [facility] [address] [address] Sep, [facility] [address] [address] Sep, [facility] [id number] [place] [address] Sep, [facility] [id number] [place] [address] Aug, [facility] [id number] [place] [address] Aug, [facility] [id number] [place] [address] Jul, Essential hypertension I10 ; Anxiety F41.9 ; Primary insomnia F51.01 and Visual changes H53.9 [facility] [id number] [place] [address] Jul, [facility] [id number] [place] [address] Jun, [facility] [id number] [place] [address] Jun, [facility] [id number] [place] [address] May, [facility] [address] [address] 14 May, 2015 [facility] [id number] [place] [address] 04 May, 2015 Chest pain 786.50 ; Hyperlipemia 272.4 ; Hypertension 401.9 ; Anxiety 300.00 and History of tobacco use V15.82 [facility] [id number] [place] [address] May, Chest pain 786.50 and Hypertension 401.9 [facility] [address] [place] [address] Apr, [facility] [id number] [place] [address] Apr, 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 ; Hypertension 401.9 and CAD (coronary artery disease) 414.00 [id number] [place] [address] Mar, Chest pain 786.50 ; Hypertension 401.9 ; Hyperlipemia 272.4 and History of tobacco use V15.82 [place] [id number] [place] [address] Mar, 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 and Major depressive disorder, recurrent episode, moderate 296.32 [id number] [place] [address] Mar, [address] [id number] [place] [address] Mar, [place] [id number] [place] [address] Mar, [facility] [id number] [place] [address] Mar, 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 and Major depressive disorder, recurrent episode, moderate 296.32 [address] [id number] [place] [address] Mar, [facility] [id number] [place] [address] Feb, [facility] [id number] [place] [address] Feb, 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 [address] [address] January, Essential hypertension, benign 401.1 ; Anxiety state, unspecified 300.00 and Chest pain 786.50 [facility] [address] [address] Dec, [facility] [address] [facility] [id number] [address] Dec, [facility] [address] [address] Nov, [facility] [address] [address] Nov, [facility] [address] [address] Nov, [facility] [address] [address] Nov, [facility] [address], [place] [address] Oct, [facility] [address], [place] [address] Oct, [facility] [address], [place] [address] Oct, [facility] [address], [place] [address] Oct, [facility] [address], [place] [address] Sep, [facility] [address] [address] Sep, [facility] [id number] [address] Sep, [facility] [place] [facility] [address] [id number] [place] [address] Sep, [facility] [place] [facility] [address] [id number] [place] [address] Sep, [facility] [place] [facility] [address] [id number] [place] [address] Sep, [facility] [place] [facility] [address] [id number] [place] [address] Aug, [facility] [place] [facility] [address] [id number] [place] [address] Aug, [facility] [place] [facility] [address] [id number] [place] [address] Aug, [facility] [place] [facility] [address] [id number] [place] [address] Aug, [facility] [place] [facility] [address] [id number] [place] [address] Aug, [facility] [place] [facility] [address] [id number] [place] [address] Aug, [facility] [place] [facility] [address] [id number] [place] [address] Jul, [facility] [place] [facility] [address] [id number] [place] [address] Jul, [facility] [place] [facility] [address] [id number] [place] [address] Jul, [facility] [place] [facility] [address] [id number] [place] [address] Jul, [facility] [place] [facility] [address] [id number] [place] [address] Jul, [facility] [place] [facility] [address] [id number] [place] [address] Jul, [facility] [place] [facility] [address] [id number] [place] [address] Jun, [facility] [id number] [address] Jun, [facility] [address] [facility] [id number] [address] Jun, [facility] [address] [address] Jun, [facility] [address] [facility] [id number] [address] May, [facility] [address] [facility] [id number] [address] May, [facility] [id number] [place] [address] May, [facility] [address] [address] May, [facility] [address] [address] Apr, [facility] [address] [address] Apr, [facility] [address] [address] Apr, [facility] [address] [address] Apr, [facility] [address], [place] [address] Apr, IMMUNIZATIONS No Known Immunizations SOCIAL HISTORY Never Assessed REASON FOR VISIT Controlled Med Refill PLAN OF CARE VITAL SIGNS MEDICATIONS Medication Instructions Dosage Frequency Start Date End Date Duration Status Xanax 0.5 MG Orally Three times a day prn 1 tablet 28 days Active Tramadol HCl 50 MG Orally 2 times a day 1 tablet as needed 12h Apr, 28 days Active RESULTS No Results PROCEDURES No [...]
--- OUTSIDE RECORDS SUMMARY | 2019-02-21 14:57 | XMS REPORT ---
Author Author JESU PLUNKETT Organization [facility] Address [address] [place] [address] Care Team Providers Care Rn Integrated Name Role Phone JESU PLUNKETT Unavailable PROBLEMS Type Condition ICD9-CM Code MRE62-JW Code Onset Dates Condition Status SNOMED Code Problem Mixed hyperlipidemia E78.2 Active 715740522 Problem Gastritis determined by endoscopy K29.70 Active 7000575 Problem Pain in left knee M25.562 Active 04202745 Problem Nightmares F51.5 Active 906057160 Problem Essential (primary) hypertension I10 Active 66537656 Problem Coronary artery disease of [place] artery of [place] heart with stable 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 Active 6594773543342 Problem Primary osteoarthritis of left knee M17.12 Active 217680179 Problem Other chronic pain G89.29 Active 76602760 Problem Osteoarthritis of left knee, unspecified osteoarthritis type M17.12 Active 559075442974298 Problem Essential hypertension I10 Active 81268975 Problem Anxiety F41.9 Active 08404289 Problem Primary insomnia F51.01 Active 2325237 Problem Epigastric pain R10.13 Active 99123835 Problem Visual changes H53.9 Active 71806319 Problem Gastroesophageal reflux disease without esophagitis K21.9 Active 283075088 ALLERGIES No Information ENCOUNTERS Encounter Location Date Diagnosis [facility] [id number] [address] 15 May, 2018 [facility] [address] [address] 13 May, 2018 [facility] [address] [place] [address] 10 May, 2018 [facility] [id number] [address] 05 May, 2018 Dysuria R30.0 ; Acute cystitis without hematuria N30.00 ; Pneumonia of left lower lobe due to infectious organism J18.1 and Nightmares F51.5 [address] [address] [id number] [place] [address] May, Anxiety F41.9 ; Essential (primary) hypertension I10 and Coronary artery disease of [place] artery of [place] heart with stable 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 [place] [id number] [place] [address] Apr, Anxiety F41.9 and Other chronic pain G89.29 [place] [address] [address] Apr, Essential (primary) hypertension I10 and Coronary artery disease of [place] artery of [place] heart with stable 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 [place] [id number] [place] [address] Apr, Pain in left knee M25.562 ; Other chronic pain G89.29 ; Anxiety F41.9 and Coronary artery disease of [place] artery of [place] heart with stable 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 [place] [id number] [place] [address] Apr, [place] [address] [address] Feb, Anxiety F41.9 [place] [id number] [place] [address] January, Anxiety F41.9 [place] [id number] [place] [address] Dec, Anxiety F41.9 [place] [id number] [place] [address] Dec, [place] [address] [address] Dec, Anxiety F41.9 and Osteoarthritis of left knee, unspecified osteoarthritis type M17.12 [address] [address] [address] Nov, Primary insomnia F51.01 and Anxiety F41.9 [facility] [id number] [place] [address] Oct, Anxiety F41.9 [facility] [id number] [place] [address] Oct, [facility] [id number] [place] [address] Oct, Anxiety F41.9 [place] [id number] [place] [address] Aug, Primary insomnia F51.01 ; Anxiety F41.9 ; Essential hypertension I10 ; Coronary artery disease of [place] artery of [place] heart with stable 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 ; Gastritis determined by endoscopy K29.70 ; Primary osteoarthritis of left knee M17.12 and BMI 40.0-44.9, adult Z68.41 [place] [id number] [place] [address] Aug, Primary insomnia F51.01 and Anxiety F41.9 [place] [id number] [place] [address] Jun, Anxiety F41.9 [place] [id number] [place] [address] Jun, Anxiety F41.9 [place] [id number] [place] [address] May, [facility] [id number] [place] [address] May, Primary osteoarthritis of left knee M17.12 and Anxiety F41.9 [facility] [id number] [place] [address] Apr, Essential hypertension I10 [place] [id number] [place] [address] Apr, Essential hypertension I10 ; Anxiety F41.9 ; Primary insomnia F51.01 ; Primary osteoarthritis of left knee M17.12 and Gastritis determined by endoscopy K29.70 [place] [id number] [place] [address] Apr, Essential hypertension I10 [place] [id number] [place] [address] Mar, Anxiety F41.9 [place] [address] [address] Mar, Primary osteoarthritis of left knee M17.12 [address] [address] [address] Feb, [place] [id number] [place] [address] Feb, Anxiety F41.9 [place] [id number] [place] [address] Feb, [place] [id number] [place] [address] January, Mixed hyperlipidemia E78.2 [place] [id number] [place] [address] January, Anxiety F41.9 [facility] [address] [place] [id number] Dec, Dental examination Z01.20 [place] [id number] [place] [address] Dec, Anxiety F41.9 ; Primary insomnia F51.01 and Pain in left knee M25.562 [place] [id number] [place] [address] Nov, Essential hypertension I10 ; Anxiety F41.9 ; Primary insomnia F51.01 ; Mixed hyperlipidemia E78.2 ; Pain in left knee M25.562 and Gastritis determined by endoscopy K29.70 [place] [id number] [place] [address] 15 Oct, 2016 Anxiety F41.9 [facility] [id number] [place] [address] 09 Oct, 2016 Primary osteoarthritis of left knee M17.12 [facility] [address] [place] [id number] Sep, Dental examination Z01.20 [facility] [id number] [place] [address] Sep, Anxiety F41.9 [facility] [id number] [place] [address] Aug, Anxiety F41.9 [facility] [id number] [place] [address] Jul, Essential hypertension I10 ; Anxiety F41.9 ; Primary insomnia F51.01 ; Mixed hyperlipidemia E78.2 ; Pain in left knee M25.562 and Gastritis determined by endoscopy K29.70 [facility] [id number] [place] [address] Jul, [facility] [id number] [place] [address] Jul, [facility] [id number] [place] [address] Jun, [facility] [id number] [place] [address] Jun, [facility] [id number] [place] [address] May, [facility] [id number] [place] [address] May, Pain in left knee M25.562 [facility] [address] [place] [address] Apr, Essential hypertension I10 ; Anxiety F41.9 ; Primary insomnia F51.01 ; Mixed hyperlipidemia E78.2 ; Pain in left knee M25.562 and Gastritis determined by endoscopy K29.70 [facility] [id number] [place] [address] Mar, [facility] [id number] [place] [address] Feb, [facility] [address] [address] Feb, [facility] [id number] [place] [phone] January, Dental caries K02.9 [facility] [address] [address] January, [facility] [id number] [place] [address] January, Bloody stools K92.1 ; Epigastric pain R10.13 ; Essential hypertension I10 ; Anxiety F41.9 and Primary insomnia F51.01 [facility] [id number] [place] [id number] Dec, Dental examination Z01.20 [facility] [id number] [place] [address] Dec, [facility] [id number] [place] [address] Nov, Acute frontal sinusitis J01.10 and Sore throat J02.9 [facility] [id number] [place] [address] Nov, [facility] [address] [address] Oct, Essential hypertension I10 ; Anxiety F41.9 and Primary insomnia F51.01 [facility] [id number] [place] [address] Sep, [facility] [address] [address] Sep, [facility] [id number] [place] [address] Sep, [facility] [id number] [place] [address] Aug, [facility] [id number] [place] [address] Aug, [facility] [id number] [place] [address] Jul, Essential hypertension I10 ; Anxiety F41.9 ; Primary insomnia F51.01 and Visual changes H53.9 [facility] [id number] [place] [address] Jul, [facility] [id number] [place] [address] Jun, [facility] [id number] [place] [address] Jun, [facility] [id number] [place] [address] 25 May, 2015 [facility] [address] [place] [address] 14 May, 2015 [facility] [id number] [place] [address] 04 May, 2015 Chest pain 786.50 ; Hyperlipemia 272.4 ; Hypertension 401.9 ; Anxiety 300.00 and History of tobacco use V15.82 [facility] [address] [place] [address] May, Chest pain 786.50 and Hypertension 401.9 [facility] [address] [place] [address] Apr, [facility] [id number] [place] [address] Apr, 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 ; Hypertension 401.9 and CAD (coronary artery disease) 414.00 [id number] [place] [address] Mar, Chest pain 786.50 ; Hypertension 401.9 ; Hyperlipemia 272.4 and History of tobacco use V15.[address] [address] Mar, 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 and Major depressive disorder, recurrent episode, moderate 296.[address] [address] Mar, [place] [id number] [place] [address] Mar, [address] [address] Mar, [address] [address] Mar, 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 and Major depressive disorder, recurrent episode, moderate 296.32 [id number] [place] [address] Mar, [place] [id number] [place] [address] Feb, [place] [id number] [place] [address] Feb, 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 ; Major depressive disorder, recurrent episode, moderate 296.32 ; No condition on [place] II V71.09 ; Hypertension 401.9 ; Arthritis 716.90 and Overweight 278.02 [place] [id number] [place] [address] Feb, [facility] [address] [place] [id number] [place] [address] Feb, [facility] [address] [address] January, Essential hypertension, benign 401.1 ; Anxiety state, unspecified 300.00 and Chest pain 786.50 [facility] [address] [place] [address] Dec, [facility] [address] [place] [address] Dec, [facility] [address] [facility] [id number] [place] [address] Nov, [facility] [id number] [place] [address] Nov, [facility] [address] [address] Nov, [facility] [address] [place] [address] Nov, [facility] [address] [address] Oct, [facility] [address] [address] Oct, [facility] [address] [address] Oct, [facility] [address] [address] Oct, [facility] [id number] [address] Sep, [facility] [address] [address] Sep, [facility] [id number] [address] Sep, [facility] [address] [address] Sep, [facility] [place] [facility] [address] [id number] [place] [address] Sep, [facility] [place] [facility] [address] [id number] [place] [address] Sep, [facility] [place] [facility] [address] [facility] [id number] [place] [address] Aug, [facility] [place] [facility] [address] [id number] [place] [address] Aug, [facility] [place] [facility] [address] [id number] [place] [address] Aug, [facility] [place] [facility] [address] [id number] [place] [address] Aug, [facility] [place] [facility] [address] [id number] [place] [address] Aug, [facility] [place] [facility] [address] [id number] [place] [address] Aug, [facility] [place] [facility] [address] [id number] [place] [address] Jul, [facility] [place] [facility] [address] [id number] [place] [address] Jul, [facility] [place] [facility] [address] [id number] [place] [address] Jul, [facility] [place] [facility] [address] [id number] [place] [address] Jul, [facility] [place] [facility] [address] [id number] [place] [address] Jul, [facility] [place] [facility] [address] [id number] [place] [address] Jul, [facility] [place] [facility] [address] [id number] [place] [address] Jun, [facility] [place] [facility] [address] [address] Jun, [facility] [address] [address] Jun, [facility] [address] [address] Jun, [facility] [address] [address] May, [facility] [address] [address] May, [facility] [address] [place] [address] May, [facility] [address] [address] May, [facility] [address] [address] Apr, [facility] [address] [address] Apr, [facility] [address] [address] Apr, [facility] [address] [address] Apr, [facility] [id number] [address] Apr, IMMUNIZATIONS No Known Immunizations SOCIAL HISTORY Never Assessed REASON FOR VISIT PLAN OF CARE VITAL SIGNS MEDICATIONS Unknown [...]
--- OUTSIDE RECORDS SUMMARY | 2019-02-21 14:57 | XMS REPORT ---
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 Active 6621523047424 Problem Primary osteoarthritis of left knee M17.12 Active 922857658 Problem Other chronic pain G89.29 Active 35469273 Problem Osteoarthritis of left knee, unspecified osteoarthritis type M17.12 Active 260083443030343 Problem Essential hypertension I10 Active 87646185 Problem Anxiety F41.9 Active 41581766 Problem Primary insomnia F51.01 Active 0474232 Problem Epigastric pain R10.13 Active 86598202 Problem Visual changes H53.9 Active 13454970 Problem Gastroesophageal reflux disease without esophagitis K21.9 Active 914902743 ALLERGIES No Information ENCOUNTERS Encounter Location Date Diagnosis [facility] [id number] [address] 15 May, 2018 [facility] [address], [place] [address] 13 May, 2018 [facility] [id number] [place] [address] 10 May, 2018 [facility] [id number], [place] [address] 05 May, 2018 Dysuria R30.0 ; Acute cystitis without hematuria N30.00 ; Pneumonia of left lower lobe due to infectious organism J18.1 and Nightmares F51.5 [id number] [place] [address] May, Anxiety F41.9 ; Essential (primary) hypertension I10 and 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 [place] [id number] [place] [address] Apr, Anxiety F41.9 and Other chronic pain G89.29 [place] [address] [address] Apr, Essential (primary) hypertension I10 and 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 [place] [id number] [place] [address] Apr, Pain in left knee M25.562 ; Other chronic pain G89.29 ; Anxiety F41.9 and 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 [place] [id number] [place] [address] Apr, [place] [address] [address] Feb, Anxiety F41.9 [place] [id number] [place] [address] January, Anxiety F41.9 [place] [id number] [place] [address] Dec, Anxiety F41.9 [place] [id number] [place] [address] Dec, [place] [address] [address] Dec, Anxiety F41.9 and Osteoarthritis of left knee, unspecified osteoarthritis type M17.12 [place] [address] [address] Nov, Primary insomnia F51.01 and Anxiety F41.9 [facility] [id number] [place] [address] Oct, Anxiety F41.9 [facility] [id number] [place] [address] Oct, [facility] [id number] [place] [address] Oct, Anxiety F41.9 [place] [id number] [place] [address] Aug, Primary insomnia F51.01 ; Anxiety F41.9 ; Essential hypertension I10 ; 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 ; Gastritis determined by endoscopy K29.70 ; Primary osteoarthritis of left knee M17.12 and BMI 40.0-44.9, adult Z68.41 [place] [id number] [place] [address] Aug, Primary insomnia F51.01 and Anxiety F41.9 [place] [id number] [place] [address] Jun, Anxiety F41.9 [place] [id number] [place] [address] Jun, Anxiety F41.9 [place] [id number] [place] [address] May, [facility] [id number] [place] [address] May, Primary osteoarthritis of left knee M17.12 and Anxiety F41.9 [facility] [id number] [place] [address] Apr, Essential hypertension I10 [place] [id number] [place] [address] Apr, Essential hypertension I10 ; Anxiety F41.9 ; Primary insomnia F51.01 ; Primary osteoarthritis of left knee M17.12 and Gastritis determined by endoscopy K29.70 [place] [id number] [place] [address] Apr, Essential hypertension I10 [place] [id number] [place] [address] Mar, Anxiety F41.9 [place] [address] [address] Mar, Primary osteoarthritis of left knee M17.12 [place] [address] [address] Feb, [place] [id number] [place] [address] Feb, Anxiety F41.9 [place] [id number] [place] [address] Feb, [place] [id number] [place] [address] January, Mixed hyperlipidemia E78.2 [place] [id number] [place] [address] January, Anxiety F41.9 [facility] [address] [place] [id number] Dec, Dental examination Z01.20 [place] [id number] [place] [address] Dec, Anxiety F41.9 ; Primary insomnia F51.01 and Pain in left knee M25.562 [place] [id number] [place] [address] Nov, Essential hypertension I10 ; Anxiety F41.9 ; Primary insomnia F51.01 ; Mixed hyperlipidemia E78.2 ; Pain in left knee M25.562 and Gastritis determined by endoscopy K29.70 [place] [id number] [place] [address] 15 Oct, 2016 Anxiety F41.9 [facility] [id number] [place] [address] 09 Oct, 2016 Primary osteoarthritis of left knee M17.12 [facility] [address] [place] [phone] Sep, Dental examination Z01.20 [facility] [id number] [place] [address] Sep, Anxiety F41.9 [facility] [id number] [place] [address] Aug, Anxiety F41.9 [facility] [id number] [place] [address] Jul, Essential hypertension I10 ; Anxiety F41.9 ; Primary insomnia F51.01 ; Mixed hyperlipidemia E78.2 ; Pain in left knee M25.562 and Gastritis determined by endoscopy K29.70 [facility] [id number] [place] [address] Jul, [facility] [id number] [place] [address] Jul, [facility] [id number] [place] [address] Jun, [facility] [id number] [place] [address] Jun, [facility] [id number] [place] [address] May, [facility] [id number] [place] [address] May, Pain in left knee M25.562 [facility] [id number] [place] [address] Apr, Essential hypertension I10 ; Anxiety F41.9 ; Primary insomnia F51.01 ; Mixed hyperlipidemia E78.2 ; Pain in left knee M25.562 and Gastritis determined by endoscopy K29.70 [facility] [id number] [place] [address] Mar, [facility] [id number] [place] [address] Feb, [facility] [address] [address] Feb, [facility] [id number] [place] [id number] January, Dental caries K02.9 [facility] [address] [address] January, [facility] [id number] [place] [address] January, Bloody stools K92.1 ; Epigastric pain R10.13 ; Essential hypertension I10 ; Anxiety F41.9 and Primary insomnia F51.01 [facility] [id number] [place] [id number] Dec, Dental examination Z01.20 [facility] [id number] [place] [address] Dec, [facility] [id number] [place] [address] Nov, Acute frontal sinusitis J01.10 and Sore throat J02.9 [facility] [id number] [place] [address] Nov, [facility] [address] [address] Oct, Essential hypertension I10 ; Anxiety F41.9 and Primary insomnia F51.01 [facility] [id number] [place] [address] Sep, [facility] [address], [place] [address] Sep, [facility] [id number] [place] [address] Sep, [facility] [id number] [place] [address] Aug, [facility] [id number] [place] [address] Aug, [facility] [id number] [place] [address] Jul, Essential hypertension I10 ; Anxiety F41.9 ; Primary insomnia F51.01 and Visual changes H53.9 [facility] [id number] [place] [address] Jul, [facility] [id number] [place] [address] Jun, [facility] [id number] [place] [address] Jun, [facility] [id number] [place] [address] 25 May, 2015 [facility] [id number] [place] [address] 14 May, 2015 [facility] [id number] [place] [address] 04 May, 2015 Chest pain 786.50 ; Hyperlipemia 272.4 ; Hypertension 401.9 ; Anxiety 300.00 and History of tobacco use V15.82 [facility] [id number] [place] [address] May, Chest pain 786.50 and Hypertension 401.9 [facility] [id number] [place] [address] Apr, [facility] [id number] [place] [address] Apr, 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 ; Hypertension 401.9 and CAD (coronary artery disease) 414.[id number] [place] [address] Mar, Chest pain 786.50 ; Hypertension 401.9 ; Hyperlipemia 272.4 and History of tobacco use V15.[address] [address] Mar, 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 and Major depressive disorder, recurrent episode, moderate 296.[address] [address] Mar, [id number] [place] [address] Mar, [address] [address] Mar, [address] [address] Mar, 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 and Major depressive disorder, recurrent episode, moderate 296.32 [id number] [place] [address] Mar, [id number] [place] [address] Feb, [address] [id number] [place] [address] Feb, 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 ; Major depressive disorder, recurrent episode, moderate 296.32 ; No condition on [place] II V71.09 ; Hypertension 401.9 ; Arthritis 716.90 and Overweight 278.02 [id number] [place] [address] Feb, [facility] [address] [place] [id number] [place] [address] Feb, [facility] [address], [place] [address] January, Essential hypertension, benign 401.1 ; Anxiety state, unspecified 300.00 and Chest pain 786.50 [facility] [address] [place] [address] Dec, [facility] [id number] [place] [address] Dec, [facility] [address] [facility] [id number] [place] [address] Nov, [facility] [id number] [place] [address] Nov, [facility] [address], [place] [address] Nov, [facility] [id number] [place] [address] Nov, [facility] [address], [place] [address] Oct, [facility] [address], [place] [address] Oct, [facility] [address], [place] [address] Oct, [facility] [address], [place] [address] Oct, [facility] [id number], [place] [address] Sep, [facility] [address], [place] [address] Sep, [facility] [id number], [place] [address] Sep, [facility] [address], [place] [address] Sep, [facility] [place] [facility] [address] [id number] [place] [address] Sep, [facility] [place] [facility] [address] [id number] [place] [address] Sep, [facility] [place] [facility] [address] [facility] [id number] [place] [address] Aug, [facility] [place] [facility] [address] [id number] [place] [address] Aug, [facility] [place] [facility] [address] [id number] [place] [address] Aug, [facility] [place] [facility] [address] [id number] [place] [address] Aug, [facility] [place] [facility] [address] [id number] [place] [address] Aug, [facility] [place] [facility] [address] [id number] [place] [address] Aug, [facility] [place] [facility] [address] [id number] [place] [address] Jul, [facility] [place] [facility] [address] [id number] [place] [address] Jul, [facility] [place] [facility] [address] [id number], [place] [address] Jul, [facility] [place] [facility] [address] [id number], [place] [address] Jul, [facility] [place] [facility] [address] [id number] [place] [address] Jul, [facility] [place] [facility] [address] [id number] [place] [address] Jul, [facility] [place] [facility] [address] [id number] [place] [address] Jun, [facility] [place] [facility] [address], [place] [address] Jun, [facility] [address], [place] [address] Jun, [facility] [address], [place] [address] Jun, [facility] [address], [place] [address] May, [facility] [address] [facility] [id number] [address] May, [facility] [id number] [place] [address] May, [facility] [address], [place] [address] May, [facility] [address], [place] [address] Apr, [facility] [address], [place] [address] Apr, [facility] [address], [place] [address] Apr, [facility] [address], [place] [address] Apr, [facility] [id number], [place] [address] Apr, IMMUNIZATIONS No Known Immunizations SOCIAL HISTORY Never Assessed REASON FOR VISIT Lab (walk-in) PLAN OF CARE VITAL SIGNS MEDICATIONS Unknown Medications RESULTS No Results PROCEDURES Procedure Date Ordered Result Body Site LAB NOT BILLED BY [facility] May 30, 2018 VENIPUNCT, ROUTINE* May 30, 2018 INSTRUCTIONS MEDICATIONS ADMINISTERED No Known Medications [...]
--- OUTSIDE RECORDS SUMMARY | 2019-02-21 14:58 | XMS REPORT ---
Author Author JESU PLUNKETT Organization [facility] Address [address] [place] [address] Care Team Providers Care Head Of Business Development Name Role Phone JESU PLUNKETT Unavailable PROBLEMS Type Condition ICD9-CM Code AYJ12-LU Code Onset Dates Condition Status SNOMED Code Problem Mixed hyperlipidemia E78.2 Active 832304348 Problem Gastritis determined by endoscopy K29.70 Active 5691246 Problem Pain in left knee M25.562 Active 90272942 Problem Nightmares F51.5 Active 233945614 Problem Essential (primary) hypertension I10 Active 79183103 Problem Coronary artery disease of [place] artery of [place] heart with stable 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 Active 3879365768675 Problem Primary osteoarthritis of left knee M17.12 Active 080622203 Problem Other chronic pain G89.29 Active 54250371 Problem Osteoarthritis of left knee, unspecified osteoarthritis type M17.12 Active 387731673039680 Problem Essential hypertension I10 Active 08506166 Problem Anxiety F41.9 Active 24534806 Problem Primary insomnia F51.01 Active 6501122 Problem Epigastric pain R10.13 Active 93071835 Problem Visual changes H53.9 Active 77395935 Problem Gastroesophageal reflux disease without esophagitis K21.9 Active [id number] ALLERGIES No Information ENCOUNTERS Encounter Location Date Diagnosis [facility] [id number] [address] 13 May, 2018 [facility] [address] [address] 10 May, 2018 [facility] [id number] [place] [address] 05 May, 2018 Dysuria R30.0 ; Acute cystitis without hematuria N30.00 ; Pneumonia of left lower lobe due to infectious organism J18.1 and Nightmares F51.5 [facility] [address] [address] May, Anxiety F41.9 ; Essential (primary) hypertension I10 and Coronary artery disease of [place] artery of [place] heart with stable 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 [address] [address] [address] Apr, Anxiety F41.9 and Other chronic pain G89.29 [place] [address] [address] Apr, Essential (primary) hypertension I10 and Coronary artery disease of [place] artery of [place] heart with stable 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 [place] [address] [address] Apr, Pain in left knee M25.562 ; Other chronic pain G89.29 ; Anxiety F41.9 and Coronary artery disease of [place] artery of [place] heart with stable 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 [place] [address] [address] Apr, [place] [address] [address] Feb, Anxiety F41.9 [place] [address] [address] January, Anxiety F41.9 [place] [address] [address] Dec, Anxiety F41.9 [place] [address] [address] Dec, [place] [address] [address] Dec, Anxiety F41.9 and Osteoarthritis of left knee, unspecified osteoarthritis type M17.12 [place] [address] [address] Nov, Primary insomnia F51.01 and Anxiety F41.9 [place] [id number] [place] [address] Oct, Anxiety F41.9 [place] [id number] [place] [address] Oct, [place] [id number] [place] [address] Oct, Anxiety F41.9 [place] [id number] [place] [address] Aug, Primary insomnia F51.01 ; Anxiety F41.9 ; Essential hypertension I10 ; Coronary artery disease of [place] artery of [place] heart with stable 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 ; Gastritis determined by endoscopy K29.70 ; Primary osteoarthritis of left knee M17.12 and BMI 40.0-44.9, adult Z68.41 [place] [id number] [place] [address] Aug, Primary insomnia F51.01 and Anxiety F41.9 [place] [id number] [place] [address] Jun, Anxiety F41.9 [place] [id number] [place] [address] Jun, Anxiety F41.9 [place] [id number] [place] [address] May, [place] [id number] [place] [address] 05 May, 2017 Primary osteoarthritis of left knee M17.12 and Anxiety F41.9 [place] [id number] [place] [address] Apr, Essential hypertension I10 [place] [id number] [place] [address] Apr, Essential hypertension I10 ; Anxiety F41.9 ; Primary insomnia F51.01 ; Primary osteoarthritis of left knee M17.12 and Gastritis determined by endoscopy K29.70 [place] [id number] [place] [address] Apr, Essential hypertension I10 [place] [address] [address] Mar, Anxiety F41.9 [place] [id number] [place] [address] Mar, Primary osteoarthritis of left knee M17.12 [place] [id number] [place] [address] Feb, [place] [address] [address] Feb, Anxiety F41.9 [place] [address] [address] Feb, [place] [address] [address] January, Mixed hyperlipidemia E78.2 [place] [address] [address] January, Anxiety F41.9 [facility] [address] [id number] Dec, Dental examination Z01.20 [place] [id number] [place] [address] Dec, Anxiety F41.9 ; Primary insomnia F51.01 and Pain in left knee M25.562 [place] [id number] [place] [address] Nov, Essential hypertension I10 ; Anxiety F41.9 ; Primary insomnia F51.01 ; Mixed hyperlipidemia E78.2 ; Pain in left knee M25.562 and Gastritis determined by endoscopy K29.70 [place] [id number] [place] [address] Oct, Anxiety F41.9 [facility] [address] [address] 09 Oct, 2016 Primary osteoarthritis of left knee M17.12 [facility] [address] [id number] Sep, Dental examination Z01.20 [facility] [address] [place] [address] Sep, Anxiety F41.9 [facility] [id number] [place] [address] Aug, Anxiety F41.9 [facility] [id number] [place] [address] Jul, Essential hypertension I10 ; Anxiety F41.9 ; Primary insomnia F51.01 ; Mixed hyperlipidemia E78.2 ; Pain in left knee M25.562 and Gastritis determined by endoscopy K29.70 [facility] [id number] [place] [address] Jul, [facility] [id number] [place] [address] Jul, [facility] [id number] [place] [address] Jun, [facility] [address] [place] [address] Jun, [facility] [id number] [place] [address] May, [facility] [address] [place] [address] May, Pain in left knee M25.562 [facility] [address] [place] [address] Apr, Essential hypertension I10 ; Anxiety F41.9 ; Primary insomnia F51.01 ; Mixed hyperlipidemia E78.2 ; Pain in left knee M25.562 and Gastritis determined by endoscopy K29.70 [facility] [address] [place] [address] Mar, [facility] [id number] [place] [address] Feb, [facility] [id number] [place] [address] Feb, [facility] [address] [id number] January, Dental caries K02.9 [facility] [address] [address] January, [facility] [id number] [place] [address] January, Bloody stools K92.1 ; Epigastric pain R10.13 ; Essential hypertension I10 ; Anxiety F41.9 and Primary insomnia F51.01 [facility] [id number] [place] [id number] Dec, Dental examination Z01.20 [facility] [id number] [place] [address] Dec, [facility] [id number] [place] [address] Nov, Acute frontal sinusitis J01.10 and Sore throat J02.9 [facility] [id number] [place] [address] Nov, [facility] [id number] [place] [address] Oct, Essential hypertension I10 ; Anxiety F41.9 and Primary insomnia F51.01 [facility] [id number] [place] [address] Sep, [facility] [id number] [place] [address] Sep, [facility] [address] [address] Sep, [facility] [id number] [place] [address] Aug, [facility] [id number] [place] [address] Aug, [facility] [address] [address] Jul, Essential hypertension I10 ; Anxiety F41.9 ; Primary insomnia F51.01 and Visual changes H53.9 [facility] [id number] [place] [address] Jul, [facility] [id number] [place] [address] Jun, [facility] [address] [address] Jun, [facility] [id number] [place] [address] May, [facility] [id number] [place] [address] 14 May, 2015 [facility] [id number] [place] [address] May, Chest pain 786.50 ; Hyperlipemia 272.4 ; Hypertension 401.9 ; Anxiety 300.00 and History of tobacco use V15.82 [facility] [id number] [place] [address] May, Chest pain 786.50 and Hypertension 401.9 [facility] [id number] [place] [address] Apr, [facility] [id number] [place] [address] Apr, 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 ; Hypertension 401.9 and CAD (coronary artery disease) 414.00 [facility] [address] [place] [address] Mar, Chest pain 786.50 ; Hypertension 401.9 ; Hyperlipemia 272.4 and History of tobacco use V15.82 [facility] [address] [place] [address] Mar, 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 and Major depressive disorder, recurrent episode, moderate 296.32 [facility] [address] [place] [id number] [place] [address] Mar, [facility] [address] [place] [id number] [place] [address] Mar, [facility] [address] [place] [id number] [place] [address] Mar, [facility] [address] [place] [id number] [place] [address] Mar, 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 and Major depressive disorder, recurrent episode, moderate 296.32 [facility] [address] [place] [id number] [place] [address] Mar, [facility] [address] [place] [id number] [place] [address] Feb, [facility] [address] [place] [id number] [place] [address] Feb, 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 ; Major depressive disorder, recurrent episode, moderate 296.32 ; No condition on [place] V71.09 ; Hypertension 401.9 ; Arthritis 716.90 and Overweight 278.02 [facility] [address] [place] [id number] [place] [address] Feb, [facility] [address] [place] [id number] [place] [address] Feb, [facility] [address] [place] [id number] [place] [address] January, Essential hypertension, benign 401.1 ; Anxiety state, unspecified 300.00 and Chest pain 786.50 [facility] [address], [place] [address] 14 Dec, 2014 [facility] [address], [place] [address] Dec, [facility] [id number] [place] [address] Nov, [facility] [address] [facility] [id number] [address] Nov, [facility] [id number] [place] [address] Nov, [facility] [id number] [place] [address] Nov, [facility] [id number] [place] [address] Oct, [facility] [address], [place] [address] Oct, [facility] [address], [place] [address] Oct, [facility] [address], [place] [address] Oct, [facility] [address], [place] [address] Sep, [facility] [address], [place] [address] Sep, [facility] [address], [place] [address] Sep, [facility] [address], [place] [address] Sep, [facility] [address], [place] [address] Sep, [facility] [place] [facility] [address] [id number] [place] [address] Sep, [facility] [place] [facility] [address] [id number] [place] [address] Aug, [facility] [place] [facility] [address] [facility] [id number] [place] [address] Aug, [facility] [place] [facility] [address] [id number] [place] [address] Aug, [facility] [place] [facility] [address] [id number] [place] [address] Aug, [facility] [place] [facility] [address] [id number] [place] [address] Aug, [facility] [place] [facility] [address] [id number] [place] [address] Aug, [facility] [place] [facility] [address] [id number] [place] [address] Jul, [facility] [place] [facility] [address] [id number] [place] [address] Jul, [facility] [place] [facility] [address] [id number] [place] [address] Jul, [facility] [place] [facility] [address] [id number] [address] Jul, [facility] [place] [facility] [address] [id number], [place] [address] Jul, [facility] [place] [facility] [address] [id number] [place] [address] Jul, [facility] [place] [facility] [address] [id number], [place] [address] Jun, [facility] [place] [facility] [address] [id number], [place] [address] Jun, [facility] [place] [facility] [id number], [place] [address] Jun, [facility] [id number], [place] [address] Jun, [facility] [address], [place] [address] May, [facility] [id number] [address] May, [facility] [address], [place] [address] May, [facility] [address], [place] [address] May, [facility] [address], [place] [address] Apr, [facility] [address], [place] [address] Apr, [facility] [address], [place] [address] Apr, [facility] [address], [place] [address] Apr, [facility] [id number] [address] Apr, IMMUNIZATIONS No Known Immunizations SOCIAL HISTORY Never Assessed REASON FOR VISIT Controlled Med Refill PLAN OF CARE VITAL SIGNS MEDICATIONS Unknown [...]
--- OUTSIDE RECORDS SUMMARY | 2019-02-21 14:58 | XMS REPORT ---
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 Active 7652669502134 Problem Primary osteoarthritis of left knee M17.12 Active 982785420 Problem Other chronic pain G89.29 Active 67674380 Problem Osteoarthritis of left knee, unspecified osteoarthritis type M17.12 Active 707602895128148 Problem Essential hypertension I10 Active 25644317 Problem Anxiety F41.9 Active 28233841 Problem Primary insomnia F51.01 Active 3343619 Problem Epigastric pain R10.13 Active 17335475 Problem Visual changes H53.9 Active 91511508 Problem Gastroesophageal reflux disease without esophagitis K21.9 Active 392969750 ALLERGIES Substance Reaction Event Type Date Status Lexapro Suicidal ideation Drug Allergy Apr, Active ENCOUNTERS Encounter Location Date Diagnosis [facility] [address] 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 [place] [id number] [place] [address] Apr, Anxiety F41.9 and Other chronic pain G89.29 [place] [address] [address] Apr, Essential (primary) hypertension I10 and 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 [place] [id number] [place] [address] Apr, Pain in left knee M25.562 ; Other chronic pain G89.29 ; Anxiety F41.9 and 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 [place] [id number] [place] [address] Apr, [place] [address] [address] Feb, Anxiety F41.9 [place] [id number] [place] [address] January, Anxiety F41.9 [place] [id number] [place] [address] Dec, Anxiety F41.9 [place] [id number] [place] [address] Dec, [place] [address] [address] Dec, Anxiety F41.9 and Osteoarthritis of left knee, unspecified osteoarthritis type M17.12 [place] [id number] [place] [address] Nov, Primary insomnia F51.01 and Anxiety F41.9 [facility] [id number] [place] [address] Oct, Anxiety F41.9 [facility] [id number] [place] [address] Oct, [facility] [id number] [place] [address] Oct, Anxiety F41.9 [facility] [id number] [place] [address] Aug, Primary insomnia F51.01 ; Anxiety F41.9 ; Essential hypertension I10 ; 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 ; Gastritis determined by endoscopy K29.70 ; Primary osteoarthritis of left knee M17.12 and BMI 40.0-44.9, adult Z68.41 [place] [id number] [place] [address] Aug, Primary insomnia F51.01 and Anxiety F41.9 [place] [id number] [place] [address] Jun, Anxiety F41.9 [place] [id number] [place] [address] Jun, Anxiety F41.9 [place] [id number] [place] [address] May, [place] [id number] [place] [address] May, Primary osteoarthritis of left knee M17.12 and Anxiety F41.9 [place] [id number] [place] [address] Apr, Essential hypertension I10 [facility] [id number] [place] [address] Apr, Essential hypertension I10 ; Anxiety F41.9 ; Primary insomnia F51.01 ; Primary osteoarthritis of left knee M17.12 and Gastritis determined by endoscopy K29.70 [place] [id number] [place] [address] Apr, Essential hypertension I10 [place] [id number] [place] [address] Mar, Anxiety F41.9 [place] [address] [address] Mar, Primary osteoarthritis of left knee M17.12 [place] [id number] [place] [address] Feb, [place] [address] [address] Feb, Anxiety F41.9 [place] [address] [address] Feb, [place] [address] [address] January, Mixed hyperlipidemia E78.2 [place] [address] [address] January, Anxiety F41.9 [facility] [address] [id number] Dec, Dental examination Z01.20 [place] [id number] [place] [address] Dec, Anxiety F41.9 ; Primary insomnia F51.01 and Pain in left knee M25.562 [place] [address] [address] Nov, Essential hypertension I10 ; Anxiety F41.9 ; Primary insomnia F51.01 ; Mixed hyperlipidemia E78.2 ; Pain in left knee M25.562 and Gastritis determined by endoscopy K29.70 [place] [address] [address] 15 Oct, 2016 Anxiety F41.9 [facility] [address], [place] [address] 09 Oct, 2016 Primary osteoarthritis of left knee M17.12 [facility] [address] [id number] [id number] Sep, Dental examination Z01.20 [facility] [id number] [place] [address] Sep, Anxiety F41.9 [facility] [address] [place] [address] Aug, Anxiety F41.9 [facility] [id number] [place] [address] Jul, Essential hypertension I10 ; Anxiety F41.9 ; Primary insomnia F51.01 ; Mixed hyperlipidemia E78.2 ; Pain in left knee M25.562 and Gastritis determined by endoscopy K29.70 [facility] [address] [place] [address] Jul, [facility] [id number] [place] [address] Jul, [facility] [address] [place] [address] Jun, [facility] [address] [place] [address] Jun, [facility] [address] [place] [address] May, [facility] [id number] [place] [address] May, Pain in left knee M25.562 [facility] [address] [place] [address] Apr, Essential hypertension I10 ; Anxiety F41.9 ; Primary insomnia F51.01 ; Mixed hyperlipidemia E78.2 ; Pain in left knee M25.562 and Gastritis determined by endoscopy K29.70 [facility] [address] [place] [address] Mar, [facility] [id number] [place] [address] Feb, [facility] [id number] [place] [address] Feb, [facility] [id number] [place] [id number] January, Dental caries K02.9 [facility] [address] [address] January, [facility] [id number] [place] [address] January, Bloody stools K92.1 ; Epigastric pain R10.13 ; Essential hypertension I10 ; Anxiety F41.9 and Primary insomnia F51.01 [facility] [id number] [place] [id number] Dec, Dental examination Z01.20 [facility] [id number] [place] [address] Dec, [facility] [id number] [place] [address] Nov, Acute frontal sinusitis J01.10 and Sore throat J02.9 [facility] [id number] [place] [address] Nov, [facility] [id number] [place] [address] Oct, Essential hypertension I10 ; Anxiety F41.9 and Primary insomnia F51.01 [facility] [id number] [place] [address] Sep, [facility] [id number] [place] [address] Sep, [facility] [address] [place] [address] Sep, [facility] [id number] [place] [address] Aug, [facility] [id number] [place] [address] Aug, [facility] [id number] [place] [address] Jul, Essential hypertension I10 ; Anxiety F41.9 ; Primary insomnia F51.01 and Visual changes H53.9 [facility] [id number] [place] [address] Jul, [facility] [id number] [place] [address] Jun, [facility] [id number] [place] [address] Jun, [facility] [id number] [place] [address] May, [facility] [id number] [place] [address] May, [facility] [id number] [place] [address] May, Chest pain 786.50 ; Hyperlipemia 272.4 ; Hypertension 401.9 ; Anxiety 300.00 and History of tobacco use V15.82 [facility] [address] [place] [address] May, Chest pain 786.50 and Hypertension 401.9 [facility] [id number] [place] [address] Apr, [facility] [id number] [place] [address] Apr, 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 ; Hypertension 401.9 and CAD (coronary artery disease) 414.[address] [id number] [place] [address] Mar, Chest pain 786.50 ; Hypertension 401.9 ; Hyperlipemia 272.4 and History of tobacco use V15.82 [place] [id number] [place] [address] Mar, 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 and Major depressive disorder, recurrent episode, moderate 296.32 [facility] [address] [place] [address] Mar, [facility] [address] [place] [address] Mar, [address] [address] Mar, [facility] [address] [place] [address] Mar, 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 and Major depressive disorder, recurrent episode, moderate 296.32 [place] [id number] [place] [address] Mar, [facility] [address] [place] [id number] [place] [address] Feb, [facility] [address] [place] [id number] [place] [address] Feb, 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 ; Major depressive disorder, recurrent episode, moderate 296.32 ; No condition on [place] V71.09 ; Hypertension 401.9 ; Arthritis 716.90 and Overweight 278.02 [facility] [address] [place] [id number] [place] [address] Feb, [facility] [address] [place] [id number] [place] [address] Feb, [facility] [address] [place] [address] [address] January, Essential hypertension, benign 401.1 ; Anxiety state, unspecified 300.00 and Chest pain 786.50 [facility] [address], [place] [address] 14 Dec, 2014 [facility] [address], [place] [address] Dec, [facility] [address], [place] [address] Nov, [facility] [address], [place] [address] Nov, [facility] [address], [place] [address] Nov, [facility] [address], [place] [address] Nov, [facility] [address], [place] [address] Oct, [facility] [address], [place] [address] Oct, [facility] [address] [address] Oct, [facility] [address] [address] Oct, [facility] [address], [place] [address] Sep, [facility] [address], [place] [address] Sep, [facility] [address] [address] Sep, [facility] [address] [address] Sep, [facility] [place] [facility] [address] [id number] [place] [address] Sep, [facility] [place] [facility] [address] [id number] [place] [address] Sep, [facility] [place] [facility] [address] [id number] [place] [address] Aug, [facility] [place] [facility] [address] [id number] [place] [address] Aug, [facility] [place] [facility] [address] [id number] [place] [address] Aug, [facility] [place] [facility] [address] [id number] [place] [address] Aug, [facility] [place] [facility] [address] [id number] [place] [address] Aug, [facility] [place] [facility] [address] [id number] [place] [address] Aug, [facility] [place] [facility] [address] [id number] [place] [address] Jul, [facility] [place] [facility] [address] [id number] [place] [address] Jul, [facility] [place] [facility] [address] [id number] [place] [address] Jul, [facility] [place] [facility] [address] [id number] [place] [address] Jul, [facility] [place] [facility] [address] [id number] [place] [address] Jul, [facility] [place] [facility] [address] [id number] [place] [address] Jul, [facility] [place] [facility] [address] [id number] [place] [address] Jun, [facility] [place] [facility] [address] [id number] [place] [address] Jun, [facility] [address] [facility] [id number] [address] Jun, [facility] [address] [facility] [id number], [place] [address] Jun, [facility] [address] [facility] [id number], [place] [address] May, [facility] [address] [facility] [id number], [place] [address] May, [facility] [address] [facility] [id number], [place] [address] May, [facility] [address] [facility] [id number], [place] [address] May, [facility] [id number] [address] Apr, [facility] [address], [place] [address] Apr, [facility] [address], [place] [address] Apr, [facility] [address], [place] [address] Apr, [facility] [id number], [place] [address] Apr, IMMUNIZATIONS No Known Immunizations SOCIAL HISTORY Never Assessed REASON FOR VISIT Transition of Care, PT reports his right knee has been hurting and has missed pr eviously appointments with Idris Fernández due to not having a [facility] PLAN OF CARE Activity Details Follow Up 3 Months Reason:hypertension VITAL SIGNS Height 67 in 2018-04-26 Weight 236 lbs 2018-04-26 Temperature 98.3 degrees Fahrenheit 2018-04-26 Heart Rate 89 bpm 2018-04-26 Respiratory Rate 20 2018-04-26 Oximetry 95 % 2018-04-26 BMI 36.96 kg/m2 2018-04-26 Blood pressure systolic 122 mmHg 2018-04-26 Blood pressure diastolic 68 mmHg 2018-04-26 MEDICATIONS Medication Instructions Dosage Frequency Start Date End Date Duration Status Tramadol HCl 50 mg Orally 2 times a day 1 tablet as needed 12h Apr, Active Xanax 0.5 MG Orally Three times a day prn-Must have appt for further refills 1 tablet Active lipitor 1 tab Active Benadryl Active Nitrostat 0.4 MG 1 tablet by Sublingual route 3 times per day PRN chest pain; Apr, Active Amitriptyline HCl 10 mg Orally Once a day 1 tablet 24h 30 Active Losartan Potassium 50 MG TAKE ONE TABLET BY MOUTH TWICE DAILY 90 Active losartan 50 mg orally 2 times a day 1 tablet 12h Active Norvasc 10 mg Orally Once a day 1 tablet 24h 90 days Active Pantoprazole Sodium 40 MG TAKE ONE TABLET BY MOUTH ONCE DAILY 30 Active RESULTS No Results PROCEDURES Procedure Date Ordered Result Body Site [facility] VISIT ESTABLISHED PATIENT Apr 26, 2018 INSTRUCTIONS MEDICATIONS ADMINISTERED No Known Medications [...]
--- OUTSIDE RECORDS SUMMARY | 2019-02-21 14:59 | XMS REPORT ---
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[employer] Name Role Phone AMERICO SHARMA Unavailable PROBLEMS Type Condition ICD9-CM Code QLZ20-GX Code Onset Dates Condition Status SNOMED Code Problem Gastroesophageal reflux disease without esophagitis K21.9 Active 124477179 Problem Pain in left knee M25.562 Active 68438657 Problem Mixed hyperlipidemia E78.2 Active 245374930 Problem Essential (primary) hypertension I10 Active 12060446 Problem Other chronic pain G89.29 Active 65861626 Problem Primary osteoarthritis of left knee M17.12 Active 479177782 Problem Gastritis determined by endoscopy K29.70 Active 2475976 Problem Osteoarthritis of left knee, unspecified osteoarthritis type M17.12 Active [id number] Problem Coronary artery disease of [place] artery of [place] heart with stable 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 Active 9957082686952 Problem Visual changes H53.9 Active 26465922 Problem Essential hypertension I10 Active 54417271 Problem Anxiety F41.9 Active 77473693 Problem Primary insomnia F51.01 Active 3839342 Problem Epigastric pain R10.13 Active 76905013 ALLERGIES No Information ENCOUNTERS Encounter Location Date Diagnosis [facility] [id number] [place] [address] Apr, Essential (primary) hypertension I10 and Coronary artery disease of marshall artery of [place] heart with stable 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 [facility] [id number] [place] [address] Apr, Pain in left knee M25.562 ; Other chronic pain G89.29 ; Anxiety F41.9 and Coronary artery disease of marsh[place] artery of [place] heart with stable 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 [facility] [id number] [place] [address] Apr, [facility] [id number] [place] [address] Feb, Anxiety F41.9 [facility] [id number] [place] [address] January, Anxiety F41.9 [facility] [id number] [place] [address] Dec, Anxiety F41.9 [facility] [address] [address] Dec, [facility] [address] [address] Dec, Anxiety F41.9 and Osteoarthritis of left knee, unspecified osteoarthritis type M17.12 [facility] [id number] [place] [address] Nov, Primary insomnia F51.01 and Anxiety F41.9 [facility] [id number] [place] [address] Oct, Anxiety F41.9 [facility] [id number] [place] [address] Oct, [facility] [id number] [place] [address] Oct, Anxiety F41.9 [facility] [id number] [place] [address] Aug, Primary insomnia F51.01 ; Anxiety F41.9 ; Essential hypertension I10 ; Coronary artery disease of marsh[place] artery of [place] heart with stable 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 ; Gastritis determined by endoscopy K29.70 ; Primary osteoarthritis of left knee M17.12 and BMI 40.0-44.9, adult Z68.41 [facility] [id number] [place] [address] Aug, Primary insomnia F51.01 and Anxiety F41.9 [facility] [id number] [place] [address] Jun, Anxiety F41.9 [facility] [id number] [place] [address] Jun, Anxiety F41.9 [facility] [id number] [place] [address] May, [facility] [id number] [place] [address] May, Primary osteoarthritis of left knee M17.12 and Anxiety F41.9 [facility] [id number] [place] [address] Apr, Essential hypertension I10 [facility] [id number] [place] [address] Apr, Essential hypertension I10 ; Anxiety F41.9 ; Primary insomnia F51.01 ; Primary osteoarthritis of left knee M17.12 and Gastritis determined by endoscopy K29.70 [facility] [id number] [place] [address] Apr, Essential hypertension I10 [facility] [id number] [place] [address] Mar, Anxiety F41.9 [facility] [id number] [place] [address] Mar, Primary osteoarthritis of left knee M17.12 [facility] [id number] [place] [address] Feb, [facility] [id number] [place] [address] Feb, Anxiety F41.9 [facility] [id number] [place] [address] Feb, [facility] [id number] [place] [address] January, Mixed hyperlipidemia E78.2 [facility] [id number] [place] [address] January, Anxiety F41.9 [facility] [id number] [place] [id number] Dec, Dental examination Z01.20 [facility] [id number] [place] [address] Dec, Anxiety F41.9 ; Primary insomnia F51.01 and Pain in left knee M25.562 [facility] [id number] [place] [address] Nov, Essential hypertension I10 ; Anxiety F41.9 ; Primary insomnia F51.01 ; Mixed hyperlipidemia E78.2 ; Pain in left knee M25.562 and Gastritis determined by endoscopy K29.70 [facility] [id number] [place] [address] Oct, Anxiety F41.9 [facility] [id number] [place] [address] 09 Oct, 2016 Primary osteoarthritis of left knee M17.12 [facility] [id number] [place] [id number] Sep, Dental examination Z01.20 [facility] [id number] [place] [address] Sep, Anxiety F41.9 [facility] [id number] [place] [address] Aug, Anxiety F41.9 [facility] [address] [address] Jul, Essential hypertension I10 ; Anxiety F41.9 ; Primary insomnia F51.01 ; Mixed hyperlipidemia E78.2 ; Pain in left knee M25.562 and Gastritis determined by endoscopy K29.70 [facility] [id number] [place] [address] Jul, [facility] [id number] [address] Jul, [facility] [id number] [place] [address] Jun, [facility] [id number] [place] [address] Jun, [facility] [id number] [place] [address] May, [facility] [id number] [place] [address] May, Pain in left knee M25.562 [facility] [id number] [place] [address] Apr, Essential hypertension I10 ; Anxiety F41.9 ; Primary insomnia F51.01 ; Mixed hyperlipidemia E78.2 ; Pain in left knee M25.562 and Gastritis determined by endoscopy K29.70 [facility] [id number] [place] [address] Mar, [facility] [id number] [place] [address] Feb, [facility] [id number] [place] [address] Feb, [facility] [id number] [place] [id number] January, Dental caries K02.9 [facility] [id number] [place] [address] January, [facility] [id number] [place] [address] January, Bloody stools K92.1 ; Epigastric pain R10.13 ; Essential hypertension I10 ; Anxiety F41.9 and Primary insomnia F51.01 [facility] [id number] [id number] Dec, Dental examination Z01.20 [facility] [id number] [place] [address] Dec, [facility] [id number] [place] [address] Nov, Acute frontal sinusitis J01.10 and Sore throat J02.9 [facility] [address] [address] Nov, [facility] [id number] [place] [address] Oct, Essential hypertension I10 ; Anxiety F41.9 and Primary insomnia F51.01 [facility] [id number] [place] [address] Sep, [facility] [id number] [place] [address] Sep, [facility] [id number] [place] [address] Sep, [facility] [id number] [place] [address] Aug, [facility] [id number] [place] [address] Aug, [facility] [id number] [place] [address] Jul, Essential hypertension I10 ; Anxiety F41.9 ; Primary insomnia F51.01 and Visual changes H53.9 [facility] [id number] [place] [address] Jul, [facility] [id number] [place] [address] Jun, [facility] [id number] [place] [address] Jun, [facility] [id number] [address] May, [facility] [id number] [place] [address] May, [facility] [id number] [place] [address] May, Chest pain 786.50 ; Hyperlipemia 272.4 ; Hypertension 401.9 ; Anxiety 300.00 and History of tobacco use V15.82 [facility] [id number] [place] [address] May, Chest pain 786.50 and Hypertension 401.9 [facility] [id number] [place] [address] Apr, [facility] [id number] [place] [address] Apr, 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 ; Hypertension 401.9 and CAD (coronary artery disease) 414.00 [facility] [id number] [place] [address] Mar, Chest pain 786.50 ; Hypertension 401.9 ; Hyperlipemia 272.4 and History of tobacco use V15.82 [facility] [address] [place] [address] Mar, 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 and Major depressive disorder, recurrent episode, moderate 296.32 [facility] [address] [address] Mar, [facility] [id number] [place] [address] Mar, [facility] [id number] [place] [address] Mar, [facility] [id number] [place] [address] Mar, 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 and Major depressive disorder, recurrent episode, moderate 296.32 [facility] [id number] [place] [address] Mar, [facility] [id number] [place] [address] 15 Feb, 2015 [facility] [id number] [place] [address] Feb, 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 ; Major depressive disorder, recurrent episode, moderate 296.32 ; No condition on [place] II V71.09 ; Hypertension 401.9 ; Arthritis 716.90 and Overweight 278.02 [facility] [address] [address] Feb, [facility] [address] [address] Feb, [facility] [id number] [place] [address] January, Essential hypertension, benign 401.1 ; Anxiety state, unspecified 300.00 and Chest pain 786.50 [facility] [id number] [place] [address] Dec, [facility] [id number] [place] [address] Dec, [facility] [id number] [place] [address] Nov, [facility] [id number] [place] [address] Nov, [facility] [id number] [place] [address] Nov, [facility] [id number] [place] [address] Nov, [facility] [id number] [place] [address] Oct, [facility] [place] [facility] [address] [id number] [place] [address] Oct, 2014 [facility] [place] [facility] [address] [id number] [place] [address] Oct, [facility] [place] [facility] [address] [id number] [place] [address] Oct, [facility] [place] [facility] [address] [id number] [place] [address] Sep, [facility] [place] [facility] [address] [id number] [place] [address] Sep, [facility] [place] [facility] [address] [id number] [place] [address] Sep, [facility] [place] [facility] [address] [facility] [id number] [place] [address] Sep, [facility] [place] [facility] [address] [id number] [place] [address] Sep, [facility] [place] [facility] [address] [facility] [id number] [place] [address] Sep, [facility] [place] [facility] [address] [facility] [id number] [place] [address] Aug, [facility] [place] [facility] [address] [facility] [id number] [place] [address] Aug, [facility] [place] [facility] [address] [id number] [place] [address] Aug, [facility] [place] [facility] [address] [id number] [place] [address] Aug, [facility] [place] [facility] [address] [id number] [place] [address] Aug, [facility] [place] [facility] [address] [facility] [id number] [place] [address] Aug, [facility] [place] [facility] [address] [id number] [place] [address] Jul, [facility] [place] [facility] [address] [id number] [place] [address] Jul, [facility] [place] [facility] [address] [id number] [place] [address] Jul, [facility] [place] [facility] [address] [id number] [place] [address] Jul, [facility] [place] [facility] [address] [id number] [place] [address] Jul, [facility] [place] [facility] [address] [id number] [place] [address] Jul, [facility] [place] [facility] [address] [id number] [place] [address] Jun, [facility] [place] [facility] [address] [id number] [place] [address] Jun, [facility] [place] [facility] [address] [id number] [place] [address] Jun, [facility] [place] [facility] [address] [id number] [place] [address] Jun, [facility] [place] [facility] [address] [id number] [place] [address] May, [facility] [place] [facility] [address] [id number] [place] [address] May, [facility] [place] [facility] [address] [id number] [place] [address] May, [facility] [place] [facility] [address] [id number] [place] [address] May, [facility] [place] [facility] [address] [id number] [place] [address] Apr, [facility] [place] [facility] [address] [id number] [place] [address] Apr, [facility] [address] [facility] [id number] [place] [address] Apr, [facility] [address] [facility] [id number] [place] [address] Apr, [facility] [address] [facility] [id number] [place] [address] Apr, IMMUNIZATIONS No Known Immunizations SOCIAL HISTORY [...]
[2019-02-21] MEDS ORDERED: ASPIRIN 81 MG CHEW (CHILDREN'S ASA) PO ONE (15:00)
[2019-02-21] MEDS ORDERED: DILTIAZEM 25 MG/5 ML INJ (CARDIZEM) VIAL IVP ONE (15:00)
[2019-02-21] MEDS ORDERED: ENOXAPARIN 100 MG/1 ML (LOVENOX) SYR SC ONE (15:00)
[2019-02-21] MEDS ORDERED: NITROGLYCERIN 2% OINT 1 GM UNIT DOSE PACKET TOP STA (15:00)
--- OUTSIDE RECORDS SUMMARY | 2019-02-21 15:06 | XMS REPORT | Continuity of Care Document ---
Author Organization Unknown Address Unknown Allergies Active Description Code Type Severity Reaction Onset Reported/Identified Relationship to Patient Clinical Status Yes No Known Drug Allergies [id number] Drug Allergy Unknown N/A 02/04/2016 Yes escitalopram [id number] Drug Allergy Severe N/A 02/12/2016 Medications There is no data. Problems Date Dx Coded Attending Type Code Diagnosis Diagnosed By 05/15/2014 MADL CUTTER FIRST, AMERICO L 300.00 ANXIETY UNSPEC 05/15/2014 MADL CUTTER FIRST, AMERICO L 401.1 BENIGN ESSENTIAL HYPERTENSION 05/15/2014 MADL CUTTER FIRST, AMERICO L 300.00 ANXIETY UNSPEC 05/15/2014 MADL CUTTER FIRST, AMERICO L 401.1 BENIGN ESSENTIAL HYPERTENSION 05/15/2014 MADL CUTTER FIRST, AMERICO L 300.00 ANXIETY UNSPEC 05/15/2014 MADL CUTTER FIRST, AMERICO L 401.1 BENIGN ESSENTIAL HYPERTENSION 05/15/2014 IRWIN DO, MADYSON K 300.00 ANXIETY UNSPEC 05/15/2014 IRWIN DO, MADYSON K 401.1 BENIGN ESSENTIAL HYPERTENSION 05/15/2014 AYOUB CUTTER FIRST, SWEETIE R 300.00 ANXIETY UNSPEC 05/15/2014 AYOUB CUTTER FIRST, SWEETIE R 401.1 BENIGN ESSENTIAL HYPERTENSION 05/15/2014 MADL CUTTER FIRST, AMERICO L 300.00 ANXIETY UNSPEC 05/15/2014 MADL CUTTER FIRST, AMERICO L 401.1 BENIGN ESSENTIAL HYPERTENSION 05/15/2014 IRWIN DO, MADYSON K 300.00 ANXIETY UNSPEC 05/15/2014 IRWIN DO, MADYSON K 401.1 BENIGN ESSENTIAL HYPERTENSION 05/15/2014 MADL CUTTER FIRST, AMERICO L 300.00 ANXIETY UNSPEC 05/15/2014 MADL CUTTER FIRST, AMERICO L 401.1 BENIGN ESSENTIAL HYPERTENSION 05/15/2014 MADL CUTTER FIRST, AMERICO L 300.00 ANXIETY UNSPEC 05/15/2014 MADL CUTTER FIRST, AMERICO L 401.1 BENIGN ESSENTIAL HYPERTENSION 05/15/2014 MADL CUTTER FIRST, AMERICO L 300.00 ANXIETY UNSPEC 05/15/2014 MADL CUTTER FIRST, AMERICO L 401.1 BENIGN ESSENTIAL HYPERTENSION 05/29/2014 MADL CUTTER FIRST, AMERICO L 413.9 ANGINA PECTORIS 05/29/2014 MADL CUTTER FIRST, AMERICO L 413.9 ANGINA PECTORIS 05/29/2014 MADYSON IRWIN DO K 413.9 ANGINA PECTORIS 05/29/2014 AYOUB CUTTER FIRST, SWEETIE R 413.9 ANGINA PECTORIS 05/29/2014 MADL CUTTER FIRST, AMERICO L 413.9 ANGINA PECTORIS 05/29/2014 IRWIN KRISTOPHER DENISA K 413.9 ANGINA PECTORIS 05/29/2014 MADL CUTTER FIRST, AMERICO L 413.9 ANGINA PECTORIS 05/29/2014 MADL CUTTER FIRST, AMERICO L 413.9 ANGINA PECTORIS 05/29/2014 MADL CUTTER FIRST, AMERICO L 413.9 ANGINA PECTORIS 07/11/2014 MADYSON IRWIN DO K V04.81 FLU SHOT 07/11/2014 AYOUB CUTTER FIRSTBRE MccainIA R V04.81 FLU SHOT 07/11/2014 MADL CUTTER FIRST, AMERICO L V04.81 FLU SHOT 07/11/2014 MADYSON IRWIN DO K V04.81 FLU SHOT 07/11/2014 MADL CUTTER FIRST, AMERICO L V04.81 FLU SHOT 07/11/2014 MADL CUTTER FIRST, AMERICO L V04.81 FLU SHOT 07/11/2014 MADL CUTTER FIRST, AMERICO L V04.81 FLU SHOT 08/30/2014 SWEETIE AYOUB APRN R V70.5 HEALTH EXAMINATION OF DEFINED SUBPOPULATIONS 08/30/2014 MADL CUTTER FIRST, AMERICO L V70.5 HEALTH EXAMINATION OF DEFINED SUBPOPULATIONS 08/30/2014 MADYSON IRWIN DO K V70.5 HEALTH EXAMINATION OF DEFINED SUBPOPULATIONS 08/30/2014 MADL CUTTER FIRST, AMERICO L V70.5 HEALTH EXAMINATION OF DEFINED SUBPOPULATIONS 08/30/2014 MADL CUTTER FIRST, AMERICO L V70.5 HEALTH EXAMINATION OF DEFINED SUBPOPULATIONS 08/30/2014 MADL CUTTER FIRST, AMERICO L V70.5 HEALTH EXAMINATION OF DEFINED SUBPOPULATIONS 09/27/2014 MADYSON IRWIN DO K 790.6 ABNORMAL LFT (LIVER FUNCTION TEST) 09/27/2014 AMERICO SHARMA APRN 790.6 ABNORMAL LFT (LIVER FUNCTION TEST) 09/27/2014 MIAL CUTTER FIRSTAMERICO Mccain L 790.6 ABNORMAL LFT (LIVER FUNCTION [...] Ot 401.1 05/27/2015 Ot 790.5 06/11/2015 RACHELL LU MD Ot 070.70 UNSPECIFIED VIRAL HEPATITIS C WITHOUT HE 06/11/2015 RACHELL LU MD Ot 272.4 HYPERLIPIDEMIA NEC/NOS 06/11/2015 RACHELL LU MD Ot 300.00 ANXIETY STATE NOS 06/11/2015 RACHELL LU MD Ot 401.9 HYPERTENSION NOS 06/11/2015 RACHELL LU MD Ot 414.01 CORONARY ATHEROSCLEROSIS OF [place] CORON 06/11/2015 RACHELL LU MD Ot 786.50 CHEST PAIN NOS 06/11/2015 RACHELL LU MD Ot 794.30 ABN CARDIOVASC STUDY NOS 06/11/2015 RACHELL LU MD Ot V15.82 HISTORY OF TOBACCO USE 06/11/2015 RACHELL LU MD Ot V58.69 OTH MED,LT,CURRENT USE 06/23/2015 Ot 300.00 06/23/2015 Ot 401.1 06/23/2015 Ot 790.5 06/23/2015 JOSE BUNDY Ot 272.4 06/23/2015 GARAY-BARBARA PA, JOSE K [...] GARAY-BARBARA PA, JOSE K Ot 786.50 07/15/2015 JOSE BUNDY Ot V15.82 [...] DO Ot R07.9 CHEST PAIN, UNSPECIFIED 02/04/2016 JOHNSON ELBA DENIS Ot Z01.818 ENCOUNTER FOR OTHER PREPROCEDURAL EXAMIN [...] Ot V15.82 HISTORY OF TOBACCO USE 02/12/2016 QUINTEN ANDERSON, FERMIN Torres Ot V68.01 DISABILITY EXAMINATION 02/12/2016 FERMIN SHIPLEY MD Ot V82.89 SCREEN FOR OTH SPECIF CONDITIONS 02/12/2016 ELBA OJHNSON DO Ot R07.9 CHEST PAIN, UNSPECIFIED 02/12/2016 [...] FOR SCREENING FOR MALIGNANT NE 06/23/2016 RACHELL LU MD Ot E78.2 MIXED HYPERLIPIDEMIA 06/23/2016 RACHELL LU MD Ot I10 ESSENTIAL (PRIMARY) HYPERTENSION 06/23/2016 RACHELL LU MD Ot I25.10 ATHSCL HEART DISEASE OF [place] CORONARY 06/23/2016 RACHELL LU MD Ot K21.9 GASTRO-ESOPHAGEAL REFLUX DISEASE WITHOUT 07/07/2016 RACHELL LU MD Ot E78.2 MIXED HYPERLIPIDEMIA 07/07/2016 RACHELL LU MD Ot I10 ESSENTIAL (PRIMARY) HYPERTENSION 07/07/2016 RACHELL LU MD Ot I25.10 ATHSCL HEART DISEASE OF [place] CORONARY 07/07/2016 RACHELL LU MD Ot K21.9 GASTRO-ESOPHAGEAL REFLUX DISEASE WITHOUT 07/19/2016 Ot 300.00 ANXIETY STATE NOS 07/19/2016 Ot 401.1 BENIGN HYPERTENSION 07/19/2016 Ot 790.5 ABN SERUM ENZY LEVEL NEC 07/19/2016 DEANA OQUENDO JOSE K Ot 272.4 HYPERLIPIDEMIA NEC/NOS 07/19/2016 DEANA OQUENDO JOSE K Ot 401.9 [...] FOR SCREENING FOR MALIGNANT NE 07/19/2016 RACHELL LU MD Ot E78.2 MIXED HYPERLIPIDEMIA 07/19/2016 RACHELL LU MD Ot I10 ESSENTIAL (PRIMARY) HYPERTENSION 07/19/2016 RACHELL LU MD Ot I25.10 ATHSCL HEART DISEASE OF [place] CORONARY 07/19/2016 RACHELL LU MD Ot K21.9 GASTRO-ESOPHAGEAL REFLUX DISEASE WITHOUT [...] SCREEN FOR OTH SPECIF CONDITIONS 10/15/2016 ELBA JOHSNON DO Ot R07.9 CHEST PAIN, UNSPECIFIED 10/15/2016 ELBA JOHNSON DO Ot Z01.818 ENCOUNTER FOR OTHER PREPROCEDURAL EXAMIN 10/15/2016 ELBA JOHNSON DO Ot Z12.11 ENCOUNTER FOR SCREENING FOR MALIGNANT NE 10/15/2016 RACHELL LU MD Ot E78.2 MIXED HYPERLIPIDEMIA 10/15/2016 RACHELL LU MD Ot I10 ESSENTIAL (PRIMARY) HYPERTENSION 10/15/2016 RACHELL LU MD Ot I25.10 ATHSCL HEART DISEASE OF [place] CORONARY 10/15/2016 RACHELL LU MD Ot K21.9 GASTRO-ESOPHAGEAL REFLUX DISEASE WITHOUT [...] FOR SCREENING FOR MALIGNANT NE 10/21/2016 RACHELL LU MD Ot E78.2 MIXED HYPERLIPIDEMIA 10/21/2016 RACHELL LU MD Ot I10 ESSENTIAL (PRIMARY) HYPERTENSION 10/21/2016 RACHELL LU MD Ot I25.10 ATHSCL HEART DISEASE OF [place] CORONARY 10/21/2016 RACHELL LU MD Ot K21.9 GASTRO-ESOPHAGEAL REFLUX DISEASE WITHOUT [...] FOR SCREENING FOR MALIGNANT NE 06/23/2017 RACHELL LU MD Ot E78.2 MIXED HYPERLIPIDEMIA 06/23/2017 RACHELL LU MD Ot I10 ESSENTIAL (PRIMARY) HYPERTENSION 06/23/2017 RACHELL LU MD Ot I25.10 ATHSCL HEART DISEASE OF [place] CORONARY 06/23/2017 RACHELL LU MD Ot K21.9 GASTRO-ESOPHAGEAL REFLUX DISEASE WITHOUT [...] FOR SCREENING FOR MALIGNANT NE 06/23/2017 RACHELL LU MD Ot E78.2 MIXED HYPERLIPIDEMIA 06/23/2017 RACHELL LU MD Ot I10 ESSENTIAL (PRIMARY) HYPERTENSION 06/23/2017 RACHELL LU MD Ot I25.10 ATHSCL HEART DISEASE OF [place] CORONARY 06/23/2017 RACHELL LU MD Ot K21.9 GASTRO-ESOPHAGEAL REFLUX DISEASE WITHOUT 07/20/2017 RACHELL LU MD Ot G47.33 OBSTRUCTIVE SLEEP APNEA (ADULT) (PEDIATR 07/27/2017 RACHELL LU MD, Ot G47.33 OBSTRUCTIVE SLEEP APNEA (ADULT) [...] FOR SCREENING FOR MALIGNANT NE 07/27/2017 RACHELL LU MD Ot E78.2 MIXED HYPERLIPIDEMIA 07/27/2017 RACHELL LU MD Ot I10 ESSENTIAL (PRIMARY) HYPERTENSION 07/27/2017 RACHELL LU MD Ot I25.10 ATHSCL HEART DISEASE OF [place] CORONARY 07/27/2017 RACHELL LU MD Ot K21.9 GASTRO-ESOPHAGEAL REFLUX DISEASE WITHOUT 07/27/2017 RACHELL LU MD, Ot G47.33 OBSTRUCTIVE SLEEP APNEA (ADULT) [...] FOR SCREENING FOR MALIGNANT NE 07/27/2017 RACHELL LU MD Ot E78.2 MIXED HYPERLIPIDEMIA 07/27/2017 RACHELL LU MD Ot I10 ESSENTIAL (PRIMARY) HYPERTENSION 07/27/2017 RACHELL LU MD Ot I25.10 ATHSCL HEART DISEASE OF [place] CORONARY 07/27/2017 RACHELL LU MD Ot K21.9 GASTRO-ESOPHAGEAL REFLUX DISEASE WITHOUT 07/27/2017 RACHELL LU MD Ot G47.33 OBSTRUCTIVE SLEEP APNEA (ADULT) [...] FOR SCREENING FOR MALIGNANT NE 08/11/2017 RACHELL LU MD Ot E78.2 MIXED HYPERLIPIDEMIA 08/11/2017 RACHELL LU MD, Ot I10 ESSENTIAL (PRIMARY) HYPERTENSION 08/11/2017 RACHELL LU MD Ot I25.10 ATHSCL HEART DISEASE OF [place] CORONARY 08/11/2017 RACHELL LU MD Ot K21.9 GASTRO-ESOPHAGEAL REFLUX DISEASE WITHOUT 08/11/2017 RACHELL LU MD, Ot G47.33 OBSTRUCTIVE SLEEP APNEA (ADULT) (PEDIATR 08/31/2017 RACHELL LU MD, Ot G47.33 OBSTRUCTIVE SLEEP APNEA (ADULT) (PEDIATR 08/31/2017 RACHELL LU MD Ot I10 ESSENTIAL (PRIMARY) HYPERTENSION 08/31/2017 RACHELL LU MD, Ot G47.33 OBSTRUCTIVE SLEEP APNEA (ADULT) (PEDIATR 08/31/2017 GERALDINE ANDERSON RACHELL Rivers Ot I10 ESSENTIAL (PRIMARY) HYPERTENSION 10/18/2017 DEANA OQUENDO, JOSE Shar Ot E78.2 MIXED HYPERLIPIDEMIA 10/18/2017 DEANA OQUENDO, JOSE K Ot I10 ESSENTIAL (PRIMARY) HYPERTENSION 10/18/2017 DEANA OQUENDO, JOSE K Ot I25.10 ATHSCL HEART DISEASE OF [place] CORONARY 10/18/2017 DEANA OQUENDO, JOSE K Ot R07.89 OTHER CHEST PAIN 11/10/2017 DEANA PA, JOSE K Ot E78.2 MIXED HYPERLIPIDEMIA 11/10/2017 DEANA OQUENDO, JOSE K Ot I10 ESSENTIAL (PRIMARY) HYPERTENSION 11/10/2017 DEANA OQUENDO, JOSE K Ot I25.10 ATHSCL HEART DISEASE OF [place] CORONARY 11/10/2017 DEANA OQUENDO, JOSE Myles Ot K21.9 GASTRO-ESOPHAGEAL REFLUX DISEASE WITHOUT 11/10/2017 DEANA OQUENDO, JOSE K Ot R07.89 OTHER CHEST PAIN 11/15/2017 DEANA OQUENDO, JOSE K Ot E78.2 MIXED HYPERLIPIDEMIA 11/15/2017 DEANA OQUENDO, JOSE K Ot I10 ESSENTIAL (PRIMARY) HYPERTENSION 11/15/2017 DEANA OQUENDO, JOSE K Ot I25.10 ATHSCL HEART DISEASE OF [place] CORONARY 11/15/2017 DEANA OQUENDO, JOSE Myles Ot K21.9 GASTRO-ESOPHAGEAL REFLUX DISEASE WITHOUT 11/15/2017 DEANA OQUENDO, JOSE K Ot R07.89 OTHER CHEST PAIN 11/18/2017 DEANA OQUENDO, JOSE K Ot E78.2 MIXED HYPERLIPIDEMIA 11/18/2017 DEANA OQUENDO, JOSE K Ot I10 ESSENTIAL (PRIMARY) HYPERTENSION 11/18/2017 DEANA OQUENDO, JOSE K Ot I25.10 ATHSCL HEART DISEASE OF [place] CORONARY 11/18/2017 DEANA OQUENDO, JOSE K Ot R07.89 OTHER CHEST PAIN 11/29/2017 DEANA OQUENDO, JOSE K Ot E78.2 MIXED HYPERLIPIDEMIA 11/29/2017 DEANA OQUENDO, JOSE K Ot I10 ESSENTIAL (PRIMARY) HYPERTENSION 11/29/2017 JOSE BUNDY Ot I25.10 ATHSCL HEART DISEASE OF [place] CORONARY 11/29/2017 JOSE BUNDY Ot K21.9 GASTRO-ESOPHAGEAL REFLUX DISEASE WITHOUT 11/29/2017 JOSE BUNDY Ot R07.89 OTHER CHEST PAIN 05/27/2018 DANYA POWELL APRN Ot 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 05/27/2018 DANYA POWELL APRN Ot F41.9 ANXIETY DISORDER, UNSPECIFIED 05/27/2018 DANYA POWELL APRN Ot I10 ESSENTIAL (PRIMARY) HYPERTENSION 05/27/2018 DANYA POWELL APRN Ot J18.1 LOBAR PNEUMONIA, UNSPECIFIED ORGANISM 05/27/2018 DANYA POWELL APRN Ot N39.0 URINARY TRACT INFECTION, SITE NOT SPECIF 05/27/2018 DANYA POWELL APRN Ot R07.89 OTHER CHEST PAIN 05/27/2018 DANYA POWELL APRN Ot Z87.891 PERSONAL HISTORY OF NICOTINE DEPENDENCE 05/27/2018 DANYA POWELL APRN Ot Z88.8 ALLERGY STATUS TO OTH DRUG/MEDS/BIOL SUB 05/30/2018 DANYA POWELL APRN Ot 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 05/30/2018 DANYA POWELL APRN Ot F41.9 ANXIETY DISORDER, UNSPECIFIED 05/30/2018 DANYA POWELL APRN Ot I10 ESSENTIAL (PRIMARY) HYPERTENSION 05/30/2018 DANYA POWELL APRN Ot J18.1 LOBAR PNEUMONIA, UNSPECIFIED ORGANISM 05/30/2018 DANYA POWELL APRN Ot N39.0 URINARY TRACT INFECTION, SITE NOT SPECIF 05/30/2018 DANYA POWELL APRN Ot R07.89 OTHER CHEST PAIN 05/30/2018 DANYA POWELL APRN Ot Z87.891 PERSONAL HISTORY OF NICOTINE DEPENDENCE 05/30/2018 DANYA POWELL APRN Ot Z88.8 ALLERGY STATUS TO OTH DRUG/MEDS/BIOL SUB 06/07/2018 JOSE BUNDY Ot E78.2 MIXED HYPERLIPIDEMIA 06/07/2018 JOSE BUNDY Ot I10 ESSENTIAL (PRIMARY) HYPERTENSION 06/07/2018 DEANA OQUENDO JOSE K Ot I25.10 ATHSCL HEART DISEASE OF [place] CORONARY 06/07/2018 DEANA OQUENDO JOSE K Ot K21.9 GASTRO-ESOPHAGEAL REFLUX DISEASE WITHOUT 06/07/2018 DEANA OQUENDO JOSE K Ot R07.89 OTHER CHEST PAIN 06/07/2018 JOSE BUNDY Ot E78.2 MIXED HYPERLIPIDEMIA 06/07/2018 JOSE BUNDY Ot I10 ESSENTIAL (PRIMARY) HYPERTENSION 06/07/2018 DEANA OQUENDO JOSE K Ot I25.10 ATHSCL HEART DISEASE OF [place] CORONARY 06/07/2018 DEANA OQUENDO JOSE K Ot K21.9 GASTRO-ESOPHAGEAL REFLUX DISEASE WITHOUT 06/07/2018 DEANA OQUENDO JOSE K Ot R07.89 OTHER CHEST PAIN 06/07/2018 DEANA OQUENDO JOSE K Ot E78.2 MIXED HYPERLIPIDEMIA 06/07/2018 DEANA OQUENDO JOSE K Ot I10 ESSENTIAL (PRIMARY) HYPERTENSION 06/07/2018 DEANA OQUENDO JOSE K Ot I25.10 ATHSCL HEART DISEASE OF [place] CORONARY 06/07/2018 DEANA OQUENDO JOSE K Ot R07.89 OTHER CHEST PAIN 10/17/2018 Ot 300.00 ANXIETY STATE NOS 10/17/2018 Ot 401.1 BENIGN HYPERTENSION 10/17/2018 Ot 790.5 ABN SERUM ENZY LEVEL NEC 10/17/2018 JOSE BUNDY Ot 272.4 HYPERLIPIDEMIA NEC/NOS 10/17/2018 JOSE BUNDY Ot 401.9 HYPERTENSION NOS 10/17/2018 JOSE BUNDY Ot 786.50 CHEST PAIN NOS 10/17/2018 JOSE BUNDY Ot V15.82 HISTORY OF TOBACCO USE 10/17/2018 JOSE BUNDY Ot 401.9 HYPERTENSION NOS 10/17/2018 JOSE BUNDY Ot 786.50 CHEST PAIN NOS 10/17/2018 JOSE BUNDY Ot V15.82 HISTORY OF TOBACCO USE 10/17/2018 FERMIN SHIPLEY MD Ot V68.01 DISABILITY EXAMINATION 10/17/2018 FERMIN SHIPLEY MD Ot V82.89 SCREEN FOR OTH SPECIF CONDITIONS 10/17/2018 ELBA JOHNSON DO Ot R07.9 CHEST PAIN, UNSPECIFIED 10/17/2018 ELBA JOHNSON DO Ot Z01.818 ENCOUNTER FOR OTHER PREPROCEDURAL EXAMIN 10/17/2018 ELBA JOHNSON DO Ot Z12.11 ENCOUNTER FOR SCREENING FOR MALIGNANT NE 10/17/2018 RACHELL LU MD Ot E78.2 MIXED HYPERLIPIDEMIA 10/17/2018 RACHELL LU MD Ot I10 ESSENTIAL (PRIMARY) HYPERTENSION 10/17/2018 RACHELL LU MD Ot I25.10 ATHSCL HEART DISEASE OF [place] CORONARY 10/17/2018 RACHELL LU MD Ot K21.9 GASTRO-ESOPHAGEAL REFLUX DISEASE WITHOUT 10/17/2018 JOSE BUNDY Ot E78.2 MIXED HYPERLIPIDEMIA 10/17/2018 JOSE BUNDY Ot I10 ESSENTIAL (PRIMARY) HYPERTENSION 10/17/2018 JOSE BUNDY Ot I25.10 ATHSCL HEART DISEASE OF [place] CORONARY 10/17/2018 JOSE BUNDY Ot R07.89 OTHER CHEST PAIN 10/17/2018 JOSE BUNDY Ot E78.2 MIXED HYPERLIPIDEMIA 10/17/2018 JOSE BUNDY Ot I10 ESSENTIAL (PRIMARY) HYPERTENSION 10/17/2018 JOSE BUNDY Ot I25.10 ATHSCL HEART DISEASE OF [place] CORONARY 10/17/2018 JOSE BUNDY Ot K21.9 GASTRO-ESOPHAGEAL REFLUX DISEASE WITHOUT 10/17/2018 JOSE BUNDY Ot R07.89 OTHER CHEST PAIN Procedures Code Description [place] [address] ROUTINE VENIPUNCTURE 05/15/2014 69110 URINE DRUG SCREEN (IN-HOUSE) 05/15/2014 75334 CBC 05/16/20143619623 GFR CALC (RESULT ONLY) 05/16/2014 23060 CMP 05/16/2014 22731 PSA TOTAL 05/16/2014 56941 TSH 05/16/2014 06167 UA LONG DIP 08/30/2014 05166 ROUTINE VENIPUNCTURE 09/25/2014 48229 CMP 09/25/2014 Cardiolog Geraldine Rachell 01/07/2015 Results Test Result Range PT panel in platelet poor plasma by [...] Automated erythrocyte mean corpuscular hemoglobin concentration measurement (mass/volume) 35 g/dL 32-36 Automated erythrocyte distribution width ratio 14.0 % 10.0- 14.5 Automated blood platelet count (count/volume) 149 10*3/uL [...] Blood monocytes automated count (number/volume) 0.4 10*3 0.0- 1.0 Automated eosinophil count 0.2 10*3/uL 0.0-0.3 Automated [...] Serum or plasma aspartate aminotransferase measurement (enzymatic activity/volume) 34 U/L 5-34 Serum or plasma alanine aminotransferase measurement (enzymatic activity/volume) 27 U/L 0-55 Serum or plasma protein measurement (mass/volume) 7.4 g/dL 6.4-8.2 Serum or plasma albumin measurement (mass/volume) 4.0 g/dL 3.2-4.5 Magnesium - 06/23/17 15:45 Magnesium 1.7 mg/dL 1.8-2.4 Myoglobin, serum - 06/23/17 15:45 Myoglobin, serum 50.9 ng/mL 10.0-92.0 Serum or plasma troponin i.cardiac measurement (mass/volume) - 06/23/17 15:45 Serum or plasma troponin i.cardiac measurement (mass/volume) < ng/mL <0.30 Myoglobin, serum - 06/23/17 15:45 Myoglobin, serum 50.9 ng/mL 10.0-92.0 Serum or plasma lithium measurement (moles/volume) - 06/23/17 15:45 BNP level 189.8 pg/mL <100.0 Serum or plasma troponin i.cardiac measurement (mass/volume) - 06/23/17 19:50 Serum or plasma troponin i.cardiac measurement (mass/volume) < ng/mL <0.30 Complete blood count (CBC) with automated white blood cell (WBC) differential - 05/27/18 15:17 Blood leukocytes automated count (number/volume) 6.2 10*3/uL 4.3-11.0 Blood erythrocytes automated count (number/volume) 4.09 10*6/uL 4.35-5.85 Venous blood hemoglobin measurement (mass/volume) 13.8 g/dL 13.3-17.7 Blood hematocrit (volume fraction) 37 % 40-54 Automated erythrocyte mean corpuscular volume 90 [foz_us] 80-99 Automated erythrocyte mean corpuscular hemoglobin (mass per erythrocyte) 34 pg 25-34 Automated erythrocyte mean corpuscular hemoglobin concentration measurement (mass/volume) 37 g/dL 32-36 Automated erythrocyte distribution width ratio 13.5 % 10.0- 14.5 Automated blood platelet count (count/volume) 159 10*3/uL 130-400 Automated blood platelet mean volume measurement 11.1 [foz_us] 7.4-10.4 Automated blood neutrophils/100 leukocytes 55 % 42-75 Automated blood lymphocytes/100 leukocytes 34 % 12-44 Blood monocytes/100 leukocytes 10 % 0-12 Automated blood eosinophils/100 leukocytes 1 % 0-10 Automated blood basophils/100 leukocytes 0 % 0-10 Blood neutrophils automated count (number/volume) 3.4 10*3 1.8-7.8 Blood lymphocytes automated count (number/volume) 2.1 10*3 1.0-4.0 Blood monocytes automated count (number/volume) 0.6 10*3 0.0- 1.0 Automated eosinophil count 0.0 10*3/uL 0.0-0.3 Automated blood basophil count (count/volume) 0.0 10*3/uL 0.0-0.1 Comprehensive metabolic panel - 05/27/18 15:17 Serum or plasma sodium measurement (moles/volume) 133 mmol/L 135-145 Serum or plasma potassium measurement (moles/volume) 3.5 mmol/L 3.6-5.0 Serum or plasma chloride measurement (moles/volume) 102 mmol/L 98-107 Carbon dioxide 16 mmol/L 21-32 Serum or plasma anion gap determination (moles/volume) 15 mmol/L 5-14 Serum or plasma urea nitrogen measurement (mass/volume) 12 mg/dL 7-18 Serum or plasma creatinine measurement (mass/volume) 1.66 mg/dL 0.60-1.30 Serum or plasma urea nitrogen/creatinine mass ratio 7 NRG Serum or plasma creatinine measurement with calculation of estimated glomerular filtration rate 42 NRG Serum or plasma glucose measurement (mass/volume) 109 mg/dL 70-105 Serum or plasma calcium measurement (mass/volume) 10.0 mg/dL 8.5-10.1 Serum or plasma total bilirubin measurement (mass/volume) 1.0 mg/dL 0.1-1.0 Serum or plasma alkaline phosphatase measurement (enzymatic activity/volume) 46 U/L 40-136 Serum or plasma aspartate aminotransferase measurement (enzymatic activity/volume) 41 U/L 5-34 Serum or plasma alanine aminotransferase measurement (enzymatic activity/volume) 51 U/L 0-55 Serum or plasma protein measurement (mass/volume) 7.7 g/dL 6.4-8.2 Serum or plasma albumin measurement (mass/volume) 4.3 g/dL 3.2-4.5 CALCIUM CORRECTED 9.8 mg/dL 8.5-10.1 Serum or plasma troponin i.cardiac measurement (mass/volume) - 05/27/18 15:17 Serum or plasma troponin i.cardiac measurement (mass/volume) < ng/mL <0.30 Serum or plasma lithium measurement (moles/volume) - 05/27/18 15:17 BNP level 44.5 pg/mL <100.0 Lipase - 05/27/18 15:17 Lipase 33 U/L 8-78 Complete urinalysis with reflex to culture - 05/27/18 16:12 Urine color determination YELLOW NRG Urine clarity determination CLEAR NRG Urine pH measurement by test strip 6.5 5-9 Specific gravity of urine by test strip 1.005 1.016-1.022 Urine protein assay by test strip, semi-quantitative NEGATIVE NEGATIVE Urine glucose detection by automated test strip NEGATIVE NEGATIVE Erythrocytes detection in urine sediment by light microscopy NEGATIVE NEGATIVE Urine ketones detection by automated test strip NEGATIVE NEGATIVE Urine nitrite detection by test strip NEGATIVE NEGATIVE Urine total bilirubin detection by test strip NEGATIVE NEGATIVE Urine urobilinogen measurement by automated test strip (mass/volume) NORMAL NORMAL Urine leukocyte esterase detection by dipstick 1+ NEGATIVE Automated urine sediment erythrocyte count by microscopy (number/high power field) NONE NRG Automated urine sediment leukocyte count by microscopy (number/high power field) [HPF] NRG Bacteria detection in urine sediment by light microscopy LARGE NRG Crystals detection in urine sediment by light microscopy NONE NRG Casts detection in urine sediment by light microscopy NONE NRG Mucus detection in urine sediment by light microscopy NEGATIVE NRG Complete urinalysis with reflex to culture YES NRG Bacterial urine culture - 05/27/18 16:12 Bacterial urine culture [id number] NRG COLONY COUNT >100,000/ML NRG RML Sensitivity Panel - 05/27/18 16:12 Gentamicin susceptibility test by minimum inhibitory concentration <= NRG Trimethoprim/sulfamethoxazole susceptibility test by minimum inhibitoryconcentration <= NRG Levofloxacin susceptibility test by minimum inhibitory concentration <= NRG Ampicillin susceptibility test by minimum inhibitory concentration <= NRG Cefazolin susceptibility test by minimum inhibitory concentration 2 NRG Ceftriaxone susceptibility test by minimum inhibitory concentration <= NRG Ciprofloxacin susceptibility test by minimum inhibitory concentration <= NRG Meropenem susceptibility test by minimum inhibitory concentration <= NRG Nitrofurantoin susceptibility test by minimum inhibitory concentration <= NRG Amoxicillin and clavulanate potassium susc TIANA <= NRG PDM - 09 PANEL (PROFILE 1) - 05/30/18 12:43 Prescribed Drug 1 Tramadol NRG Creatinine 69.2 mg/dL > or=20.0 pH 5.88 4.5 - 9.0 Oxidant NEGATIVE mcg/mL <200 Amphetamines NEGATIVE ng/mL <500 medMATCH Amphetamines CONSISTENT NRG Benzodiazepines POSITIVE ng/mL <100 Marijuana Metabolite POSITIVE ng/mL <20 Cocaine Metabolite NEGATIVE ng/mL <150 medMATCH Cocaine Metab CONSISTENT NRG Opiates NEGATIVE ng/mL <100 medMATCH Opiates CONSISTENT NRG Oxycodone NEGATIVE ng/mL <100 medMATCH Oxycodone CONSISTENT NRG COMMENT NRG Alphahydroxyalprazolam 265 ng/mL <25 medMATCH aOH alprazolam CONSISTENT NRG Alphahydroxymidazolam NEGATIVE ng/mL <50 medMATCH aOH midazolam CONSISTENT NRG Alphahydroxytriazolam NEGATIVE ng/mL <50 medMATCH aOH triazolam CONSISTENT NRG Aminoclonazepam NEGATIVE ng/mL <25 medMATCH Aminoclonazepam CONSISTENT NRG Hydroxyethylflurazepam NEGATIVE ng/mL <50 medMATCH OH,Et flurazepam CONSISTENT NRG Lorazepam 54 ng/mL <50 medMATCH Lorazepam INCONSISTENT NRG Nordiazepam NEGATIVE ng/mL <50 medMATCH Nordiazepam CONSISTENT NRG Oxazepam NEGATIVE ng/mL <50 medMATCH Oxazepam CONSISTENT NRG Temazepam NEGATIVE ng/mL <50 medMATCH Temazepam CONSISTENT NRG Prescribed Drug 3 Xanax(TM) NRG Marijuana Metabolite 6 ng/mL <5 medMATCH Marijuana Metab INCONSISTENT NRG Barbiturates NEGATIVE ng/mL <300 medMATCH Barbiturates CONSISTENT NRG Methadone Metabolite NEGATIVE ng/mL <100 medMATCH Methadone Metab CONSISTENT NRG Phencyclidine NEGATIVE ng/mL <25 medMATCH Phencyclidine CONSISTENT NRG CMP - 07/27/18 10:00 GLUCOSE 101 mg/dL 65-99 UREA NITROGEN (BUN) 10 mg/dL 7-25 CREATININE 1.08 mg/dL 0.70-1.25 eGFR NON-AFR. CITIZEN OF [place] 74 mL/min/1.73m2 > OR=60 eGFR 85 mL/min/1.73m2 > OR=60 BUN/CREATININE RATIO NOT APPLICABLE (calc) 6-22 SODIUM 136 mmol/L 135-146 POTASSIUM 4.6 mmol/L 3.5-5.3 CHLORIDE 101 mmol/L 98-110 CARBON DIOXIDE 28 mmol/L 20-32 CALCIUM 9.7 mg/dL 8.6-10.3 PROTEIN, TOTAL 7.5 g/dL 6.1-8.1 ALBUMIN 4.3 g/dL 3.6-5.1 GLOBULIN 3.2 g/dL (calc) 1.9-3.7 ALBUMIN/GLOBULIN RATIO 1.3 (calc) 1.0-2.5 BILIRUBIN, TOTAL 0.8 mg/dL 0.2-1.2 ALKALINE PHOSPHATASE 37 U/L 40-115 AST 39 U/L 10-35 ALT 49 U/L 9-46 Encounters ACCT No. Visit Date/Time Discharge Status Pt. Type Provider Facility Loc./Unit Complaint [id number] 01/07/2015 10:45:00 01/07/2015 23:59:59 CLS Outpatient [facility]ADL C[facility] L [id number] 11/28/2014 11:12:00 11/28/2014 23:59:59 CLS Outpatient MADL CUTTER FIRSTCHRISTINAA L [id number] 10/25/2014 15:15:00 10/25/2014 23:59:59 CLS Outpatient [facility] L [id number] 09/25/2014 13:21:00 09/25/2014 23:59:59 CLS Outpatient MADYSON IRWIN DO [id number] 09/02/2014 13:51:00 09/02/2014 23:59:59 CLS Outpatient MADL CUT[facility] FIRST[facility] L [id number] 08/30/2014 11:58:00 08/30/2014 23:59:59 CLS Outpatient SWEETIE AYOUB APRN [id number] 07/11/2014 10:05:00 07/11/2014 23:59:59 CLS Outpatient MADYSON IRWIN DO [id number] 06/11/2014 14:19:00 06/11/2014 23:59:59 CLS Outpatient MADL CUTTER FIRSTAMERICO L [id number] 05/29/2014 14:24:00 05/29/2014 23:59:59 CLS Outpatient MADL CUTTER FIRSTCHRISTINAA L [id number] 05/15/2014 15:00:00 05/15/2014 23:59:59 CLS Outpatient MADL C[facility]TER [facility] L [id number] 05/27/2018 14:51:00 05/27/2018 18:15:00 DIS Emergency DANYA POWELL CUTTER FIRST [facility] ER LOW BP, SHAKING [id number] 11/09/2017 07:32:00 11/09/2017 23:59:59 CLS Outpatient JOSE BUNDY [facility] CARD I25.10,R07.89 [id number] 10/17/2017 11:45:00 10/17/2017 23:59:59 CLS Outpatient JOSE BUNDY [facility] CARD CAD [id number] 08/30/2017 19:33:00 08/31/2017 06:58:00 DIS Outpatient RACHELL LU MD [facility] SLEEP MONI G47.33 [id number] 06/23/2017 15:01:00 06/23/2017 20:58:00 DIS Emergency DANYA POWELL APRN [facility] ER HIGH BP [id number] 06/22/2016 12:48:00 06/22/2016 23:59:59 CLS Outpatient RACHELL LU MD [facility] CARD CAD,GERD,HTN,HLP [id number] 02/12/2016 11:42:00 02/12/2016 13:55:00 DIS Outpatient ELBA JOHNSON DO [facility] SDC SCREENING,CHEST PAIN [id number] 02/04/2016 08:18:00 02/04/2016 10:26:00 DIS Outpatient ELBA JOHNSON DO [facility] PREOP SCREENING; CHEST PAIN [id number] 01/15/2016 05:41:00 01/15/2016 23:59:59 CLS Outpatient ELBA JOHNSON DO [facility] PREOP SCREENING,CHEST PAIN [id number] 06/23/2015 08:47:00 06/23/2015 23:59:59 CLS Outpatient FERMIN SHIPLEY MD [facility] RAD DDU [id number] 06/11/2015 12:21:00 06/11/2015 22:40:00 DIS Outpatient RACHELL LU MD [facility] CATH ABNORMAL STRESS, CP,SOB,HLP,HTN [id number] 05/27/2015 11:59:00 05/27/2015 23:59:59 CLS Outpatient JOSE BUNDY [facility] CARD CP,HTN [id number] 05/26/2015 08:51:00 05/26/2015 23:59:59 CLS Outpatient JOSE BUNDY [facility] CARD CHEST PAIN HTN [id number] 11/21/2014 08:46:00 Document Registration [id number] 02/12/2019 14:40:00 02/12/2019 23:59:59 CLS Outpatient JESU PLUNKETT APRN [facility] [id number] 07/27/2018 09:40:00 Document Registration [id number] 05/30/2018 13:00:00 Document Registration
[2019-02-21 15:07] LABS: BASOPHILS % (AUTO) 0 % (0-10); EOSINOPHILS # (AUTO) 0.1 10^3/uL (0.0-0.3); EOSINOPHILS % (AUTO) 1 % (0-10); HEMATOCRIT 41 % (40-54); HEMOGLOBIN 14.4 G/DL (13.3-17.7); LYMPHOCYTES # (AUTO) 2.1 X 10^3 (1.0-4.0); LYMPHOCYTES % (AUTO) 28 % (12-44); MEAN CORPUSCULAR HEMOGLOBIN 33 PG (25-34); MEAN CORPUSCULAR HGB CONC 35 G/DL (32-36); MEAN CORPUSCULAR VOLUME 94 FL (80-99); MEAN PLATELET VOLUME 10.8 FL (7.4-10.4); MONOCYTES # (AUTO) 0.7 X 10^3 (0.0-1.0); MONOCYTES % (AUTO) 9 % (0-12); NEUTROPHILS # (AUTO) 4.6 X 10^3 (1.8-7.8); NEUTROPHILS % (AUTO) 61 % (42-75); PLATELET COUNT 181 10^3/uL (130-400); RED CELL DISTRIBUTION WIDTH 13.8 % (10.0-14.5); WHITE BLOOD COUNT 7.5 10^3/uL (4.3-11.0)
[2019-02-21] MEDS ORDERED: ONDANSETRON 4 MG/2 ML (SDV) Z0FRAN ONE (15:07)
[2019-02-21] MEDS ORDERED: ADENOSINE 6 MG/2 ML (ADENOCARD) VIAL IV ONE ×2 (15:08→16:00)
--- NOTE | 2019-02-21 15:11 | NUR ---
PATIENT BECAME EXTREMELY TACHYCARDIC AT THIS TIME, VERBAL ORDERS FROM DR DUGGAN FOR THE CRASH CART GIVEN, RAPID RESPONSE IN ACTION
--- NOTE | 2019-02-21 15:14 | NUR ---
ADENOSINE 12 MG GIVEN HR 248 DROP TO 129 1518 RATE 133 1522 HR RATE 131 BP 125-[address] LU IN THE ROOM 1525 SINUS TACH, EKG, RATE 110
[2019-02-21 15:17] LABS: PROTHROMBIN TIME PATIENT 13.9 SEC (12.2-14.7)
[2019-02-21] MEDS ORDERED: meTOprolol 5 MG/5 ML (LOPRESSOR) VIAL ONE (15:22)
[2019-02-21] MEDS: DILTIAZEM IV FOR DRIP 125 MG in NS (IVPB) 100 ML IV SCH (15:22)
[2019-02-21] MEDS ORDERED: AMIODARONE (OMNICELL DRIP KIT) 150 MG/3 ML IV ONE (15:23)
[2019-02-21 15:25] LABS: ALANINE AMINOTRANSFERASE 360 U/L (0-55); ALBUMIN 4.3 GM/DL (3.2-4.5); ALKALINE PHOSPHATASE 54 U/L (40-136); AMYLASE 44 U/L (25-125); BILIRUBIN,TOTAL 1.1 MG/DL (0.1-1.0); BUN/CREATININE RATIO 17; CALCIUM 10.1 MG/DL (8.5-10.1); CARBON DIOXIDE 24 MMOL/L (21-32); CHLORIDE 101 MMOL/L (98-107); CREATINE KINASE 58 U/L (30-200); CREATININE SERUM 0.99 MG/DL (0.60-1.30); GFR ESTIMATED > 60; GLUCOSE 128 MG/DL (70-105); MAGNESIUM 1.3 MG/DL (1.8-2.4); POTASSIUM 4.2 MMOL/L (3.6-5.0); SODIUM 137 MMOL/L (135-145); TOTAL PROTEIN 8.7 GM/DL (6.4-8.2)
--- NOTE | 2019-02-21 15:30 | NUR ---
patient is resting quietly with eyes closed, denies needs at this time. vital signs stable, frequent monitoring maintained.
[2019-02-21 15:34] LABS: CREATINE KINASE MB 1.3 NG/ML (<6.6)
[2019-02-21 15:46] LABS: TSH (THYROID ANALYZER) 1.38 UIU/ML (0.35-4.94)
[2019-02-21] MEDS ORDERED: meTOprolol 5 MG/5 ML (LOPRESSOR) VIAL IV ONE (16:00)
[2019-02-21] MEDS ORDERED: ONDANSETRON 4 MG/2 ML (SDV) Z0FRAN IVP ONE (16:00)
[2019-02-21] MEDS ORDERED: AMIODARONE FOR BOLUS 150 MG in D5W 100 ML IVPB 100 ML IV ONE (16:00)
--- NOTE | 2019-02-21 16:07 | Diagnostic Imaging Report ---
INDICATION: Chest pain and shortness of breath. EXAMINATION: Frontal chest was obtained at 3:53 p.m. COMPARISON: 05/27/2018. FINDINGS: Heart and mediastinal silhouette are normal in appearance. The lungs are clear. Overlying external pacer device is seen. There is no pneumothorax or pleural fluid. IMPRESSION: No acute process visualized in the chest. Dictated by: Dictated on workstation # [id number]
--- NOTE | 2019-02-21 16:15 | NUR ---
patient is resting quietly with eyes closed, denies needs at this time. vital signs stable, frequent monitoring maintained. Daughter in room with patient.
--- NOTE | 2019-02-21 16:26 | Consultation-Cardiology ---
HPI-Cardiology Cardiology Consultation Date of Consultation 02/21/19 Date of Admission Time Seen by Provider: 16:19 Indication: ventricular tachycardia HPI 63 years old gentleman with history of congestive heart failure, hypertension, has been doing well until recently when he started to have palpitation felt lightheaded and dizzy, came into the emergency room and noted to be in wide- complex tachycardia, given adenosine and showed underlying atrial flutter with rapid ventricular response with wide-complex tachycardia. He is feeling better at this time. Started on Cardizem drip converted to sinus rhythm. Has been having chest pain and pressure in addition to shortness of breath and lightheadedness and dizziness. Home Medications & Allergies Allergies: Coded Allergies: escitalopram (Unverified Allergy, Severe, 02/12/16) SUICIDAL Home Medication List Reviewed: Yes IQN-Sybubx-Otynjv Hx Patient Social History Marital Status: Employed/Student: employed Alcohol Use: Occasionally Uses Recreational Drug Use: No Former smoker/When Quit: Aug 20, 2012 2nd Hand Smoke Exposure: No Recent Foreign Travel: No Recent Infectious Disease Expo: No Recent Hopitalizations: No Past Medical History Discussed below Family Medical History Family Medical Hx noncontributory to his current condition Review of Systems-General Review of Systems Constitutional: no symptoms reported, see HPI, dizziness, malaise, weakness EENTM: see HPI, no symptoms reported Respiratory: see HPI, dyspnea on exertion, short of breath Cardiovascular: see HPI, chest pain, palpitations, other (dizziness and lightheadedness) Gastrointestinal: no symptoms reported, see HPI Genitourinary: no symptoms reported, see HPI Musculoskeletal: no symptoms reported, see HPI Skin: no symptoms reported, see HPI Psychiatric/Neurological: No Symptoms Reported, See HPI Reviewed Test Results Reviewed Test Results Lab Laboratory Tests Test 02/21/19 15:00 Range/Units White Blood Count 7.5 4.3-11.0 10^3/uL Red Blood Count 4.36 4.35-5.85 10^6/uL Hemoglobin 14.4 13.3-17.7 G/DL Hematocrit 41 40-54 % Mean Corpuscular Volume 94 80-99 FL Mean Corpuscular Hemoglobin 33 25-34 PG Mean Corpuscular Hemoglobin Concent 35 32-36 G/DL Red Cell Distribution Width 13.8 10.0-14.5 % Platelet Count 181 130-400 10^3/uL Mean Platelet Volume 10.8 H 7.4-10.4 FL Neutrophils (%) (Auto) 61 42-75 % Lymphocytes (%) (Auto) 28 12-44 % Monocytes (%) (Auto) 9 0-12 % Eosinophils (%) (Auto) 1 0-10 % Basophils (%) (Auto) 0 0-10 % Neutrophils # (Auto) 4.6 1.8-7.8 X 10^3 Lymphocytes # (Auto) 2.1 1.0-4.0 X 10^3 Monocytes # (Auto) 0.7 0.0-1.0 X 10^3 Eosinophils # (Auto) 0.1 0.0-0.3 10^3/uL Basophils # (Auto) 0.0 0.0-0.1 10^3/uL Prothrombin Time 13.9 12.2-14.7 SEC INR Comment 1.0 0.8-1.4 Activated Partial Thromboplast Time 30 24-35 SEC Sodium Level 137 135-145 MMOL/L Potassium Level 4.2 3.6-5.0 MMOL/L Chloride Level 101 98-107 MMOL/L Carbon Dioxide Level 24 21-32 MMOL/L Anion Gap 12 5-14 MMOL/L Blood Urea Nitrogen 17 7-18 MG/DL Creatinine 0.99 0.60-1.30 MG/DL Estimat Glomerular Filtration Rate > 60 BUN/Creatinine Ratio 17 Glucose Level 128 H 70-105 MG/DL Calcium Level 10.1 8.5-10.1 MG/DL Corrected Calcium 9.9 8.5-10.1 MG/DL Magnesium Level 1.3 L 1.8-2.4 MG/DL Total Bilirubin 1.1 H 0.1-1.0 MG/DL Aspartate Amino Transf (AST/SGOT) 302 H 5-34 U/L Alanine Aminotransferase (ALT/SGPT) 360 H 0-55 U/L Alkaline Phosphatase 54 40-136 U/L Total Creatine Kinase 58 30-200 U/L Creatine Kinase MB 1.3 <6.6 NG/ML Myoglobin 48.0 10.0-92.0 NG/ML Troponin I < 0.028 <0.028 NG/ML B-Type Natriuretic Peptide 82.4 <100.0 PG/ML Total Protein 8.7 H 6.4-8.2 GM/DL Albumin 4.3 3.2-4.5 GM/DL Amylase Level 44 25-125 U/L TSH [place] Testing 1.38 0.35-4.94 UIU/ML Physical Exam Physical Exam Vital Signs Vital Signs - First Documented 02/21/19 14:52 Temp 98.8 Pulse 118 Resp 20 B/P (MAP) 142/119 (127) Pulse Ox 97 O2 Delivery Room Air Capillary Refill : Less Than 3 Seconds Height, Weight, BMI Height: 5'8.00" Weight: 207lbs. 0oz. 93.595757xp; 36.5 BMI Method:Estimated General Appearance: WD/WN, Moderate Distress Eyes: Bilateral Eye Normal Inspection, Bilateral Eye PERRL, Bilateral Eye EOMI HEENT: PERRL/EOMI, TMs Normal, Normal ENT Inspection, Pharynx Normal, Moist Mucous Membranes Neck: Full Range of Motion, Normal Inspection, Non Tender, Supple, Carotid Bruit Respiratory: Chest Non Tender, No Accessory Muscle Use, No Respiratory Distress Cardiovascular: No Gallop, No JVD, Normal Peripheral Pulses, Systolic Murmur, Gallop/S3, Tachycardia Gastrointestinal: Normal Bowel Sounds, No Organomegaly, No Pulsatile Mass, Non Tender, Soft Back: Normal Inspection, No CVA Tenderness, No Vertebral Tenderness Extremity: Normal Capillary Refill, Normal Inspection, Normal Range of Motion, Non Tender, No Calf Tenderness, Pedal Edema Neurologic/Psychiatric: Alert, Oriented x3, No Motor/Sensory Deficits, Normal Mood/Affect Skin: Normal Color, Warm/Dry Lymphatic: No Adenopathy A/P-Cardiology Admission Diagnosis Ventricular tachycardia Atrial flutter, acute Chest pain Acute hepatitis Assessment/Plan Wide-complex tachycardia, most probably atrial flutter with rapid ventricular response, back to sinus rhythm after receiving adenosine and Cardizem drip. Seen in the emergency room, stabilizing at this time. Continue to monitor, given Lovenox in the emergency room. Chest pain, had a stress test done in October 2017. Had a cardiac catheterization done in 2014 and it was normal. Continue to monitor cardiac enzymes. Congestive heart failure, history of left ventricular systolic dysfunction nonischemic cardiomyopathy with ejection fraction 45-50 percent. Planning to repeat echocardiogram Paroxysmal atrial flutter with rapid ventricular response, heart rate is better controlled at this time. Continue to monitor. Elevated liver enzymes, history of hepatitis C. Continue to monitor liver enzymes. History of hyperlipidemia, continue to monitor lipids Tobaccoism, has stopped smoking, Anxiety. Mild bilateral carotid stenosis, last ultrasound was done in October 2017. Clinical Quality Measures AMI/AHF: ASA po Prior to arrival: RACHELL Magana MD February 21, 2019 16:26
[2019-02-21] MEDS: MAGNESIUM 1 GM/100 ML IVPB 100 ML IV SCH ×2 (16:36→17:23)
[2019-02-21] MEDS ORDERED: RIVAROXABAN 20 MG TABLET (XARELTO) PO SCH (17:00)
--- NOTE | 2019-02-21 17:00 | NUR ---
EKG machine removed from patient, crash cart pads removed from patient. patient continues normal vital signs and denies needs at this time. frequent monitoring maintained.
--- NOTE | 2019-02-21 17:15 | NUR ---
attempted to give report on this patient to ICU nurses however they are still deciding who will take the patient and we are waiting for the room to be cleaned.
--- NOTE | 2019-02-21 18:18 | ED Cardiac General ---
History of Present Illness General Chief Complaint: Chest Pain Stated Complaint: CHEST PAIN Nursing Triage Note: HAS BEEN HAVE EPISODES OF CHEST PAIN FOR THE LAST 4 DAYS DECIDED HE NEEDED TO COME IN TODAY "SO THEY DONT FIND ME ON THE FLOOR " TOOK 2 NITRO AT HOME. Source: patient History of Present Illness Date Seen by Provider: February 21, 2019 Time Seen by Provider: 15:00 Initial Comments PT ARRIVES VIA POV FROM HOME, WITH DAUGHTER PT HAS BEEN HAVING CHEST PAIN OFF AND ON FOR SEVERAL WEEKS PAIN WOKE HIM UP AT 0300 TODAY AND HAS BEEN PERSISTENT ALL DAY TODAY, WAXES AND WANES BUT DOES NOT GO AWAY TOOK NTG SL X 2 AT 1330--NO RELIEF. + SHORTNESS OF BREATH + SWEATS + NAUSEA, NO VOMITING + SWELLING IN LEGS/ FEET, NO PAIN IN CALVES + DIZZINESS + PALPITATIONS--SENSATION OF HEART BEATING FAST AND IRREGULAR OFF AND ON FOR A FEW WEEKS STATES HE PASSED OUT LAST WEEK WITH THESE SYMPTOMS TODAY HE ALMOST PASSED OUT WITH IT RATES PAIN 04/04 NOW STATES SYMPTOMS ARE NO DIFFERENT TODAY, THAN WHAT HE HAS BEEN HAVING FOR THE LAST FEW WEEKS, BUT STATES "I DIDN'T WANT MY FAMILY TO FIND ME ", SO CAME TO ER. PT HAS HISTORY OF HTN, AND SEES DR. LU EVERY 6 MONTHS, NEXT VISIT IS IN FEBRUARY PT HAS HAD A CARDIAC CATH IN THE PAST--NO INTERVENTION. 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 TANK HOUSE OPERATOR: No Allergies and Home Medications Allergies Coded Allergies: escitalopram (Unverified Allergy, Severe, 02/12/16) SUICIDAL Home Medications Alprazolam 0.5 Mg Tablet, 0.5 MG PO TID, (Reported) Alprazolam 0.5 Mg Tablet, 0.5 MG PO TID Prescribed by: DANYA POWELL on 05/27/181718 Cefuroxime Axetil 500 Mg Tablet, 500 MG PO BID Prescribed by: DANYA POWELL on 05/27/181718 Diphenhydramine HCl 25 Mg Capsule, 25-50 MG PO DAILY PRN for ALLERGIES, (Reported) Ibuprofen 200 Mg Tablet, 400 MG PO DAILY PRN for PAIN, (Reported) Losartan Potassium 50 Mg Tablet, 100 MG PO DAILY, (Reported) Metoprolol Succinate 50 Mg Tab.er.24h, 100 MG PO DAILY, (Reported) Nitroglycerin 0.4 Mg Tab.subl, 0.4 MG SL PRN PRN for CHEST PAIN, (Reported) Pantoprazole Sodium 40 Mg Tablet.dr, 40 MG PO BID Take Protonix 40 mg twice a day for one month after that resume Protonix 40 mg once a day Prescribed by: DARIANA NICK on 02/12/16 1300 Patient Home Medication List Home Medication List Reviewed: Yes Review of Systems Review of Systems Constitutional: no symptoms reported, see HPI, dizziness, malaise, weakness Musculoskeletal: no symptoms reported, see HPI Skin: no symptoms reported, see HPI Psychiatric/Neurological: No Symptoms Reported, See HPI Past Quefbgg-Uphlgs-Toguaz Hx Patient Social History Alcohol Use: Occasionally Uses Number of Drinks Today: AA Alcohol Beverage of Choice: Beer Recreational Drug Use: No Smoking Status: Former Smoker (STILL OCCASIONALLY SMOKES WHEN HE DRINKS) Type Used: Cigarettes Former Smoker, Quit: Aug 25, 2012 2nd Hand Smoke Exposure: No Recent Foreign Travel: No Contact w/Someone Who Travel: No Recent Infectious Disease Expo: No Recent Hopitalizations: No Physical Abuse: No Sexual Abuse: No Mistreated: No Fear: No Past Medical History Surgeries: Yes (CARPAL TUNNEL; CARDIAC CATH 05/2015--NO INTERVENTION; EGD/COLONOSCOPY/POLYPECTOMY 05/2016) Cardiac Respiratory: No Cardiac: Yes (CARDIAC CATH 05/2015--MILD, NON-OBSTRUCTIVE DISEASE; MILD CAROTID STENOSIS) Coronary Artery Disease, High Cholesterol, Hypertension Neurological: No Genitourinary: No Gastrointestinal: Yes (EGD/COLONOSCOPY/POLYPECTOMY 05/2016--H.H./GERD/ESOPHAGITIS, COLON POLYP; HX HEPATITIS C) Gastroesophageal Reflux, Liver Disease/Jaundice, Hepatitis, Polyps, Esophagitis, Hiatal Hernia Musculoskeletal: No Endocrine: No HEENT: No Cancer: No Psychosocial: Yes Anxiety Integumentary: No Blood Disorders: No Physical Exam Vital Signs Vital Signs - First Documented 02/21/19 14:52 Temp 98.8 Pulse 118 Resp 20 B/P (MAP) 142/119 (127) Pulse Ox 97 O2 Delivery Room Air Capillary Refill : Less Than 3 Seconds Height, Weight, BMI Height: 5'8.00" Weight: 207lbs. 0oz. 93.835552ia; 36.5 BMI Method:Estimated General Appearance: No Apparent Distress, WD/WN HEENT: PERRL/EOMI Neck: Normal Inspection Respiratory: Normal Breath Sounds, No Accessory Muscle Use, No Respiratory Distress Cardiovascular: No Murmur, Tachycardia (DURING EXAM, PT WAS IN A FIB/RVR, HAD SHORT RUN OF V-TACH, THEN WENT INTO FULL BLOWN V-TACH/WIDE COMPLEX TACHYCARDIA WITH A PULSE. 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 Norm as Tested Skin: Normal Color, Warm/Dry Progress/Results/Core Measures Results/Orders Lab Results Laboratory Tests Test 02/21/19 15:00 Range/Units White Blood Count 7.5 4.3-11.0 10^3/uL Red Blood Count 4.36 4.35-5.85 10^6/uL Hemoglobin 14.4 13.3-17.7 G/DL Hematocrit 41 40-54 % Mean Corpuscular Volume 94 80-99 FL Mean Corpuscular Hemoglobin 33 25-34 PG Mean Corpuscular Hemoglobin Concent 35 32-36 G/DL Red Cell Distribution Width 13.8 10.0-14.5 % Platelet Count 181 130-400 10^3/uL Mean Platelet Volume 10.8 H 7.4-10.4 FL Neutrophils (%) (Auto) 61 42-75 % Lymphocytes (%) (Auto) 28 12-44 % Monocytes (%) (Auto) 9 0-12 % Eosinophils (%) (Auto) 1 0-10 % Basophils (%) (Auto) 0 0-10 % Neutrophils # (Auto) 4.6 1.8-7.8 X 10^3 Lymphocytes # (Auto) 2.1 1.0-4.0 X 10^3 Monocytes # (Auto) 0.7 0.0-1.0 X 10^3 Eosinophils # (Auto) 0.1 0.0-0.3 10^3/uL Basophils # (Auto) 0.0 0.0-0.1 10^3/uL Prothrombin Time 13.9 12.2-14.7 SEC INR Comment 1.0 0.8-1.4 Activated Partial Thromboplast Time 30 24-35 SEC Sodium Level 137 135-145 MMOL/L Potassium Level 4.2 3.6-5.0 MMOL/L Chloride Level 101 98-107 MMOL/L Carbon Dioxide Level 24 21-32 MMOL/L Anion Gap 12 5-14 MMOL/L Blood Urea Nitrogen 17 7-18 MG/DL Creatinine 0.99 0.60-1.30 MG/DL Estimat Glomerular Filtration Rate > 60 BUN/Creatinine Ratio 17 Glucose Level 128 H 70-105 MG/DL Calcium Level 10.1 8.5-10.1 MG/DL Corrected Calcium 9.9 8.5-10.1 MG/DL Magnesium Level 1.3 L 1.8-2.4 MG/DL Total Bilirubin 1.1 H 0.1-1.0 MG/DL Aspartate Amino Transf (AST/SGOT) 302 H 5-34 U/L Alanine Aminotransferase (ALT/SGPT) 360 H 0-55 U/L Alkaline Phosphatase 54 40-136 U/L Total Creatine Kinase 58 30-200 U/L Creatine Kinase MB 1.3 <6.6 NG/ML Myoglobin 48.0 10.0-92.0 NG/ML Troponin I < 0.028 <0.028 NG/ML B-Type Natriuretic Peptide 82.4 <100.0 PG/ML Total Protein 8.7 H 6.4-8.2 GM/DL Albumin 4.3 3.2-4.5 GM/DL Amylase Level 44 25-125 U/L TSH [place] Testing 1.38 0.35-4.94 UIU/ML My Orders Orders - RICCI DUGGAN DO Cbc With Automated Diff (02/21/19 15:00) Magnesium (02/21/19 15:00) Chest 1 View, Ap/Pa Only (02/21/19 15:00) Ekg Tracing (02/21/19 15:00) Cardiac Profile 1 (02/21/19 15:) Comprehensive Metabolic Panel (02/21/19 15:00) Myoglobin Serum (02/21/19 15:00) Protime With Inr (02/21/19:) Partial Thromboplastin Time (02/21/19 15:00) O2 (02/21/19 15:00) Monitor-Rhythm Ecg Trace Only (02/21/19 15:00) Lipid Panel (02/22/19 06:00) Ed Iv/Invasive Line Start (02/21/19 15:00) Creatine Kinase (02/21/19 15:00) Creatine Kinase Mb (02/21/19 15:00) Amylase (02/21/19 15:00) BNP (02/21/19 15:00) Troponin I (02/21/19 15:00) Nitroglycerin Ointment (Nitrobid Ointme (02/21/19 15:00) Aspirin Chewable Tablet (Baby Aspirin Ch (02/21/19 15:00) Thyroid Analyzer (02/21/19 15:00) Ua Culture If Indicated (02/21/19 15:00) Enoxaparin Injection (Lovenox Injection) (02/21/19 15:00) Diltiazem Injection (Cardizem Injection) (02/21/19 15:00) Ns (Ivpb) (Sodium C... W/Diltiazem Iv Fo (02/21/19 15:00) Aspirin Chewable Tablet (Baby Aspirin Ch (02/21/19 14:57) Ondansetron Injection (Zofran Injectio (02/21/19 15:07) Adenosine Injection (Adenocard Injection (02/21/19 15:08) Metoprolol Tartrate Injection (Lopressor (02/21/19 15:22) Amiodarone For Bolus (Cordarone Bolus) (02/21/19 15:23) Adenosine Injection (Adenocard Injection (02/21/19 16:00) Metoprolol Tartrate Injection (Lopressor (02/21/19 16:00) Ondansetron Injection (Zofran Injectio (02/21/19 16:00) Amiodarone For Bolus (Cordarone Bolus) (02/21/19 16:00) Ekg Tracing (02/21/19 15:51) Ekg Tracing (02/21/19 15:51) Ekg Tracing (02/21/19 15:51) Magnesium 1 Gm/100 Ml Ivpb (Magnesium [place] (02/21/19 16:00) Medications Given in ED Current Medications Medications Dose Ordered Sig/Adriel Route Start Time Stop Time Status Last Admin Dose Admin Adenosine 12 mg ONCE ONCE IV 02/21/19 16:00 02/21/19 16:01 DC 02/21/19 15:16 12 MG Amiodarone HCl 150 mg STK-MED ONCE IV 02/21/19 15:23 02/21/19 15:28 DC 02/21/19 15:30 150 MG Aspirin 324 mg ONCE ONCE PO 02/21/19 15:00 02/21/19 15:02 DC 02/21/19 15:03 324 MG Diltiazem HCl 20 mg ONCE ONCE IVP 02/21/19 15:00 02/21/19 15:02 DC 02/21/19 15:15 20 MG Enoxaparin Sodium 100 mg ONCE ONCE SC 02/21/19 15:00 02/21/19 15:02 DC 02/21/19 15:24 100 MG Metoprolol Tartrate 5 mg ONCE ONCE IV 02/21/19 16:00 02/21/19 16:01 DC 02/21/19 15:29 5 MG Ondansetron HCl 8 mg ONCE ONCE IVP 02/21/19 16:00 02/21/19 16:01 DC 02/21/19 15:12 8 MG Vital Signs/I&O 02/21/19 02/21/19 02/21/19 14:52 14:52 15:22 Temp 98.8 Pulse 118 131 Resp 20 16 B/P (MAP) 142/119 (127) 125/80 Pulse Ox 97 98 O2 Delivery Room Air Blood Pressure Mean: 95 Progress Progress Note : Progress Note SEE CRITICAL CARE NOTES AND NURSING NOTES FOR DETAILS Initial ECG Impression Date: February 21, 2019 Initial ECG Impression Time: 14:54 Initial ECG Rate: 177 Initial ECG Rhythm: A Fib/Flutter (WITH RVR) Initial ECG Impression: Atrial Fibrillation w/RVR Initial ECG Comparisson: Changed (FROM NSR WITH PVC'S 05/27/18) EKG : EKG Time: 15:15 Rate: 133 Rhythm: SVT ECG Impression: Nonspecific Changes Comment EKG #3 AT 1519--RATE 139, SVT EKG #4 AT 1523--RATE 110, SINUS TACH Diagnostic Imaging Comments CXR--NO ACUTE PROCESS, PER RADIOLOGIST REPORT Reviewed: Reviewed by Nv Critical Care Note Critical Care Progress 1511--PT SUDDENLY IN V-TACH WITH A PULSE--RATE 240-250, BP > 110 SYSTOLIC PT GIVEN ADENOSINE 12 MG--IMMEDIATELY CONVERTED TO A FLUTTER/RVR, THEN RIGHT BACK INTO V-TACH WITH A PULSE. BP REMAINED > 110 SYSTOLIC PT GIVEN CARDIZEM 25 MG BOLUS AND ANOTHER DOSE OF ADENOSINE 12 MG WITH IMMEDIATE CONVERSION TO ATRIAL FLUTTER WITH RVR--RATE DOWN TO 130'S. BP > 110 SYSTOLIC PT STARTED ON CARDIZEM DRIP, GIVEN LOVENOX PT CONVERTED TO NSR AT 1525 DR. LU WAS PAGED AND ARRIVED IN ER AT 1521--CARE TURNED OVER TO HIM HE ORDERED LOPRESSOR 5 MG AND AMIODARONE 150 MG NO DETERIORATION IN PT'S CONDITION FOR REMAINDER OF ER STAY. PT REMAINED IN NSR RATE IN 80'S, HAD STABLE VITALS, AND NO SYMPTOMS FOR REMAINDER OF ER STAY Departure Communication (Admissions) DR. LU PAGED AT 1512 DR. LU HERE IN HER AT 1521, CARE TURNED OVER TO HIM Impression Primary Impression: WIDE COMPLEX TACHYCARDIA WITH PULSE Additional Impressions: AFIB WITH RVR-NEW ONSET Chest pain HX OF HTN Hypomagnesemia Elevated LFTs Hx of hepatitis C Disposition: 09 ADMITTED INPATIENT Condition: Improved Admissions Decision to Admit Reason: Admit from ER (General) (1530) Decision to Admit/Date: February 21, 2019 Time/Decision to Admit Time: 15:30 Departure-Patient Inst. Referrals: [facility] (PCP) Primary Care Physician JESU PLUNKETT (Family) Primary Care Physician RICCI DUGGAN DO February 21, 2019 18:18
--- NOTE | 2019-02-21 18:30 | NUR ---
patient remains stable, called to give report to Cristine AGARWAL was told she would call me back.
[2019-02-21 18:41] LABS: BILIRUBIN,URINE NEGATIVE (NEGATIVE); CLARITY,URINE CLEAR; COLOR,URINE YELLOW; GLUCOSE, URINE (UA) NEGATIVE (NEGATIVE); KETONES,URINE NEGATIVE (NEGATIVE); LEUKOCYTE ESTERASE ,URINE 1+ (NEGATIVE); NITRITE,URINE NEGATIVE (NEGATIVE); PH,URINE 6 (5-9); PROTEIN,URINE NEGATIVE (NEGATIVE); UROBILINOGEN,URINE 4 MG/DL (NORMAL)
--- NOTE | 2019-02-21 18:50 | NUR ---
report given to Cristine AGARWAL, patient will be taken to room 11 in ICU
[2019-02-21 18:51] LABS: BACTERIA,URINE TRACE /HPF; SQUAMOUS EPITHELIAL CELL,UR 0-2 /HPF; WBC,URINE RARE /HPF
--- OUTSIDE RECORDS SUMMARY | 2019-02-21 19:38 | XMS REPORT | Continuity of Care Document ---
Author Organization Unknown Address Unknown Allergies Active Description Code Type Severity Reaction Onset Reported/Identified Relationship to Patient Clinical Status Yes No Known Drug Allergies [id number] Drug Allergy Unknown N/A 02/04/2016 Yes escitalopram [id number] Drug Allergy Severe N/A 02/12/2016 Medications There is no data. Problems Date Dx Coded Attending Type Code Diagnosis Diagnosed By 05/15/2014 MADL CLAMP FORKLIFT OPERATOR, AMERICO L 300.00 ANXIETY UNSPEC 05/15/2014 MADL CLAMP FORKLIFT OPERATOR, AMERICO L 401.1 BENIGN ESSENTIAL HYPERTENSION 05/15/2014 MADL CLAMP FORKLIFT OPERATOR, AMERICO L 300.00 ANXIETY UNSPEC 05/15/2014 MADL CLAMP FORKLIFT OPERATOR, AMERICO L 401.1 BENIGN ESSENTIAL HYPERTENSION 05/15/2014 MADL CLAMP FORKLIFT OPERATOR, AMERICO L 300.00 ANXIETY UNSPEC 05/15/2014 MADL CLAMP FORKLIFT OPERATOR, AMERICO L 401.1 BENIGN ESSENTIAL HYPERTENSION 05/15/2014 IRWIN DO, MADYSON K 300.00 ANXIETY UNSPEC 05/15/2014 IRWIN DO, MADYSON K 401.1 BENIGN ESSENTIAL HYPERTENSION 05/15/2014 AYOUB CLAMP FORKLIFT OPERATOR, SWEETIE R 300.00 ANXIETY UNSPEC 05/15/2014 AYOUB CLAMP FORKLIFT OPERATOR, SWEETIE R 401.1 BENIGN ESSENTIAL HYPERTENSION 05/15/2014 MADL CLAMP FORKLIFT OPERATOR, AMERICO L 300.00 ANXIETY UNSPEC 05/15/2014 MADL CLAMP FORKLIFT OPERATOR, AMERICO L 401.1 BENIGN ESSENTIAL HYPERTENSION 05/15/2014 IRWIN DO, MADYSON K 300.00 ANXIETY UNSPEC 05/15/2014 IRWIN DO, MADYSON K 401.1 BENIGN ESSENTIAL HYPERTENSION 05/15/2014 MADL CLAMP FORKLIFT OPERATOR, AMERICO L 300.00 ANXIETY UNSPEC 05/15/2014 MADL CLAMP FORKLIFT OPERATOR, AMERICO L 401.1 BENIGN ESSENTIAL HYPERTENSION 05/15/2014 MADL CLAMP FORKLIFT OPERATOR, AMERICO L 300.00 ANXIETY UNSPEC 05/15/2014 MADL CLAMP FORKLIFT OPERATOR, AMERICO L 401.1 BENIGN ESSENTIAL HYPERTENSION 05/15/2014 MADL CLAMP FORKLIFT OPERATOR, AMERICO L 300.00 ANXIETY UNSPEC 05/15/2014 MADL CLAMP FORKLIFT OPERATOR, AMERICO L 401.1 BENIGN ESSENTIAL HYPERTENSION 05/29/2014 MADL CLAMP FORKLIFT OPERATOR, AMERICO L 413.9 ANGINA PECTORIS 05/29/2014 MADL CLAMP FORKLIFT OPERATOR, AMERICO L 413.9 ANGINA PECTORIS 05/29/2014 MADYSON IRWIN DO K 413.9 ANGINA PECTORIS 05/29/2014 AYOUB CLAMP FORKLIFT OPERATOR, SWEETIE R 413.9 ANGINA PECTORIS 05/29/2014 MADL CLAMP FORKLIFT OPERATOR, AMERICO L 413.9 ANGINA PECTORIS 05/29/2014 IRWIN KRISTOPHER DENISA K 413.9 ANGINA PECTORIS 05/29/2014 MADL CLAMP FORKLIFT OPERATOR, AMERICO L 413.9 ANGINA PECTORIS 05/29/2014 MADL CLAMP FORKLIFT OPERATOR, AMERICO L 413.9 ANGINA PECTORIS 05/29/2014 MADL CLAMP FORKLIFT OPERATOR, AMERICO L 413.9 ANGINA PECTORIS 07/11/2014 MADYSON IRWIN DO K V04.81 FLU SHOT 07/11/2014 AYOUB CLAMP FORKLIFT OPERATORBRE MccainIA R V04.81 FLU SHOT 07/11/2014 MADL CLAMP FORKLIFT OPERATOR, AMERICO L V04.81 FLU SHOT 07/11/2014 MADYSON IRWIN DO K V04.81 FLU SHOT 07/11/2014 MADL CLAMP FORKLIFT OPERATOR, AMERICO L V04.81 FLU SHOT 07/11/2014 MADL CLAMP FORKLIFT OPERATOR, AMERICO L V04.81 FLU SHOT 07/11/2014 MADL CLAMP FORKLIFT OPERATOR, AMERICO L V04.81 FLU SHOT 08/30/2014 SWEETIE AYOUB APRN R V70.5 HEALTH EXAMINATION OF DEFINED SUBPOPULATIONS 08/30/2014 MADL CLAMP FORKLIFT OPERATOR, AMERICO L V70.5 HEALTH EXAMINATION OF DEFINED SUBPOPULATIONS 08/30/2014 MADYSON IRWIN DO K V70.5 HEALTH EXAMINATION OF DEFINED SUBPOPULATIONS 08/30/2014 MADL CLAMP FORKLIFT OPERATOR, AMERICO L V70.5 HEALTH EXAMINATION OF DEFINED SUBPOPULATIONS 08/30/2014 MADL CLAMP FORKLIFT OPERATOR, AMERICO L V70.5 HEALTH EXAMINATION OF DEFINED SUBPOPULATIONS 08/30/2014 MADL CLAMP FORKLIFT OPERATOR, AMERICO L V70.5 HEALTH EXAMINATION OF DEFINED SUBPOPULATIONS 09/27/2014 MADYSON IRWIN DO K 790.6 ABNORMAL LFT (LIVER FUNCTION TEST) 09/27/2014 AMERICO SHARMA APRN 790.6 ABNORMAL LFT (LIVER FUNCTION TEST) 09/27/2014 MIAL CLAMP FORKLIFT OPERATORAMERICO Mccain L 790.6 ABNORMAL LFT (LIVER FUNCTION [...] LU MD Ot 414.01 CORONARY ATHEROSCLEROSIS OF [place] CORON 06/11/2015 RACHELL LU MD Ot [...] BUNDY Ot 401.9 HYPERTENSION NOS 04/15/2016 JOSE BUNYD Ot 786.50 CHEST PAIN NOS 04/15/2016 JOSE [...] MD Ot I25.10 ATHSCL HEART DISEASE OF [place] CORONARY 06/23/2016 RACHELL LU MD Ot K21.9 GASTRO-ESOPHAGEAL REFLUX DISEASE WITHOUT 07/07/2016 RACHELL LU MD Ot E78.2 MIXED HYPERLIPIDEMIA 07/07/2016 RACHELL LU MD Ot I10 ESSENTIAL (PRIMARY) HYPERTENSION 07/07/2016 RACHELL LU MD Ot I25.10 ATHSCL HEART DISEASE OF [place] CORONARY 07/07/2016 RACHELL LU MD Ot [...] MD Ot I25.10 ATHSCL HEART DISEASE OF [place] CORONARY 07/19/2016 RACHELL LU MD Ot [...] MD Ot I25.10 ATHSCL HEART DISEASE OF [place] CORONARY 10/15/2016 RACHELL LU MD Ot [...] MD Ot I25.10 ATHSCL HEART DISEASE OF [place] CORONARY 10/21/2016 RACHELL LU MD Ot [...] MD Ot I25.10 ATHSCL HEART DISEASE OF [place] CORONARY 06/23/2017 RACHELL LU MD Ot [...] MD Ot I25.10 ATHSCL HEART DISEASE OF [place] CORONARY 06/23/2017 RACHELL LU MD Ot [...] MD Ot I25.10 ATHSCL HEART DISEASE OF [place] CORONARY 07/27/2017 RACHELL LU MD Ot [...] MD Ot I25.10 ATHSCL HEART DISEASE OF [place] CORONARY 07/27/2017 ARCHELL LU MD Ot K21.9 GASTRO-ESOPHAGEAL REFLUX DISEASE [...] MD Ot I25.10 ATHSCL HEART DISEASE OF [place] CORONARY 08/11/2017 RACHELL LU MD Ot K21.9 GASTRO-ESOPHAGEAL REFLUX DISEASE WITHOUT 08/11/2017 RACHELL LU MD, Ot G47.33 OBSTRUCTIVE SLEEP APNEA (ADULT) (PEDIATR 08/31/2017 RACHELL LU MD, Ot G47.33 OBSTRUCTIVE SLEEP APNEA (ADULT) (PEDIATR 08/31/2017 RACEHLL LU MD Ot I10 ESSENTIAL (PRIMARY) HYPERTENSION 08/31/2017 RACHELL LU MD, Ot G47.33 OBSTRUCTIVE SLEEP APNEA (ADULT) (PEDIATR 08/31/2017 GERALDINE ANDERSON RACHELL Rivers Ot I10 ESSENTIAL (PRIMARY) HYPERTENSION 10/18/2017 DEANA OQUENDO, JOSE Shar Ot E78.2 MIXED HYPERLIPIDEMIA 10/18/2017 DEANA OQUENDO, JOSE K Ot I10 ESSENTIAL (PRIMARY) HYPERTENSION 10/18/2017 DEANA OQUENDO, JOSE K Ot I25.10 ATHSCL HEART DISEASE OF [place] CORONARY 10/18/2017 DEANA OQUENDO, JOSE K Ot R07.89 OTHER CHEST PAIN 11/10/2017 DEANA PA, JOSE K Ot E78.2 MIXED HYPERLIPIDEMIA 11/10/2017 DEANA OQUENDO, JOSE K Ot I10 ESSENTIAL (PRIMARY) HYPERTENSION 11/10/2017 DEANA OQUENDO, JOSE K Ot I25.10 ATHSCL HEART DISEASE OF [place] CORONARY 11/10/2017 DEANA OQUENDO, JOSE Myles Ot K21.9 GASTRO-ESOPHAGEAL REFLUX DISEASE WITHOUT 11/10/2017 DEANA OQUENDO, JOSE K Ot R07.89 OTHER CHEST PAIN 11/15/2017 DEANA OQUENDO, JOSE K Ot E78.2 MIXED HYPERLIPIDEMIA 11/15/2017 DEANA OQUENDO, JOSE K Ot I10 ESSENTIAL (PRIMARY) HYPERTENSION 11/15/2017 DEANA OQUENDO, JOSE K Ot I25.10 ATHSCL HEART DISEASE OF [place] CORONARY 11/15/2017 DEANA OQUENDO, JOSE Myles Ot K21.9 GASTRO-ESOPHAGEAL REFLUX DISEASE WITHOUT 11/15/2017 DEANA OQUEDNO, JOSE K Ot R07.89 OTHER CHEST PAIN 11/18/2017 DEANA OQUENDO, JOSE K Ot E78.2 MIXED HYPERLIPIDEMIA 11/18/2017 DEANA OQUENDO, JOSE K Ot I10 ESSENTIAL (PRIMARY) HYPERTENSION 11/18/2017 DEANA OQUENDO, JOSE K Ot I25.10 ATHSCL HEART DISEASE OF [place] CORONARY 11/18/2017 DEANA OQUENDO, JOSE K Ot R07.89 OTHER CHEST PAIN 11/29/2017 DEANA OQUENDO, JOSE K Ot E78.2 MIXED HYPERLIPIDEMIA 11/29/2017 DEANA OQUENDO, JOSE K Ot I10 ESSENTIAL (PRIMARY) HYPERTENSION 11/29/2017 JOSE BUNDY Ot I25.10 ATHSCL HEART DISEASE OF [place] CORONARY 11/29/2017 JOSE BUNDY Ot K21.9 [...] K Ot I25.10 ATHSCL HEART DISEASE OF [place] CORONARY 06/07/2018 DEANA OQUENDO JOSE K Ot K21.9 GASTRO-ESOPHAGEAL REFLUX DISEASE WITHOUT 06/07/2018 DEANA OQUENDO JOSE K Ot R07.89 OTHER CHEST PAIN 06/07/2018 JOSE BUNDY Ot E78.2 MIXED HYPERLIPIDEMIA 06/07/2018 JOSE BUNDY Ot I10 ESSENTIAL (PRIMARY) HYPERTENSION 06/07/2018 DEANA OQUENDO JOSE K Ot I25.10 ATHSCL HEART DISEASE OF [place] CORONARY 06/07/2018 DEANA OQUENDO JOSE K Ot K21.9 GASTRO-ESOPHAGEAL REFLUX DISEASE WITHOUT 06/07/2018 DEANA OQUENDO JOSE K Ot R07.89 OTHER CHEST PAIN 06/07/2018 DEANA OQUENDO JOES K Ot E78.2 MIXED HYPERLIPIDEMIA 06/07/2018 DEANA OQUENDO JOSE K Ot I10 ESSENTIAL (PRIMARY) HYPERTENSION 06/07/2018 DEANA OQUENDO JOSE K Ot I25.10 ATHSCL HEART DISEASE OF [place] CORONARY 06/07/2018 DEANA OQUENDO JOSE K [...] MD Ot I25.10 ATHSCL HEART DISEASE OF [place] CORONARY 10/17/2018 RACHELL LU MD Ot K21.9 GASTRO-ESOPHAGEAL REFLUX DISEASE WITHOUT 10/17/2018 JOSE BUNDY Ot E78.2 MIXED HYPERLIPIDEMIA 10/17/2018 JOSE BUNDY Ot I10 ESSENTIAL (PRIMARY) HYPERTENSION 10/17/2018 JOSE BUNDY Ot I25.10 ATHSCL HEART DISEASE OF [place] CORONARY 10/17/2018 JOSE BUNDY Ot R07.89 OTHER CHEST PAIN 10/17/2018 JOSE BUNDY Ot E78.2 MIXED HYPERLIPIDEMIA 10/17/2018 JOSE BUNDY Ot I10 ESSENTIAL (PRIMARY) HYPERTENSION 10/17/2018 JOSE BUNDY Ot I25.10 ATHSCL HEART DISEASE OF [place] CORONARY 10/17/2018 JOSE BUNDY Ot K21.9 GASTRO-ESOPHAGEAL REFLUX DISEASE WITHOUT 10/17/2018 JOSE BUNDY Ot R07.89 OTHER CHEST PAIN Procedures Code Description [place] [address] ROUTINE VENIPUNCTURE 05/15/2014 73786 URINE DRUG SCREEN (IN-HOUSE) 05/15/2014 43810 CBC 05/16/20144821393 GFR CALC (RESULT ONLY) 05/16/2014 85642 CMP 05/16/2014 67981 PSA TOTAL 05/16/2014 96570 TSH 05/16/2014 84290 UA LONG DIP 08/30/2014 80353 ROUTINE VENIPUNCTURE 09/25/2014 88830 CMP 09/25/2014 Cardiolog Geraldine Rachell 01/07/2015 Results [...] culture - 05/27/18 16:12 Bacterial urine culture [id number] NRG COLONY COUNT >100,000/ML NRG RML Sensitivity [...] 7-25 CREATININE 1.08 mg/dL 0.70-1.25 eGFR NON-AFR. GERMAN 74 mL/min/1.73m2 > OR=60 eGFR 85 mL/min/1.73m2 [...] Status Pt. Type Provider Facility Loc./Unit Complaint [id number] 01/07/2015 10:45:00 01/07/2015 23:59:59 CLS Outpatient MADL CLAMP FORKLIFT OPERATORAMERICO L [id number] 11/28/2014 11:12:00 11/28/2014 23:59:59 CLS Outpatient MADL CLAMP FORKLIFT OPERATORCHRISTINAA L [id number] 10/25/2014 15:15:00 10/25/2014 23:59:59 CLS Outpatient MADL CLAMP FORKLIFT OPERATORAMERICO L [id number] 09/25/2014 13:21:00 09/25/2014 23:59:59 CLS Outpatient MADYSON IRWIN DO [id number] 09/02/2014 13:51:00 09/02/2014 23:59:59 CLS Outpatient MADL CLAMP FORKLIFT OPERATORCHRISTINAA L [id number] 08/30/2014 11:58:00 08/30/2014 23:59:59 CLS Outpatient SWEETIE AYOUB APRN [id number] 07/11/2014 10:05:00 07/11/2014 23:59:59 CLS Outpatient MADYSON IRWIN DO [id number] 06/11/2014 14:19:00 06/11/2014 23:59:59 CLS Outpatient MADL CLAMP FORKLIFT OPERATORAMERICO L [id number] 05/29/2014 14:24:00 05/29/2014 23:59:59 CLS Outpatient MADL CLAMP FORKLIFT OPERATORCHRISTINAA L [id number] 05/15/2014 15:00:00 05/15/2014 23:59:59 CLS Outpatient MADL CLAMP FORKLIFT OPERATORAMERICO L [id number] 05/27/2018 14:51:00 05/27/2018 18:15:00 DIS Emergency DANYA POWELL CLAMP FORKLIFT OPERATOR [facility] ER LOW BP, SHAKING [id number] 11/09/2017 07:32:00 11/09/2017 23:59:59 CLS Outpatient JOSE BUNDY [facility] CARD I25.10,R07.89 [id number] 10/17/2017 11:45:00 10/17/2017 23:59:59 CLS Outpatient JOSE BUNDY [facility] CARD CAD [id number] 08/30/2017 19:33:00 08/31/2017 06:58:00 DIS Outpatient RACHELL LU MD [facility] SLEEP MONI G47.33 [id number] 06/23/2017 15:01:00 06/23/2017 20:58:00 DIS Emergency DANYA POWELL APRN [facility] ER HIGH BP [id number] 06/22/2016 12:48:00 06/22/2016 23:59:59 CLS Outpatient RACHELL LU MD [facility] CARD CAD,GERD,HTN,HLP [id number] 02/12/2016 11:42:00 02/12/2016 13:55:00 DIS Outpatient ELBA JOHNSON DO [facility] SDC SCREENING,CHEST PAIN [id number] 02/04/2016 08:18:00 02/04/2016 10:26:00 DIS Outpatient ELBA JOHNSON DO [facility] PREOP SCREENING; CHEST PAIN [id number] 01/15/2016 05:41:00 01/15/2016 23:59:59 CLS Outpatient ELBA JOHNSON DO [facility] PREOP SCREENING,CHEST PAIN [id number] 06/23/2015 08:47:00 06/23/2015 23:59:59 CLS Outpatient FERMIN SHIPLEY MD [facility] RAD DDU [id number] 06/11/2015 12:21:00 06/11/2015 22:40:00 DIS Outpatient RACHELL LU MD [facility] CATH ABNORMAL STRESS, CP,SOB,HLP,HTN [id number] 05/27/2015 11:59:00 05/27/2015 23:59:59 CLS Outpatient JOSE BUNDY [facility] CARD CP,HTN [id number] 05/26/2015 08:51:00 05/26/2015 23:59:59 CLS Outpatient JOSE BUNDY [facility] CARD CHEST PAIN HTN [id number] 11/21/2014 08:46:00 Document Registration [id number] 02/12/2019 14:40:00 02/12/2019 23:59:59 CLS Outpatient JESU PLUNKETT APRN [facility] [id number] 07/27/2018 09:40:00 Document Registration [id number] 05/30/2018 13:00:00 Document Registration
[2019-02-21] MEDS ORDERED: ASPIRIN E.C. 325 MG (ECOTRIN) TABLET PO NR (20:15)
[2019-02-21] MEDS ORDERED: DILTIAZEM 30 MG (CARDIZEM) TAB ONE (20:43)
[2019-02-21] MEDS: ENOXAPARIN 100 MG/1 ML (LOVENOX) SYR SC SCH (20:51)
[2019-02-21] MEDS: DILTIAZEM 60 MG (CARDIZEM) TAB PO SCH (20:51)
[2019-02-21] MEDS ORDERED: meTOprolol TARTRATE 25 MG (LOPRESSOR) TABLET PO SCH (21:00)
[2019-02-22] VITALS (22 sets, daily range): BP systolic 108–145; BP diastolic 57–113
[2019-02-22] MEDS ORDERED: NS (IVPB) 100 ML ONE (00:03)
[2019-02-22] MEDS ORDERED: DILTIAZEM 125 MG/25 ML IV (CARDIZEM) IV ONE (00:04)
[2019-02-22] MEDS: DILTIAZEM IV FOR DRIP 125 MG in NS (IVPB) 100 ML IV SCH ×2 (00:15→15:58)
[2019-02-22] MEDS: meTOprolol 5 MG/5 ML (LOPRESSOR) VIAL IV SCH ×2 (00:16→06:59)
[2019-02-22] MEDS ORDERED: KETOROLAC 30 MG/ML VIAL IVP ONE (01:00)
[2019-02-22] MEDS ORDERED: DILTIAZEM 30 MG (CARDIZEM) TAB ONE (01:14)
[2019-02-22] MEDS: DILTIAZEM 60 MG (CARDIZEM) TAB PO SCH (02:00)
[2019-02-22 04:26] LABS: MEAN PLATELET VOLUME 11.4 FL (7.4-10.4); RED CELL DISTRIBUTION WIDTH 13.3 % (10.0-14.5); WHITE BLOOD COUNT 5.4 10^3/uL (4.3-11.0)
[2019-02-22 04:45] LABS: ALANINE AMINOTRANSFERASE 306 U/L (0-55); ALBUMIN 3.9 GM/DL (3.2-4.5); ALKALINE PHOSPHATASE 55 U/L (40-136); BILIRUBIN,TOTAL 1.2 MG/DL (0.1-1.0); BUN/CREATININE RATIO 16; CALCIUM 9.4 MG/DL (8.5-10.1); CARBON DIOXIDE 26 MMOL/L (21-32); CHLORIDE 100 MMOL/L (98-107); CHOLESTEROL 170 MG/DL (< 200); CREATININE SERUM 0.88 MG/DL (0.60-1.30); GFR ESTIMATED > 60; GLUCOSE 88 MG/DL (70-105); HDL CHOLESTEROL 57 MG/DL (40-60); MAGNESIUM 1.7 MG/DL (1.8-2.4); SODIUM 135 MMOL/L (135-145); TOTAL PROTEIN 7.6 GM/DL (6.4-8.2); TRIGLYCERIDES 71 MG/DL (<150); VLDL CHOLESTEROL 14 MG/DL (5-40)
[2019-02-22] MEDS: POTASSIUM CL 10MEQ/50ML IVPB 50 ML IV SCH (05:08)
[2019-02-22] MEDS: MAGNESIUM 1 GM/100 ML IVPB 100 ML IV SCH ×3 (05:09→07:06)
[2019-02-22] MEDS: KCL 20 MEQ TAB (K-DUR) PO SCH (05:09)
--- NOTE | 2019-02-22 07:35 | Cardiology Progress Note ---
Subjective Date Seen by Provider: February 22, 2019 Time Seen by Provider: 07:33 Subjective/Events-last exam patient is laying down in bed, feeling better, still having occasional palpitation. Denied any chest pain. Review of Systems General: No Chills, No Night Sweats, No Fatigue, No Malaise, No Appetite, No Other HEENT: No Head Aches, No Visual Changes, No Eye Pain, No Ear Pain, No Dysphasia, No Sinus Congestion, No Post Nasal Drip, No Sore Throat, No Other Pulmonary: No Dyspnea, No Cough, No Pleuritic Chest Pain, No Other Cardiovascular: No: Chest Pain, Palpitations, Orthopnea, Paroxysmal Noc. Dyspnea, Edema, Lt Headedness, Other Objective-Cardiology Exam Last Set of Vital Signs Vital Signs 02/22/19 06:00 Pulse 59 Resp 26 B/P (MAP) 108/73 (85) Pulse Ox 98 O2 Delivery Room Air Capillary Refill : Less Than 3 Seconds I&O Intake and Output 02/22/19 00:00 Intake Total 320 ml Balance 320 ml Intake Oral 120 ml IV Total 200 ml Daily Weight Change Yes, Greater than 33 lbs General: Alert, Oriented X3, Cooperative HEENT: Atraumatic, PERRLA Neck: Supple, No JVD, No Thyromegaly Lungs: Clear to Auscultation, Normal Air Movement Heart: Regular Rate, Normal S1, Normal S2, No Murmurs Abdomen: Normal Bowel Sounds, Soft, No Tenderness, No Hepatosplenomegaly, No Masses Extremities: No Clubbing, No Cyanosis, No Edema, Normal Pulses, No Tenderness/Swelling Skin: No Rashes, No Breakdown, No Significant Lesion Neuro: Normal Gait, Normal Speech, Strength at 5/5 X4 Ext, Normal Tone, Sensation Intact Psych/Mental Status: Mental Status NL, Mood NL Results Lab Laboratory Tests 02/21/19 15:00 02/22/19 04:00 Laboratory Tests Test 02/21/19 15:00 02/21/19 18:33 02/22/19 04:00 Range/Units White Blood Count 7.5 5.4 4.3-11.0 10^3/uL Red Blood Count 4.36 3.91 L 4.35-5.85 10^6/uL Hemoglobin 14.4 13.0 L 13.3-17.7 G/DL Hematocrit 41 37 L 40-54 % Mean Corpuscular Volume 94 95 80-99 FL Mean Corpuscular Hemoglobin 33 33 25-34 PG Mean Corpuscular Hemoglobin Concent 35 35 32-36 G/DL Red Cell Distribution Width 13.8 13.3 10.0-14.5 % Platelet Count 181 142 130-400 10^3/uL Mean Platelet Volume 10.8 H 11.4 H 7.4-10.4 FL Neutrophils (%) (Auto) 61 42-75 % Lymphocytes (%) (Auto) 28 12-44 % Monocytes (%) (Auto) 9 0-12 % Eosinophils (%) (Auto) 1 0-10 % Basophils (%) (Auto) 0 0-10 % Neutrophils # (Auto) 4.6 1.8-7.8 X 10^3 Lymphocytes # (Auto) 2.1 1.0-4.0 X 10^3 Monocytes # (Auto) 0.7 0.0-1.0 X 10^3 Eosinophils # (Auto) 0.1 0.0-0.3 10^3/uL Basophils # (Auto) 0.0 0.0-0.1 10^3/uL Prothrombin Time 13.9 12.2-14.7 SEC INR Comment 1.0 0.8-1.4 Activated Partial Thromboplast Time 30 24-35 SEC Sodium Level 137 135 135-145 MMOL/L Potassium Level 4.2 4.0 3.6-5.0 MMOL/L Chloride Level 101 100 98-107 MMOL/L Carbon Dioxide Level 24 26 21-32 MMOL/L Anion Gap 12 9 5-14 MMOL/L Blood Urea Nitrogen 17 14 7-18 MG/DL Creatinine 0.99 0.88 0.60-1.30 MG/DL Estimat Glomerular Filtration Rate > 60 > 60 BUN/Creatinine Ratio 17 16 Glucose Level 128 H 88 70-105 MG/DL Calcium Level 10.1 9.4 8.5-10.1 MG/DL Corrected Calcium 9.9 9.5 8.5-10.1 MG/DL Magnesium Level 1.3 L 1.7 L 1.8-2.4 MG/DL Total Bilirubin 1.1 H 1.2 H 0.1-1.0 MG/DL Aspartate Amino Transf (AST/SGOT) 302 H 244 H 5-34 U/L Alanine Aminotransferase (ALT/SGPT) 360 H 306 H 0-55 U/L Alkaline Phosphatase 54 55 40-136 U/L Total Creatine Kinase 58 30-200 U/L Creatine Kinase MB 1.3 <6.6 NG/ML Myoglobin 48.0 10.0-92.0 NG/ML Troponin I < 0.028 < 0.028 <0.028 NG/ML B-Type Natriuretic Peptide 82.4 <100.0 PG/ML Total Protein 8.7 H 7.6 6.4-8.2 GM/DL Albumin 4.3 3.9 3.2-4.5 GM/DL Amylase Level 44 25-125 U/L TSH [place] Testing 1.38 0.35-4.94 UIU/ML Urine Color YELLOW Urine Clarity CLEAR Urine pH 6 5-9 Urine Specific [place] 1.015 L 1.016-1.022 Urine Protein NEGATIVE NEGATIVE Urine Glucose (UA) NEGATIVE NEGATIVE Urine Ketones NEGATIVE NEGATIVE Urine Nitrite NEGATIVE NEGATIVE Urine Bilirubin NEGATIVE NEGATIVE Urine Urobilinogen 4 H NORMAL MG/DL Urine Leukocyte Esterase 1+ H NEGATIVE Urine RBC (Auto) NEGATIVE NEGATIVE Urine RBC NONE /HPF Urine WBC RARE /HPF Urine Squamous Epithelial Cells 0-2 /HPF Urine Crystals NONE /LPF Urine Bacteria TRACE /HPF Urine Casts NONE /LPF Urine Mucus NEGATIVE /LPF Urine Culture Indicated NO Triglycerides Level 71 <150 MG/DL Cholesterol Level 170 < 200 MG/DL LDL Cholesterol Direct 96 1-129 MG/DL VLDL Cholesterol 14 5-40 MG/DL HDL Cholesterol 57 40-60 MG/DL Thyroid Stimulating Hormone (TSH) 1.26 0.35-4.94 UIU/ML A/P-Cardiology Admission Diagnosis Ventricular tachycardia Atrial flutter, acute Chest pain Acute hepatitis Assessment/Plan Wide-complex tachycardia, most probably atrial flutter with rapid ventricular response, back to sinus rhythm after receiving adenosine and Cardizem drip. back to sinus rhythm and doing better. Continue to monitor Chest pain, had a stress test done in October 2017. Had a cardiac catheterization done in 2014 and it was normal, cardiac enzymes are negative, I will evaluate Lexiscan stress test today Congestive heart failure, history of left ventricular systolic dysfunction nonischemic cardiomyopathy with ejection fraction 45-50 percent. Planning to repeat echocardiogram Paroxysmal atrial flutter with rapid ventricular response, heart rate is better controlled at this time, cannot tolerate amiodarone due to elevated liver enzymes, if his stress test is negative I will use class IC antiarrhythmic medication Elevated liver enzymes, history of hepatitis C. Continue to monitor liver enzymes. History of hyperlipidemia, continue to monitor lipids Tobaccoism, has stopped smoking, Anxiety. Mild bilateral carotid stenosis, last ultrasound was done in October 2017. Clinical Quality Measures AMI/AHF: ASA po Prior to arrival: No DVT/VTE Risk/Contraindication: Risk Factor Score Per Nursin RFS Level Per Nursing on Admit: 4+=Very High RACHELL LU MD February 22, 2019 07:35
[2019-02-22] MEDS: ENOXAPARIN 100 MG/1 ML (LOVENOX) SYR SC SCH ×2 (07:42→20:04)
[2019-02-22] MEDS: ASPIRIN E.C. 81 MG (ECOTRIN) TAB PO SCH (07:42)
[2019-02-22] MEDS ORDERED: ADENOSINE 3 MG/1 ML (ADENOSCAN) 30ML VIAL IV ONE (07:45)
[2019-02-22] MEDS ORDERED: REGADENOSON 0.4 MG/5 ML SYR (LEXISCAN) IV ONE ×2 (07:45→11:42)
[2019-02-22] MEDS ORDERED: METO-395 PO (08:58)
[2019-02-22] MEDS ORDERED: PANT40TA3 PO (08:58)
[2019-02-22] MEDS ORDERED: ATOR20TA66 PO (09:05)
--- NOTE | 2019-02-22 09:12 | NUR ---
SPOKE WITH THE PATIENT ABOUT HIS MEDICATIONS. HE WAS ABLE TO LIST WHAT HE IS TAKING. I COMPARED WITH THE EXT MED HX. HE IS PAST DUE FOR REFILL ON A FEW OF HIS MEDICATIONS. HE ADMITS HE MISSES A DOSE HERE AND THERE BUT STATES NEVER SEVERAL IN A ROW AND HE DOES NOT FEEL HE HAS MISSED THAT MANY OVERALL. HE LAST FILLED LIPITOR 20MG #90 10-25-18 HE FILLED LOSARTAN AND METOPROLOL ON 02-12-19 HOWEVER HE STATES HE HAS NOT PICKED THEM UP YET. PRIOR TO THAT DATE HE FILLED METOPROLOL ER 50MG #60 FOR 30 DAYS 12-16-18 - THE SCRIPT FILLED NOW READY FOR MANAGER FEDERAL IS FOR THE 100MG ONE DAILY. HE LAST FILLED LOSARTAN 50MG #180 FOR 90 DAYS 10-25-18 - THE SCRIPT THAT IS NOW READY IS FOR #30 FOR 30 DAYS. HE STATES THEY DID NOT DECREASED THIS TO HIS KNOWLEDGE BUT HE OCCASIONALLY WILL ONLY TAKE ONE TABLET DEPENDING ON HIS BLOOD PRESSURE. HE IS GOING TO CHECK WITH AND THE PHARMACY BEFORE PICKING UP THE SCRIPT FOR 30 TABLETS BECAUSE HE STILL THINKS HE NEEDS TO TAKE 2 TABS DAILY. HE TAKES BENADRYL AND IBU OTC NEEDED.
[2019-02-22] MEDS ORDERED: CATHETER FLUSH 10 ML SYR IV PRN (11:00)
--- NOTE | 2019-02-22 11:02 | NUR ---
pt left floor for lexiscan.
--- NOTE | 2019-02-22 12:59 | NUR ---
pt back to cu11 from [facility].
--- NOTE | 2019-02-22 13:30 | NUR ---
pt back in afib, ekg obtained. hr 110-140. dr espino informed.
[2019-02-22] MEDS ORDERED: DILTIAZEM 25 MG/5 ML INJ (CARDIZEM) VIAL IVP NR (16:00)
--- NOTE | 2019-02-22 16:13 | NUR ---
pt converted back to SR at this time. ekg obtained and dr espino informed. advised to keep pt on cardizem at this time.
--- NOTE | 2019-02-22 16:17 | STRESS TEST ---
DATE OF SERVICE: 02/22/2019 LEXISCAN MYOVIEW STRESS TEST REFERRING PHYSICIAN: [facility]. Baseline heart rate is 77, baseline blood pressure is 136/96. Baseline EKG is sinus rhythm with no ischemic changes. In summary, the patient was injected with 10.67 mCi of technetium-99 Myoview and the resting images were obtained. Then, the patient received 0.4 mg of Lexiscan followed by 32.8 mCi of technetium-99 Myoview. Throughout the test, there were no EKG changes. The resting and stress images were reviewed and compared in the short axis, horizontal long axis, and vertical long axis views. Review of the images showed good radiotracer uptake with no significant ischemia or infarction. SSS is 4, SDS 3, TID value 0.99. On the gated images, the left ventricle appeared to be normal size with normal contractility. Calculated ejection fraction 69%. CONCLUSION: 1. The patient tolerated Lexiscan well. 2. No ischemia or infarction on SPECT images. 3. Normal left ventricular size with normal contractility. Calculated ejection fraction 69%. Job ID: [id number] DocumentID: [id number] Dictated Date: 02/22/2019 15:24:00 [employer] Date: 02/22/2019 16:15:10 Dictated By: RACHELL LU MD
[2019-02-22] MEDS: SOTALOL 80 MG (BETAPACE) TAB PO SCH (20:04)
[2019-02-22] MEDS ORDERED: IBUPROFEN 600 MG (MOTRIN) TAB PO NR (20:23)
[2019-02-23] VITALS (11 sets, daily range): BP systolic 102–134; BP diastolic 62–95
[2019-02-23] MEDS: DILTIAZEM IV FOR DRIP 125 MG in NS (IVPB) 100 ML IV SCH (03:31)
[2019-02-23 05:23] LABS: BASOPHILS % (AUTO) 0 % (0-10); EOSINOPHILS # (AUTO) 0.2 10^3/uL (0.0-0.3); EOSINOPHILS % (AUTO) 4 % (0-10); HEMATOCRIT 36 % (40-54); HEMOGLOBIN 12.6 G/DL (13.3-17.7); LYMPHOCYTES # (AUTO) 1.8 X 10^3 (1.0-4.0); LYMPHOCYTES % (AUTO) 33 % (12-44); MEAN CORPUSCULAR HEMOGLOBIN 33 PG (25-34); MEAN CORPUSCULAR HGB CONC 35 G/DL (32-36); MEAN CORPUSCULAR VOLUME 95 FL (80-99); MONOCYTES # (AUTO) 0.5 X 10^3 (0.0-1.0); MONOCYTES % (AUTO) 9 % (0-12); NEUTROPHILS % (AUTO) 54 % (42-75); PLATELET COUNT 145 10^3/uL (130-400); RED CELL DISTRIBUTION WIDTH 13.5 % (10.0-14.5); WHITE BLOOD COUNT 5.6 10^3/uL (4.3-11.0)
[2019-02-23 05:40] LABS: BUN/CREATININE RATIO 13; CALCIUM 9.2 MG/DL (8.5-10.1); CARBON DIOXIDE 24 MMOL/L (21-32); CHLORIDE 102 MMOL/L (98-107); CREATININE SERUM 0.82 MG/DL (0.60-1.30); GFR ESTIMATED > 60; GLUCOSE 90 MG/DL (70-105); PHOSPHORUS 4.1 MG/DL (2.3-4.7); POTASSIUM 3.9 MMOL/L (3.6-5.0); SODIUM 134 MMOL/L (135-145)
[2019-02-23] MEDS: POTASSIUM CL 10MEQ/50ML IVPB 50 ML IV SCH (06:06)
[2019-02-23] MEDS: KCL 20 MEQ TAB (K-DUR) PO SCH (06:07)
[2019-02-23] MEDS: MAGNESIUM 1 GM/100 ML IVPB 100 ML IV SCH (06:07)
--- NOTE | 2019-02-23 07:42 | Cardiology Progress Note ---
Subjective Date Seen by Provider: February 23, 2019 Time Seen by Provider: 07:39 Subjective/Events-last exam Patient is in bed, feeling better, no new complaint Review of Systems General: No Chills, No Night Sweats, No Fatigue, No Malaise, No Appetite, No Other HEENT: No Head Aches, No Visual Changes, No Eye Pain, No Ear Pain, No Dysphasia, No Sinus Congestion, No Post Nasal Drip, No Sore Throat, No Other Pulmonary: No Dyspnea, No Cough, No Pleuritic Chest Pain, No Other Cardiovascular: No: Chest Pain, Palpitations, Orthopnea, Paroxysmal Noc. Dyspnea, Edema, Lt Headedness, Other Objective-Cardiology Exam Last Set of Vital Signs Vital Signs 02/21/19 02/23/19 02/23/19 14:52 03:34 06:00 Temp 97.0 Pulse 64 Resp 14 B/P (MAP) 121/92 (102) Pulse Ox 96 O2 Delivery Room Air FiO2 97 Capillary Refill : Less Than 3 Seconds I&O Intake and Output 02/23/19 00:00 Intake Total 1230 ml Output Total 1075 ml Balance 155 ml Intake Oral 1030 ml IV Total 200 ml Output Urine Total 1075 ml # Voids 1 General: Alert, Oriented X3, Cooperative HEENT: Atraumatic, PERRLA Neck: Supple, No JVD, No Thyromegaly Lungs: Clear to Auscultation, Normal Air Movement Heart: Regular Rate, Normal S1, Normal S2, No Murmurs Abdomen: Normal Bowel Sounds, Soft, No Tenderness, No Hepatosplenomegaly, No Masses Extremities: No Clubbing, No Cyanosis, No Edema, Normal Pulses, No Tenderness/Swelling Skin: No Rashes, No Breakdown, No Significant Lesion Neuro: Normal Gait, Normal Speech, Strength at 5/5 X4 Ext, Normal Tone, Sensation Intact Psych/Mental Status: Mental Status NL, Mood NL Results Lab Laboratory Tests 02/23/19 05:17 A/P-Cardiology Admission Diagnosis Ventricular tachycardia Atrial flutter, acute Chest pain Acute hepatitis Assessment/Plan Wide-complex tachycardia, most probably atrial flutter with rapid ventricular response, back to sinus rhythm, Had another episode of atrial fibrillation last night, I started him on sotalol and continue to monitor EKG for the next 3 days. Chest pain, had a stress test done in October 2017. Had a cardiac catheterization done in 2014 and it was normal, cardiac enzymes are negative, stress test showed no ischemia or infarction Congestive heart failure, improved, no signs of heart failure, ejection fraction 60 percent per echo and stress test. Paroxysmal atrial flutter with rapid ventricular response, heart rate is better controlled at this time, cannot tolerate amiodarone due to elevated liver enz ymes, had another episode of atrial fibrillation, I started him on sotalol Increased risk of sleep apnea, Dr. Rodríguez consulted Elevated liver enzymes, history of hepatitis C. Continue to monitor liver enzymes. History of hyperlipidemia, continue to monitor lipids Tobaccoism, has stopped smoking, Anxiety. Mild bilateral carotid stenosis, last ultrasound was done in October 2017. Clinical Quality Measures AMI/AHF: ASA po Prior to arrival: No DVT/VTE Risk/Contraindication: Risk Factor Score Per Nursin RFS Level Per Nursing on Admit: 4+=Very High RACHELL LU MD February 23, 2019 07:42
[2019-02-23] MEDS: SOTALOL 80 MG (BETAPACE) TAB PO SCH ×2 (08:06→20:14)
[2019-02-23] MEDS: DILTIAZEM 180 MG (CARDIZEM CD) CAP PO SCH (08:06)
[2019-02-23] MEDS: ASPIRIN E.C. 81 MG (ECOTRIN) TAB PO SCH (08:06)
[2019-02-23] MEDS: RIVAROXABAN 20 MG TABLET (XARELTO) PO SCH (17:50)
[2019-02-24 00:21] VITALS: BP 119/79
[2019-02-24 04:43] VITALS: BP 116/80
--- NOTE | 2019-02-24 05:38 | Pulmonary Consultation ---
History of Present Illness History of Present Illness Date of Consultation 02/23/19 05:38 Time Seen by Provider: 15:00 Date of Admission Reason for Visit: ventricular tachycardia History of Present Illness 63yo with hx of CHF, MONI (noncompliant with CPAP), HTN presented to ED secondary to palpitations, SOB, and dizziness. While in the the ED he was noted to have w cabrera-complex tachycardia, given adenosine and showed underlying atrial flutter with rapid ventricular response with wide-complex tachycardia. Started on Cardizem drip converted to sinus rhythm. Dr. Chandler is consulting me secondary to MONI and SOB. Allergies and Home Medications Allergies Coded Allergies: escitalopram (Unverified Allergy, Severe, 02/12/16) SUICIDAL Home Medications Atorvastatin Calcium 20 Mg Tablet, 20 MG PO HS, (Reported) LAST FILLED #90 10-25-18 Diphenhydramine HCl 25 Mg Capsule, 25-50 MG PO DAILY PRN for ALLERGIES, (Reported) Ibuprofen 200 Mg Tablet, 800 MG PO TID PRN for PAIN-MILD, (Reported) Losartan Potassium 50 Mg Tablet, 100 MG PO DAILY, (Reported) LAST FILLED #180 10-25-18 TAKES 2 (50MG) TABLETS Metoprolol Succinate 100 Mg Tab.er.24h, 100 MG PO HS, (Reported) LAST FILLED 30 DAY SUPPLY 12-16-18 Nitroglycerin 0.4 Mg Tab.subl, 0.4 MG SL UD PRN for CHEST PAIN, (Reported) Pantoprazole Sodium 40 Mg Tablet.dr, 40 MG PO DAILY, (Reported) Past Wbwgzcb-Miwxbf-Xeshgp Hx Patient Social History Alcohol Use: Occasionally Uses Number of Drinks Today: AA Alcohol Beverage of Choice: Beer Recreational Drug Use: No Smoking Status: Former Smoker (STILL OCCASIONALLY SMOKES WHEN HE DRINKS) Type Used: Cigarettes Former Smoker, Quit: Aug 25, 2012 2nd Hand Smoke Exposure: No Recent Foreign Travel: No Contact w/Someone Who Travel: No Recent Infectious Disease Expo: No Recent Hopitalizations: No Physical Abuse: No Sexual Abuse: No Mistreated: No Fear: No Past Medical History Surgeries: Yes (CARPAL TUNNEL; CARDIAC CATH 05/2015--NO INTERVENTION; EGD/COLONOSCOPY/POLYPECTOMY 05/2016) Cardiac Respiratory: No Cardiac: Yes (CARDIAC CATH 05/2015--MILD, NON-OBSTRUCTIVE DISEASE; MILD CAROTID STENOSIS) Coronary Artery Disease, High Cholesterol, Hypertension Neurological: No Genitourinary: No Gastrointestinal: Yes (EGD/COLONOSCOPY/POLYPECTOMY 05/2016--H.H./GERD/ES OPHAGITIS, COLON POLYP; HX HEPATITIS C) Gastroesophageal Reflux, Liver Disease/Jaundice, Hepatitis, Polyps, Esophagitis, Hiatal Hernia Musculoskeletal: No Endocrine: No HEENT: No Cancer: No Psychosocial: Yes Anxiety Integumentary: No Blood Disorders: No Review of Systems Time Seen by Provider: 06:18 Constitutional: Weakness, Malaise; No: Fever, Chills, Sweats, Other Eyes: No: Pain, Vision change, Conjunctivae inflammation, Eyelid inflammation, Other, Redness ENT: No: Ear pain, Ear discharge, Nose pain, Nose discharge, Nose congestion, Mouth pain, Mouth swelling, Throat pain, Throat swelling, Other Respiratory: Cough, Shortness of breath, SOB with excertion Cardiovascular: Chest Pain, Palpitations, Paroxysmal Noc. Dyspnea, Lt Headedness; No: Orthopnea, Edema, Other Gastrointestinal: No: Nausea, Vomiting, Abdominal Pain, Diarrhea, Constipation, Melena, Hematochezia, Other Genitourinary: No Dysuria, No Frequency, No Incontinence, No Hematuria, No Retention, No Other Musculoskeletal: No: other, neck pain, shoulder pain, arm pain, back pain, hand pain, leg pain, foot pain Sepsis Event Evaluation Height, Weight, BMI Height: 5'6.50" Weight: 199lbs. 5.0oz. 90.897618ki; 32.3 BMI Method:Estimated Exam Exam Vital Signs Date Time Temp Pulse Resp B/P (MAP) Pulse Ox O2 Delivery O2 Flow Rate FiO2 02/24/19 04:43 97.6 66 18 116/80 (92) 96 Room Air 02/24/19 04:00 Room Air 02/24/19 01:00 62 02/24/19 00:21 97.4 66 18 119/79 (92) 94 Room Air 02/24/19 00:00 Room Air 02/23/19 23:43 Nasal Cannula 2.00 02/23/19 20:00 Room Air 02/23/19 19:34 98.1 72 20 116/80 (92) 97 Room Air 02/23/19 19:00 71 02/23/19 16:00 Room Air 02/23/19 15:45 97.4 65 18 104/75 (85) 95 Room Air 02/23/19 12:59 71 02/23/19 12:00 Room Air 02/23/19 12:00 98.0 02/23/19 08:00 97.4 80 27 133/95 (108) 95 Room Air 02/23/19 08:00 Room Air 2.00 02/23/19 07:04 72 02/23/19 07:00 68 24 114/81 (92) 95 Room Air 02/23/19 06:00 64 14 121/92 (102) 96 Room Air I & O 02/24/19 07:00 Intake Total 2300 ml Balance 2300 ml Height & Weight Height: 5'6.50" Weight: 199lbs. 5.0oz. 90.149703vk; 32.3 BMI Method:Estimated General Appearance: No Apparent Distress, WD/WN HEENT: PERRL/EOMI Neck: Normal Inspection Respiratory: Normal Breath Sounds, No Accessory Muscle Use, No Respiratory Distress Cardiovascular: No Murmur, Tachycardia (DURING EXAM, PT WAS IN A FIB/RVR, HAD SHORT RUN OF V-TACH, THEN WENT INTO FULL BLOWN V-TACH/WIDE COMPLEX TACHYCARDIA WITH A PULSE. 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 Chandler following SOB with tobacco use -Will need out pt PFT MONI hx -PT had PSG years ago however never used CPAP -Pt is now willing to repeat testing and start CPAP therapy -Will f/u as out patient and start work up. Acute hepatitis- hx of hep C MICHELLE VALLE DO Feb 24, 2019 05:38
--- NOTE | 2019-02-24 05:39 | Pulmonary Progress Note ---
Subjective Time Seen by a Provider: 06:24 Subjective/Events-last exam PT feels better no complications noted. Sepsis Event Evaluation Height, Weight, BMI Height: 5'6.50" Weight: 199lbs. 5.0oz. 90.246079sy; 32.3 BMI Method:Estimated Exam Exam Vital Signs Date Time Temp Pulse Resp B/P (MAP) Pulse Ox O2 Delivery O2 Flow Rate FiO2 02/24/19 04:43 97.6 66 18 116/80 (92) 96 Room Air 02/24/19 04:00 Room Air 02/24/19 01:00 62 02/24/19 00:21 97.4 66 18 119/79 (92) 94 Room Air 02/24/19 00:00 Room Air 02/23/19 23:43 Nasal Cannula 2.00 02/23/19 20:00 Room Air 02/23/19 19:34 98.1 72 20 116/80 (92) 97 Room Air 02/23/19 19:00 71 02/23/19 16:00 Room Air 02/23/19 15:45 97.4 65 18 104/75 (85) 95 Room Air 02/23/19 12:59 71 02/23/19 12:00 Room Air 02/23/19 12:00 98.0 02/23/19 08:00 97.4 80 27 133/95 (108) 95 Room Air 02/23/19 08:00 Room Air 2.00 02/23/19 07:04 72 02/23/19 07:00 68 24 114/81 (92) 95 Room Air 02/23/19 06:00 64 14 121/92 (102) 96 Room Air I & O 02/24/19 07:00 Intake Total 2300 ml Balance 2300 ml Height & Weight Height: 5'6.50" Weight: 199lbs. 5.0oz. 90.273274ef; 32.3 BMI Method:Estimated General Appearance: No Apparent Distress, WD/WN HEENT: PERRL/EOMI Neck: Normal Inspection Respiratory: Normal Breath Sounds, No Accessory Muscle Use, No Respiratory Distress Cardiovascular: No Murmur, Tachycardia (DURING EXAM, PT WAS IN A FIB/RVR, HAD SHORT RUN OF V-TACH, THEN WENT INTO FULL BLOWN V-TACH/WIDE COMPLEX TACHYCARDIA WITH A PULSE. 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 Chandler following SOB with tobacco use -Will need out pt PFT -CXR shows no acute change MONI hx -PT had PSG years ago however never used CPAP -Pt is now willing to repeat testing and start CPAP therapy -Will f/u as out patient and start work up. Anemia -Monitor Acute hepatitis- hx of hep C MICHELLE VALLE DO Feb 24, 2019 05:39
[2019-02-24] MEDS: ASPIRIN E.C. 81 MG (ECOTRIN) TAB PO SCH (08:22)
[2019-02-24] MEDS: DILTIAZEM 180 MG (CARDIZEM CD) CAP PO SCH (08:22)
[2019-02-24] MEDS: SOTALOL 80 MG (BETAPACE) TAB PO SCH ×2 (08:22→21:12)
[2019-02-24 08:29] VITALS: BP 157/95
[2019-02-24 11:40] VITALS: BP 116/76
[2019-02-24 15:54] VITALS: BP 138/92
--- NOTE | 2019-02-24 15:58 | Progress Note-Cardiology ---
Cardiology SOAP Progress Note Subjective: Notes occ chest discomfort that consists of a feeling a heart beat lasting only a few sec No other cp No syncope or shortness of breath Objective: I&O/Vital Signs 02/24/19 02/24/19 02/24/19 02/24/19 04:00 04:43 07:00 08:29 Temp 97.6 98.6 Pulse 66 71 72 Resp 18 16 B/P (MAP) 116/80 (92) 157/95 (115) Pulse Ox 96 96 O2 Delivery Room Air Room Air Room Air 02/24/19 02/24/19 02/24/19 02/24/19 08:47 11:23 11:40 12:49 Temp 97.6 Pulse 65 71 Resp 18 B/P (MAP) 116/76 (89) Pulse Ox 95 O2 Delivery Room Air Room Air Room Air 02/24/19 15:02 O2 Delivery Room Air 02/24/19 00:00 Intake Total 1700 ml Balance 1700 ml Weight (Pounds): 204 Weight (Ounces): 8.0 Weight (Calculated Kilograms): 92.834933 Constitutional: AAO x 3, well-developed, well-nourished Respiratory: No accessory muscle use; lungs clear to percussion, lungs clear to auscultation Cardiovascular: regular rate-rhythm, S1 and S2, systolic murmur (soft CHIRAG at card base) Gastrointestional: No tender; soft; No guarding, No rebound; audible bowel sounds Extremities: No clubbing, No cyanosis, No significant edema Neurologic/Psychiatric: oriented x 3, grossly intact, power is 5/5 both on sides Skin: No rash on exposed areas, No ulcerations on exposed areas Results/Procedures: Labs Microbiology 02/21/19 MRSA Screen - Final, Complete MRSA not isolated Laboratory Tests 02/23/19 05:17 A/P: Assessment: Paroxysmal atrial flutter with rapid ventricular response and wide-complex tachy (prob atrial flutter with QRS aberrancy); cannot tolerate amiodarone due to elevated liver enzymes. Sotalol initiated on the evening of 02/22/19. QTc normal on 02/24/19 Rivaroxaban stroke prophylaxis Chest discomfort. Normal cardiac catheterization in 2014 and subsequent stress tests Suspected MONI, Dr Rodríguez managing Elevated liver enzymes, history of hepatitis C History of hyperlipidemia H/o tobacco use, currently refraining Anxiety Mild bilateral carotid stenosis, last ultrasound was done in October 2017. Plan: * I reviewed his records, interviewed him, and examined him * Continue current regimen * Monitor rhythm and ECG and labs * Advised to continue to refrain from tobacco use * I answered his and his 's questions in detail Clinical Quality Measures AMI/AHF: ASA po Prior to arrival: HARSHAD Johnson MD FACP FAC CCDS Feb 24, 2019 15:58
[2019-02-24] MEDS: RIVAROXABAN 20 MG TABLET (XARELTO) PO SCH (17:58)
[2019-02-24 19:38] VITALS: BP 127/92
[2019-02-25] VITALS (8 sets, daily range): BP systolic 105–136; BP diastolic 66–87
--- NOTE | 2019-02-25 05:29 | Pulmonary Progress Note ---
Subjective Time Seen by a Provider: 05:28 Subjective/Events-last exam No complications noted. Sepsis Event Evaluation Height, Weight, BMI Height: 5'6.50" Weight: 204lbs. 8.0oz. 92.752736ur; 32.3 BMI Method:Estimated Exam Exam Vital Signs Date Time Temp Pulse Resp B/P (MAP) Pulse Ox O2 Delivery O2 Flow Rate FiO2 02/25/19 04:00 Room Air 02/25/19 01:25 98.1 70 18 121/70 (87) 97 Room Air 02/25/19 00:51 62 02/25/19 00:00 Room Air 02/24/19 20:00 Room Air 02/24/19 19:38 97.5 78 16 127/92 (104) 97 Room Air 02/24/19 18:42 69 02/24/19 15:54 97.3 62 16 138/92 (107) 96 Room Air 02/24/19 15:02 Room Air 02/24/19 12:49 71 02/24/19 11:40 97.6 65 18 116/76 (89) 95 Room Air 02/24/19 11:23 Room Air 02/24/19 08:47 Room Air 02/24/19 08:29 98.6 72 16 157/95 (115) 96 Room Air 02/24/19 07:00 71 I & O 02/25/19 07:00 Intake Total 1890 ml Balance 1890 ml Height & Weight Height: 5'6.50" Weight: 204lbs. 8.0oz. 92.209502ny; 32.3 BMI Method:Estimated General Appearance: No Apparent Distress, WD/WN HEENT: PERRL/EOMI Neck: Normal Inspection Respiratory: Normal Breath Sounds, No Accessory Muscle Use, No Respiratory Distress Cardiovascular: No Murmur, Tachycardia (DURING EXAM, PT WAS IN A FIB/RVR, HAD SHORT RUN OF V-TACH, THEN WENT INTO FULL BLOWN V-TACH/WIDE COMPLEX TACHYCARDIA WITH A PULSE. 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 Chandler following SOB with tobacco use -Will need out pt PFT -CXR shows no acute change MONI hx -PT had PSG years ago however never used CPAP -Pt is now willing to repeat testing and start CPAP therapy -Will f/u as out patient and start work up. Tobacco use -Education Anemia -Monitor Acute hepatitis- hx of hep C Possible home today MICHELLE VALLE DO Feb 25, 2019 05:29
[2019-02-25] MEDS: SOTALOL 80 MG (BETAPACE) TAB PO SCH ×2 (08:26→20:37)
[2019-02-25] MEDS: DILTIAZEM 180 MG (CARDIZEM CD) CAP PO SCH (08:26)
[2019-02-25] MEDS: ASPIRIN E.C. 81 MG (ECOTRIN) TAB PO SCH (08:26)
--- NOTE | 2019-02-25 12:57 | Progress Note-Cardiology ---
Cardiology SOAP Progress Note Subjective: No cp or palp or syncope He feels he has had some epigastric discomfort that is likely because he has not been taking his Protonix Objective: I&O/Vital Signs 02/25/19 02/25/19 02/25/19 02/25/19 01:25 04:00 04:00 07:00 Temp 98.1 97.7 Pulse 70 64 65 Resp 18 20 B/P (MAP) 121/70 (87) 129/87 (101) Pulse Ox 97 97 O2 Delivery Room Air Room Air Room Air 02/25/19 02/25/19 02/25/19 02/25/19 08:25 08:35 11:26 11:26 Temp 97.4 97.6 Pulse 64 65 Resp 16 14 B/P (MAP) 125/80 (95) 132/75 (94) Pulse Ox 98 96 O2 Delivery Room Air Room Air Room Air Room Air 02/25/19 12:46 Pulse 61 02/25/19 00:00 Intake Total 1250 ml Balance 1250 ml Weight (Pounds): 204 Weight (Ounces): 8.0 Weight (Calculated Kilograms): 92.998726 Constitutional: AAO x 3, well-developed, well-nourished Respiratory: No accessory muscle use; lungs clear to percussion, lungs clear to auscultation Cardiovascular: regular rate-rhythm, S1 and S2, systolic murmur (soft CHIRAG at card base) Gastrointestional: No tender; soft; No guarding, No rebound; audible bowel sounds Extremities: No clubbing, No cyanosis, No significant edema Neurologic/Psychiatric: oriented x 3, grossly intact, power is 5/5 both on sides Skin: No rash on exposed areas, No ulcerations on exposed areas Results/Procedures: Labs Microbiology 02/21/19 MRSA Screen - Final, Complete MRSA not isolated A/P: Assessment: Paroxysmal atrial flutter with rapid ventricular response and wide-complex tachy (prob atrial flutter with QRS aberrancy); cannot tolerate amiodarone due to elevated liver enzymes. Sotalol initiated on the evening of 02/22/19. QTc normal on 02/25/19 Rivaroxaban stroke prophylaxis Chest discomfort. Normal cardiac catheterization in 2014 and subsequent stress tests Suspected MONI, Dr Rodríguez managing Elevated liver enzymes, history of hepatitis C History of hyperlipidemia H/o tobacco use, currently refraining Anxiety Mild bilateral carotid stenosis, last ultrasound was done in October 2017 H/o GERD treated with Protonix Plan: * Resume Protonix * Monitor rhythm and ECG and labs * Advised to continue to refrain from tobacco use * I answered his and his 's questions in detail Clinical Quality Measures AMI/AHF: ASA po Prior to arrival: HRASHAD Johnson MD FACP FAC CCDS Feb 25, 2019 12:57
[2019-02-25] MEDS ORDERED: PANTOPRAZOLE 40 MG (PROTONIX) TAB PO NR (13:00)
[2019-02-25] MEDS: RIVAROXABAN 20 MG TABLET (XARELTO) PO SCH (16:06)
--- NOTE | 2019-02-25 21:00 | NUR ---
PT WAS CONCERNED WITH HIS PREVIOUS BP AND ASKED FOR ME TO TAKE IT. COLLECTED BP 136/87. PT FELT BETTER THE PREVIOUS SBP WAS 105.
--- NOTE | 2019-02-25 22:13 | NUR ---
PT WAS AGITATED THAT HE WAS WOKE UP FOR VS TO BE COLLECTED. 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 PT WAS ADVISED THAT WE HAVE TO FOLLOW DR ORDERS AND COLLECTING VS IS PART OF THAT AND WE WILL BE BACK IN LATER TONIGHT TO GET VS.
--- NOTE | 2019-02-26 00:42 | NUR ---
GAVE REPORT TO ANY CARNES.
[2019-02-26 03:45] VITALS: BP 138/83
[2019-02-26] MEDS ORDERED: PANTOPRAZOLE 40 MG (PROTONIX) TAB PO SCH (07:00)
--- NOTE | 2019-02-26 07:28 | Pulmonary Progress Note ---
Subjective Time Seen by a Provider: 07:27 Subjective/Events-last exam Pt is doing well and is expected to go home today. Sepsis Event Evaluation Height, Weight, BMI Height: 5'6.50" Weight: 203lbs. 0.4oz. 92.577900lh; 32.3 BMI Method:Estimated Exam Exam Vital Signs Date Time Temp Pulse Resp B/P (MAP) Pulse Ox O2 Delivery O2 Flow Rate FiO2 02/26/19 04:00 Room Air 02/26/19 03:45 97.8 66 18 138/83 (101) 96 Room Air 02/26/19 01:00 66 02/26/19 00:01 Room Air 02/25/19 23:56 98.0 57 18 112/66 (81) 93 Room Air 02/25/19 21:00 71 136/87 (103) 02/25/19 20:01 98.3 75 18 105/67 (80) 95 Room Air 02/25/19 19:34 Room Air 02/25/19 19:00 69 02/25/19 15:16 97.4 60 14 130/79 (96) 98 Room Air 02/25/19 15:03 Room Air 02/25/19 12:46 61 02/25/19 11:26 Room Air 02/25/19 11:26 97.6 65 14 132/75 (94) 96 Room Air 02/25/19 08:35 Room Air 02/25/19 08:25 97.4 64 16 125/80 (95) 98 Room Air I & O 02/26/19 07:00 Intake Total 2850 ml Output Total 875 ml Balance 1975 ml Height & Weight Height: 5'6.50" Weight: 203lbs. 0.4oz. 92.779256ww; 32.3 BMI Method:Estimated General Appearance: No Apparent Distress, WD/WN HEENT: PERRL/EOMI Neck: Normal Inspection Respiratory: Normal Breath Sounds, No Accessory Muscle Use, No Respiratory Distress Cardiovascular: No Murmur, Tachycardia (DURING EXAM, PT WAS IN A FIB/RVR, HAD SHORT RUN OF V-TACH, THEN WENT INTO FULL BLOWN V-TACH/WIDE COMPLEX TACHYCARDIA W ITH A PULSE. 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 Chandler following SOB with tobacco use -Will need out pt PFT -CXR shows no acute change MONI hx -PT had PSG years ago however never used CPAP -Pt is now willing to repeat testing and start CPAP therapy -Will f/u as out patient and start work up. Tobacco use -Education Anemia -Monitor Acute hepatitis- hx of hep C MICHELLE VALLE DO Feb 26, 2019 07:28
[2019-02-26] MEDS ORDERED: DILT180C90 PO (07:31)
[2019-02-26] MEDS ORDERED: RIVA20TA2 PO (07:31)
[2019-02-26] MEDS ORDERED: STL80T PO (07:31)
--- NOTE | 2019-02-26 07:36 | Cardiology Discharge Summary ---
Diagnosis/Chief Complaint Date of Admission February 21, 2019 at 19:00 Date of Discharge February 26, 2019 Admission Diagnosis Ventricular tachycardia Atrial flutter, acute Chest pain Acute hepatitis Discharge Diagnosis Atrial flutter Atrial fibrillation Wide-complex tachycardia Acute chest pain Acute hepatitis Chief Complaint/HPI Chief Complaint/HPI 63 years old gentleman with history of congestive heart failure, hypertension, has been doing well until recently when he started to have palpitation felt lightheaded and dizzy, came into the emergency room and noted to be in wide- complex tachycardia, given adenosine and showed underlying atrial flutter with rapid ventricular response with wide-complex tachycardia. He is feeling better at this time. Started on Cardizem drip converted to sinus rhythm. Has been having chest pain and pressure in addition to shortness of breath and lightheadedness and dizziness. Patient converted to sinus rhythm then had another episode of atrial fibrillation with rapid ventricular response, he was started on sotalol and Xarelto, converted to sinus rhythm on Cardizem drip, feeling better, high risk of sleep apnea, had history of sleep apnea in the past. Seen by Dr. Rodríguez Discharge Summary Hospital Course Was the Problem List Reviewed?: Yes Hospital Course Wide-complex tachycardia, atrial flutter with rapid ventricular response, back to sinus rhythm, Had another episode of atrial fibrillation and converted to sinus rhythm on Cardizem drip and started on sotalol, QT interval is still acceptable, planning to discharge home today, educated in length about his condition and medication. Chest pain, had a stress test done in October 2017. Had a cardiac catheterization done in 2014 and it was normal, cardiac enzymes are negative, stress test showed no ischemia or infarction Congestive heart failure, improved, no signs of heart failure, ejection fraction 60 percent per echo and stress test. Paroxysmal atrial flutter with rapid ventricular response, back to sinus rhythm, cannot tolerate amiodarone due to elevated liver enzymes, had another episode of atrial fibrillation, tolerating sotalol well Increased risk of sleep apnea, Dr. Rodríguez consulted Elevated liver enzymes, history of hepatitis C. Continue to monitor liver enzymes. History of hyperlipidemia, cannot tolerate statin due to elevated liver enzymes Tobaccoism, has stopped smoking, Anxiety. Mild bilateral carotid stenosis, last ultrasound was done in October 2017. Procedures None. Discharge Physical Examination Allergies: Coded Allergies: escitalopram (Unverified Allergy, Severe, 02/12/16) SUICIDAL Vitals & I&Os Vital Signs Date Time Temp Pulse Resp B/P (MAP) Pulse Ox O2 Delivery O2 Flow Rate FiO2 02/26/19 07:00 66 02/26/19 04:00 Room Air 02/26/19 03:45 97.8 18 138/83 (101) 96 02/23/19 23:43 2.00 02/21/19 14:52 97 General Appearance: Alert, Oriented X3, Cooperative, No Acute Distress HEENT: Atraumatic, PERRLA Respiratory: Clear to Auscultation, Normal Air Movement Cardiovascular: Regular Rate, Normal S1, Normal S2, No Murmurs Abdominal: Normal Bowel Sounds, Soft, No Tenderness, No Hepatosplenomegaly, No Masses Extremities: No Clubbing, No Cyanosis, No Edema, Normal Pulses, No Tenderness/Swelling Skin: No Rashes, No Breakdown, No Significant Lesion Neuro: Normal Gait, Normal Speech, Strength at 5/5 X4 Ext, Normal Tone, Sensation Intact, Cranial Nerves 3-12 NL, Reflexes 2+ Psych/Mental Status: Mental Status NL, Mood NL Discharge Home Medications Reviewed and agree with Discharge Medication list on patient's Discharge Instruction sheet Instructions to Patient/Family Please see electronic discharge instructions given to patient. Clinical Quality Measures Admission Status Admission Status: Inpatient Order (span 2 midnights) Reason for Inpatient Admission: atrial fibrillation and atrial flutter and wide complex tachycardia requiring loading with sotalol and Cardizem drip AMI/AHF: Ejection Fraction: Normal LVSF ASA po Prior to arrival: No DVT/VTE Risk/Contraindication: Risk Factor Score Per Nursin RFS Level Per Nursing on Admit: 4+=Very High RACHELL LU MD Feb 26, 2019 07:36
[2019-02-26] MEDS: ASPIRIN E.C. 81 MG (ECOTRIN) TAB PO SCH (07:43)
[2019-02-26] MEDS: SOTALOL 80 MG (BETAPACE) TAB PO SCH (07:43)
[2019-02-26] MEDS: DILTIAZEM 180 MG (CARDIZEM CD) CAP PO SCH (07:43)
[2019-02-26 08:00] VITALS: BP 127/84
--- NOTE | 2019-02-26 08:43 | NUR ---
DARIEL WHITMAN demonstrates understanding of discharge instructions and accurately returns instructions upon questioning. Copy of Post-Discharge Instructions and Medication Discharge Instructions given to PT. DARIEL WHITMAN is able to manage continuing needs after discharge. Patients belongings returned to PT. Skin dry and intact; no breakdown noted. Patient discharged from [facility]- on 02/26/19 at 0843. DARIEL WHITMAN left floor via AMBULATION, accompanied by STAFF/FAMILY.
--- OUTSIDE RECORDS SUMMARY | 2019-02-28 17:50 | XMS REPORT | Continuity of Care Document ---
Author Organization Unknown Address Unknown Allergies Active Description Code Type Severity Reaction Onset Reported/Identified Relationship to Patient Clinical Status Yes No Known Drug Allergies [id number] Drug Allergy Unknown N/A 02/04/2016 Yes escitalopram [id number] Drug Allergy Severe N/A 02/12/2016 Medications There is no data. Problems Date Dx Coded Attending Type Code Diagnosis Diagnosed By 05/15/2014 MADL TEXTILES SALES REPRESENTATIVE, AMERICO L 300.00 ANXIETY UNSPEC 05/15/2014 MADL TEXTILES SALES REPRESENTATIVE, AMERICO L 401.1 BENIGN ESSENTIAL HYPERTENSION 05/15/2014 MADL TEXTILES SALES REPRESENTATIVE, AMERICO L 300.00 ANXIETY UNSPEC 05/15/2014 MADL TEXTILES SALES REPRESENTATIVE, AMERICO L 401.1 BENIGN ESSENTIAL HYPERTENSION 05/15/2014 MADL TEXTILES SALES REPRESENTATIVE, AMERICO L 300.00 ANXIETY UNSPEC 05/15/2014 MADL TEXTILES SALES REPRESENTATIVE, AMERICO L 401.1 BENIGN ESSENTIAL HYPERTENSION 05/15/2014 IRWIN DO, MADYSON K 300.00 ANXIETY UNSPEC 05/15/2014 IRWIN DO, MADYSON K 401.1 BENIGN ESSENTIAL HYPERTENSION 05/15/2014 AYOUB TEXTILES SALES REPRESENTATIVE, SWEETIE R 300.00 ANXIETY UNSPEC 05/15/2014 AYOUB TEXTILES SALES REPRESENTATIVE, SWEETIE R 401.1 BENIGN ESSENTIAL HYPERTENSION 05/15/2014 MADL TEXTILES SALES REPRESENTATIVE, AMERICO L 300.00 ANXIETY UNSPEC 05/15/2014 MADL TEXTILES SALES REPRESENTATIVE, AMERICO L 401.1 BENIGN ESSENTIAL HYPERTENSION 05/15/2014 IRWIN DO, MADYSON K 300.00 ANXIETY UNSPEC 05/15/2014 IRWIN DO, MADYSON K 401.1 BENIGN ESSENTIAL HYPERTENSION 05/15/2014 MADL TEXTILES SALES REPRESENTATIVE, AMERICO L 300.00 ANXIETY UNSPEC 05/15/2014 MADL TEXTILES SALES REPRESENTATIVE, AMERICO L 401.1 BENIGN ESSENTIAL HYPERTENSION 05/15/2014 MADL TEXTILES SALES REPRESENTATIVE, AMERICO L 300.00 ANXIETY UNSPEC 05/15/2014 MADL TEXTILES SALES REPRESENTATIVE, AMERICO L 401.1 BENIGN ESSENTIAL HYPERTENSION 05/15/2014 MADL TEXTILES SALES REPRESENTATIVE, AMERICO L 300.00 ANXIETY UNSPEC 05/15/2014 MADL TEXTILES SALES REPRESENTATIVE, AMERICO L 401.1 BENIGN ESSENTIAL HYPERTENSION 05/29/2014 MADL TEXTILES SALES REPRESENTATIVE, AMERICO L 413.9 ANGINA PECTORIS 05/29/2014 MADL TEXTILES SALES REPRESENTATIVE, AMERIOC L 413.9 ANGINA PECTORIS 05/29/2014 MADYSON IRWIN DO K 413.9 ANGINA PECTORIS 05/29/2014 AYOUB TEXTILES SALES REPRESENTATIVE, SWEETIE R 413.9 ANGINA PECTORIS 05/29/2014 MADL TEXTILES SALES REPRESENTATIVE, AMERICO L 413.9 ANGINA PECTORIS 05/29/2014 IRWIN KRISTOPHER DENISA K 413.9 ANGINA PECTORIS 05/29/2014 MADL TEXTILES SALES REPRESENTATIVE, AMERICO L 413.9 ANGINA PECTORIS 05/29/2014 MADL TEXTILES SALES REPRESENTATIVE, AMERICO L 413.9 ANGINA PECTORIS 05/29/2014 MADL TEXTILES SALES REPRESENTATIVE, AMERICO L 413.9 ANGINA PECTORIS 07/11/2014 MADYSON IRWIN DO K V04.81 FLU SHOT 07/11/2014 AYOUB TEXTILES SALES REPRESENTATIVEBRE MccainIA R V04.81 FLU SHOT 07/11/2014 MADL TEXTILES SALES REPRESENTATIVE, AMERICO L V04.81 FLU SHOT 07/11/2014 MADYSON IRWIN DO K V04.81 FLU SHOT 07/11/2014 MADL TEXTILES SALES REPRESENTATIVE, AMERICO L V04.81 FLU SHOT 07/11/2014 MADL TEXTILES SALES REPRESENTATIVE, AMERICO L V04.81 FLU SHOT 07/11/2014 MADL TEXTILES SALES REPRESENTATIVE, AMERICO L V04.81 FLU SHOT 08/30/2014 SWEETIE AYOUB APRN R V70.5 HEALTH EXAMINATION OF DEFINED SUBPOPULATIONS 08/30/2014 MADL TEXTILES SALES REPRESENTATIVE, AMERICO L V70.5 HEALTH EXAMINATION OF DEFINED SUBPOPULATIONS 08/30/2014 MADYSON IRWIN DO K V70.5 HEALTH EXAMINATION OF DEFINED SUBPOPULATIONS 08/30/2014 MADL TEXTILES SALES REPRESENTATIVE, AMERICO L V70.5 HEALTH EXAMINATION OF DEFINED SUBPOPULATIONS 08/30/2014 MADL TEXTILES SALES REPRESENTATIVE, AMERICO L V70.5 HEALTH EXAMINATION OF DEFINED SUBPOPULATIONS 08/30/2014 MADL TEXTILES SALES REPRESENTATIVE, AMERICO L V70.5 HEALTH EXAMINATION OF DEFINED SUBPOPULATIONS 09/27/2014 MADYSON IRWIN DO K 790.6 ABNORMAL LFT (LIVER FUNCTION TEST) 09/27/2014 AMERICO SHARMA APRN 790.6 ABNORMAL LFT (LIVER FUNCTION TEST) 09/27/2014 MIAL TEXTILES SALES REPRESENTATIVEAMERICO Mccain L 790.6 ABNORMAL LFT (LIVER FUNCTION [...] GARAY-BARBARA PA, JOSE K Ot 786.50 07/15/2015 GARAY-BARABRA PA, JOSE K Ot V15.82 07/15/2015 GARAY-BARBARA [...] HEART DISEASE OF [place] CORONARY 06/23/2016 RACHELL CAHNDLER MD Ot K21.9 GASTRO-ESOPHAGEAL REFLUX DISEASE WITHOUT [...] GASTRO-ESOPHAGEAL REFLUX DISEASE WITHOUT 07/20/2017 RACHELL CHANDLER MD Ot G47.33 OBSTRUCTIVE SLEEP [...] Ot E78.2 MIXED HYPERLIPIDEMIA 08/11/2017 RACHELL CHANDLER MD, Ot I10 ESSENTIAL (PRIMARY) HYPERTENSION 08/11/2017 RACHELL CHANDLER MD Ot I25.10 ATHSCL HEART DISEASE OF [place] CORONARY 08/11/2017 RACHELL CHANDLER MD Ot K21.9 GASTRO-ESOPHAGEAL REFLUX DISEASE WITHOUT 08/11/2017 RACHELL CHANDLER MD, Ot G47.33 OBSTRUCTIVE SLEEP APNEA (ADULT) (PEDIATR 08/31/2017 RACHELL CHANDLER MD, Ot G47.33 OBSTRUCTIVE SLEEP APNEA (ADULT) (PEDIATR 08/31/2017 RACHELL CHANDLER MD Ot I10 ESSENTIAL (PRIMARY) HYPERTENSION 08/31/2017 RACHELL CHANDLER MD, Ot G47.33 OBSTRUCTIVE SLEEP APNEA (ADULT) (PEDIATR 08/31/2017 ALY ANDERSON RACHELL Rivers Ot I10 ESSENTIAL (PRIMARY) HYPERTENSION 10/18/2017 DEANA OQUENDO, JOSE Shar Ot E78.2 MIXED HYPERLIPIDEMIA 10/18/2017 DEANA OQUENDO, JOSE K Ot I10 ESSENTIAL (PRIMARY) HYPERTENSION 10/18/2017 DEANA OQUENDO, JOSE K Ot I25.10 ATHSCL HEART DISEASE OF [place] CORONARY 10/18/2017 DEANA OQUENDO, JOSE K Ot R07.89 OTHER CHEST PAIN 11/10/2017 DEANA PA, JOSE K Ot E78.2 MIXED HYPERLIPIDEMIA 11/10/2017 DEANA OQUENDO, JOSE K Ot I10 ESSENTIAL (PRIMARY) HYPERTENSION 11/10/2017 DEANA OQUENDO, JOSE K Ot I25.10 ATHSCL HEART DISEASE OF [place] CORONARY 11/10/2017 DEANA OQUENDO, JOSE Myles Ot K21.9 GASTRO-ESOPHAGEAL REFLUX DISEASE WITHOUT 11/10/2017 DEANA OQUENDO, JOSE K Ot R07.89 OTHER CHEST PAIN 11/15/2017 DEANA OQUENDO, JOSE K Ot E78.2 MIXED HYPERLIPIDEMIA 11/15/2017 DEANA OQUENDO, JOSE K Ot I10 ESSENTIAL (PRIMARY) HYPERTENSION 11/15/2017 DEANA OQUENDO, JOSE K Ot I25.10 ATHSCL HEART DISEASE OF [place] CORONARY 11/15/2017 DEANA OQUENDO, JOSE Myles Ot [...] I25.10 ATHSCL HEART DISEASE OF [place] CORONARY 06/07/2018 DEANA OQUENDO JOSE K Ot K21.9 GASTRO-ESOPHAGEAL REFLUX DISEASE WITHOUT 06/07/2018 DEANA OQUENDO JOSE K Ot R07.89 OTHER CHEST PAIN 06/07/2018 JOSE BUNDY Ot E78.2 MIXED HYPERLIPIDEMIA 06/07/2018 JOSE BUNDY Ot I10 ESSENTIAL (PRIMARY) HYPERTENSION 06/07/2018 DEANA OQUENDO JOSE K Ot I25.10 ATHSCL HEART DISEASE OF [place] CORONARY 06/07/2018 DEANA OQUENDO JOSE K Ot K21.9 GASTRO-ESOPHAGEAL REFLUX DISEASE WITHOUT 06/07/2018 DEANA OQUENDO JOSE K Ot R07.89 OTHER CHEST PAIN 06/07/2018 DEANA OQUENDO JOSE K Ot E78.2 MIXED HYPERLIPIDEMIA 06/07/2018 DEANA OQUENDO JOSE K Ot I10 ESSENTIAL (PRIMARY) HYPERTENSION 06/07/2018 DEANA OQUENDO JOSE K Ot I25.10 ATHSCL HEART DISEASE OF [place] CORONARY 06/07/2018 DEANA OQUENDO JOSE K Ot [...] FOR SCREENING FOR MALIGNANT NE 10/17/2018 RACHELL CHANDLER MD Ot E78.2 MIXED HYPERLIPIDEMIA 10/17/2018 RACHELL CHANDLER MD Ot I10 ESSENTIAL (PRIMARY) HYPERTENSION 10/17/2018 RACHELL CHANDLER MD Ot I25.10 ATHSCL HEART DISEASE OF [place] CORONARY 10/17/2018 RACHELL CHANDLER MD Ot K21.9 GASTRO-ESOPHAGEAL REFLUX DISEASE WITHOUT 10/17/2018 JOSE BUNDY Ot E78.2 MIXED HYPERLIPIDEMIA 10/17/2018 JOSE BUNDY Ot I10 ESSENTIAL (PRIMARY) HYPERTENSION 10/17/2018 JOSE BUNDY Ot I25.10 ATHSCL HEART DISEASE OF [place] CORONARY 10/17/2018 JOSE BUNDY Ot R07.89 OTHER CHEST PAIN 10/17/2018 JOSE BUNDY Ot E78.2 MIXED HYPERLIPIDEMIA 10/17/2018 JOSE BUNDY Ot I10 ESSENTIAL (PRIMARY) HYPERTENSION 10/17/2018 JOSE BUDNY Ot I25.10 ATHSCL HEART DISEASE OF [place] CORONARY 10/17/2018 JOSE BUNDY Ot K21.9 GASTRO-ESOPHAGEAL REFLUX DISEASE WITHOUT 10/17/2018 JOSE BUNDY Ot R07.89 OTHER CHEST PAIN 02/21/2019 Ot 300.00 ANXIETY STATE NOS 02/21/2019 Ot 401.1 BENIGN HYPERTENSION 02/21/2019 Ot 790.5 ABN SERUM ENZY LEVEL NEC 02/21/2019 JOSE BUNDY Ot 272.4 HYPERLIPIDEMIA NEC/NOS 02/21/2019 JOSE BUNDY Ot 401.9 HYPERTENSION NOS 02/21/2019 JOSE BUNDY Ot 786.50 CHEST PAIN NOS 02/21/2019 JOSE BUNDY Ot V15.82 HISTORY OF TOBACCO USE 02/21/2019 JOSE BUNDY Ot 401.9 HYPERTENSION NOS 02/21/2019 JOSE BUNDY Ot 786.50 CHEST PAIN NOS 02/21/2019 JOSE BUNDY Ot V15.82 HISTORY OF TOBACCO USE 02/21/2019 FERMIN SHIPLEY MD Ot V68.01 DISABILITY EXAMINATION 02/21/2019 FERMIN SHIPLEY MD Ot V82.89 SCREEN FOR OTH SPECIF CONDITIONS 02/21/2019 ELBA JOHNSON DO Ot R07.9 CHEST PAIN, UNSPECIFIED 02/21/2019 ELBA JOHNSON DO Ot Z01.818 ENCOUNTER FOR OTHER PREPROCEDURAL EXAMIN 02/21/2019 ELBA JOHNSON DO Ot Z12.11 ENCOUNTER FOR SCREENING FOR MALIGNANT NE 02/21/2019 RACHELL CHANDLER MD Ot E78.2 MIXED HYPERLIPIDEMIA 02/21/2019 RACHELL CHANDLER MD Ot I10 ESSENTIAL (PRIMARY) HYPERTENSION 02/21/2019 RACHELL CHANDLER MD Ot I25.10 ATHSCL HEART DISEASE OF [place] CORONARY 02/21/2019 RACHELL CHANDLER MD Ot K21.9 GASTRO-ESOPHAGEAL REFLUX DISEASE WITHOUT 02/21/2019 JOSE BUNDY Ot E78.2 MIXED HYPERLIPIDEMIA 02/21/2019 JOSE BUNDY Ot I10 ESSENTIAL (PRIMARY) HYPERTENSION 02/21/2019 JOSE BUNDY Ot I25.10 ATHSCL HEART DISEASE OF [place] CORONARY 02/21/2019 JOSE BUNDY Ot R07.89 OTHER CHEST PAIN 02/21/2019 JOSE BUNDY Ot E78.2 MIXED HYPERLIPIDEMIA 02/21/2019 JOSE BUNDY Ot I10 ESSENTIAL (PRIMARY) HYPERTENSION 02/21/2019 JOSE BUNDY Ot I25.10 ATHSCL HEART DISEASE OF [place] CORONARY 02/21/2019 JOSE BUNDY Ot K21.9 GASTRO-ESOPHAGEAL REFLUX DISEASE WITHOUT 02/21/2019 JOSE BUNDY Ot R07.89 OTHER CHEST PAIN 02/24/2019 RACHELL CHANDLER MD Ot B17.9 ACUTE VIRAL HEPATITIS, UNSPECIFIED 02/24/2019 RACHELL CHANDLER MD Ot E78.00 PURE HYPERCHOLESTEROLEMIA, UNSPECIFIED 02/24/2019 RACHELL CHANDLER MD Ot E83.42 HYPOMAGNESEMIA 02/24/2019 RACHELL CHANDLER MD Ot F17.210 NICOTINE DEPENDENCE, CIGARETTES, UNCOMPL 02/24/2019 RACHELL CHANDLER MD Ot F41.9 ANXIETY DISORDER, UNSPECIFIED 02/24/2019 RACHELL CHANDLER MD Ot I10 ESSENTIAL (PRIMARY) HYPERTENSION 02/24/2019 RACHELL CHANDLER MD Ot I42.9 CARDIOMYOPATHY, UNSPECIFIED 02/24/2019 RACHELL CHANDLER MD Ot I47.2 VENTRICULAR TACHYCARDIA 02/24/2019 RACHELL CHANDLER MD Ot I48.91 UNSPECIFIED ATRIAL FIBRILLATION 02/24/2019 RACHELL CHANDLER MD Ot I48.92 UNSPECIFIED ATRIAL FLUTTER 02/24/2019 RACHELL CHANDLER MD Ot I65.23 OCCLUSION AND STENOSIS OF [place] 02/24/2019 RACHELL CHANDLER MD Ot K21.9 GASTRO-ESOPHAGEAL REFLUX DISEASE WITHOUT 02/24/2019 RACHELL CHANDLER MD Ot K44.9 DIAPHRAGMATIC HERNIA WITHOUT OBSTRUCTION 02/24/2019 RACHELL CHANDLER MD Ot R07.9 CHEST PAIN, UNSPECIFIED 02/24/2019 RACHELL CHANDLER MD Ot R79.89 OTHER SPECIFIED ABNORMAL FINDINGS OF BLO 02/24/2019 RACHELL CHANDLER MD Ot Z86.010 PERSONAL HISTORY OF COLONIC POLYPS 02/24/2019 RACHELL CHANDLER MD Ot Z86.19 PERSONAL HISTORY OF OTHER INFECTIOUS AND 02/24/2019 RACHELL CHANDLER MD Ot Z87.19 PERSONAL HISTORY OF OTHER DISEASES OF TH 02/25/2019 RACHELL CHANDLER MD Ot B17.9 ACUTE VIRAL HEPATITIS, UNSPECIFIED 02/25/2019 RACHELL CHANDLER MD Ot E78.00 PURE HYPERCHOLESTEROLEMIA, UNSPECIFIED 02/25/2019 RACHELL CHANDLER MD Ot E83.42 HYPOMAGNESEMIA 02/25/2019 RACHELL CHANDLER MD Ot F17.210 NICOTINE DEPENDENCE, CIGARETTES, UNCOMPL 02/25/2019 RACHELL CHANDLER MD Ot F41.9 ANXIETY DISORDER, UNSPECIFIED 02/25/2019 RACHELL CHANDLER MD Ot I10 ESSENTIAL (PRIMARY) HYPERTENSION 02/25/2019 RACHELL CHANDLER MD Ot I42.9 CARDIOMYOPATHY, UNSPECIFIED 02/25/2019 RACHELL CHANDLER MD Ot I47.2 VENTRICULAR TACHYCARDIA 02/25/2019 RACHELL CHANDLER MD Ot I48.91 UNSPECIFIED ATRIAL FIBRILLATION 02/25/2019 RACHELL CHANDLER MD Ot I48.92 UNSPECIFIED ATRIAL FLUTTER 02/25/2019 RACHELL CHANDLER MD Ot I65.23 OCCLUSION AND STENOSIS OF [place] 02/25/2019 RACHELL CHANDLER MD Ot K21.9 GASTRO-ESOPHAGEAL REFLUX DISEASE WITHOUT 02/25/2019 RACHELL CHANDLER MD Ot K44.9 DIAPHRAGMATIC HERNIA WITHOUT OBSTRUCTION 02/25/2019 RACHELL CHANDLER MD Ot R07.9 CHEST PAIN, UNSPECIFIED 02/25/2019 RACHELL CHANDLER MD Ot R79.89 OTHER SPECIFIED ABNORMAL FINDINGS OF BLO 02/25/2019 RACHELL CHANDLER MD Ot Z86.010 PERSONAL HISTORY OF COLONIC POLYPS 02/25/2019 RACHELL CHANDLER MD Ot Z86.19 PERSONAL HISTORY OF OTHER INFECTIOUS AND 02/25/2019 RACHELL CHANDLER MD Ot Z87.19 PERSONAL HISTORY OF OTHER DISEASES OF TH 02/26/2019 RACHELL CHANDLER MD Ot B17.9 ACUTE VIRAL HEPATITIS, UNSPECIFIED 02/26/2019 RACHELL CHANDLER MD Ot E78.00 PURE HYPERCHOLESTEROLEMIA, UNSPECIFIED 02/26/2019 RACHELL CHANDLER MD Ot E83.42 HYPOMAGNESEMIA 02/26/2019 RACHELL CHANDLER MD Ot F17.210 NICOTINE DEPENDENCE, CIGARETTES, UNCOMPL 02/26/2019 RACHELL CHANDLER MD Ot F41.9 ANXIETY DISORDER, UNSPECIFIED 02/26/2019 RACHELL CHANDLER MD Ot I10 ESSENTIAL (PRIMARY) HYPERTENSION 02/26/2019 RACHELL CHANDLER MD Ot I42.9 CARDIOMYOPATHY, UNSPECIFIED 02/26/2019 RACHELL CHANDLER MD Ot I47.2 VENTRICULAR TACHYCARDIA 02/26/2019 RACHELL CHANDLER MD Ot I48.91 UNSPECIFIED ATRIAL FIBRILLATION 02/26/2019 RACHELL CHANDLER MD Ot I48.92 UNSPECIFIED ATRIAL FLUTTER 02/26/2019 RACHELL CHANDLER MD Ot I65.23 OCCLUSION AND STENOSIS OF [place] 02/26/2019 RACHELL CHANDLER MD Ot K21.9 GASTRO-ESOPHAGEAL REFLUX DISEASE WITHOUT 02/26/2019 RACHELL CHANDLER MD Ot K44.9 DIAPHRAGMATIC HERNIA WITHOUT OBSTRUCTION 02/26/2019 RACHELL CHANDLER MD Ot R07.9 CHEST PAIN, UNSPECIFIED 02/26/2019 RACHELL CHANDLER MD Ot R79.89 OTHER SPECIFIED ABNORMAL FINDINGS OF BLO 02/26/2019 RACHELL CHANDLER MD Ot Z86.010 PERSONAL HISTORY OF COLONIC POLYPS 02/26/2019 RACHELL CHANDLER MD Ot Z86.19 PERSONAL HISTORY OF OTHER INFECTIOUS AND 02/26/2019 RACHELL CHANDLER MD Ot Z87.19 PERSONAL HISTORY OF OTHER DISEASES OF TH 02/26/2019 RACHELL HCANDLER MD Ot B17.9 ACUTE VIRAL HEPATITIS, UNSPECIFIED 02/26/2019 RACHELL CHANDLER MD Ot E78.00 PURE HYPERCHOLESTEROLEMIA, UNSPECIFIED 02/26/2019 RACHELL CHANDLER MD Ot E83.42 HYPOMAGNESEMIA 02/26/2019 RACHELL CHANDLER MD Ot F17.210 NICOTINE DEPENDENCE, CIGARETTES, UNCOMPL 02/26/2019 RACHELL CHANDLER MD Ot F41.9 ANXIETY DISORDER, UNSPECIFIED 02/26/2019 RACHELL CHANDLER MD Ot I10 ESSENTIAL (PRIMARY) HYPERTENSION 02/26/2019 RCAHELL CHANDLER MD Ot I42.9 CARDIOMYOPATHY, UNSPECIFIED 02/26/2019 RACHELL CHANDLER MD Ot I47.2 VENTRICULAR TACHYCARDIA 02/26/2019 RACHELL CHANDLER MD Ot I48.91 UNSPECIFIED ATRIAL FIBRILLATION 02/26/2019 RACHELL CHANDLER MD Ot I48.92 UNSPECIFIED ATRIAL FLUTTER 02/26/2019 RACHELL CHANDLER MD Ot I65.23 OCCLUSION AND STENOSIS OF [place] 02/26/2019 RACHELL CHANDLER MD Ot K21.9 GASTRO-ESOPHAGEAL REFLUX DISEASE WITHOUT 02/26/2019 RACHELL CHANDLER MD Ot K44.9 DIAPHRAGMATIC HERNIA WITHOUT OBSTRUCTION 02/26/2019 RACHELL CHANDLER MD Ot R07.9 CHEST PAIN, UNSPECIFIED 02/26/2019 RACHELL CHANDLER MD Ot R79.89 OTHER SPECIFIED ABNORMAL FINDINGS OF BLO 02/26/2019 RACHELL CHANDLER MD Ot Z86.010 PERSONAL HISTORY OF COLONIC POLYPS 02/26/2019 RACHELL CHANDLER MD Ot Z86.19 PERSONAL HISTORY OF OTHER INFECTIOUS AND 02/26/2019 RACHELL CHANDLER MD Ot Z87.19 PERSONAL HISTORY OF OTHER DISEASES OF TH 02/28/2019 RACHELL CHANDLER MD Ot B17.9 ACUTE VIRAL HEPATITIS, UNSPECIFIED 02/28/2019 RACHELL CHANDLER MD Ot E78.00 PURE HYPERCHOLESTEROLEMIA, UNSPECIFIED 02/28/2019 RACHELL CHANDLER MD Ot E83.42 HYPOMAGNESEMIA 02/28/2019 RACHELL CHANDLER MD Ot F17.210 NICOTINE DEPENDENCE, CIGARETTES, UNCOMPL 02/28/2019 RACHELL CHANDLER MD Ot F41.9 ANXIETY DISORDER, UNSPECIFIED 02/28/2019 RACHELL CHANDLER MD Ot I10 ESSENTIAL (PRIMARY) HYPERTENSION 02/28/2019 RACHELL CHANDLER MD Ot I42.9 CARDIOMYOPATHY, UNSPECIFIED 02/28/2019 RACHELL CHANDLER MD Ot I47.2 VENTRICULAR TACHYCARDIA 02/28/2019 RACHELL CHANDLER MD Ot I48.91 UNSPECIFIED ATRIAL FIBRILLATION 02/28/2019 RACHELL CHANDLER MD Ot I48.92 UNSPECIFIED ATRIAL FLUTTER 02/28/2019 RACHELL CHANDLER MD Ot I65.23 OCCLUSION AND STENOSIS OF [place]ILATERAL [place] 02/28/2019 RACHELL CHANDLER MD Ot K21.9 GASTRO-ESOPHAGEAL REFLUX DISEASE WITHOUT 02/28/2019 RACHELL CHANDLER MD Ot K44.9 DIAPHRAGMATIC HERNIA WITHOUT OBSTRUCTION 02/28/2019 RACHELL CHANDLER MD Ot R07.9 CHEST PAIN, UNSPECIFIED 02/28/2019 RACHELL CHANDLER MD Ot R79.89 OTHER SPECIFIED ABNORMAL FINDINGS OF BLO 02/28/2019 RACHELL CHANDLER MD Ot Z86.010 PERSONAL HISTORY OF COLONIC POLYPS 02/28/2019 RACHELL CHANDLER MD Ot Z86.19 PERSONAL HISTORY OF OTHER INFECTIOUS AND 02/28/2019 RACHELL CHANDLER MD Ot Z87.19 PERSONAL HISTORY OF OTHER DISEASES OF Procedures Code Description [place] [address] ROUTINE VENIPUNCTURE 05/15/2014 30776 URINE DRUG SCREEN (IN-HOUSE) 05/15/2014 87006 CBC 05/16/2014 [id number] GFR CALC (RESULT ONLY) 05/16/2014 57905 CMP 05/16/2014 65792 PSA TOTAL 05/16/2014 82709 TSH 05/16/2014 25973 UA LONG DIP 08/30/2014 78067 ROUTINE VENIPUNCTURE 09/25/2014 08641 CMP 09/25/2014 Cardiolog Rachell Chandler 01/07/2015 Results Test Result Range PT panel [...] culture - 05/27/18 16:12 Bacterial urine culture [id number] NRG COLONY COUNT >100,000/ML NRG RML Sensitivity [...] 7-25 CREATININE 1.08 mg/dL 0.70-1.25 eGFR NON-AFR. SRI LANKAN 74 mL/min/1.73m2 > OR=60 eGFR 85 mL/min/1.73m2 [...] 39 U/L 10-35 ALT 49 U/L 9-46 Complete blood count (CBC) with automated white blood cell (WBC) differential - 02/21/19 15:00 Blood leukocytes automated count (number/volume) 7.5 10*3/uL 4.3-11.0 Blood erythrocytes automated count (number/volume) 4.36 10*6/uL 4.35-5.85 Venous blood hemoglobin measurement (mass/volume) 14.4 g/dL 13.3-17.7 Blood hematocrit (volume fraction) 41 % 40-54 Automated erythrocyte mean corpuscular volume 94 [foz_us] 80-99 Automated erythrocyte mean corpuscular hemoglobin (mass per erythrocyte) 33 pg 25-34 Automated erythrocyte mean corpuscular hemoglobin concentration measurement (mass/volume) 35 g/dL 32-36 Automated erythrocyte distribution width ratio 13.8 % 10.0- 14.5 Automated blood platelet count (count/volume) 181 10*3/uL 130-400 Automated blood platelet mean volume measurement 10.8 [foz_us] 7.4-10.4 Automated blood neutrophils/100 leukocytes 61 % 42-75 Automated blood lymphocytes/100 leukocytes 28 % 12-44 Blood monocytes/100 leukocytes 9 % 0-12 Automated blood eosinophils/100 leukocytes 1 % 0-10 Automated blood basophils/100 leukocytes 0 % 0-10 Blood neutrophils automated count (number/volume) 4.6 10*3 1.8-7.8 Blood lymphocytes automated count (number/volume) 2.1 10*3 1.0-4.0 Blood monocytes automated count (number/volume) 0.7 10*3 0.0- 1.0 Automated eosinophil count 0.1 10*3/uL 0.0-0.3 Automated blood basophil count (count/volume) 0.0 10*3/uL 0.0-0.1 PT panel in platelet poor plasma by coagulation assay - 02/21/19 15:00 Prothrombin time (PT) in platelet poor plasma by coagulation assay 13.9 s 12.2-14.7 INR in platelet poor plasma or blood by coagulation assay 1.0 0.8-1.4 Activated partial thromboplastin time (aPTT) in platelet poor plasma bycoagulation assay - 02/21/19 15:00 Activated partial thromboplastin time (aPTT) in platelet poor plasma bycoagulation assay 30 s 24-35 Comprehensive metabolic panel - 02/21/19 15:00 Serum or plasma sodium measurement (moles/volume) 137 mmol/L 135-145 Serum or plasma potassium measurement (moles/volume) 4.2 mmol/L 3.6-5.0 Serum or plasma chloride measurement (moles/volume) 101 mmol/L 98-107 Carbon dioxide 24 mmol/L 21-32 Serum or plasma anion gap determination (moles/volume) 12 mmol/L 5-14 Serum or plasma urea nitrogen measurement (mass/volume) 17 mg/dL 7-18 Serum or plasma creatinine measurement (mass/volume) 0.99 mg/dL 0.60-1.30 Serum or plasma urea nitrogen/creatinine mass ratio 17 NRG Serum or plasma creatinine measurement with calculation of estimated glomerular filtration rate > NRG Serum or plasma glucose measurement (mass/volume) 128 mg/dL 70-105 Serum or plasma calcium measurement (mass/volume) 10.1 mg/dL 8.5-10.1 Serum or plasma total bilirubin measurement (mass/volume) 1.1 mg/dL 0.1-1.0 Serum or plasma alkaline phosphatase measurement (enzymatic activity/volume) 54 U/L 40-136 Serum or plasma aspartate aminotransferase measurement (enzymatic activity/volume) 302 U/L 5-34 Serum or plasma alanine aminotransferase measurement (enzymatic activity/volume) 360 U/L 0-55 Serum or plasma protein measurement (mass/volume) 8.7 g/dL 6.4-8.2 Serum or plasma albumin measurement (mass/volume) 4.3 g/dL 3.2-4.5 CALCIUM CORRECTED 9.9 mg/dL 8.5-10.1 Magnesium - 02/21/19 15:00 Magnesium 1.3 mg/dL 1.8-2.4 Serum or plasma creatine kinase measurement (enzymatic activity/volume) - 02/21/19 15:00 Serum or plasma creatine kinase measurement (enzymatic activity/volume) 58 U/L 30-200 Serum or plasma creatine kinase MB measurement (enzymatic activity/volume) - 02/21/19 15:00 Serum or plasma creatine kinase MB measurement (enzymatic activity/volume) 1.3 ng/mL <6.6 Serum or plasma troponin i.cardiac measurement (mass/volume) - 02/21/19 15:00 Serum or plasma troponin i.cardiac measurement (mass/volume) 0.031 ng/mL <0.028 Myoglobin, serum - 02/21/19 15:00 Myoglobin, serum 48.0 ng/mL 10.0-92.0 Serum or plasma amylase measurement (enzymatic activity/volume) - 02/21/19 15:00 Serum or plasma amylase measurement (enzymatic activity/volume) 44 U/L 25-125 Serum or plasma lithium measurement (moles/volume) - 02/21/19 15:00 BNP level 82.4 pg/mL <100.0 Serum or plasma troponin i.cardiac measurement (mass/volume) - 02/21/19 15:00 Serum or plasma troponin i.cardiac measurement (mass/volume) < ng/mL <0.028 Serum or plasma thyrotropin measurement by detection limit <=0.05 miu/l (units/volume) - 02/21/19 15:00 Serum or plasma thyrotropin measurement by detection limit <=0.05 miu/l (units/volume) 1.38 u[iU]/mL 0.35-4.94 Complete urinalysis with reflex to culture - 02/21/19 18:33 Urine color determination YELLOW NRG Urine clarity determination CLEAR NRG Urine pH measurement by test strip 6 5-9 Specific gravity of urine by test strip 1.015 1.016-1.022 Urine protein assay by test strip, semi-quantitative NEGATIVE NEGATIVE Urine glucose detection by automated test strip NEGATIVE NEGATIVE Erythrocytes detection in urine sediment by light microscopy NEGATIVE NEGATIVE Urine ketones detection by automated test strip NEGATIVE NEGATIVE Urine nitrite detection by test strip NEGATIVE NEGATIVE Urine total bilirubin detection by test strip NEGATIVE NEGATIVE Urine urobilinogen measurement by automated test strip (mass/volume) 4 mg/dL NORMAL Urine leukocyte esterase detection by dipstick 1+ NEGATIVE Automated urine sediment erythrocyte count by microscopy (number/high power field) NONE NRG Automated urine sediment leukocyte count by microscopy (number/high power field) RARE NRG Bacteria detection in urine sediment by light microscopy TRACE NRG Squamous epithelial cells detection in urine sediment by light microscopy 0-2 NRG Crystals detection in urine sediment by light microscopy NONE NRG Casts detection in urine sediment by light microscopy NONE NRG Mucus detection in urine sediment by light microscopy NEGATIVE NRG Complete urinalysis with reflex to culture NO NRG Methicillin resistant Staphylococcus aureus (MRSA) screening culture - 02/21/19 19:36 Methicillin resistant Staphylococcus aureus (MRSA) screening culture NEG NRG Automated blood complete blood count (hemogram) panel - 02/22/19 04:00 Blood leukocytes automated count (number/volume) 5.4 10*3/uL 4.3-11.0 Blood erythrocytes automated count (number/volume) 3.91 10*6/uL 4.35-5.85 Venous blood hemoglobin measurement (mass/volume) 13.0 g/dL 13.3-17.7 Blood hematocrit (volume fraction) 37 % 40-54 Automated erythrocyte mean corpuscular volume 95 [foz_us] 80-99 Automated erythrocyte mean corpuscular hemoglobin (mass per erythrocyte) 33 pg 25-34 Automated erythrocyte mean corpuscular hemoglobin concentration measurement (mass/volume) 35 g/dL 32-36 Automated erythrocyte distribution width ratio 13.3 % 10.0- 14.5 Automated blood platelet count (count/volume) 142 10*3/uL 130-400 Automated blood platelet mean volume measurement 11.4 [foz_us] 7.4-10.4 Comprehensive metabolic panel - 02/22/19 04:00 Serum or plasma sodium measurement (moles/volume) 135 mmol/L 135-145 Serum or plasma potassium measurement (moles/volume) 4.0 mmol/L 3.6-5.0 Serum or plasma chloride measurement (moles/volume) 100 mmol/L 98-107 Carbon dioxide 26 mmol/L 21-32 Serum or plasma anion gap determination (moles/volume) 9 mmol/L 5-14 Serum or plasma urea nitrogen measurement (mass/volume) 14 mg/dL 7-18 Serum or plasma creatinine measurement (mass/volume) 0.88 mg/dL 0.60-1.30 Serum or plasma urea nitrogen/creatinine mass ratio 16 NRG Serum or plasma creatinine measurement with calculation of estimated glomerular filtration rate > NRG Serum or plasma glucose measurement (mass/volume) 88 mg/dL 70-105 Serum or plasma calcium measurement (mass/volume) 9.4 mg/dL 8.5-10.1 Serum or plasma total bilirubin measurement (mass/volume) 1.2 mg/dL 0.1-1.0 Serum or plasma alkaline phosphatase measurement (enzymatic activity/volume) 55 U/L 40-136 Serum or plasma aspartate aminotransferase measurement (enzymatic activity/volume) 244 U/L 5-34 Serum or plasma alanine aminotransferase measurement (enzymatic activity/volume) 306 U/L 0-55 Serum or plasma protein measurement (mass/volume) 7.6 g/dL 6.4-8.2 Serum or plasma albumin measurement (mass/volume) 3.9 g/dL 3.2-4.5 CALCIUM CORRECTED 9.5 mg/dL 8.5-10.1 Magnesium - 02/22/19 04:00 Magnesium 1.7 mg/dL 1.8-2.4 Serum or plasma troponin i.cardiac measurement (mass/volume) - 02/22/19 04:00 Serum or plasma troponin i.cardiac measurement (mass/volume) < ng/mL <0.028 Lipid 1996 panel - 02/22/19 04:00 Serum or plasma triglyceride measurement (mass/volume) 71 mg/dL <150 Serum or plasma cholesterol measurement (mass/volume) 170 mg/dL < 200 Serum or plasma cholesterol in HDL measurement (mass/volume) 57 mg/dL 40-60 Cholesterol in LDL [mass/volume] in serum or plasma by direct assay 96 mg/dL 1-129 Serum or plasma cholesterol in VLDL measurement (mass/volume) 14 mg/dL 5-40 THYROID STIMULATING HORMONE - 02/22/19 04:00 THYROID STIMULATING HORMONE 1.26 u[iU]/mL 0.35-4.94 Complete blood count (CBC) with automated white blood cell (WBC) differential - 02/23/19 05:17 Blood leukocytes automated count (number/volume) 5.6 10*3/uL 4.3-11.0 Blood erythrocytes automated count (number/volume) 3.85 10*6/uL 4.35-5.85 Venous blood hemoglobin measurement (mass/volume) 12.6 g/dL 13.3-17.7 Blood hematocrit (volume fraction) 36 % 40-54 Automated erythrocyte mean corpuscular volume 95 [foz_us] 80-99 Automated erythrocyte mean corpuscular hemoglobin (mass per erythrocyte) 33 pg 25-34 Automated erythrocyte mean corpuscular hemoglobin concentration measurement (mass/volume) 35 g/dL 32-36 Automated erythrocyte distribution width ratio 13.5 % 10.0- 14.5 Automated blood platelet count (count/volume) 145 10*3/uL 130-400 Automated blood platelet mean volume measurement 11.0 [foz_us] 7.4-10.4 Automated blood neutrophils/100 leukocytes 54 % 42-75 Automated blood lymphocytes/100 leukocytes 33 % 12-44 Blood monocytes/100 leukocytes 9 % 0-12 Automated blood eosinophils/100 leukocytes 4 % 0-10 Automated blood basophils/100 leukocytes 0 % 0-10 Blood neutrophils automated count (number/volume) 3.0 10*3 1.8-7.8 Blood lymphocytes automated count (number/volume) 1.8 10*3 1.0-4.0 Blood monocytes automated count (number/volume) 0.5 10*3 0.0- 1.0 Automated eosinophil count 0.2 10*3/uL 0.0-0.3 Automated blood basophil count (count/volume) 0.0 10*3/uL 0.0-0.1 Whole blood basic metabolic panel - 02/23/19 05:17 Serum or plasma sodium measurement (moles/volume) 134 mmol/L 135-145 Serum or plasma potassium measurement (moles/volume) 3.9 mmol/L 3.6-5.0 Serum or plasma chloride measurement (moles/volume) 102 mmol/L 98-107 Carbon dioxide 24 mmol/L 21-32 Serum or plasma anion gap determination (moles/volume) 8 mmol/L 5-14 Serum or plasma urea nitrogen measurement (mass/volume) 11 mg/dL 7-18 Serum or plasma creatinine measurement (mass/volume) 0.82 mg/dL 0.60-1.30 Serum or plasma urea nitrogen/creatinine mass ratio 13 NRG Serum or plasma creatinine measurement with calculation of estimated glomerular filtration rate > NRG Serum or plasma glucose measurement (mass/volume) 90 mg/dL 70-105 Serum or plasma calcium measurement (mass/volume) 9.2 mg/dL 8.5-10.1 Serum or plasma phosphate measurement (mass/volume) - 02/23/19 05:17 Serum or plasma phosphate measurement (mass/volume) 4.1 mg/dL 2.3-4.7 Magnesium - 02/23/19 05:17 Magnesium 2.0 mg/dL 1.8-2.4 Encounters ACCT No. Visit Date/Time Discharge Status Pt. Type Provider Facility Loc./Unit Complaint [id number] 01/07/2015 10:45:00 01/07/2015 23:59:59 CLS Outpatient MADL TEXTILES SALES REPRESENTATIVEAMERICO L [id number] 11/28/2014 11:12:00 11/28/2014 23:59:59 CLS Outpatient MADL TEXTIL[employer] SALES REPRESENTATIVENAINAAMERICO L [id number] 10/25/2014 15:15:00 10/25/2014 23:59:59 CLS Outpatient MADL TEXTIL[employer] SALES REPRESENTATIVECHRISTINAA L [id number] 09/25/2014 13:21:00 09/25/2014 23:59:59 CLS Outpatient MADYSON IRWIN DO Shar [id number] 09/02/2014 13:51:00 09/02/2014 23:59:59 CLS Outpatient MADL TEXTIL[employer] SALES REPRESENTATIVECHRISTINAA L [id number] 08/30/2014 11:58:00 08/30/2014 23:59:59 CLS Outpatient SWEETIE AYOUB APRN [id number] 07/11/2014 10:05:00 07/11/2014 23:59:59 CLS Outpatient MADYSON IRWIN DO Shar [id number] 06/11/2014 14:19:00 06/11/2014 23:59:59 CLS Outpatient MADL TEXTIL[employer] SALES REPRESENTATIVECHRISTINAA L [id number] 05/29/2014 14:24:00 05/29/2014 23:59:59 CLS Outpatient MADL [employer] SALES REPRESENTATIVECHRISTINAA L [id number] 05/15/2014 15:00:00 05/15/2014 23:59:59 CLS Outpatient MADL [employer] SALES REPRESENTATIVECHRISTINAA L [id number] 02/22/2019 08:46:00 02/26/2019 08:43:00 DIS Inpatient RACHELL CHANDLER MD [facility] ICU CHEST PAIN,CARDIAC ARRHYTHMIA [id number] 05/27/2018 14:51:00 05/27/2018 18:15:00 DIS Emergency DANYA POWELL [employer] SALES REPRESENTATIVE [facility] ER LOW BP, SHAKING [id number] 11/09/2017 07:32:00 11/09/2017 23:59:59 CLS Outpatient JOSE BUNDY [facility] CARD I25.10,R07.89 [id number] 10/17/2017 11:45:00 10/17/2017 23:59:59 CLS Outpatient JOSE BUNDY [facility] CARD CAD [id number] 08/30/2017 19:33:00 08/31/2017 06:58:00 DIS Outpatient RACHELL CHANDLER MD [facility] SLEEP MONI [id number] 06/23/2017 15:01:00 06/23/2017 20:58:00 DIS Emergency DANYA POWELL [employer] SALES REPRESENTATIVE [facility] ER HIGH BP [id number] 06/22/2016 12:48:00 06/22/2016 23:59:59 CLS Outpatient RACHELL CHANDLER MD [facility] CARD CAD,GERD,HTN,HLP [id number] 02/12/2016 11:42:00 02/12/2016 13:55:00 DIS Outpatient ELBA JOHNSON DO [facility] SDC SCREENING,CHEST PAIN [id number] 02/04/2016 08:18:00 02/04/2016 10:26:00 DIS Outpatient ELBA JOHNSON DO [facility] PREOP SCREENING; CHEST PAIN [id number] 01/15/2016 05:41:00 01/15/2016 23:59:59 CLS Outpatient ELBA JOHNSON DO [facility] PREOP SCREENING,CHEST PAIN [id number] 06/23/2015 08:47:00 06/23/2015 23:59:59 CLS Outpatient FERMIN SHIPLEY MD [facility] RAD DDU [id number] 06/11/2015 12:21:00 06/11/2015 22:40:00 DIS Outpatient RACHELL CHANDLER MD [facility] CATH ABNORMAL STRESS, CP,SOB,HLP,HTN [id number] 05/27/2015 11:59:00 05/27/2015 23:59:59 CLS Outpatient JOSE BUNDY [facility] CARD CP,HTN [id number] 05/26/2015 08:51:00 05/26/2015 23:59:59 CLS Outpatient JOSE BUNDY [facility] CARD CHEST PAIN HTN [id number] 11/21/2014 08:46:00 Document Registration [id number] 02/12/2019 14:40:00 02/12/2019 23:59:59 [facility] Outpatient JESU PLUNKETT APRN [facility] [id number] 07/27/2018 09:40:00 Document Registration [id number] 05/30/2018 13:00:00 Document Registration
== END 2019-02-26 08:43 | disposition home or self-care (01) | DRG 309 ==
LOC: EDUNIT# 14:48 → ER 14:49 → UNDOADMIN 19:00 → ICU 19:00 → ER 19:01 → ICU 19:10 → OBSVTOIN 02-22 08:46 → ICU 02-23 08:37 → UNDODISIN 02-26 08:43
PROVIDERS: ADMIT Internal Medicine Cardiovascular Disease; ATTEND Internal Medicine Cardiovascular Disease
DX: I47.2 Ventricular tachycardia (principal); I48.91 Unspecified atrial fibrillation; I48.92 Unspecified atrial flutter; R07.9 Chest pain, unspecified; I42.8 Other cardiomyopathies; B17.10 Acute hepatitis C without hepatic coma; I10 Essential (primary) hypertension; I25.10 Atherosclerotic heart disease of native coronary artery without angina pectoris; G47.33 Obstructive sleep apnea (adult) (pediatric); K21.9 Gastro-esophageal reflux disease without esophagitis; E78.00 Pure hypercholesterolemia, unspecified; F41.9 Anxiety disorder, unspecified; K44.9 Diaphragmatic hernia without obstruction or gangrene; D64.9 Anemia, unspecified; I65.23 Occlusion and stenosis of bilateral carotid arteries; F17.210 Nicotine dependence, cigarettes, uncomplicated; E83.42 Hypomagnesemia; R79.89 Other specified abnormal findings of blood chemistry; Z91.19 Patient's noncompliance with other medical treatment and regimen; Z86.79 Personal history of other diseases of the circulatory system; Z86.010 Personal history of colon polyps; Z87.19 Personal history of other diseases of the digestive system
CPT/HCPCS: 36415; 71045; 78452; 80048; 80053; 80061; 81000; 82150; 82550; 82553; 83735; 83874; 83880; 84100; 84443; 84484; 85025; 85027; 85610; 85730; 87081; 93005; 93017; 93041; 93306; 96365; 96366; 96372; 96375; 99291; G0378

== ENCOUNTER → 2019-03-01 | Outpatient (CLI) | payer MEDICARE ==
[~2019-03-01] MED LIST changes: +ATOR20TA66 PO; +DILT180C90 PO; +METO-395 PO; +PANT40TA3 PO; +RIVA20TA2 PO; +STL80T PO
[2019-03-01 15:24] LABS: ABG BASE EXCESS -0.1 MMOL/L (-2.5-2.5); ABG OXYGEN SATURATION 96 % (94-100); ABG PCO2 40 MMHG (35-45); ABG PO2 78 MMHG (79-93); ABG TCO2 25.5 MMOL/L (21.0-31.0); ALLENS TEST POSITIVE; PATIENT TEMP 97.3; VENTILATOR NO
== END ==
LOC: RT 14:39
PROVIDERS: ATTEND Nurse Practitioner Family
DX: R06.00 Dyspnea, unspecified (principal); J30.9 Allergic rhinitis, unspecified; R06.89 Other abnormalities of breathing; R05 Cough; G47.36 Sleep related hypoventilation in conditions classified elsewhere; E66.9 Obesity, unspecified; J98.4 Other disorders of lung
CPT/HCPCS: 82805; 94761

== ENCOUNTER 2019-03-08 20:43 | Outpatient (CLI) | payer MEDICARE | END 2019-03-09 06:48 | disposition home or self-care (01) | LOC: SLEEP 20:43 | PROVIDERS: ATTEND Nurse Practitioner Family | DX: G47.33 Obstructive sleep apnea (adult) (pediatric) (principal); R06.00 Dyspnea, unspecified; J30.9 Allergic rhinitis, unspecified; R06.09 Other forms of dyspnea; R05 Cough; G47.36 Sleep related hypoventilation in conditions classified elsewhere; E66.9 Obesity, unspecified; J98.4 Other disorders of lung; G47.61 Periodic limb movement disorder | CPT/HCPCS: 95810 ==

== ENCOUNTER → 2019-03-19 | Outpatient (CLI) | payer MEDICARE ==
[2019-03-19 08:46] LABS: ALANINE AMINOTRANSFERASE 289 U/L (0-55); ALBUMIN 4.3 GM/DL (3.2-4.5); ALKALINE PHOSPHATASE 47 U/L (40-136); BILIRUBIN,TOTAL 0.7 MG/DL (0.1-1.0); BUN/CREATININE RATIO 17; CALCIUM 9.6 MG/DL (8.5-10.1); CARBON DIOXIDE 21 MMOL/L (21-32); CHLORIDE 106 MMOL/L (98-107); CREATININE SERUM 0.87 MG/DL (0.60-1.30); GFR ESTIMATED > 60; GLUCOSE 89 MG/DL (70-105); POTASSIUM 4.3 MMOL/L (3.6-5.0); SODIUM 137 MMOL/L (135-145); TOTAL PROTEIN 8.1 GM/DL (6.4-8.2)
== END ==
LOC: LAB 08:09
PROVIDERS: ATTEND Internal Medicine Cardiovascular Disease
DX: R07.89 Other chest pain (principal); I25.10 Atherosclerotic heart disease of native coronary artery without angina pectoris; I10 Essential (primary) hypertension; E78.2 Mixed hyperlipidemia; K21.9 Gastro-esophageal reflux disease without esophagitis
CPT/HCPCS: 36415; 80053

== ENCOUNTER → 2019-04-20 | Outpatient (CLI) | payer MEDICARE, OTHER ==
[~2019-04-20] MED LIST changes: +HOLD METFORMIN - RECEIVED CONTRAST 20 ML VIAL IV SCH; +IOHEXOL 350 MG/ML 100 ML (OMNIPAQUE 350) VIAL IV ONE; +NS 100 ML (IVPB) BAG IV ONE
[2019-04-20 08:39] LABS: BUN/CREATININE RATIO 9; CREATININE SERUM 0.92 MG/DL (0.60-1.30); GFR ESTIMATED > 60
--- NOTE | 2019-04-20 11:36 | Diagnostic Imaging Report ---
PROCEDURE: CT chest with contrast only. TECHNIQUE: Multiple contiguous axial images were obtained through the chest after administration of intravenous contrast. Auto Exposure Controls were utilized during the CT exam to meet ALARA standards for radiation dose reduction. INDICATION: Shortness of breath and chest pain. FINDINGS: Comparison is 06/23/2017. The lungs are clear. There is no edema or pneumonia. No pleural effusion or pneumothorax. No suspicious pulmonary nodules. Heart size is normal. No pericardial effusion. Aorta is normal in caliber for age and gender. No central pulmonary embolism. No axillary, supraclavicular or mediastinal lymphadenopathy. Limited views of the upper abdomen are unremarkable. There are no suspicious osseous lesions. IMPRESSION: 1. No acute abnormality in the chest. Dictated by: Dictated on workstation # [id number]
== END ==
LOC: RAD 08:02
PROVIDERS: ATTEND Nurse Practitioner Family
DX: J30.9 Allergic rhinitis, unspecified (principal); G47.36 Sleep related hypoventilation in conditions classified elsewhere; E66.9 Obesity, unspecified; J98.4 Other disorders of lung
CPT/HCPCS: 36415; 71260; 82565; 84520

== ENCOUNTER → 2019-05-11 | Outpatient (CLI) | payer MEDICARE ==
[~2019-05-11] MED LIST changes: -HOLD METFORMIN - RECEIVED CONTRAST 20 ML VIAL IV SCH; -IOHEXOL 350 MG/ML 100 ML (OMNIPAQUE 350) VIAL IV ONE; -NS 100 ML (IVPB) BAG IV ONE; +RT-ALBUTEROL SULF 2.5 MG/3 ML PRE-MIX VIAL INH ONE; +RT-ALBUTEROL SULF 2.5 MG/3 ML PRE-MIX VIAL ONE
== END ==
LOC: RT 12:03
PROVIDERS: ATTEND Nurse Practitioner Family
DX: J30.9 Allergic rhinitis, unspecified (principal); G47.36 Sleep related hypoventilation in conditions classified elsewhere; E66.9 Obesity, unspecified; J98.4 Other disorders of lung
CPT/HCPCS: 94060; 94726; 94729

== ENCOUNTER → 2019-05-16 | Day surgery (SDC) | payer MEDICARE, OTHER ==
[~2019-05-16] VITALS: Ht 168.9 cm; Wt 92.1 kg
[~2019-05-16] MED LIST changes: +LIDOCAINE 1% INJ 20 ML 20 ML VIAL ONE; -RT-ALBUTEROL SULF 2.5 MG/3 ML PRE-MIX VIAL INH ONE; -RT-ALBUTEROL SULF 2.5 MG/3 ML PRE-MIX VIAL ONE
[2019-05-16 09:44] VITALS: BP 124/88
--- NOTE | 2019-05-16 10:40 | Implantation of Loop Monitor ---
Implant of Loop Monitior IMPLANTATION OF LOOP MONITOR REPORT DATE OF PROCEDURE: 05/16/19 PREOP DIAGNOSIS: paroxysmal atrial fibrillation POSTOP DIAGNOSIS: paroxysmal atrial fibrillation PROCEDURE DETAILS: The patient is a 63 male with history of paroxysmal atrial fibrillation requiring long-term surveillance. Therefore implantable loop recorder was discussed and agreed with the patient. Informed consent was taken. All risks and complications were discussed at length. The patient was draped and prepped in the usual sterile fashion. Local anesthesia was lidocaine, which was given in the substernal area close to the 4th intercostal space. Loop monitor [employer] with serial number [id number] was implanted according to the protocol. Steri- Strips were placed at the end of the procedure. There were no complications and the patient tolerated the procedure well. The device was interrogated with a voltage of. ANESTHESIA: Local anesthesia with lidocaine. COMPLICATIONS: None CONTRAST/FLUOROSCOPY: None CONCLUSION: successful implantation of loop recorder with no complication FINAL DIAGNOSIS: Paroxysmal atrial fibrillation Coronary artery disease Hypertension Hyperlipidemia RACHELL LU MD May 16, 2019 10:40
== END | disposition home or self-care (01) ==
LOC: CATH 08:37
PROVIDERS: ATTEND Internal Medicine Cardiovascular Disease
DX: I48.0 Paroxysmal atrial fibrillation (principal); I25.10 Atherosclerotic heart disease of native coronary artery without angina pectoris; R07.89 Other chest pain; K21.9 Gastro-esophageal reflux disease without esophagitis; I11.0 Hypertensive heart disease with heart failure; I50.20 Unspecified systolic (congestive) heart failure; I65.23 Occlusion and stenosis of bilateral carotid arteries; I48.92 Unspecified atrial flutter; Z80.0 Family history of malignant neoplasm of digestive organs; J45.909 Unspecified asthma, uncomplicated; Z86.010 Personal history of colon polyps; G47.10 Hypersomnia, unspecified; E78.2 Mixed hyperlipidemia; G47.33 Obstructive sleep apnea (adult) (pediatric); E66.9 Obesity, unspecified; F41.9 Anxiety disorder, unspecified; Z68.33 Body mass index [BMI] 33.0-33.9, adult
CPT/HCPCS: 33285

== ENCOUNTER → 2019-08-21 | Outpatient (CLI) | payer MEDICARE ==
[~2019-08-21] MED LIST changes: -LIDOCAINE 1% INJ 20 ML 20 ML VIAL ONE
[2019-08-21 13:09] LABS: ALANINE AMINOTRANSFERASE 12 U/L (0-55); ALBUMIN 4.2 GM/DL (3.2-4.5); ALKALINE PHOSPHATASE 44 U/L (40-136); BILIRUBIN,TOTAL 0.7 MG/DL (0.1-1.0); BUN/CREATININE RATIO 13; CALCIUM 9.5 MG/DL (8.5-10.1); CARBON DIOXIDE 26 MMOL/L (21-32); CHLORIDE 106 MMOL/L (98-107); CHOLESTEROL 225 MG/DL (< 200); CREATININE SERUM 1.11 MG/DL (0.60-1.30); GFR ESTIMATED > 60; GLUCOSE 85 MG/DL (70-105); HDL CHOLESTEROL 40 MG/DL (40-60); POTASSIUM 4.4 MMOL/L (3.6-5.0); SODIUM 140 MMOL/L (135-145); TOTAL PROTEIN 7.3 GM/DL (6.4-8.2); TRIGLYCERIDES 79 MG/DL (<150); VLDL CHOLESTEROL 16 MG/DL (5-40)
== END ==
LOC: LAB 12:38
PROVIDERS: ATTEND Physician Assistant
DX: E78.2 Mixed hyperlipidemia (principal); I25.10 Atherosclerotic heart disease of native coronary artery without angina pectoris; I10 Essential (primary) hypertension
CPT/HCPCS: 36415; 80053; 80061

== ENCOUNTER → 2019-10-05 | Outpatient (CLI) | payer MEDICARE | LOC: LAB 14:14 | PROVIDERS: ATTEND Internal Medicine Gastroenterology | DX: B18.2 Chronic viral hepatitis C (principal) | CPT/HCPCS: 36415; 87522 ==

== ENCOUNTER → 2019-10-17 | Day surgery (SDC) | payer MEDICARE ==
[~2019-10-17] VITALS: Ht 170 cm; Wt 96.0 kg
[~2019-10-17] MED LIST changes: +DILT-28 PO; -DILT180C90 PO; -IBUP-2055 PO; +IBUP-2473 PO; +LIDOCAINE 1% INJ 20 ML 20 ML VIAL INJ ONE; +LIDOCAINE 1% INJ 20 ML 20 ML VIAL ONE; -METO-370 PO; -METO-395 PO; +METO50TA7 PO; +MTP100TCR PO
[2019-10-17 08:20] VITALS: BP 130/83
--- NOTE | 2019-10-17 09:11 | Implantation of Loop Monitor ---
Implant of Loop Monitior IMPLANTATION OF LOOP MONITOR REPORT DATE OF PROCEDURE: 10/17/19 PREOP DIAGNOSIS: paroxysmal atrial fibrillation POSTOP DIAGNOSIS: paroxysmal atrial fibrillation PROCEDURE DETAILS: The patient is a 63 male with history of paroxysmal atrial fibrillation requiring long-term surveillance. patient had a loop recorder, it was. To be starting to migrate, very thin layer of skin on top of it I decided to reposition it. Patient has increased risk of infection, I discussed that with him and explained that it is better than the cost of implanting a new device. Local anesthesia was used then I made a small skin incision and extracted the device, using new implantation equipment I was able to reimplant the same device subcutaneously. Manual pressure applied. ANESTHESIA: Local anesthesia with lidocaine. COMPLICATIONS: None CONTRAST/FLUOROSCOPY: None CONCLUSION: successful repositioning after extraction of the loop monitor with no complication FINAL DIAGNOSIS: paroxysmal atrial fibrillation RACHELL LU MD Oct 17, 2019 09:11
[2019-10-17 09:31] VITALS: BP 125/74
== END ==
LOC: CATH 10-10 09:41
PROVIDERS: ATTEND Internal Medicine Cardiovascular Disease
DX: I48.0 Paroxysmal atrial fibrillation (principal); I25.10 Atherosclerotic heart disease of native coronary artery without angina pectoris; I11.0 Hypertensive heart disease with heart failure; I50.9 Heart failure, unspecified; J44.9 Chronic obstructive pulmonary disease, unspecified; I65.23 Occlusion and stenosis of bilateral carotid arteries; K21.9 Gastro-esophageal reflux disease without esophagitis; E78.5 Hyperlipidemia, unspecified; E66.9 Obesity, unspecified; G47.10 Hypersomnia, unspecified; Z88.8 Allergy status to other drugs, medicaments and biological substances; Z87.891 Personal history of nicotine dependence; Z68.33 Body mass index [BMI] 33.0-33.9, adult; Z99.89 Dependence on other enabling machines and devices; Z82.49 Family history of ischemic heart disease and other diseases of the circulatory system; Z80.0 Family history of malignant neoplasm of digestive organs; Z82.3 Family history of stroke

== ENCOUNTER → 2019-11-22 | Outpatient (CLI) | payer MEDICARE ==
[~2019-11-22] MED LIST changes: +CATHETER FLUSH 10 ML SYR IV PRN; -LIDOCAINE 1% INJ 20 ML 20 ML VIAL INJ ONE; -LIDOCAINE 1% INJ 20 ML 20 ML VIAL ONE
--- NOTE | 2019-11-22 11:58 | Diagnostic Imaging Report ---
RADIOPHARMACEUTICAL: 5.23 mCi Tc-99m Choletec IV. INDICATION: Burning epigastric pain. TECHNIQUE: Anterior dynamic imaging for 45 minutes. Additional 60 minute imaging was performed after the patient ingested an 8-ounce can of Ensure Plus. FINDINGS: There is homogenous uptake throughout the liver. The gallbladder is visualized at 20 minutes and small bowel at 15 minutes. After CCK analog administration, there is abnormal contraction of the gallbladder with abnormally low calculated GBEF at 20%. IMPRESSION: 1. No evidence of acute cholecystitis or common duct obstruction. 2. Abnormally low GBEF of 20%. This can be secondary to underlying biliary dyskinesia or chronic acalculous cholecystitis. Some medications can also decrease gallbladder ejection fraction. Dictated by: Dictated on workstation # [id number]
== END ==
LOC: CARD 09:32
PROVIDERS: ATTEND Internal Medicine Gastroenterology
DX: R10.13 Epigastric pain (principal)
CPT/HCPCS: 78227

== ENCOUNTER → 2020-04-07 | Outpatient (CLI) | payer MEDICARE ==
[~2020-04-07] MED LIST changes: -CATHETER FLUSH 10 ML SYR IV PRN; +HOLD METFORMIN - RECEIVED CONTRAST 20 ML VIAL IV SCH; +IOHEXOL 350 MG/ML 100 ML (OMNIPAQUE 350) VIAL IV ONE
[2020-04-07 11:08] LABS: BUN/CREATININE RATIO 13; CREATININE SERUM 0.89 MG/DL (0.60-1.30); GFR ESTIMATED > 60
--- NOTE | 2020-04-07 12:58 | Diagnostic Imaging Report ---
PROCEDURE: CT chest with contrast only. TECHNIQUE: Multiple contiguous axial images were obtained through the chest after administration of intravenous contrast. Auto Exposure Controls were utilized during the CT exam to meet ALARA standards for radiation dose reduction. INDICATION: Bronchitis, COPD, cough. CORRELATION: 04/20/2019 FINDINGS: Loop recorder device projects over the anterior superior left chest. The partially visualized thyroid gland appearing unremarkable. No suggestion for pathologically enlarged mediastinal and/or hilar lymph nodes. There is some gas at the main pulmonary artery and nondependent right ventricle, perhaps at time of injection. Heart size is within normal limits. No pericardial effusion. Gastroesophageal junction unremarkable. The lung tan are clear of infiltrate. Calcified granuloma at the anterior right lower lobe. No pleural effusion. Probable small exophytic cyst right kidney. High density material in the dependent portion gallbladder. No acute bony abnormality. A few scattered Schmorl's node deformities are present. IMPRESSION: 1. Negative for acute abnormality of the chest. 2. High density in dependent portion of gallbladder could be reflective of perhaps vicarious excretion of contrast recently administered. Could also reflect sludge, debris and/or small gallstones. Dictated by: Dictated on workstation # [id number]
== END ==
LOC: RAD 10:16
PROVIDERS: ATTEND Nurse Practitioner Family
DX: J40 Bronchitis, not specified as acute or chronic (principal); J98.4 Other disorders of lung; J44.9 Chronic obstructive pulmonary disease, unspecified; K82.8 Other specified diseases of gallbladder
CPT/HCPCS: 36415; 71260; 82565; 84520

== ENCOUNTER → 2020-05-28 | Outpatient (CLI) | payer MEDICARE ==
[~2020-05-28] MED LIST changes: -HOLD METFORMIN - RECEIVED CONTRAST 20 ML VIAL IV SCH; -IOHEXOL 350 MG/ML 100 ML (OMNIPAQUE 350) VIAL IV ONE
[2020-05-28 07:42] LABS: ALBUMIN 4.4 GM/DL (3.2-4.5); CHLORIDE 105 MMOL/L (98-107); POTASSIUM 4.4 MMOL/L (3.6-5.0); SODIUM 139 MMOL/L (135-145)
[2020-05-28 07:43] LABS: CALCIUM 9.5 MG/DL (8.5-10.1)
[2020-05-28 07:44] LABS: GLUCOSE 100 MG/DL (70-105); TRIGLYCERIDES 79 MG/DL (<150); VLDL CHOLESTEROL 16 MG/DL (5-40)
[2020-05-28 07:45] LABS: CARBON DIOXIDE 23 MMOL/L (21-32)
[2020-05-28 07:46] LABS: BILIRUBIN,TOTAL 0.6 MG/DL (0.1-1.0)
[2020-05-28 07:48] LABS: ALKALINE PHOSPHATASE 55 U/L (40-136); CREATININE SERUM 0.96 MG/DL (0.60-1.30); GFR ESTIMATED > 60
[2020-05-28 07:49] LABS: BUN/CREATININE RATIO 16; CHOLESTEROL 235 MG/DL (< 200)
[2020-05-28 07:50] LABS: HDL CHOLESTEROL 36 MG/DL (40-60)
[2020-05-28 07:51] LABS: ALANINE AMINOTRANSFERASE 14 U/L (0-55)
== END ==
LOC: LAB 07:09
PROVIDERS: ATTEND Internal Medicine Cardiovascular Disease
DX: I25.10 Atherosclerotic heart disease of native coronary artery without angina pectoris (principal); E78.2 Mixed hyperlipidemia; I10 Essential (primary) hypertension; G47.33 Obstructive sleep apnea (adult) (pediatric)
CPT/HCPCS: 36415; 80053; 80061

== ENCOUNTER → 2020-10-08 | Outpatient (CLI) | payer MEDICARE ==
[~2020-10-08] MED LIST changes: +AMLO-251; -AMLO10TA7; -PANT40TA3 PO; +PANT40TA52 PO
[2020-10-08 12:58] LABS: CHLORIDE 105 MMOL/L (98-107); POTASSIUM 4.7 MMOL/L (3.6-5.0); SODIUM 139 MMOL/L (135-145)
[2020-10-08 12:59] LABS: ALBUMIN 4.6 GM/DL (3.2-4.5)
[2020-10-08 13:00] LABS: CALCIUM 9.7 MG/DL (8.5-10.1); TRIGLYCERIDES 96 MG/DL (<150); VLDL CHOLESTEROL 19 MG/DL (5-40)
[2020-10-08 13:01] LABS: GLUCOSE 99 MG/DL (70-105); TOTAL PROTEIN 8.2 GM/DL (6.4-8.2)
[2020-10-08 13:02] LABS: CARBON DIOXIDE 22 MMOL/L (21-32)
[2020-10-08 13:03] LABS: BILIRUBIN,TOTAL 0.6 MG/DL (0.1-1.0)
[2020-10-08 13:05] LABS: ALKALINE PHOSPHATASE 53 U/L (40-136); CHOLESTEROL 169 MG/DL (< 200); CREATININE SERUM 1.03 MG/DL (0.60-1.30); GFR ESTIMATED > 60
[2020-10-08 13:06] LABS: BUN/CREATININE RATIO 18
[2020-10-08 13:07] LABS: HDL CHOLESTEROL 41 MG/DL (40-60)
[2020-10-08 13:08] LABS: ALANINE AMINOTRANSFERASE 15 U/L (0-55)
== END ==
LOC: LAB 12:29
PROVIDERS: ATTEND Physician Assistant
DX: I10 Essential (primary) hypertension (principal); E78.2 Mixed hyperlipidemia
CPT/HCPCS: 36415; 80053; 80061

== ENCOUNTER → 2020-11-26 | Outpatient (CLI) | payer MEDICARE ==
[~2020-11-26] VITALS: Ht 170 cm; Wt 108.0 kg
[~2020-11-26] MED LIST changes: -AMIT10TA6; +AMT10T; +CATHETER FLUSH 10 ML SYR IV PRN; +REGADENOSON 0.4 MG/5 ML SYR (LEXISCAN) IV ONE
[2020-11-26 12:00] VITALS: BP 155/101
--- NOTE | 2020-11-26 14:48 | Cardiology Stress Test Report ---
Stress Test Report Date of Procedure/Referring: Date of Procedure: Nov 26, 2020 PCP Rachell Chandler MD Admitting Physician Center/[facility] Indications: HTN Baseline Heart Rate: 84 Baseline Blood Pressure: Blood Pressure Systolic: 155 Blood Pressure Diastolic: 101 Baseline Vitals Vital Signs Date Time Temp Pulse Resp B/P (MAP) Pulse Ox O2 Delivery O2 Flow Rate FiO2 11/26/20 12:00 92 18 155/101 (119) 98 Room Air Baseline EKG: Baseline EKG: normal sinus rhythm Summary After explaining the procedure to the patient, he signed a consent and then brought to the stress nuclear laboratory. Patient received 0.4 mg Lexiscan for stress test, ECG, heart rate and blood pressure were monitored continuously. Resting and stress dose of radio tracer were injected, imaging was acquired and reviewed in short axis, horizontal long axis and vertical long axis views. TID: 1.07 SSS: 3 SDS: 1 EF: 62 1. Patient tolerated Lexiscan well 2. Diaphragmatic attenuation with mild decrease uptake at the mid to apical inferolateral wall with subtle reversibility, no significant ischemia or infarction on SPECT images 3. Normal left ventricular size, EF 62 percent RACHELL CHANDLER MD Nov 26, 2020 14:48
== END ==
LOC: CARD 10:30
PROVIDERS: ATTEND Internal Medicine Cardiovascular Disease
DX: I10 Essential (primary) hypertension (principal); R07.9 Chest pain, unspecified
CPT/HCPCS: 78452; 93017; 93306; A9502

== ENCOUNTER 2020-12-24 06:39 | Day surgery (SDC) | payer MEDICARE ==
[~2020-12-24] VITALS: Ht 167 cm; Wt 105.0 kg
[2020-12-24] VITALS (8 sets, daily range): BP systolic 103–154; BP diastolic 72–104
[~2020-12-24 06:39] MED LIST changes: -CATHETER FLUSH 10 ML SYR IV PRN; -REGADENOSON 0.4 MG/5 ML SYR (LEXISCAN) IV ONE
[2020-12-24] MEDS ORDERED: HEParin (CATH LAB) 2,000 ML IV ONE (06:52)
[2020-12-24] MEDS ORDERED: LIDOCAINE 1% INJ 20 ML 20 ML VIAL ONE (06:52)
[2020-12-24] MEDS ORDERED: NS IV 1000 ML 1,000 ML ONE (06:52)
[2020-12-24] MEDS ORDERED: NS IV 1000 ML 1,000 ML IV SCH ×2 (07:00→09:15)
[2020-12-24 07:34] LABS: BILIRUBIN,URINE NEGATIVE (NEGATIVE); CLARITY,URINE CLEAR; COLOR,URINE YELLOW; GLUCOSE, URINE (UA) NEGATIVE (NEGATIVE); KETONES,URINE NEGATIVE (NEGATIVE); LEUKOCYTE ESTERASE ,URINE NEGATIVE (NEGATIVE); NITRITE,URINE NEGATIVE (NEGATIVE); PH,URINE 6.5 (5-9); PROTEIN,URINE NEGATIVE (NEGATIVE)
[2020-12-24 07:35] LABS: HEMOGLOBIN 14.4 g/dL (13.3-17.7); MEAN PLATELET VOLUME 10.8 fL (9.0-12.2); WHITE BLOOD COUNT 6.4 10^3/uL (4.3-11.0)
[2020-12-24 07:45] LABS: BACTERIA,URINE TRACE /HPF; SQUAMOUS EPITHELIAL CELL,UR 0-2 /HPF; WBC,URINE 0-2 /HPF
--- NOTE | 2020-12-24 07:45 | Diagnostic Imaging Report ---
INDICATION: Hypertension, chest pain. COMPARISON: 02/21/2019. FINDINGS: Single view of the chest demonstrates a loop recorder overlying the left base. The heart is slightly enlarged. Lungs are clear. There is no pneumothorax but osseous structures are stable. IMPRESSION: No acute cardiopulmonary findings. Dictated by: Dictated on workstation # [id number]
[2020-12-24 07:55] LABS: ALANINE AMINOTRANSFERASE 15 U/L (0-55); ALBUMIN 4.4 GM/DL (3.2-4.5); ALKALINE PHOSPHATASE 59 U/L (40-136); BILIRUBIN,TOTAL 0.6 MG/DL (0.1-1.0); BUN/CREATININE RATIO 11; CALCIUM 9.7 MG/DL (8.5-10.1); CARBON DIOXIDE 22 MMOL/L (21-32); CHLORIDE 106 MMOL/L (98-107); CHOLESTEROL 190 MG/DL (< 200); CREATININE SERUM 0.94 MG/DL (0.60-1.30); GFR ESTIMATED > 60; GLUCOSE 98 MG/DL (70-105); HDL CHOLESTEROL 51 MG/DL (40-60); POTASSIUM 4.1 MMOL/L (3.6-5.0); SODIUM 140 MMOL/L (135-145); TOTAL PROTEIN 8.1 GM/DL (6.4-8.2); TRIGLYCERIDES 80 MG/DL (<150); VLDL CHOLESTEROL 16 MG/DL (5-40)
[2020-12-24] MEDS ORDERED: OMEG-109 PO (08:04)
[2020-12-24] MEDS ORDERED: ATOR10TA66 PO (08:04)
[2020-12-24] MEDS ORDERED: ASPI-1238 PO (08:04)
[2020-12-24] MEDS ORDERED: MTP25TSR PO (08:04)
[2020-12-24] MEDS ORDERED: DILT120C53 PO (08:04)
[2020-12-24] MEDS ORDERED: PANT40TA52 PO (08:04)
[2020-12-24] MEDS ORDERED: HYDR-700 PO (08:04)
[2020-12-24] MEDS ORDERED: IMMUNE SUPPORT PO (08:04)
[2020-12-24] MEDS ORDERED: FLUT1BLS IH (08:04)
[2020-12-24] MEDS ORDERED: DULO30CA3 PO (08:04)
[2020-12-24] MEDS ORDERED: RT-ALBUINH IH (08:04)
[2020-12-24] MEDS ORDERED: RIVA20TA PO (08:04)
[2020-12-24 08:05] LABS: INR 1.2 (0.8-1.4); PROTHROMBIN TIME PATIENT 15.9 SEC (12.2-14.7)
[2020-12-24] MEDS ORDERED: NITRO DRIP 25000 MCG/D5W 250 ML IV ONE (08:27)
[2020-12-24] MEDS ORDERED: HEParin 1000 UNIT/ML (10ML VIAL) FOR BOLUS ONE (08:27)
[2020-12-24] MEDS ORDERED: VERAPAMIL 5 MG/2 ML (CALAN) VIAL IV ONE (08:27)
[2020-12-24] MEDS ORDERED: MIDAZOLAM 5 MG/5 ML (VERSED) VIAL ONE (08:27)
[2020-12-24] MEDS ORDERED: fentaNYL INJ 100 MCG/2 ML AMP ONE (08:27)
--- NOTE | 2020-12-24 09:02 | Cardiac Procedure Note-CS/ASA ---
Pre-Procedure Note Pre-Op Procedure Note H&P Reviewed The H&P was reviewed, patient examined and no changes noted. Date H&P Reviewed: Dec 24, 2020 Time H&P Reviewed: 09:02 Conscious Sedation Pre-Proced Time 09:02 ASA Score 3 For ASA 3 and 4: Consider anesthesia and medical clearance. Also, for patients with a history of failed moderate sedation consider anesthesia. Airway Lungs Heart ASA score ASA 1: a normal healthy patient ASA 2: a patient with a mild systemic disease (mid diabetes, controlled hypertension, obesity x ASA 3: a patient with a severe systemic disease that limits activity (angina, COPD, prior Myocardial infarction) ASA 4: a patient with an incapacitating disease that is a constant threat to life (CHF, renal failure) ASA 5: a moribund patient not expected to survive 24 hrs. (ruptured aneurysm) ASA 6: a declared brain- patient whose organs are being harvested. For emergent operations, add the letter E after the classification Mallampati Classification Grade 3 Sedation Plan Analgesia, Amnesia, Plan communicated to team members, Discussed options with patient/fam, Discussed risks with patient/fam The patient is an appropriate candidate to undergo the planned procedure, sedation, and anesthesia. The patient immediately re-assessed prior to indication. RACHELL LU MD Dec 24, 2020 09:02
--- NOTE | 2020-12-24 09:03 | Discharge Inst-Post CATH ---
Discharge Inst-CATH/EP Problems Reviewed?: Yes Post Cardiac Cath/EP D/C Inst Follow Up/Plan Appointment with Dr. Chandler's office in 2 to 4 weeks <b>CARDIAC CATH/EP PROCEDURE DISCHARGE INSTRUCTIONS</b> ACTIVITY * Go Home directly and rest. * Limit activity of the leg (or wrist if it was used) for 7 days including aer obics, swimming, jogging, bicycling, etc. * Restrict stair-climbing for 7 days if possible, if not, climb up with your non-cath leg, then bring together on the same step. * Avoid lifting, pushing, pulling or excessive movement of the affected extremi ty for 7 days. * Customary sexual activity may be resumed after 2 days-use caution not to use a position that strains or causes pain to the affected extremity. * No driving for 24 hours. * NO SMOKING. * Avoid straining for bowel movements for 7 days. * Gentle walking on level ground is allowed. * Returning to work will depend on the type of procedure and the results. Your doctor will discuss this with you. CALL YOUR DOCTOR FOR ANY OF THE FOLLOWING: *If bleeding from the puncture site occurs- Apply gentle pressure to site with clean cloth and call your doctor or EMS. * If a knot or lump forms under the skin, increases in size, or causes pain. * If bruising appears to be worsening or moving further down your leg instead of disappearing. * Temperature above 101 F. CARE OF YOUR GROIN INCISION; * Bruising or purple discoloration of the skin near the puncture site is common. * You may shower only, no bathtub bathing for 5 days. Be careful to avoid slipping as your leg may feel stiff. * If a closure device was used on your femoral artery, please see the attached guide regarding care of the device and your leg. * Leave dressing on FOR 24 hours. CARE OF YOUR WRIST INCISION; * Bruising or purple discoloration of the skin near the puncture site is common. * You may shower. * DO NOT submerge wrist. * Leave dressing on FOR 24 hours. RACHELL CHANDLER MD Dec 24, 2020 09:03
--- NOTE | 2020-12-24 09:07 | Cardiac Cath Report ---
Cardiac Cath Report Physician (s)/Software Test Developer (s) Physician RACHELL LU MD Pre-Procedure Diagnosis Pre-Procedure Diagnosis: Coronary artery disease Post-Procedure Note Procedure Start Date: Dec 24, 2020 Name of Procedure: Left heart catheterization Aortic arch angiogram Findings/Procedure Note PROCEDURE NOTE: 65 years old gentleman with paroxysmal atrial fibrillation, maintained on flecainide, had an abnormal stress test, scheduled for cardiac catheterization possible PTCA. After explaining the procedure to the patient, all pros and cons were explained, all questions were answered. The patient signed the consent and then he was placed on the cardiac catheterization laboratory. Groin was prepped SL fashion local anesthesia was used. Sheath placed in the right radial artery, [place] catheter was advanced to the left ventricular cavity, pressure was measured, patient was hypotensive, started on IV fluid, pullback LV to aorta was done, intubated the left coronary system and angiogram was done then turned to the right coronary system and angiogram was done. The catheter was pulled to the aortic arch and aortic arch angiogram was done. At the end of the procedure the sheath was removed. Vascular band was used FINDINGS: Hemodynamics LV 78/15, end-diastolic pressure of 15 Aorta 81/61 mean of 63 ANATOMY: Left Main is free of obstructive disease Left Anterior Descending is slightly tortuous with slow flow, no significant obstructive disease Left Circumflex slow flow was noted in the circumflex artery with no obstructive disease Right Coronory Artery is moderate in size with no obstructive disease LV Gram was not done, pressure was measured Aorta evaluation done with aortic arch angiogram showing normal aortic arch, no dissection or aneurysm, normal origin of the innominate artery, left carotid and left subclavian arteries. CONCLUSION: 1. Slow flow in the left coronary system with no significant obstructive disease, probably due to hypotension noted during procedure 2. Normal left ventricular end-diastolic pressure 3. Normal aortic arch and great vessels of the neck DISCUSSION AND RECOMMENDATION: Patient has slow flow in the coronary system could be due to small vessel disease or due to his hypotension, given IV fluid and blood pressure improved. Will continue on current medication monitor Anesthesia Type: Conscious Sedation Estimated blood loss (mL): 10 ml Contrast Amount: 45 ml Total Radiation Dose: 516 mGy Post-Procedure Diagnosis Post-operative diagnosis: Chest pain Coronary artery disease Atrial fibrillation Hypertension RACHELL LU MD Dec 24, 2020 09:07
== END 2020-12-24 11:55 | disposition home or self-care (01) ==
LOC: CATH 06:39 → SDC 09:18 → CATH 11:55
PROVIDERS: ATTEND Internal Medicine Cardiovascular Disease
DX: I25.10 Atherosclerotic heart disease of native coronary artery without angina pectoris (principal); R07.9 Chest pain, unspecified; I10 Essential (primary) hypertension; I48.91 Unspecified atrial fibrillation; I65.23 Occlusion and stenosis of bilateral carotid arteries; B19.20 Unspecified viral hepatitis C without hepatic coma; G47.33 Obstructive sleep apnea (adult) (pediatric); E66.9 Obesity, unspecified; E78.5 Hyperlipidemia, unspecified; E78.2 Mixed hyperlipidemia; I95.9 Hypotension, unspecified; F41.9 Anxiety disorder, unspecified; Z88.8 Allergy status to other drugs, medicaments and biological substances; Z79.82 Long term (current) use of aspirin; Z99.89 Dependence on other enabling machines and devices; Z79.899 Other long term (current) drug therapy; Z68.37 Body mass index [BMI] 37.0-37.9, adult; Z87.891 Personal history of nicotine dependence; Z95.818 Presence of other cardiac implants and grafts; Z83.3 Family history of diabetes mellitus
CPT/HCPCS: 36221; 71045; 80053; 80061; 81000; 85027; 85610; 85730; 87081; 93458; C1894; 36415

== ENCOUNTER → 2021-03-18 | Outpatient (CLI) | payer MEDICARE ==
[~2021-03-18] MED LIST changes: +ASPI-1238 PO; +ATOR10TA66 PO; +CATHETER FLUSH 10 ML SYR IV PRN; +DILT120C53 PO; +DULO30CA3 PO; +FLUT1BLS IH; +HOLD METFORMIN - RECEIVED CONTRAST 20 ML VIAL IV SCH; +HYDR-700 PO; +IMMUNE SUPPORT PO; +IOHEXOL 350 MG/ML 100 ML (OMNIPAQUE 350) VIAL IV ONE; +MTP25TSR PO; +NS 100 ML (IVPB) BAG IV ONE; +OMEG-109 PO; +RIVA20TA PO; +RT-ALBUINH IH; +RT-ALBUTEROL SULF 2.5 MG/3 ML PRE-MIX VIAL INH ONE
[2021-03-18 07:50] LABS: BUN/CREATININE RATIO 12; CREATININE SERUM 1.15 MG/DL (0.60-1.30); GFR ESTIMATED > 60
--- NOTE | 2021-03-18 13:37 | Diagnostic Imaging Report ---
EXAMINATION: CT chest with intravenous contrast. TECHNIQUE: Multiple contiguous axial images were obtained through the chest after the uneventful administration of intravenous contrast. All CT scans use one or more of the following dose optimizing techniques: automated exposure control, MA and/or KvP adjustment based on patient size and exam type or iterative reconstruction. HISTORY: Follow-up for COPD. No new symptoms. COMPARISON: 04/07/2020. FINDINGS: The heart size is normal in appearance. No pericardial effusion is present. The thoracic aorta is unremarkable. No evidence of pulmonary embolism to the segmental pulmonary arteries. There is no mediastinal, hilar, or axillary lymphadenopathy. The lungs demonstrate no pulmonary nodules or masses. There are no focal areas of consolidation. No central endobronchial obstructing lesions are identified. There is no pleural effusion or pneumothorax. The osseous structures demonstrate no acute abnormalities. Limited views of the upper abdominal structures demonstrate no acute abnormalities. Cholelithiasis is again noted. Small hiatal hernia is present. Both adrenal glands are unremarkable. IMPRESSION: 1. No acute abnormalities in the chest. No focal consolidation or pulmonary nodule. 2. Cholelithiasis is again noted. No CT evidence of acute cholecystitis. 3. Small hiatal hernia. Dictated by: Dictated on workstation # [id number]
== END ==
LOC: RT 07:15
PROVIDERS: ATTEND Nurse Practitioner Family
DX: J44.9 Chronic obstructive pulmonary disease, unspecified (principal)
CPT/HCPCS: 36415; 71260; 82565; 84520; 94060; 94726; 94729

== ENCOUNTER → 2021-04-01 | Outpatient (CLI) | payer MEDICARE ==
[~2021-04-01] MED LIST changes: -CATHETER FLUSH 10 ML SYR IV PRN; -HOLD METFORMIN - RECEIVED CONTRAST 20 ML VIAL IV SCH; -IOHEXOL 350 MG/ML 100 ML (OMNIPAQUE 350) VIAL IV ONE; -NS 100 ML (IVPB) BAG IV ONE; -RT-ALBUTEROL SULF 2.5 MG/3 ML PRE-MIX VIAL INH ONE
[2021-04-01 15:04] LABS: ALANINE AMINOTRANSFERASE 22 U/L (0-55); ALBUMIN 4.4 GM/DL (3.2-4.5); ALKALINE PHOSPHATASE 55 U/L (40-136); BILIRUBIN,TOTAL 0.4 MG/DL (0.1-1.0); BUN/CREATININE RATIO 12; CALCIUM 9.6 MG/DL (8.5-10.1); CARBON DIOXIDE 26 MMOL/L (21-32); CHLORIDE 104 MMOL/L (98-107); CHOLESTEROL 175 MG/DL (< 200); CREATININE SERUM 1.03 MG/DL (0.60-1.30); GFR ESTIMATED > 60; GLUCOSE 83 MG/DL (70-105); HDL CHOLESTEROL 46 MG/DL (40-60); POTASSIUM 4.3 MMOL/L (3.6-5.0); SODIUM 138 MMOL/L (135-145); TOTAL PROTEIN 7.9 GM/DL (6.4-8.2); TRIGLYCERIDES 65 MG/DL (<150); VLDL CHOLESTEROL 13 MG/DL (5-40)
== END ==
LOC: LAB 14:10
PROVIDERS: ATTEND Internal Medicine Cardiovascular Disease
DX: E78.2 Mixed hyperlipidemia (principal)
CPT/HCPCS: 36415; 80053; 80061

== ENCOUNTER → 2021-10-06 | Outpatient (CLI) | payer MEDICARE ==
[2021-10-06 11:14] LABS: ALBUMIN 4.3 GM/DL (3.2-4.5); POTASSIUM 4.7 MMOL/L (3.6-5.0)
[2021-10-06 11:15] LABS: CALCIUM 9.5 MG/DL (8.5-10.1)
[2021-10-06 11:17] LABS: TOTAL PROTEIN 7.9 GM/DL (6.4-8.2)
[2021-10-06 11:18] LABS: BILIRUBIN,TOTAL 0.5 MG/DL (0.1-1.0)
[2021-10-06 11:20] LABS: CREATININE SERUM 1.06 MG/DL (0.60-1.30)
== END ==
LOC: LAB 10:43
PROVIDERS: ATTEND Physician Assistant
DX: E78.2 Mixed hyperlipidemia (principal)
CPT/HCPCS: 36415; 80053; 80061

== ENCOUNTER → 2021-11-13 | Outpatient (CLI) | payer MEDICARE ==
[2021-11-13 16:34] LABS: ALBUMIN 4.3 GM/DL (3.2-4.5)
[2021-11-13 16:37] LABS: TOTAL PROTEIN 7.8 GM/DL (6.4-8.2)
[2021-11-13 16:39] LABS: BILIRUBIN,TOTAL 0.5 MG/DL (0.1-1.0)
[2021-11-13 16:43] LABS: BILIRUBIN,DIRECT 0.2 MG/DL (0.0-0.3); BILIRUBIN,INDIRECT 0.3 MG/DL
== END ==
LOC: LAB 16:01
PROVIDERS: ATTEND Internal Medicine Gastroenterology
DX: B18.2 Chronic viral hepatitis C (principal)
CPT/HCPCS: 36415; 80076; 87522

== ENCOUNTER → 2021-11-26 | Outpatient (CLI) | payer MEDICARE ==
[~2021-11-26] MED LIST changes: +CATHETER FLUSH 10 ML SYR IV PRN; +HOLD METFORMIN - RECEIVED CONTRAST 20 ML VIAL IV SCH; +IOHEXOL 350 MG/ML 100 ML (OMNIPAQUE 350) VIAL IV ONE
[2021-11-26 13:46] LABS: CREATININE SERUM 1.06 MG/DL (0.60-1.30)
--- NOTE | 2021-11-26 15:17 | Diagnostic Imaging Report ---
INDICATION: Essential hypertension. COMPARISON: None TECHNIQUE: Postcontrast CTA of the neck was performed. Contrast was injected intravenously in time for optimal opacification arterial structures. Multiplanar 3-D reformats were also performed and reviewed. Auto Exposure Controls were utilized during the CT exam to meet ALARA standards for radiation dose reduction. FINDINGS: CTA neck: Included portions of the aortic arch are unremarkable. There is minimal atherosclerosis of the origins of proximal portions of the major arch vessels, but there is no focal significant stenosis. Right common carotid artery is normal in course and caliber. By NASCET criteria, there is no focal significant stenosis. There is no evidence of dissection or thrombosis. There is however moderate asymmetric noncalcified atherosclerotic disease involving the mid portion of the left common carotid artery. At its greatest, this results in approximately 63% stenosis (image 191, series 2). Bulky calcified mild to moderate atherosclerotic disease is also seen involving the bilateral carotid bulbs and proximal portions of the bilateral internal carotid arteries. This however appears to result in less than 50% stenosis. Bilateral internal carotid arteries are otherwise patent. There is no evidence of dissection or thrombosis. Within the posterior circulation, vertebral arteries are codominant. Vertebral arteries are patent from their origins to their confluence of the basilar artery. There is no evidence of dissection or thrombosis. Osseous structures show no acute abnormalities. Surrounding soft tissues of the neck are unremarkable. Included portions of the lung apices are clear. IMPRESSION: 1. Moderate eccentric noncalcified atherosclerotic disease of the left mid common carotid artery. Again, this results in approximately 63% stenosis. 2. [id number] bulky calcified atherosclerosis of the bilateral carotid bulbs and proximal portions of the bilateral internal carotid arteries. There is however no convincing evidence of focal hemodynamic significant stenosis of the carotid bulbs or internal carotid arteries. Dictated by: Dictated on workstation # [id number]
== END ==
LOC: CARD 13:30
PROVIDERS: ATTEND Internal Medicine Cardiovascular Disease
DX: I65.23 Occlusion and stenosis of bilateral carotid arteries (principal); I10 Essential (primary) hypertension
CPT/HCPCS: 36415; 70498; 82565; 84520; 93306

== ENCOUNTER → 2022-03-05 | Outpatient (CLI) | payer MEDICARE ==
[~2022-03-05] MED LIST changes: -CATHETER FLUSH 10 ML SYR IV PRN; -HOLD METFORMIN - RECEIVED CONTRAST 20 ML VIAL IV SCH; -IOHEXOL 350 MG/ML 100 ML (OMNIPAQUE 350) VIAL IV ONE
[2022-03-05 07:29] LABS: ALBUMIN 4.3 GM/DL (3.2-4.5); POTASSIUM 3.9 MMOL/L (3.6-5.0)
[2022-03-05 07:30] LABS: CALCIUM 9.5 MG/DL (8.5-10.1)
[2022-03-05 07:31] LABS: TOTAL PROTEIN 7.5 GM/DL (6.4-8.2)
[2022-03-05 07:33] LABS: BILIRUBIN,TOTAL 0.5 MG/DL (0.1-1.0)
[2022-03-05 07:35] LABS: CREATININE SERUM 1.19 MG/DL (0.60-1.30)
== END ==
LOC: LAB 07:02
PROVIDERS: ATTEND Internal Medicine Cardiovascular Disease
DX: I48.0 Paroxysmal atrial fibrillation (principal); I10 Essential (primary) hypertension; E78.2 Mixed hyperlipidemia; I65.23 Occlusion and stenosis of bilateral carotid arteries
CPT/HCPCS: 36415; 80053; 80061

== ENCOUNTER → 2022-05-27 | Outpatient (CLI) | payer MEDICARE ==
--- NOTE | 2022-05-27 15:45 | Diagnostic Imaging Report ---
Indication: Long-term amiodarone usage PA and lateral views of the chest are obtained. COMPARISON: No previous study is available for comparison at this time. FINDINGS: Heart size and pulmonary vasculature are within normal limits, and the lungs are clear, bilaterally. Loop recorder seen in the anterior left chest wall. IMPRESSION: Unremarkable chest. Dictated by: Dictated on workstation # [id number]
== END ==
LOC: RAD 15:17
PROVIDERS: ATTEND Physician Assistant
DX: I48.0 Paroxysmal atrial fibrillation (principal); I10 Essential (primary) hypertension; E78.2 Mixed hyperlipidemia; I65.23 Occlusion and stenosis of bilateral carotid arteries; Z79.899 Other long term (current) drug therapy
CPT/HCPCS: 36415; 71046; 84443

== ENCOUNTER → 2022-06-15 | Outpatient (CLI) | payer MEDICARE ==
--- NOTE | 2022-06-15 08:56 | Diagnostic Imaging Report ---
EXAMINATION: CT chest without contrast (lung screening). TECHNIQUE: Multiple contiguous axial images were obtained through the chest without the use of intravenous contrast according to lung cancer screening protocol. All CT scans use one or more of the following dose optimizing techniques: automated exposure control, MA and/or KvP adjustment based on patient size and exam type or iterative reconstruction. HISTORY: 24 pack year history of smoking. COMPARISON: 03/18/2021 FINDINGS: There is no edema or pneumonia. No pleural effusion. No pneumothorax. No suspicious nodules. There is unchanged. Mild groundglass left lower lobe and may represent focal scarring. There is mild atelectasis in the lingula and right middle lobe. There is no axillary or supraclavicular lymphadenopathy. There is no mediastinal lymphadenopathy. Heart size is normal. There are mild coronary artery calcifications. No pericardial effusion. Aorta is normal in caliber. Limited views of the upper abdomen are unremarkable. There are no suspicious osseus lesions. IMPRESSION: 1. No suspicious pulmonary nodules. LUNG-RADS CATEGORY: 2 MODIFIER: None. Dictated by: Dictated on workstation # [id number]
== END ==
LOC: RAD 08:03
PROVIDERS: ATTEND Internal Medicine Critical Care Medicine
DX: Z12.2 Encounter for screening for malignant neoplasm of respiratory organs (principal); Z87.891 Personal history of nicotine dependence; J44.9 Chronic obstructive pulmonary disease, unspecified
CPT/HCPCS: 71271

== ENCOUNTER → 2022-12-31 | Outpatient (CLI) | payer MEDICARE ==
[~2022-12-31] MED LIST changes: +ALBU8.5H6 IH; -RT-ALBUINH IH
[2022-12-31 08:00] LABS: ALBUMIN 3.9 GM/DL (3.2-4.5); BILIRUBIN,TOTAL 0.4 MG/DL (0.1-1.0); CALCIUM 9.1 MG/DL (8.5-10.1); CREATININE SERUM 1.19 MG/DL (0.60-1.30); POTASSIUM 4.3 MMOL/L (3.6-5.0); TOTAL PROTEIN 7.2 GM/DL (6.4-8.2)
== END ==
LOC: LAB 07:21
PROVIDERS: ATTEND Internal Medicine Cardiovascular Disease
DX: I48.0 Paroxysmal atrial fibrillation (principal); E78.2 Mixed hyperlipidemia; I10 Essential (primary) hypertension; R07.9 Chest pain, unspecified; I65.23 Occlusion and stenosis of bilateral carotid arteries; Z79.899 Other long term (current) drug therapy
CPT/HCPCS: 36415; 80053; 80061

== ENCOUNTER → 2023-07-11 | Outpatient (CLI) | payer MEDICARE ==
[2023-07-11 08:45] LABS: ALBUMIN 3.9 GM/DL (3.2-4.5); POTASSIUM 4.2 MMOL/L (3.6-5.0)
[2023-07-11 08:46] LABS: CALCIUM 8.8 MG/DL (8.5-10.1)
[2023-07-11 08:50] LABS: BILIRUBIN,TOTAL 0.4 MG/DL (0.1-1.0)
[2023-07-11 08:51] LABS: CREATININE SERUM 1.2 MG/DL (0.60-1.30)
== END ==
LOC: LAB 08:09
PROVIDERS: ATTEND Internal Medicine Cardiovascular Disease
DX: I48.0 Paroxysmal atrial fibrillation (principal); I65.23 Occlusion and stenosis of bilateral carotid arteries; I10 Essential (primary) hypertension; E78.2 Mixed hyperlipidemia; Z79.899 Other long term (current) drug therapy
CPT/HCPCS: 36415; 80053; 80061